=== PATIENT | female | born 1965 | race African-American/Black ===

== ENCOUNTER 2024-03-19 10:40 | Inpatient (IN) | payer MEDICARE, MEDICAID, SELFPAY ==
[2024-03-19] VITALS (16 sets, daily range): BP systolic 110–135; BP diastolic 66–85; PULSE 108–137; RESP 18–33; TEMP 37.1–39.3; O2SAT 88–100; BMI 23.6; BMI 24.6
--- NOTE | ~2024-03-19 | XR_ITS ---
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 FINDINGS/IMPRESSION: New left thoracostomy tube, in good position, with near-complete interval resolution of the left pneu mothorax. Small volume subcutaneous gas over the left hemithorax. Endotracheal tube, left upper extremity PICC, and NG tube remain in good position. Patchy bilateral interstitial and airspace disease. Reviewed, dictated and finalized at location K. INE CUTTER
--- NOTE | ~2024-03-19 | XR_ITS ---
EXAMINATION: XR chest 1V portable DATE: 03/26/2024 06:19 INDICATION: Intubation TECHNIQUE: frontal view of the chest was obtained. COMPARISON: Chest radiograph dated 03/25/2024 FINDINGS: Endotracheal tube tip 3.1 cm above the hans. Nasogastric tube extends below the left hemidiaphragm with distal tip collimated off the study. The visualized distal nasogastric tube projects over sutur e line potentially for gastric bypass procedure in the left upper quadrant. Left upper extremity gregory pherally inserted central venous catheter (PICC) tip at the caudal superior vena cava. Apically directed left chest tube. No pneumothorax or pleural effusion. There are diffuse patchy airs pace opacities throughout both lungs consistent with pneumonia and/or ARDS. The cardiomediastinal chante houette is normal. Heart size is normal. IMPRESSION: 1. Persistent diffuse patchy airspace opacities in both lungs which represent multifocal pneumonia an d/or ARDS. 2. Lines and tubes in expected positions as detailed above. Reviewed, dictated and finalized at location A. ENT ACCOUNTS COORDINATOR IMPRESSION: 1. Persistent diffuse patchy airspace opacities in both lungs which represent m ultifocal pneumonia and/or ARDS. 2. Lines and tubes in expected positions as detailed above.
--- NOTE | ~2024-03-19 | XR_ITS ---
EXAMINATION: XR chest 1V portable DATE: 03/25/2024 05:48 INDICATION: Intubation. TECHNIQUE: A single frontal view of the chest was obtained. COMPARISON: Chest single view 03/24/24, chest CT 03/20/2024 FINDINGS: There are patchy airspace opacities in all lung zones bilaterally. No pleural effusion or p neumothorax. The heart size is normal. The endotracheal tube tip is 3.9 cm above the hans. A left u pper extremity peripherally inserted central venous catheter (PICC) is seen with tip in the superior vena cava. The nasogastric tube tip is in the stomach. IMPRESSION: 1. Stable diffuse lung disease, consistent with pneumonia. Reviewed, dictated and finalized at location A. SERVICE EDUCATOR
--- NOTE | ~2024-03-19 | XR_ITS ---
EXAMINATION: XR chest ET placement, XR abdomen gastric tube insert DATE: 03/22/2024 12:34 INDICATION: Endotracheal tube placement and nasogastric tube placement TECHNIQUE: 1. AP view of the chest was obtained. 2. AP view of the abdomen was obtained. COMPARISON: Chest radiograph dated 03/22/2024 FINDINGS: Endotracheal tube tip 3.3 cm above the hasn. Persistent bilateral patchy airspace opacities, right greater than left consistent with multifocal pneumonia. No pleural effusion or pneumothorax. Heart si ze is normal. Postoperative changes with sutures at the gastroesophageal junction. Nasogastric tube tip in proximal side port in the body of the stomach. There is gas and stool in the visualized colon. IMPRESSION: 1. Endotracheal tube and nasogastric tube in expected positions. 2. Persistent patchy bilateral lung disease consistent with multifocal pneumonia. Reviewed, dictated and finalized at location A. ESSOR OF ARCHITECTURE IMPRESSION: 1. Endotracheal tube and nasogastric tube in expected positions. 2. Persistent patchy bilateral lung disease consistent with multifocal pneumoni a.
--- NOTE | ~2024-03-19 | XR_ITS ---
Portable chest x-ray Comparison: 04/06/2024 Clinical History: Elevated respirations Findings: There is extensive patchy bilateral airspace disease. No pleural effusion or pneumothorax. Cardiomediastinal silhouette is stable. Bones and soft tissues are unremarkable. Impression: Extensive patchy bilateral airspace disease, compatible with worsening bilateral pneumonia. Reviewed, dictated and finalized at [facility]. PLANT MAINTENANCE CONSULTANT Impression: Extensive patchy bilateral airspace disease, compatible with worsening bilatera l pneumonia.
--- NOTE | ~2024-03-19 | XR_ITS ---
Portable chest x-ray Comparison: 03/26/2024 Clinical History: Respiratory failure Findings: Endotracheal tube, NG tube, left-sided PICC line, and left-sided chest tube are in place. Small left apical pneumothorax present, probably mildly increased from prior exam. Patchy bilateral a irspace disease is otherwise unchanged. Cardiomediastinal silhouette is stable. Bones and soft tissu es are unremarkable. Impression: Stable support tubes. Small left apical pneumothorax is more apparent/mildly increased as compared to prior exam. Stable patchy airspace disease throughout both lungs. Reviewed, dictated and finalized at location . L STUD FRAMER Impression: Stable support tubes. Small left apical pneumothorax is more apparent/mildly in creased as compared to prior exam. Stable patchy airspace disease throughout both lungs.
--- NOTE | ~2024-03-19 | XR_ITS ---
EXAMINATION: XR abdomen gastric tube insert DATE: 03/24/2024 13:53 INDICATION: A gastric tube placement TECHNIQUE: A supine view of the abdomen and lower chest was obtained for evaluation of feeding tube placement. COMPARISON: 03/22/2024 FINDINGS: Masslike suture line in the epigastric region. Nasogastric tube tip in proximal side port below the l evel of the gastroesophageal junction and beyond the suture line, unclear whether this is within the stomach or potentially it passes through the stomach into the Armando limb of a possible gastric bypass. Coarse interstitial and airspace opacities in the visualized bilateral mid to lower lungs. Heart siz e is normal. Left upper extremity peripherally inserted central venous catheter tip at the midsuperio r vena cava. IMPRESSION: 1. Nasogastric tube tip in proximal side port below the level of the gastroesophageal junction which could be either within the stomach or a possible Armando limb of a gastric bypass procedure with suture lines in the epigastric region. Correlate with surgical history. 2. Diffuse bilateral lung disease could relate to pulmonary edema or pneumonia. Reviewed, dictated and finalized at location B. COVER SPLITTER IMPRESSION: 1. Nasogastric tube tip in proximal side port below the level of the gastroesop hageal junction which could be either within the stomach or a possible Armando jolly b of a gastric bypass procedure with suture lines in the epigastric region. Cor relate with surgical history. 2. Diffuse bilateral lung disease could relate to pulmonary edema or pneumonia.
--- NOTE | ~2024-03-19 | XR_ITS ---
EXAMINATION: XR chest 1V portable Exam Date/Time: 03/25/2024 16:35 MATERIAL WORKER HISTORY: Increased O2 demand, worsening lung sounds Comparison: Same date at 5:30 AM. FINDINGS/IMPRESSION: Endotracheal tube, left upper extremity PICC, and nasogastric tube remain in good position. Large left pneumothorax with rightward mediastinal shift and volume loss in the right hemithorax. Dif fuse interstitial and airspace opacities bilaterally. Results reported telephonically to Bethany Alex RN by Dr. Wallace at 4:46 PM on 03/25/2024. Reviewed, dictated and finalized at location K. RIAL WORKER
--- NOTE | ~2024-03-19 | XR_ITS ---
Portable chest x-ray Comparison: 03/23/2024 Clinical History: Intubation Findings: Endotracheal tube, NG tube, and left-sided central venous line are in satisfactory positio ns. Extensive bilateral pulmonary disease is again present, right lung worse than left. No pleural ef fusion or pneumothorax. Cardiomediastinal silhouette is stable. Bones and soft tissues are unremarka ble. Impression: Stable extensive bilateral pulmonary disease. Correlate for pulmonary edema versus bilateral infectio n. Stable support tubes. Reviewed, dictated and finalized at [facility]. ER AND WRAPPER PACKER Impression: Stable extensive bilateral pulmonary disease. Correlate for pulmonary edema tamar lonnie bilateral infection. Stable support tubes.
--- NOTE | ~2024-03-19 | CT_ITS ---
EXAMINATION: CTA chest PE protocol DATE: 03/20/2024 23:48 INDICATION: sob, tachycardia TECHNIQUE: Computed tomography angiography (CTA) of the chest was performed with 100 mL Omnipaque-350 intravenous contrast timed to evaluate the pulmonary arteries. Coronal maximum intensity projection 3D-reconstructions were created by the technologist. The dose-length product (DLP) was 167.80 mGy-cm. Automated exposure control and iterative reconstruction technique were employed. COMPARISON: X-ray chest 03/19/2024. FINDINGS: Lung parenchyma and airways: Patchy bilateral consolidations, affecting all lobes, worse in the right lung. Scattered and asymmetric areas of groundglass opacity with septal thickening. Patent airways. Pleura: Unremarkable. Thoracic inlet, axillae and chest wall: Mild chest wall edema. Thoracic aorta: No significant dilation. No dissection. Mediastinum: Enlarged bilateral hilar lymph nodes. Dilated central pulmonary arteries as can be seen with pulmonary arterial hypertension. Heart and pericardium: Cardiomegaly. Coronary artery calcifications: Absent. Upper abdomen: No significant finding. Bones: No acute osseous finding. Pulmonary arteries: Study quality: Limited by motion. Small acute nonocclusive segmental right lower lobe embolus extending into a subsegmental branch. IMPRESSION: Acute nonocclusive segmental right lower lobe embolus. Low clot burden. No CT evidence of right heart strain. Worsening multifocal pneumonia, overlying asymmetric areas of pulmonary edema. Diffuse mild chest wall subcutaneous edema. Reviewed, dictated and finalized at location K. T PANEL ASSEMBLER IMPRESSION: Acute nonocclusive segmental right lower lobe embolus. Low clot burden. No CT e vidence of right heart strain. Worsening multifocal pneumonia, overlying asymmetric areas of pulmonary edema. Diffuse mild chest wall subcutaneous edema.
--- NOTE | ~2024-03-19 | XR_ITS ---
Portable chest x-ray Comparison: 03/22/2024 Clinical History: Intubation Findings: Endotracheal tube, NG tube, and left-sided PICC line are in satisfactory positions. Extens emmanuel bilateral airspace disease is again present. No pleural effusion. Cardiomediastinal silhouette i s stable. Bones and soft tissues are unremarkable. Impression: Extensive bilateral alveolar and interstitial disease. Correlate for extensive pulmonary edema or inf ection. Support tubes, as above. Reviewed, dictated and finalized at location . RIAL EXPEDITER Impression: Extensive bilateral alveolar and interstitial disease. Correlate for extensive pulmonary edema or infection. Support tubes, as above.
--- NOTE | ~2024-03-19 | XR_ITS ---
EXAMINATION: XR chest 1V portable DATE: 03/19/2024 12:13 INDICATION: Fever, seizures and shortness of breath TECHNIQUE: frontal view of the chest was obtained. COMPARISON: None FINDINGS: There are scattered patchy airspace opacities throughout the right lung and left perihilar predominan t opacities in the left lung. No pleural effusion or pneumothorax. The cardiomediastinal silhouette i s normal. Suture line in the epigastric region. IMPRESSION: 1. Bilateral airspace opacities suspicious for pneumonia although some of the opacities appear somewh at nodular and would recommend radiographic follow-up to resolution. Reviewed, dictated and finalized at location A. CAL OFFICE CLERK IMPRESSION: 1. Bilateral airspace opacities suspicious for pneumonia although some of the o pacities appear somewhat nodular and would recommend radiographic follow-up to resolution.
--- NOTE | ~2024-03-19 | CT_ITS ---
History: Fall PROCEDURE: CT head without contrast. COMPARISON: None TECHNIQUE: Axial imaging of the head performed from the skull base to the vertex without IV contrast. Sagittal a nd coronal reformations obtained. DLP: 605 mGy-cm FINDINGS: The ventricles are normal in size, shape and position. There is no mass, mass effect or midline shift. There is no abnormal extra-axial fluid collection or intracranial hemorrhage. Visualized paranasal sinuses are clear. The mastoid air cells are well aerated. No acute displaced fractures within the overlying cranium. Impression: No acute intracranial hemorrhage or suspicious mass effect. Reviewed, dictated and finalized at location A. QUOTING OPERATOR Impression: No acute intracranial hemorrhage or suspicious mass effect.
--- NOTE | ~2024-03-19 | CT_ITS ---
History: Fall PROCEDURE: CT cervical spine without intravenous contrast. COMPARISON: None TECHNIQUE: Multiple contiguous axial images of the cervical spine were performed without the administration of i ntravenous contrast. DLP: 605 mGy-cm FINDINGS: Preservation of the normal curvature of the cervical spine is identified. No acute fractures are present. The bilateral lung apices demonstrate multifocal infiltrates, consistent with recent chest radiograph . No soft tissue abnormality is present. The airway is unremarkable. Impression: Preservation of the normal curvature of the cervical spine. Multifocal infiltrates within the chest. No acute fracture. Reviewed, dictated and finalized at location A. GE CONTROL MANAGER Impression: Preservation of the normal curvature of the cervical spine. Multifocal infiltrates within the chest. No acute fracture.
--- NOTE | ~2024-03-19 | XR_ITS ---
EXAMINATION: XR chest PICC line DATE: 03/22/2024 13:20 INDICATION: Central line placement. TECHNIQUE: A single frontal view of the chest was obtained. COMPARISON: Chest single view 03/22/2024 FINDINGS: There are patchy airspace opacities in all lung zones bilaterally. No pleural effusion or p neumothorax. The heart size is normal. The endotracheal tube tip is 3.0 cm above the hans. A left u pper extremity peripherally inserted central venous catheter (PICC) is seen with tip in the superior vena cava. The nasogastric tube tip is beyond the inferior margin of the radiograph, but at least to the stomach. There is a staple line at the stomach. IMPRESSION: 1. PICC tip in the superior vena cava. 2. Stable diffuse lung disease, consistent with pneumonia. Reviewed, dictated and finalized at location A. GN CHECKER
--- NOTE | 2024-03-19 10:55 | ECG_ITS ---
Test Date: 2024-03-19 10:57:59 Measurements Intervals [place] Rate: 132 P: 72 MN: 119 QRS: 69 QRSD: 84 T: 15 QT: 273 QTc: 405 Interpretive Statements SINUS TACHYCARDIA WITH SHORT [place] INTERVAL BORDERLINE ST-T WAVE ABNORMALITY- INFERIOR LEADS ABNORMAL ECG No previous ECG available for comparison Electronically Signed On 03-19-2024 15:07:43 THERMOMETER MAKER by Danny Ryan D.O.
--- NOTE | 2024-03-19 11:53 | ED.GENADULT ---
HPI - General Adult General Chief complaint: Seizure Stated complaint: SEIZURE Time Seen by Provider: 03/19/24 11:52 Source: patient and EMS Mode of arrival: EMS Limitations: no limitations History of Present Illness HPI narrative: 58 years old female came from home by ambulance because of unwitnessed seizure. Currently patient complaining of shortness of breath and coughing for the last few days. Patient is telling me everybody in the family had similar symptoms. Patient had a seizure last night and unwitnessed 1 today. Patient is supposed to have tele doc visit with her neurologist for seizure evaluate but could not make it. Patient main complaint at this time is shortness of breath History of diabetes hypertension hyperlipidemia asthma bipolar seizure Related Data Home Medications ?Medication ?Instructions ?Recorded ?Confirmed ?Last Taken ?Type albuterol 90 mcg/actuation aerosol 90 mcg inhalation PRN 03/19/24 03/19/24 Unknown History inhaler gabapentin 300 mg capsule 300 mg PO TID 03/19/24 03/19/24 03/18/24 History levetiracetam 1,000 mg tablet 1,000 mg PO BID 03/19/24 03/19/24 03/18/24 History montelukast 10 mg tablet 10 mg PO QPM 03/19/24 03/19/24 03/18/24 History (Singulair) sertraline 150 mg capsule 150 mg PO DAILY 03/19/24 03/19/24 03/18/24 History trazodone 100 mg tablet 200 mg PO QPM 03/19/24 03/19/24 03/18/24 History Allergies Allergy/AdvReac Type Severity Reaction Status Date / Time Sulfa (Sulfonamide Allergy Swelling Verified 03/19/24 12:27 Antibiotics) Review of Systems Review of Systems: All systems reviewed & are unremarkable except as noted in HPI and below PMFSH Past Medical History Medical History (Updated 03/19/24 @ 15:35 by Isa Lara APRN) Neuropathy Panic disorder Agoraphobia Seizures Bipolar disorder Asthma Surgical History Surgical History (Updated 03/19/24 @ 15:35 by Isa Lara APRN) History of appendectomy History of section History of gastric bypass History of cholecystectomy Social History Social History Alcohol intake: never Substance use type: marijuana Other substance usage details: twice a month Do You Feel Safe in your Home?: Yes Lack of Transportation: No Lack of Food: Sometimes True Current Housing: I Do Not Have Housing Concerned About Future Housing: YES Difficulty Paying Gas/Electric Bills: YES Difficulty Paying for Meds: YES Currently Unemployed: No Education: High School Diploma/GED Difficulty w/ Childcare or Family Care: YES Spiritual care concerns: No Exam Narrative: GENERAL APPEARANCE: WELL-DEVELOPED, WELL-NOURISHED SKIN: NORMAL COLOR HEAD: NORMOCEPHALIC, NONTRAUMATIC EYES: CLEAR CONJUNCTIVA ENT: OROPHARYNX NORMAL, EARS NORMAL, NOSE NORMAL NECK: SUPPLE, NONTENDER CHEST AND RESPIRATORY: AIRWAY PATENT, NO RESPIRATORY DISTRESS, NO ACCESSORY MUSCLE USE HEART: REGULAR RATE/RHYTHM ABDOMEN: SOFT, NONTENDER, NO ORGANOMEGALY, QUIET BOWEL SOUNDS VASCULAR: NORMAL PERIPHERAL PULSES, NORMAL CAPILLARY REFILL. MUSCULOSKELETAL: NORMAL RANGE OF MOTION, NONTENDER BACK NEUROLOGIC: ALERT AND ORIENTED ?3, FRUIT PACKER FACE AND FILL IS NORMAL TESTED, NO GROSS MOTOR DEFICIT Course Vital Signs Vital signs: Vital Signs Temperature 39.3 C H 03/19/24 10:46 Pulse Rate 133 H 03/19/24 10:46 Respiratory Rate 30 H 03/19/24 10:46 Blood Pressure 125/81 03/19/24 10:46 Pulse Oximetry 95 03/19/24 10:46 Oxygen Delivery Room Air 03/19/24 10:46 Temperature 39.3 C H 03/19/24 10:46 Pulse Rate 130 H 03/19/24 13:27 Respiratory Rate 20 03/19/24 13:27 Blood Pressure 129/78 03/19/24 13:27 Pulse Oximetry 100 03/19/24 14:07 Oxygen Delivery Room Air 03/19/24 14:07 Medical Decision Making [facility] Narrative Medical decision making narrative: PATIENT CAME TO THE ED FROM HOME WITH SEIZURE ALSO BEEN HAVING UPPER RESPIRATORY VIRAL INFECTION/PNEUMONIA LIKE SYMPTOMS OVER THE LAST FEW DAYS VITAL SIGNS SHOWING HEART RATE OF 133, RESPIRATION 30, TEMPERATURE 39.3?, SATURATION 95% ON ROOM AIR. PHYSICAL EXAMINATION SHOWING PATIENT WITH INTERMITTENT COUGHING AND RHONCHI BILATERALLY OTHERWISE AWAKE, ALERT ORIENTED X4 DIFFERENTIAL DIAGNOSIS INCLUDE UPPER RESPIRATORY VIRAL INFECTION, PNEUMONIA, ELECTROLYTE IMBALANCE, DEHYDRATION, NONCOMPLIANCE WITH SEIZURE MEDICATION, URINARY TRACT INFECTION BLOOD WORKUP TODAY INCLUDES CBC, CMP, PT PTT, BLOOD CULTURE, LACTIC ACID AND CRP SHOWED SODIUM 133, RHONCHI PHOSPHATASE 182, C-REACTIVE PROTEIN 27.5, RESPIRATORY PANEL CAME BACK POSITIVE FOR INFLUENZA 8 CT HEAD, CT CERVICAL SPINE, WITHOUT CONTRAST SHOWED NO ACUTE ABNORMALITIES CHEST X-RAY SHOWED FINDING CONSISTENT WITH PNEUMONIA. PATIENT HAD HISTORY OF ASTHMA, BACTERIAL PNEUMONIA PROBABLY STARTED 5 DAYS AGO, INFLUENZA INFECTION PROBABLY RECENTLY ON TOP OF THE BACTERIAL PNEUMONIA. PATIENT TO BE ADMITTED TO THE HOSPITALIST FOR IV ANTIBIOTIC, FEVER CONTROL AND SEIZURE MONITORING Differential Diagnosis Differential Diagnosis: ABOVE Vital Signs Vital Signs: Vital Signs Temperature 39.3 C H 03/19/24 10:46 Pulse Rate 133 H 03/19/24 10:46 Respiratory Rate 30 H 03/19/24 10:46 Blood Pressure 125/81 03/19/24 10:46 Pulse Oximetry 95 03/19/24 10:46 Oxygen Delivery Room Air 03/19/24 10:46 Temperature 39.3 C H 03/19/24 10:46 Pulse Rate 130 H 03/19/24 13:27 Respiratory Rate 20 03/19/24 13:27 Blood Pressure 129/78 03/19/24 13:27 Pulse Oximetry 100 03/19/24 14:07 Oxygen Delivery Room Air 03/19/24 14:07 Lab Data 03/19/24 12:17 03/19/24 12:17 Labs: Lab Results 03/19/24 03/19/24 Range/Units 12:17 12:37 WBC 9.0 (4.5-10.0) K/mm3 RBC 5.15 (4.2-5.4) M/mm3 Hgb 14.2 (12.0-15.0) g/dL Hct 40.7 (37.0-47.0) % MCV 79.0 L (80-100) fl MCH 27.6 (26-34) pg MCHC 34.9 (32-36) g/dl RDW 13.9 (11.5-14.5) % Plt Count 170 (150-375) k/mm3 MPV 10.1 (7.4-10.4) fl Immature Gran % (Auto) 1.2 H (0-0.5) % Neut % (Auto) 80.7 H (45.5-73.1) % Lymph % (Auto) 7.2 L (18.3-44.2) % Cotton % (Auto) 8.7 H (2.6-8.5) % Eos % (Auto) 1.2 (0-4.4) % Baso % (Auto) 1.0 (0.2-1.2) % Lymph # (Auto) 0.65 L (0.9-3.2) K/mm3 Cotton # (Auto) 0.8 H (0.1-0.6) K/mm3 Eos # (Auto) 0.1 (0-0.3) K/mm3 Baso # (Auto) 0.1 (0.0-0.1) K/mm3 Abs Immat Gran (auto) 0.11 H (0.00-0.031) K/mm3 Absolute Neuts (auto) 7.3 H (1.3-6.7) K/mm3 Absolute Nucleated RBC 0.000 (0.0-0.012) K/mm3 Nucleated RBC % 0.0 (0.0-0.2) % PT 13.7 (11.1-14.7) Seconds INR 1.0 APTT 35.6 (22.3-36.8) Seconds Sodium 131 L (137-145) mmol/L Potassium 4.0 (3.4-5.0) mmol/L Chloride 100 (98-107) mmol/L Carbon Dioxide 20 L (22-30) mmol/L Anion Gap 11 (4-12) mmol/L BUN 11 (7-17) mg/dL Creatinine 0.45 L (0.7-1.0) mg/dL Estim Creat Clear Calc 87 ml/min Estimated GFR > 60 (59 - ) Glucose 111 H (65-110) mg/dL Lactic Acid 1.1 (0.7-2.0) mmol/L Calcium 8.4 (8.4-10.2) mg/dL Total Bilirubin 0.9 (0.2-1.3) mg/dL AST 44 H (14-36) U/L ALT 35 (6-35) U/L Alkaline Phosphatase 182 H (38-126) U/L C-Reactive Protein 27.5 H (<1.0) mg/dL Total Protein 7.0 (6.3-8.2) g/dL Albumin 3.5 (3.5-5.1) g/dL Influenza A (RT-PCR) Positive A (Negative) Influenza B (RT-PCR) Negative (Negative) RSV (RT-PCR) Negative (Negative) SARS-CoV-2 RNA (RT-PCR) Negative (Negative) Imaging Data Radiologist's impression: Impressions Chest X-Ray 03/19/24 12:51 IMPRESSION: 1. Bilateral airspace opacities suspicious for pneumonia although some of the opacities appear somewhat nodular and would recommend radiographic follow-up to resolution. Head CT 03/19/24 13:41 Impression: No acute intracranial hemorrhage or suspicious mass effect. Cervical Spine CT 03/19/24 13:42 Impression: Preservation of the normal curvature of the cervical spine. Multifocal infiltrates within the chest. No acute fracture. ECG Data EKG #1: Attestation: I personally reviewed and interpreted this ECG as follows: ECG completion date: 03/19/24 Ischemic changes: poor r wave progression Interpretation: SINUS TACHYCARDIA AT 132 BEATS PER MINUTE WITH SHORT DE INTERVAL, NORMAL EKG, NO PREVIOUS EKG AVAILABLE FOR COMPARISON Discharge Plan Discharge Clinical Impression: Pneumonia, Influenza A Patient Disposition: Still a Patient Condition: Stable Patient Language: Nigerian Prescriptions: No Action sertraline 150 mg capsule 150 mg PO DAILY montelukast [Singulair] 10 mg tablet 10 mg PO QPM gabapentin 300 mg capsule 300 mg PO TID trazodone 100 mg tablet 200 mg PO QPM levetiracetam 1,000 mg tablet 1,000 mg PO BID albuterol 90 mcg/actuation aerosol 90 mcg inhalation PRN Follow-up/Referrals: PHYSICIAN,PIPE BOWL PAINT TRIMMER [Primary Care Provider] -
--- NOTE | 2024-03-19 12:00 | PC.NURSE ---
Pt states she does not need to urinate and pt refusing straight cath
--- OUTSIDE RECORDS SUMMARY | 2024-03-19 12:07 | XMS_ITS | Encounter Summary ---
Author Organization [facility] Address [address] [place] [address] Care Team Providers Care Bacteriology Research Assistant Name Role Phone Shantell Islas DO Primary Care Provider Unavaila ble Reason for Visit * Reason Comments Medication Assistance Encounter Details Date Type Department Care Team (Late st Contact Info) Description 10/04/2023 Telephone [facility] [address] [facility] [address] [place] [address] Shantell Islas DO NO ADDRESS ON FILE Medication Assistance Social History Tobacco Use Types Packs/Day Years Used Date Smoking Tobacco: Never Smokeless Tobacco: Never Alcohol Use Standard Drinks/Week Comments No 0 (1 standard drink = 0.6 oz pur e alcohol) Feeling Safe Answer Date Recorded Are you in a relationship wi th someone who hurts you emotionally and/or physically? 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 Please see orders from this encounter. JLK Orders Placed This Encounter albuterol (PROVENTIL,VENTOLIN) 2.5 mg /3 mL (0.083 %) Solution for Nebulization * Telephone Encounter - Grace Damico - 10/06/2023 10:21 AM CDT Nebulizer solution [place] 07/20/2023 Labs N/A Appointment not scheduled. I do not see this on the patient's mediation list. Please advise. Thank you. * Telephone Encounter - Taty Wylie - 10/04/2023 12:45 PM CDT Copied from [facility] #[id number]. Topic: Medication Request >> Oct 04, 2023 12:42 PM Taty Neves wrote: Caller is requesting: Medication - New Request (Not Currently Taking) Medication (Ask patient/caregiver to spell if possible): Nebulizer solution Preferred Pharmacy: [id number] [place], [place] - [address] [place] [address] AT [facility] [address] [place] [phone] Hours: Not open 24 hours Patient/Caregiver Callback Number: [phone] (home) Call Notes: nebulizer getting delivered this week. Needs solution prescribed. documented in this encounter Plan of Treatment Not on file documented as of this encounter Visit Diagnoses Diagnosis Mild intermittent asthma without complication- Primary Unspecified asthma documented in this encounter Additional Health Concerns Infection Onset Date Last Indicated Resolved Time R/O Respiratory 12/04/2023 12/04/2023 12/04/2023 5 :40 PM CDT RHINO/ENTEROVIRUS (Adult) 12/04/2023 12/04/2023 1:16 AM CDT R/O Respiratory 12/18/2023 12/18/2023 12/18/2023 9 :16 PM CDT Assessment Noted Time PHQ-9 Depression Total Score: 4 06/25/19 24 4:06 PM CDT documented as of this encounter Care Teams Bacteriology Research Assistant Relationship Specialty Start Date End Date Shantell Islas DO PCP - General Family Practice 07/20/23 documented as of this encounter
--- OUTSIDE RECORDS SUMMARY | 2024-03-19 12:07 | XMS_ITS | Encounter Summary ---
Author Organization [facility] Address [address] [place] [address] Care Team Providers Care Parking Regulation Enforcement Officer Name Role Phone Shantell Islas DO Primary Care Provider Unavaila ble Reason for Visit * Reason Comments Medication Refill Encounter Details Date Type Department Care Team (Late st Contact Info) Description 02/08/2019 Refill [facility] - [facility] [id number] [facility] [address] [place] [address] Radha Nuñez, CRACKING UNIT OPERATOR [address] [facility] [address] [place] [address] Social History Tobacco Use Types Packs/Day Years Used Date Smoking Tobacco: Never Smokeless Tobacco: Never Alcohol Use Standard Drinks/Week Comments No 0 (1 standard drink = 0.6 oz pur e alcohol) Comments No Sex and Gender Information Value Date Recorded Sex Assigned at Not on file Legal Sex Female 6:07 AM BRIM CURLER Gender Identity Not on file Sexual Orientation Not on file Occupation Industry Job Start Date Job End Date Not on file Not on file Not on file Not on file documented as of this encounter Miscellaneous Notes * Telephone Encounter - Iva Mckeon - 02/09/2019 8:10 AM CST Last Office Visit: 05/09/2018 Next Office Visit: 03/14/2019 Last Ordered: 01/16/2019 #30 with no refills CURLER documented in this encounter Plan of Treatment Not on file documented as of this encounter Visit Diagnoses Not on filedocumented in this encounter Additional Health Concerns Infection Onset Date Last Indicated Resolved Time R/O Respiratory 12/04/2023 12/04/2023 12/04/2023 5 :40 PM CDT RHINO/ENTEROVIRUS (Adult) 12/04/2023 12/04/2023 1:16 AM CDT R/O Respiratory 12/18/2023 12/18/2023 12/18/2023 9 :16 PM CDT documented as of this encounter Care Teams Parking Regulation Enforcement Officer Relationship Specialty Start Date End Date Shantell Islas DO PCP - General Family Practice 07/20/23 documented as of this encounter
--- OUTSIDE RECORDS SUMMARY | 2024-03-19 12:07 | XMS_ITS | Encounter Summary ---
Author Organization [facility] Address [address] [place] [address] Care Team Providers Care Drawing In Hand Name Role Phone Shantell Islas DO Primary Care Provider Unavaila ble Reason for Visit * Reason Comments Medication Refill Encounter Details Date Type Department Care Team (Late st Contact Info) Description 10/22/[address] [place] [address] Ted Boyd MD [address] [place] [phone] Social History Tobacco Use Types Packs/Day Years Used Date Smoking Tobacco: Never Smokeless Tobacco: Never Alcohol Use Standard Drinks/Week Comments No 0 (1 standard drink = 0.6 oz pur e alcohol) Comments No Sex and Gender Information Value Date Recorded Sex Assigned at Not on file Legal Sex Female 6:07 AM LAW CLERK Gender Identity Not on file Sexual Orientation Not on file Occupation Industry Job Start Date Job End Date Not on file Not on file Not on file Not on file documented as of this encounter Plan of Treatment Not on file documented as of this encounter Visit Diagnoses Not on filedocumented in this encounter Additional Health Concerns Infection Onset Date Last Indicated Resolved Time R/O Respiratory 12/04/2023 12/04/2023 12/04/2023 5 :40 PM CDT RHINO/ENTEROVIRUS (Adult) 12/04/2023 12/04/2023 1:16 AM CDT R/O Respiratory 12/18/2023 12/18/2023 12/18/2023 9 :16 PM CDT documented as of this encounter Care Teams Drawing In Hand Relationship Specialty Start Date End Date Shantell Islas DO PCP - General Family Practice 07/20/23 documented as of this encounter
--- OUTSIDE RECORDS SUMMARY | 2024-03-19 12:07 | XMS_ITS | Encounter Summary ---
Author Organization [facility] Address [address] [place] [address] Care Team Providers Care Furniture Lumber Production Worker Name Role Phone Shantell Islas DO Primary Care Provider Unavaila ble Reason for Visit * Reason Comments Information Encounter Details Date Type Department Care Team (Late st Contact Info) Description 02/04/2024 Telephone [facility] Medicine [place] [address] [facility] [address] [place] [address] Shantell Islas DO NO ADDRESS ON FILE Information Social History Tobacco Use Types Packs/Day Years Used Date Smoking Tobacco: Every Day Cigarettes Smokeless Tobacco: Never Alcohol Use Standard Drinks/Week Comments No 0 (1 standard drink = 0.6 oz pur e alcohol) Feeling Safe Answer Date Recorded Are you in a relationship wi th someone who hurts you emotionally and/or physically? No 12/18/2023 Comments No Sex and Gender Information Value Date Recorded Sex Assigned at Not on file Legal Sex Female 6:07 AM HEEL SANDER RUBBER Gender Identity Not on file Sexual Orientation Not on file Occupation Industry Job Start Date Job End Date Not on file Not on file Not on file Not on file documented as of this encounter Miscellaneous Notes * Telephone Encounter - Shantell Islas DO - 02/07/2024 12:03 PM CST Yes, unfortunately she missed several appts with them. SANDER RUBBER * Telephone Encounter - Danika Rai - 02/04/2024 4:31 PM CST Copied from [facility] #[id number]. Topic: Patient or Caregiver Communication Request >> Feb 04, 2024 4:30 PM Danika Moncada wrote: Patient or Caregiver requesting that a message be sent to Care Team Caller: Danita Shankarantonydonavan Kingsley Patient/Caregiver Callback Number: [phone] (work) Call Notes: Patient states can you please let them know pulmonary cannot see me until 06/2024 SANDER RUBBER documented in this encounter Plan of Treatment Not on file documented as of this encounter Visit Diagnoses Not on filedocumented in this encounter Additional Health Concerns Assessment Noted Time PHQ-9 Depression Total Score: 4 06/25/19 24 4:06 PM CDT documented as of this encounter Care Teams Furniture Lumber Production Worker Relationship Specialty Start Date End Date Shantell Islas DO PCP - General Family Practice 07/20/23 documented as of this encounter
--- OUTSIDE RECORDS SUMMARY | 2024-03-19 12:07 | XMS_ITS | Encounter Summary ---
Author Organization [facility] Address [address] [place] [address] Care Team Providers Care Weigher And Crusher Name Role Phone Shantell Islas DO Primary Care Provider Unavaila ble Reason for Visit * Reason Comments Medication Assistance Information Encounter Details Date Type Department Care Team (Late st Contact Info) Description 02/02/2024 Telephone [facility] [address] [facility] [address] [place] [address] Shantell Islas DO NO ADDRESS ON FILE Medication Assistance; Information Social History Tobacco Use Types Packs/Day [...] on file Legal Sex Female 6:07 AM AUTOMOTIVE SOFTWARE ENGINEER Gender Identity Not on file Sexual Orientation Not on file Occupation Industry Job Start Date Job End Date Not on file Not on file Not on file Not on file documented as of this encounter Miscellaneous Notes * Telephone Encounter - Shantell Islas DO - 02/03/2024 12:46 PM CST Resent Rx for prednisone 40 mg x 5 days per pt request. MOTIVE SOFTWARE ENGINEER * Telephone Encounter - Denise Graham LPN - 02/03/2024 8:40 AM CST Message is to refill all medications Which medications would you like to refill? She was last seen for a asthma exacerbation with Rx for that All other medications are from historical providers Please advise thx MOTIVE SOFTWARE ENGINEER * Telephone Encounter - Archana Mason - 02/02/2024 4:19 PM CST Copied from [facility] #[id number]. Topic: Patient or Caregiver Communication Request >> Feb 02, 2024 4:18 PM Archana Chavez wrote: Patient or Caregiver requesting that a message be sent to Care Team Caller: Danita Wynn Patient/Caregiver Callback Number: Telephone Information: Call Notes: Danita is requesting all medications be sent to [id number] [place] [address] [facility] [place]. MOTIVE SOFTWARE ENGINEER * Telephone Encounter - Archana Mason - 02/02/2024 4:16 PM CST Copied from [facility] #[id number]. Topic: Patient or Caregiver Communication Request >> Feb 02, 2024 4:15 PM Archana Chavez wrote: Patient or Caregiver requesting that a message be sent to Care Team Caller: Danita Wynn Patient/Caregiver Callback Number: Telephone Information: Call Notes: Danita states [facility] hasn't receive the scription's that were sent on yesterday. Please advise MOTIVE SOFTWARE ENGINEER documented in this encounter Plan of Treatment Not on file documented as of this encounter Visit Diagnoses Not on filedocumented in this encounter Additional Health Concerns Assessment Noted Time PHQ-9 Depression Total Score: 4 06/25/19 24 4:06 PM CDT documented as of this encounter Care Teams Weigher And Crusher Relationship Specialty Start Date End Date Shantell Islas DO PCP - General Family Practice 07/20/23 documented as of this encounter
--- OUTSIDE RECORDS SUMMARY | 2024-03-19 12:07 | XMS_ITS | Encounter Summary ---
Author Organization [facility] Address [address] [place] [address] Care Team Providers Care County Attorney Name Role Phone Shantell Islas DO Primary Care Provider Unavaila ble Reason for Visit * Reason Comments Medication Assistance Encounter Details Date Type Department Care Team (Late st Contact Info) Description 09/29/2023 Telephone [facility] [address] [facility] [address] [place] [address] Shantell Islas DO NO ADDRESS [...] on file Legal Sex Female 6:07 AM TRAP OPERATOR Gender Identity Not on file Sexual Orientation Not on file Occupation Industry Job Start Date Job End Date Not on file Not on file Not on file Not on file documented as of this encounter Miscellaneous Notes * Telephone Encounter - Ramy Nancy - 09/29/2023 9:38 AM CDT Copied from [facility] #[id number]. Topic: Medication Request >> Sep 29, 2023 9:36 AM Nancy Niño wrote: Caller is requesting: Medication - New Request (Not Currently Taking) Medication (Ask patient/caregiver to spell if possible): Albuterol Preferred Pharmacy: [facility] #[id number] - [place], [place] - [address] [facility] [address] Patient/Caregiver Callback Number: Telephone Information: Call Notes: The insurance company is sending a nebulizer out to the patient. The patient is asking Dr. Islas to order Albuterol for her nebulizer. documented in this encounter Plan of Treatment [...] Time PHQ-9 Depression Total Score: 4 06/25/19 4:06 PM CDT documented as of this encounter Care Teams County Attorney Relationship Specialty Start Date End Date Shantell Islas DO PCP - General Family Practice 07/20/23 documented as of this encounter
--- OUTSIDE RECORDS SUMMARY | 2024-03-19 12:07 | XMS_ITS | Encounter Summary ---
Author Organization [facility] Address [address] [place] [address] Care Team Providers Care Valet Manager Name Role Phone Shantell Islas DO Primary Care Provider Unavaila ble Reason for Visit * Reason Comments Medication Refill Encounter Details Date Type Department Care Team (Late st Contact Info) Description 01/04/[address] [place] [address] Ted Boyd MD [address] [place] [phone] Social History Tobacco Use Types Packs/Day Years Used Date Smoking Tobacco: Never Smokeless Tobacco: Never Alcohol Use Standard Drinks/Week Comments No 0 (1 standard drink = 0.6 oz pur e alcohol) Comments No Sex and Gender Information Value Date Recorded Sex Assigned at Not on file Legal Sex Female 6:07 AM EPIC RADIANT ANALYST Gender Identity Not on file Sexual Orientation [...] documented as of this encounter Care Teams Valet Manager Relationship Specialty Start Date End Date Shantell Islas DO PCP - General Family Practice 07/20/23 documented as of this encounter
--- OUTSIDE RECORDS SUMMARY | 2024-03-19 12:07 | XMS_ITS | Encounter Summary ---
Author Organization [facility] Address [address] [place] [address] Care Team Providers Care Channel Supervisor Name Role Phone Shantell Islas DO Primary Care Provider Unavaila ble Reason for Visit * Reason Comments Medication Refill Encounter Details Date Type Department Care Team (Late st Contact Info) Description 06/01/[address] [place] [address] Ted Boyd MD [address] [place] [phone] Social History Tobacco Use Types Packs/Day Years Used Date Smoking Tobacco: Never Smokeless Tobacco: Never Alcohol Use Standard Drinks/Week Comments No 0 (1 standard drink = 0.6 oz pur e alcohol) Comments No Sex and Gender Information Value Date Recorded Sex Assigned at Not on file 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
--- OUTSIDE RECORDS SUMMARY | 2024-03-19 12:07 | XMS_ITS | Encounter Summary ---
Author Organization [facility] Address [address] [place] [address] Care Team Providers Care Child Support Officer Name Role Phone Shantell Islas DO Primary Care Provider Chip jacques Encounter Details Date Type Department Care Team (Late st Contact Info) Description 01/04/2017 Telephone [place] [id number] [facility] [address] [place] [address] Ted Boyd MD [address] [place] [phone] Social History Tobacco Use Types Packs/Day Years Used Date Smoking Tobacco: Never Smokeless Tobacco: Never Alcohol Use Standard Drinks/Week Comments No 0 (1 standard drink = 0.6 oz pur e alcohol) Comments No Sex and Gender Information Value Date Recorded Sex Assigned at Not on file 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
--- OUTSIDE RECORDS SUMMARY | 2024-03-19 12:07 | XMS_ITS | Encounter Summary ---
Author Organization [facility] Address [address] [place] [address] Care Team Providers Care Campaign Advisor Name Role Phone Shantell Islas DO Primary Care Provider Unavaila ble Reason for Visit * Reason Comments Medication Refill Encounter Details Date Type Department Care Team (Late st Contact Info) Description 02/21/2015 Refill [facility] [address] 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
--- OUTSIDE RECORDS SUMMARY | 2024-03-19 12:07 | XMS_ITS | Encounter Summary ---
Author Organization [facility] Address 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 No answer. No voicemail or answering machine. Will continue to try to contact. If patient/caregiver calls back, contact center please inform caller of info below: Prescription for Valtrex sent to patient's pharmacy. Please have her hold on taking tizanidine while taking Valtrex. Tg GREENBERG * Telephone Encounter - Donato Allen MD - 11/10/2023 4:45 PM CDT Prescription for Valtrex sent to patient's pharmacy. Please have her hold on taking tizanidine while taking Valtrex. * Telephone Encounter - Toma Robles - 11/10/2023 12:44 PM CDT Copied from [facility] #[id number]. Topic: Patient or Caregiver Communication Request >> Nov 10, 2023 12:40 PM Toma Niño wrote: Patient or Caregiver insisting that a message be sent to Care Team Caller: Danita Wynn Patient/Caregiver Callback Number: [phone] (home) [phone] (work) Call Notes:Danita Wynn called because she states that she has 4 canker sores in her month she is asking for some thing to be sent to [facility] [facility] #[id number] [facility] [address] [facility] and she also is going to need diflucar as well documented in this encounter Plan of Treatment [...] documented as of this encounter Care Teams Batch Plant Operator Relationship Specialty Start Date End Date Shantell Islas DO PCP - General Family Practice 07/20/23 documented as of this encounter
--- OUTSIDE RECORDS SUMMARY | 2024-03-19 12:07 | XMS_ITS | Clinical Summary ---
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 Active CHOLECALCIFEROL, VITAMIN D3, (VITAMIN D-3 ORAL) Take by mouth daily. Active OMEGA-3 FATTY ACIDS (FISH OIL ORAL) Take by mouth. Activ e VITAMIN B COMPLEX (B COMPLEX ORAL) Take by mouth. Active ASCORBIC ACID (VITAMIN C ORAL) Take by mouth. Active estradiol (ESTRACE) 0.01% (0.1 mg/g) vaginal cream Insert 1 Gram vaginally. 6 Active Docosahexanoic Acid-Eicosapent 120-180 mg Capsule Take 1,000 mg by mouth. Active propranoloL (INDERAL) 20 mg tablet TK 1 T PO QHS 0 Active traZODone (DESYREL) 100 mg tablet Take 100 mg by mouth daily at bedtime. 1 Active Vimpat 200 mg tablet TAKE 1 TABLET BY MOUTH TWICE DAILY 1 Active levETIRAcetam (KEPPRA) 1,000 mg tablet TAKE 2 TABLETS BY MOUTH TWICE DAILY 1 Active Synthroid 100 mcg tablet Take 100 mcg by mouth daily. 1 Active LORazepam (ATIVAN) 1 mg tablet Take 1 mg by mouth. Active QUEtiapine (SEROquel) 300 mg tablet Take 600 mg by mouth daily at bedtime. 400 mg 1 Active tiZANidine (ZANAFLEX) 2 mg Tablet Take 2 mg by mouth every 8 hours as needed. Active sertraline (ZOLOFT) 100 mg tablet Take 100 mg by mouth daily. Active doxepin (SINEquan) 50 mg capsule Take 50 mg by mouth 2 times daily. Active gabapentin (NEURONTIN) 100 mg capsule Take 100 mg by mouth 2 times daily. Active ferrous sulfate (SLOW RELEASE IRON) 142 mg (45 mg iron) Tablet Sustained Release Take 142 mg by mouth. Active loratadine (CLARITIN) 10 mg tabletIndications :Seasonal allergic rhinitis due to other allergic trigger Take 1 Tablet (10 mg) by mouth daily. 90 Tablet 3 4 Active fluticasone propionate (FLONASE) 50 mcg/spray [place], Suspension nasal inhalerIndication s:Seasonal allergic rhinitis due to other allergic trigger Administer 2 Sprays in each nostril daily. 16 Gram 3 4 Active diphenhydrAMINE (BENADRYL) 25 mg capsuleIndication s:Seasonal allergic rhinitis due to other allergic trigger Take 1 Capsule (25 mg) by mouth nightly as needed for Allergies or Insomnia. 90 Capsule 3 4 Active albuterol (PROVENTIL,VENTOL IN) 2.5 mg /3 mL (0.083 %) Solution for NebulizationIndic ations:Mild intermittent asthma without complication Take 3 mL (2.5 mg) by inhalation every 6 hours as needed for Shortness of Breath. 90 mL 3 4 Active montelukast (SINGULAIR) 10 mg tabletIndications :Moderate asthma with acute exacerbation, unspecified whether persistent,Season al allergic rhinitis due to other allergic trigger TAKE 1 TABLET(10 MG) BY MOUTH DAILY AT BEDTIME 100 Tablet 3 4 Active valACYclovir (VALTREX) 1 gram tablet TAKE 1 TABLET(1 GRAM) BY MOUTH DAILY FOR 5 DAYS 5 Tablet 4 Active fluticasone propion-salmetero L (ADVAIR HFA) 230-21 mcg/actuation HFA Aerosol InhalerIndication s:Moderate asthma with exacerbation, unspecified whether persistent Take 2 Puffs by inhalation every 12 hours. 12 Gram 3 4 Active albuterol sulfate HFA 90 mcg/actuation aerosol inhalerIndication s:Moderate asthma with exacerbation, unspecified whether persistent Take 2 Puffs by inhalation every 6 hours as needed for Wheezing or cough. 8.5 Gram 1 4 Active Active Problems Problem Noted Date Diagnosed Date ERRONEOUS ENCOUNTER--DISREGARD 09/24/2023 Bipolar disorder, current episode mixed, mild Chronic migraine without aura 06/02/2011 Seizure disorder 04/28/2011 Head injury 04/28/2011 Seasonal allergic rhinitis 04/28/2011 Overview (02/07/2016): Having nasal congestion and some blood clots when blowing nose. Assessment & Plan (02/07/2016 11:54 AM CAREER DEVELOPMENT COORDINATOR/TEACHER): Assessment: Seasonal Allergic Rhinitis - uncontrolled Mild intermittent asthma 04/28/2011 Overview (02/07/2016): The patient is here for asthma exacerbation x 6 weeks. Symptoms began 2 weeks before . Prior to that, she was doing well. In the past 4 weeks, 6 days per weeks she has had asthma symptoms In the past 4 weeks, she has had to use her rescue inhaler 5 -6 Days per week. In the past 4 weeks, she has had 2-3 nights per weeks, she has nighttime symtpoms. In the past year, she has had 0 ED visits for her asthma. Over her lifetime, she has been hospitalized many times for her asthma, the last time being more than 20 years ago. Pt's insurance will not pay for Ventolin which was working well in the past. Symptoms worsened when she was changed to ProAir. Assessment & Plan (02/13/2016 1:18 PM CAREER DEVELOPMENT COORDINATOR/TEACHER): Assessments: Asthma, uncontrolled Plan: Add maintenance medication Resolved Problems Problem Noted Date Diagnosed Date Resolved Date Rebound headache 06/02/2011 06/25/2023 Major depression 04/28/2011 06/25/2023 Situational mixed anxiety an d depressive disorder 04/28/2011 07/09/2023 Bipolar I disorder, most rec ent episode (or current) unspecified 04/28/2011 06/25/2023 Encounters Date Type Department Care Team Description 03/14/2024 External Device Data [facility] Provider, Abstract 03/14/2024 External Device Data [facility] Provider, Abstract 03/08/2024 External Device Data [facility] Provider, Abstract 03/08/2024 External Device Data [facility] Provider, Abstract 02/15/2024 External Device Data [facility] Provider, Abstract 02/04/2024 [facility]phone [facility] [address] [place] [id number] Shantell Islas DO Information 02/03/2024 Refill [facility] [address] [place] [address] Shantell Islas DO Moderate asthma with exacerbation, unspecified whether persistent 02/02/2024 Telephone [facility] [address] [place] [address] Shantell Islas DO Medication Assistance; Information 02/02/2024 Refill [facility] [address] [place] [address] Shantell Islas DO 02/01/2024 9:30 AM CAREER DEVELOPMENT COORDINATOR/TEACHER Office Visit [facility] [address] [place] [address] Shantell Islas DO Moderate asthma with exacerbation, unspecified whether persistent (Primary Dx); Cough, unspecified type 02/01/2024 Telephone [facility] [address] [place] [address] Shantell Islas DO Question; Medication Refill 02/01/2024 Telephone [facility] [address] [place] [address] Shantell Islas DO Results 01/30/2024 Refill [facility] [address] [place] [address] Donato Allen MD 01/25/2024 External Device Data [facility] Provider, Abstract 01/24/2024 1:00 PM CAREER DEVELOPMENT COORDINATOR/TEACHER Office Visit [facility] [address] [facility] [address] [place] [address] Carolyn Luna, PROGRAM PROJECT MANAGER Ventral hernia without obstruction or gangrene (Primary Dx) 01/20/2024 Telephone [facility] [address] [place] [address] Shantell Chang MD Results 01/12/2024 Telephone [facility] [address] [facility] [address] [place] [address] Shantell Islas DO missed appointment/resched ule 01/10/2024 Telephone [facility] [address] [facility] [address] [place] [address] Shantell Islas DO Medication Refill; Patient Communication; Information 01/03/2024 Refill [facility] [address] [facility] [address] [place] [address] Shantell Islas DO Moderate asthma with acute exacerbation, unspecified whether persistent; Seasonal allergic rhinitis due to other allergic trigger 12/28/2023 Refill [facility] [address] [facility] [address] [place] [address] Shantell Islas DO Mild intermittent asthma without complication 12/22/2023 Telephone [facility] [address] [facility] [address] [place] [address] Shantell Islas DO Medication Refill 12/22/2023 Telephone [facility] [address] [address] Shantell Islas DO Clinical Consult Before Scheduling 12/18/2023 7:47 PM CDT - 12/18/2023 11:32 PM CDT Emergency [facility] Emergency Department [address] [place] [address] Meri Chang MD Exacerbation of asthma, unspecified asthma severity, unspecified whether persistent (Primary Dx) Discharge Disposition: Home or Self Care from Last 3 Months Immunizations Immunization Administration Dates Next Due (ADACEL/BOOSTRIX)(10 YR UP) TDAP VACCINE, 0.5ML, IM 11/21/2019,12/06/2009 (SHINGRIX)(50 YRS UP) ZOSTER VACCINE RECOMBINANT, 0.5 ML, IM 12/14/2019 INFLUENZA VACCINE QUADRIVALENT 6 MOS UP PF IM ,11/25/2017 Family History * Patient is adopted Medical History Relation Name Comments Healthy Daughter Healthy Son Breast Cancer Neg Hx Patient's fami ly history is unknown; patient was adopted. Ovarian Cancer Neg Hx Patient's fam isadora history is unknown; patient was adopted Relation Name Status Comments Daughter Alive Father Alive Mother Alive Son Alive Social History Tobacco Use Types Packs/Day Years Used Date Smoking Tobacco: Every Day Cigarettes Smokeless Tobacco: Never Tobacco Cessation:Ready to Q uit: No; Counseling Given: Yes Alcohol Use Standard Drinks/Week Comments No 0 (1 standard drink = 0.6 oz pur e alcohol) Feeling Safe Answer Date Recorded Are you in a relationship wi th someone who hurts you emotionally and/or physically? No 12/18/2023 Comments No Sex and Gender Information Value Date Recorded Sex Assigned at Not on file Legal Sex Female 6:07 AM CAREER DEVELOPMENT COORDINATOR/TEACHER Gender Identity Not on file Sexual Orientation Not on file Occupation Industry Job Start Date Job End Date Not on file Not on file Not on file Not on file Last Filed Vital Signs Vital Sign Reading Time Taken Comments Blood Pressure 140/84 02/01/2024 10:39 AM CAREER DEVELOPMENT COORDINATOR/TEACHER Pulse 80 02/01/2024 9:09 AM CAREER DEVELOPMENT COORDINATOR/TEACHER Temperature 36.4 ??C (97.6 ??F) 02/01/2024 9:09 AM CS T Respiratory Rate 18 01/24/2024 12:06 PM CAREER DEVELOPMENT COORDINATOR/TEACHER Oxygen Saturation 99% 02/01/2024 9:09 AM CAREER DEVELOPMENT COORDINATOR/TEACHER Inhaled Oxygen Concentration - - Weight 64.2 kg (141 lb 9.6 oz) 02/01/2024 9:09 A M CAREER DEVELOPMENT COORDINATOR/TEACHER Height 154.9 cm (5' 1 ) 02/01/2024 9:09 AM CAREER DEVELOPMENT COORDINATOR/TEACHER Body Mass Index 26.76 02/01/2024 9:09 AM CAREER DEVELOPMENT COORDINATOR/TEACHER Plan of Treatment Health Maintenance Due Date Last Done Comments Pre-Diabetes and Diabetes Screening 1965 HEPATITIS B VACCINES (1 of 3 - 19+ 3-dose series) 08/27/1986 FIT-DNA Q 3 years 08/27/2012 FIT/FOBT Q 1 year 08/27/2012 Flex Sig/CT Colonography Q 5 years 08/27/2012 BREAST CANCER SCREENING 07/15/2014 07/15/2013 ZOSTER VACCINE (2 of 2) 02/08/2020 12/14/2019 INFLUENZA VACCINE (#1) 2023 11/19/2019, 2017 CERVICAL CANCER SCREENING 12/06/2026 12/07/2023, 04/2015 DTAP/TDAP/TD VACCINES (3 - Td or Tdap) 11/20/2029, 12/06/2009 COLORECTAL SCREENING 01/04/2034 01/05/2024, 01/05/20 Colorectal Cancer Screening 01/04/2034 Procedures Procedure Name Priority Date/Time Associated Diagnosis Comments POC INFLUENZA A/B AND COVID-19 ANTIGENS Routine 02/01/2024 9:42 AM CAREER DEVELOPMENT COORDINATOR/TEACHER Cough, unspecified type COMPREHENSIVE METABOLIC PANEL Stat 12/18/2023 9:25 PM CDT CBC WITH DIFFERENTIAL Stat 12/18/2023 9:24 PM CDT XR CHEST PA OR AP 1 VW Stat 8:19 PM CDT RESPIRATORY PATHOGEN PCR PANEL Stat 12/18/2023 8:19 PM CDT EKG 12-LEAD Stat 12/18/2023 8:10 PM CDT COMPREHENSIVE METABOLIC PANEL Stat 12/18/2023 8:04 PM CDT CBC WITH DIFFERENTIAL Stat 12/18/2023 8:04 PM CDT CRITICAL CARE Routine 12/18/2023 7:50 PM CDT MAMMO SCREEN BILAT W OR WO CAD Routine 07/15/2013 4:22 PM CDT Other screening mammogram from Last 3 Months or Most Recently Relevant to Health Maintenance Results * POC INFLUENZA A/B AND COVID-19 ANTIGENS (02/01/2024 9:42 AM CAREER DEVELOPMENT COORDINATOR/TEACHER) Pathologist [facility] [place] INFLUENZA A AG POC Not Detected Not Detected [facility] INFLUENZA B AG POC Not Detected Not Detected [facility] COVID-19 ANTIGEN POC Presumptively Negative Presumptively Negative [facility] INTERNAL KIT QC POC Pass Pass [facility] KIT LOT NUMBER POC [phone] [facility] KIT EXP DATE POC 08/04/2024 [facility] Upper Respiratory 02/01/2024 9:42 AM CAREER DEVELOPMENT COORDINATOR/TEACHER us Shantell Islas DO POINT OF CARE TESTING Final Res ult [facility] CLIA# [id number] [address] [address] * (ABNORMAL) COMPREHENSIVE METABOLIC PANEL (12/18/2023 9:25 PM CDT) Only the most recent of2 resultswithin the time period is included. SODIUM 128(L) 136 - 145 mmol/L 12/18/2023 10:29 PM CDT [facility] LABORATORY [facility] POTASSIUM 4.1 3.5 - 5.0 mmol/L 12/18/2023 10:29 PM CDT [facility] LABORATORY [facility] Comment:Moderate hemolysis p resent. Can cause significant falsely elevated result. Redraw if indicated. CHLORIDE 91(L) 98 - 107 mmol/L 12/18/2023 10:29 PM CDT [facility] LABORATORY SERVICES [facility] Comment: Significant change from prior result, correlate clinically and redraw if necessary. Results called to Anh Gomez RN by Pat Willett at 10:28 PM on 12/18/2023 and read back verified. Results are ok to report per RN. ?? CO2 23 22 - 29 mmol/L 12/18/2023 10:29 PM T [facility] LABORATORY SERVICES - [facility] CALCIUM 9.0 8.6 - 10.2 mg/dL 12/18/2023 10:29 PM T [facility] LABORATORY SERVICES [facility] Comment: Significant change from prior result, correlate clinically and redraw if necessary. Results called to Anh Gomez RN by Pat Willett at 10:28 PM on 12/18/2023 and read back verified. Results are ok to report per RN. ?? BUN 7 6 - 20 mg/dL 12/18/2023 10:29 PM [facility] LABORATORY [facility] CREATININE 0.50(L) 0.51 - 0.95 mg/dL 12/18/2023 10:29 PM [facility] [employer] LABORATORY [facility] GLUCOSE 106(H) 74 - 99 mg/dL 12/18/2023 10:29 PM [facility] LABORATORY [facility] TOTAL PROTEIN 8.0 6.7 - 8.6 g/dL 12/18/2023 10:29 PM [facility] LABORATORY [facility] ALBUMIN 4.5 3.5 - 5.2 g/dL 12/18/2023 10:29 PM [facility] LABORATORY SERVICES - [facility] Comment: Significant change from prior result, correlate clinically and redraw if necessary. Results called to Anh Gomez RN by Pat Willett at 10:28 PM on 12/18/2023 and read back verified. Results are ok to report per RN. ?? BILIRUBIN TOTAL 0.4 0.3 - 1.2 mg/dL 12/18/2023 10:29 PM [facility] LABORATORY [facility] ALKALINE PHOSPHATASE 552(H) 35 - 104 U/L 12/18/2023 10:29 PM [facility] [employer] LABORATORY [facility] AST 12/18/2023 10:29 PM [facility] Comment:Test cannot be perfo rmed. Sample hemolysis interference above limits. Redraw if indicated. ALT 236(H) <34 U/L 12/18/2023 10:29 PM CDT [facility] Comment:Hemolysis present. R esult may be falsely elevated. GFR >60 >=60 mL/min/1. 73 sq meter 12/18/2023 10:29 PM CDT [facility] Comment:eGFR calculated with 2020 CKD-EPI equation. Vegetarian diet, extremely high or low muscle mass, and may affect results. Cystatin C with Glomerular Filtration Rate is a suitable alternative for these patients. ANION GAP 14 8 - 16 mmol/L 12/18/2023 10:29 PM CDT [facility] Blood Venipuncture / Unknown 12/18/2023 9:25 PM CDT 12/18/2023 9:33 PM CDT [facility] LABORATORY [facility] - 12/18/2023 10:29 PM CDT Samples containing indocyanine green cause interferences on Total and/or Direct Bilirubin and must not be measured. us Meri Chang MD CHEMISTRY ORDERABLES Final Resul t [facility]# [id number] [address] [facility] [place] [address] * (ABNORMAL) CBC WITH DIFFERENTIAL (12/18/2023 9:24 PM CDT) Only the most recent of2 resultswithin the time period is included. WBC 11.0(H) 4.0 - 9.8 K/uL 12/18/2023 9:50 PM CDT [facility] RBC 4.95(H) 3.90 - 4.90 M/uL 12/18/2023 9:50 PM CDT [facility] LABORATORY [facility] HEMOGLOBIN 13.5 11.8 - 14.8 g/dL 12/18/2023 9:50 PM CDT [facility] HEMATOCRIT 39.7 35.5 - 44.0 % 12/18/2023 9:50 PM CDT [facility] MCV 80.2(L) 82.0 - 99.0 fL 12/18/2023 9:50 PM CDT [facility] MCH 27.3 27.2 - 32.6 pg 12/18/2023 9:50 PM CDT [facility] MCHC 34.0 31.5 - 35.5 g/dL 12/18/2023 9:50 PM CDT [facility] RDW 14.7(H) 11.5 - 14.5 % 12/18/2023 9:50 PM CDT [facility] RDW-STDEV 42.8 37.1 - 48.7 fL 12/18/2023 9:50 PM CDT [facility] PLATELETS 331 140 - 350 K/uL 12/18/2023 9:50 PM CDT [facility] MPV 9.1(L) 9.3 - 12.4 fL 12/18/2023 9:50 PM CDT [facility] NEUTROPHILS 90 % 12/18/2023 9:50 PM CDT [facility] LYMPHOCYTES 7 % 12/18/2023 9:50 PM CDT [facility] MONOCYTES 2 % 12/18/2023 9:50 PM CDT [facility] EOSINOPHILS 0 % 12/18/2023 9:50 PM CDT [facility] BASOPHILS 0 % 12/18/2023 9:50 PM CDT [facility] IMMATURE GRANULOCYTES 0 % 12/18/2023 9:50 PM CDT [facility] NEUTROPHIL ABSOLUTE 9.95(H) 1.90 - 7.00 K/uL 12/18/2023 9:50 PM CDT [facility] LYMPHOCYTE ABSOLUTE 0.77 0.70 - 4.50 K/uL 12/18/2023 9:50 PM CDT [facility] MONOCYTE ABSOLUTE 0.21 0.10 - 1.30 K/uL 12/18/2023 9:50 PM CDT [facility] EOSINOPHIL ABSOLUTE 0.02 0.00 - 0.70 K/uL 12/18/2023 9:50 PM CDT [facility] LABORATORY SERVICES - [facility] BASOPHILS ABSOLUTE 0.03 0.00 - 0.20 K/uL 12/18/2023 9:50 PM CDT [facility] LABORATORY SERVICES - . [facility] IMMATURE GRANULOCYTES ABSOLUTE 0.04(H) 0.00 - 0.03 K/uL 12/18/2023 9:50 PM CDT [facility] LABORATORY [facility] Blood Venipuncture / Unknown 12/18/2023 9:24 PM CDT 12/18/2023 9:33 PM CDT us Meri Chang MD HEMATOLOGY ORDERABLES Final Resu lt [facility] LABORATORY [facility] CLIA# [id number] [address] [facility] [place] [address] * XR CHEST PA OR AP 1 VW (12/18/2023 8:19 PM CDT) Anatomical Region Laterality Modality Chest Computed Radiogr aphy 12/18/2023 8:19 PM CDT Impressions 12/18/2023 8:23 PM CDT FINDINGS/IMPRESSION: The lungs are hypoinflated without focal consolidation, pleural effusion, or pneumothorax. The cardiomediastinal silhouette is unchanged. Upper abdominal surgical material is again noted. DICTATION LOCATION: Location 1 - [facility] Narrative 12/18/2023 8:23 PM CDT PROCEDURE/EXAM(S): XR CHEST PA OR AP 1 VW TIME/DATE: 12/18/2023 8:19 PM. CLINICAL INFORMATION & INDICATION: Female of 58 years age with history of Shortness of Breath SOB. See Reason for Exam ? COMPARISON STUDIES: December 04, 2023. Procedure Note Baldomero Tolentino MD - 12/18/2023 PROCEDURE/EXAM(S): XR CHEST PA OR AP 1 VW TIME/DATE: 12/18/2023 8:19 PM. CLINICAL INFORMATION & INDICATION: Female of 58 years age with history of Shortness of Breath SOB. See Reason for Exam COMPARISON STUDIES: December 04, 2023. FINDINGS/IMPRESSION: The lungs are hypoinflated without focal consolidation, pleural effusion, or pneumothorax. The cardiomediastinal silhouette is unchanged. Upper abdominal surgical material is again noted. DICTATION LOCATION: Location 1 - [facility] Meri Chang MD DIAGNOSTIC IMAGING ORDERABLES Fi nal Result * RESPIRATORY PATHOGEN PCR PANEL (12/18/2023 8:19 PM CDT) Pathologist [facility] [place] Respiratory Pathogen PCR Panel NOT DETECTED No respiratory pathogen nucleic acids detected. 12/18/2023 9:16 PM CDT [facility] COVID-19 PCR NOT DETECTED Not Detected 12/18/2023 9:16 PM CDT [facility] Upper Respiratory ENTIRE NASOPHARYNX / Unknown Collection / Unknown 12/18/2023 8:19 PM CDT 12/18/2023 8:22 PM CDT Narrative [facility] - 12/18/2023 9:16 PM CDT The Film Array Respiratory Panel (RP2.1) is a multiplex nucleic acid detection test for 22 targets. Viruses: Adenovirus Coronavirus HKU1, NL63, 229E, and OC43 COVID-19/Severe Acute Respiratory Syndrome Coronavirus 2 Influenza A with the following subtypes: H1, H1-2009, and H3 Influenza B Human Metapneumovirus Parainfluenza virus 1, 2, 3, and 4 Respiratory Syncytial virus (RSV) Rhinovirus/Enterovirus (cannot differentiate due to genetic similarities) Bacteria: Bordetella pertussis Bordetella parapertussis Chlamydophila pneumoniae Mycoplasma pneumoniae Meri Chang MD MICROBIOLOGY - GENERAL ORDERABLE S Final Result [facility]# [id number] 5 [facility] [address] [id number] * EKG 12-LEAD (12/18/2023 8:10 PM CDT) 12/18/2023 8:10 PM CDT Narrative INTERFACE SYSTEM - 12/19/2023 8:17 AM CAREER DEVELOPMENT COORDINATOR/TEACHER ? [facility] ? [address] [facility], [place] [address] ? Test Date: ?2023-12-18 Pat Name: ? DANITA WYNN ? Department: ?? 36 ?Room: ? 05 05 Gender: ? Female ? Elevator Tender: ?? [id number] : ?1965 ? Requested By: MERIMARTHA VELASCO ?? Order Number: [id number] ? Reading MD: ?? Maycol Centeno ? Measurements Intervals ?Eunice ? Rate: ? 107 ?P: ?69 MN: ? 142 ?QRS: ?69 QRSD: ? 70 ? T: ?13 QT: ? 321 ? QTc: ?429 ? Interpretive Statements Sinus tachycardia Ventricular premature complex Sinus pause Aberrant complex Probable left atrial enlargement Electronically Signed On 12-19-2023 8:17:02 CAREER DEVELOPMENT COORDINATOR/TEACHER by Maycol Centeno Procedure Note Maycol Centeno MD - 12/19/2023 [facility] [address] [place] [address] Test Date: 2023-12-18 Pat Name: DANITA WYNN Department: 36 Room: 05 05 Gender: Female Elevator Tender: [id number] : 1965 Requested By: MERI VELASCO Order Number: [id number] Reading MD: Maycol Centeno Measurements Intervals Eunice Rate: 107 P: 69 MN: 142 QRS: 69 QRSD: 70 T: 13 QT: 321 QTc: 429 Interpretive Statements Sinus tachycardia Ventricular premature complex Sinus pause Aberrant complex Probable left atrial enlargement Electronically Signed On 12-19-2023 8:17:02 CAREER DEVELOPMENT COORDINATOR/TEACHER by Maycol Centeno us Meri Chang MD ECG ORDERABLES Final Result INTERFACE SYSTEM Refer to clinic/hospital department * Critical Care (12/18/2023 7:50 PM CDT) Narrative Meri Velasco MD - 12/18/2023 7:50 PM CDT Meri Velasco MD ? 12/18/2023 11:26 PM Critical Care Performed by: Meri Velasco MD Authorized by: Meri Velasco MD ?? Critical care provider statement: ??Critical care time (minutes): ??35 ??Critical care time was exclusive of: ??Separately billable procedures and treating other patients ??Critical care was necessary to treat or prevent imminent or life-threatening deterioration of the following conditions: ??Respiratory failure ??Critical care was time spent personally by me on the following activities: ??Development of treatment plan with patient or surrogate, evaluation of patient's response to treatment, ordering and performing treatments and interventions, ordering and review of laboratory studies, ordering and review of radiographic studies, pulse oximetry, re-evaluation of patient's condition, review of old charts, examination of patient, obtaining history from patient or surrogate and discussions with consultants ??I assumed direction of critical care for this patient from another provider in my specialty: no ?Care discussed with: admitting provider ?? Meri Chang MD PROCEDURE/MINOR SURGICAL ORDERAB LES Final Result * MAMMO DIGITAL SCREEN BILAT (07/15/2013 4:22 PM CDT) Anatomical Region Laterality Modality Breast Bilateral Mammography Narrative 07/17/2013 11:58 AM CDT Bilateral digital screening mammogram with computer assisted diagnosis History: ??Annual screening exam. Findings: ??A bilateral screening mammogram was performed. There are no comparison studies. ?? The breast parenchyma is almost completely fatty replaced. ??No new masses, ??suspicious calcifications, or areas of asymmetry or distortion are identified. ??CAD was utilized. Impression: ??Negative screening mammogram. Recommendation: ??Routine annual follow-up Overall Assessment: ??Birads Category 1: ??Negative Procedure Note Savannah Cortés MD - 07/17/2013 Bilateral digital screening mammogram with computer assisted diagnosis History: Annual screening exam. Findings: A bilateral screening mammogram was performed. There are nocomparison studies. The breast parenchyma is almost completely fattyreplaced. No new masses, suspicious calcifications, or areas ofasymmetry or distortion are identified. CAD was utilized. Impression: Negative screening mammogram. Recommendation: Routine annual follow-up Overall Assessment: Birads Category 1: Negative External Provider [facility] MAMMO ORDERABLES Final R esult from Last 3 Months or Most Recently Relevant to Health Maintenance Insurance MEDICAID [facility] RX INFOCROSSING Medicaid RX DOBBINS PLANS (INTERNAL) [facility] Plans RX [employer] Medicare Part D Care Teams Straight Knife Machine Cutter Relationship Specialty Start Date End Date Shantell Islas DO PCP - General Family Practice 07/20/23
--- OUTSIDE RECORDS SUMMARY | 2024-03-19 12:07 | XMS_ITS | Encounter Summary ---
Author Organization [facility] Address 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 Topic: Patient or Caregiver Communication Request >> Apr 22, 2023 9:51 AM Nila Neves wrote: Patient or Caregiver requesting advice Caller: Kory Wynn Patient/Caregiver Callback Number: [phone] (home) Call Notes: Patient called to schedule new patient appt , she was referred to her by her insurance , she is schedule for 08/16/2023, she is asking for a sooner appt due to need a back specialist, shesaid she has been having back issue for a couple of months now. Please advise R TENDER NAPHTHALENE documented in this encounter Plan of Treatment [...] documented as of this encounter Care Teams Network/Telecom Engineer Relationship Specialty Start Date End Date Shantell Islas DO PCP - General Family Practice 07/20/23 documented as of this encounter
[2024-03-19 12:25] LABS: Basophils Absolute Auto 0.1 K/mm3 (0.0-0.1); Eosinophils Absolute Auto 0.1 K/mm3 (0-0.3); Eosinophils Percent Auto 1.2 % (0-4.4); Hematocrit 40.7 % (37.0-47.0); Hemoglobin 14.2 g/dL (12.0-15.0); Immature Granulocyte Absolute 0.11 K/mm3 (0.00-0.031); Immature Granulocyte Percent A 1.2 % (0-0.5); Lymphocytes Absolute Auto 0.65 K/mm3 (0.9-3.2); Lymphocytes Percent Auto 7.2 % (18.3-44.2); Mean Corpuscular HGB Conc 34.9 g/dl (32-36); Mean Corpuscular Hemoglobin 27.6 pg (26-34); Mean Platelet Volume 10.1 fl (7.4-10.4); Monocytes Absolute Auto 0.8 K/mm3 (0.1-0.6); Monocytes Percent Auto 8.7 % (2.6-8.5); Neutrophils Absolute Auto 7.3 K/mm3 (1.3-6.7); Neutrophils Percent Auto 80.7 % (45.5-73.1); Platelet Count Result 170 k/mm3 (150-375); Red Blood Count 5.15 M/mm3 (4.2-5.4); Red Cell Distribution Width 13.9 % (11.5-14.5)
[2024-03-19] MEDS: SODIUM CHLORIDE 0.9% IV 1,000 ML 999 ML IV CONT ×2 (12:33→12:34)
[2024-03-19] MEDS: levETIRAcetam 1000MG/NACL100ML 1,000 MG/100 ML BAG 400 MG IVPB (12:34)
[2024-03-19] MEDS: ACETAMINOPHEN 500 MG TABLET 1000 MG PO (12:34)
[2024-03-19] MEDS: KETOROLAC 30 MG/ML VIAL (*BKC) IV PUSH (12:34)
[2024-03-19 12:36] LABS: Lactic Acid Reflex 1.1 mmol/L (0.7-2.0)
[2024-03-19 12:41] LABS: Alanine Aminotransferase 35 U/L (6-35); Albumin Level 3.5 g/dL (3.5-5.1); Alkaline Phosphatase 182 U/L (38-126); Anion Gap 11 mmol/L (4-12); Aspartate Amino Transferase 44 U/L (14-36); Bilirubin,Total 0.9 mg/dL (0.2-1.3); Blood Urea Nitrogen 11 mg/dL (7-17); Calcium 8.4 mg/dL (8.4-10.2); Carbon Dioxide 20 mmol/L (22-30); Chloride 100 mmol/L (98-107); Estimated CRCL calculation 87 ml/min; Estimated Glomerular Filt Rate > 60; Glucose 111 mg/dL (65-110); Sodium 131 mmol/L (137-145)
[2024-03-19 12:44] LABS: Partial Thromboplastin Time 35.6 Seconds (22.3-36.8); Prothrombin Time 13.7 Seconds (11.1-14.7)
[2024-03-19 13:17] LABS: Influenza A QL RT-PCR Positive (Negative); Influenza B QL RT-PCR Negative (Negative); RSV RNA, RT-PCR Negative (Negative); SARS-CoV-2 RNA PCR Negative (Negative)
[2024-03-19 13:43] LABS: CRP 27.5 mg/dL (<1.0)
--- NOTE | 2024-03-19 14:04 | PC.NURSE ---
Pt still unable to give urine sample at this time.
--- NOTE | 2024-03-19 14:06 | PC.NURSE ---
Pt c/o not breathing good and requesting her albuterol. notified
[2024-03-19] MEDS: ALBUTEROL SULFATE NEB 2.5 MG/3 ML INH INHALATION (14:52)
--- NOTE | 2024-03-19 14:55 | PM.IMHP ---
H&P: HPI History of Present Illness Date/Time: 03/19/24 14:55 Chief Complaint: Seizure Narrative: 58 y/o F presents here with seizure with PMH of seizures, neuropathy, agarophobia, panic disorder, bipolar 1&2, and asthma. The patient presents here from home via EMS for further evaluation of seizure. HPI obtained through chart review, patient report, and EMS report. EMS reported to the ED staff that family had called 911 after they found the patient on the floor. Presumed that patient had a seizure. They reported to EMS that she had a witnessed seizure the day prior (03/18), unknown length of time. She did not seek care after the first seizure. Denies any trauma/injury. The patient is currently reporting shortness of breath, cough, fever, rhinorrhea, headache, dizziness, and congestion. Onset of symptoms was approximately 5 days ago. Denies nausea, vomiting, or diarrhea. She reports that her household has been experiencing similar symptoms. Initial VS at presentation: Room 102.8? F, HR 133, R 30, 125/81, and 95% on RA. ED workup showed: No leukocytosis, no anemia, sodium 131, creatinine 0.45 and GFR >60, glucose 111, lactic 1.1, CRP 27.5, and tested positive for flu A. CXR showed bilateral airspace opacities suspicious for pneumonia. Head CT showed no acute intracranial hemorrhage or suspicious mass-effect. C-spine CT showed preservation of the normal curvature of the cervical spine, multifocal infiltrates within the chest, no acute fracture. Review of Systems Review of Systems: All systems reviewed & are unremarkable except as noted in HPI and below PMFSH Past Medical History Medical History (Updated 03/19/24 @ 15:35 by Isa Lara APRN) Neuropathy Panic disorder Agoraphobia Seizures Bipolar disorder Asthma Surgical History Surgical History (Updated 03/19/24 @ 15:35 by Isa Lara APRN) History of appendectomy History of section History of gastric bypass History of cholecystectomy Meds Home Medications and Allergies Home Medications ?Medication ?Instructions ?Recorded ?Confirmed ?Type albuterol 90 mcg/actuation aerosol 90 mcg inhalation PRN 03/19/24 03/19/24 History inhaler gabapentin 300 mg capsule 300 mg PO TID 03/19/24 03/19/24 History levetiracetam 1,000 mg tablet 1,000 mg PO BID 03/19/24 03/19/24 History montelukast 10 mg tablet 10 mg PO QPM 03/19/24 03/19/24 History (Singulair) sertraline 150 mg capsule 150 mg PO DAILY 03/19/24 03/19/24 History trazodone 100 mg tablet 200 mg PO QPM 03/19/24 03/19/24 History Allergies Allergy/AdvReac Type Severity Reaction Status Date / Time Sulfa (Sulfonamide Allergy Swelling Verified 03/19/24 12:27 Antibiotics) Vital Signs Vital Signs - 24 hr 03/19/24 10:46 03/19/24 10:51 03/19/24 11:08 Temperature 102.8 F H Pulse Rate 133 H 133 H Respiratory Rate 30 H 33 H Blood Pressure 125/81 125/81 Pulse Oximetry 95 95 95 Oxygen Delivery Room Air Room Air 03/19/24 12:20 03/19/24 13:27 03/19/24 14:07 Temperature Pulse Rate 137 H 130 H Respiratory Rate 20 Blood Pressure 129/78 Pulse Oximetry 95 100 Oxygen Delivery Room Air 03/19/24 14:45 Temperature 99.1 F Pulse Rate 123 H Respiratory Rate 26 H Blood Pressure 135/85 Pulse Oximetry 97 Oxygen Delivery Exam Const: General: comfortable and no acute distress Other: , female, ill-appearing HENMT: Face/Nose/Sinus: Normal nares present Mouth: Yes moist mucous membranes Eyes: General: appearance normal, both eyes and all related structures Sclera: sclerae normal Pupils: Equal, round and reactive pupils present EOM: EOMs intact bilaterally Resp: Effort & Inspection: normal respiratory effort Auscultation: clear to auscultation bilaterally Cardio: Rate: tachycardic Other: +ectopy, no murmur or rub. GI: Other: Abdomen soft, nondistended, nontender. Normoactive bowel sounds in all quadrants. Skin: General skin exam: normal color and no rashes or lesions noted Wounds: no wounds Neuro: Speech: normal speech Motor exam (neuro): 5/5 motor strength present throughout Sensory Exam: normal sensation Other: A&O x4 Extrem: General: normal to inspection Psych: Mental Status: mental status grossly normal Affect: normal affect Other: Good insight and judgment, pleasant H&P: Results Labs Labs: Short CBC 03/19/24 Range/Units 12:17 WBC 9.0 (4.5-10.0) K/mm3 Hgb 14.2 (12.0-15.0) g/dL Hct 40.7 (37.0-47.0) % Plt Count 170 (150-375) k/mm3 BMP 03/19/24 12:17 Sodium 131 L Potassium 4.0 Chloride 100 Carbon Dioxide 20 L BUN 11 Creatinine 0.45 L Glucose 111 H Calcium 8.4 Liver Function 03/19/24 Range/Units 12:17 Total Bilirubin 0.9 (0.2-1.3) mg/dL AST 44 H (14-36) U/L ALT 35 (6-35) U/L Alkaline Phosphatase 182 H (38-126) U/L Albumin 3.5 (3.5-5.1) g/dL Assessment and Plan Assessment and plan (1) Sepsis: Qualifiers: Sepsis acute organ dysfunction status: without acute organ dysfunction Sepsis type: sepsis due to unspecified organism Qualified Code(s): A41.9 - Sepsis, unspecified organism Code(s): A41.9 - Sepsis, unspecified organism Status: Acute Assessment and Plan: - meets SIRS criteria: HR, RR. No hypoxia or hypotension at present. - lactic acid 1.1, CRP 27.5. trend crp. - 30 mL/kg = 1700, given 2L bolus -> 125 mL/hr - suspected source: PNA - started on ceftriaxone and azithromycin on 03/19 - blood cultures drawn on 03/19 - UA pending - monitor hemodynamic stability (2) Multifocal pneumonia: Code(s): J18.9 - Pneumonia, unspecified organism Status: Acute Assessment and Plan: - CXR: Bilateral airspace opacities suspicious for pneumonia although some of the opacities appear somewhat nodular and would recommend radiographic follow-up to resolution. - multifocal infiltrates in bilateral lungs seen on C-spine CT - risk factors and complicating factors: Concurrent seizures, Flu A - started on CAP tx: ceftriaxone, azithromycin - supportive care - sputum culture, if obtainable - no current supplemental O2 requirement (3) Influenza A: Code(s): J10.1 - Influenza due to other identified influenza virus with other respiratory manifestations Status: Acute Assessment and Plan: - tested positive for influenza A on 03/19 - Tamiflu 75 mg BID - supportive care: Tylenol p.r.n. Mucinex harry Levalbuterol p.r.n. Tessalon Perles p.r.n. Lozenge p.r.n. CPT vest BID as tolerated - monitor WBC/CBC - currently not requiring increased supplemental O2 (4) Seizures: Code(s): R56.9 - Unspecified convulsions Status: Acute Assessment and Plan: - seizure precautions - suspect breakthrough seizures secondary to fever/active infection - continue home medications (5) Asthma: Qualifiers: Asthma complication type: with acute exacerbation Asthma persistence: intermittent Asthma severity: mild Qualified Code(s): J45.21 - Mild intermittent asthma with (acute) exacerbation Code(s): J45.909 - Unspecified asthma, uncomplicated Status: Acute Assessment and Plan: - levalbuterol harry Plan Diet: regular GI Prophylaxis: Not currently indicated DVT Prophylaxis: SCDs Lines: Peripheral Code Status: Full code Quality VTE Prophylaxis VTE prophylaxis: mechanical ordered Hospitalist MIPS Advance Care Plan I have confirmed that the patient's Advanced Care Plan is present, code status is documented, or surrogate decision maker is listed in patient medical record.: Yes Medication Reconciliation I have utilized all available resources to obtain, update and review the patients current medications (includes all prescriptions, OTC, herbals, cannabis, and nutritional supplements).: Yes
[2024-03-19] MEDS: OSELTAMIVIR PHOSPHATE 75 MG CAPSULE PO ×2 (15:15→20:56)
[2024-03-19] MEDS: SODIUM CHLORIDE 0.9% IV 1,000 ML 125 ML IV CONT ×2 (16:07→20:57)
[2024-03-19] MEDS: AZITHROMYCIN 500 MG/NS 250 ML 500 MG/250 ML BAG 250 MG IVPB (16:08)
--- NOTE | 2024-03-19 17:06 | ADMGEN ---
This patient, Danita Wynn, was admitted to Medical Room 243-01. Patient/family oriented to hospital policies and general routines including ID bracelet, bed and alarms, visiting hours, pain management, procedures, bathroom and other care routines, personal items, smoking policy, room service/diet, and visiting hours. Information on how to activate the Rapid Response Team has been discussed. Patient/Family are encouraged to report perceived risks to care and to ask questions if they do not understand what they are told or what they should do.
[2024-03-19] MEDS: MONTELUKAST SODIUM 10 MG TABLET PO (17:36)
[2024-03-19] MEDS: traZODone HCL 50 MG TABLET 200 MG PO (17:36)
[2024-03-19] MEDS: GABAPENTIN 300 MG CAPSULE PO (17:36)
[2024-03-19] MEDS: ACETAMINOPHEN 325 MG TABLET 650 MG PO (17:38)
[2024-03-19] MEDS: BENZONATATE 100 MG CAPSULE PO ×2 (17:39→20:56)
[2024-03-19] MEDS: BENZOCAINE/MENTHOL (*BKC) 18 EA LOZENGE 1 LOZENGE PO (17:39)
[2024-03-19 18:26] LABS: Glucose Point of Care 108 mg/dl (65-105)
[2024-03-19] MEDS: LEVALBUTEROL NEB 1.25 MG/3 ML 0.63 MG INHALATION (19:45)
[2024-03-19] MEDS: guaiFENesin 12 HR 600 MG TABCR PO (20:56)
[2024-03-19] MEDS: levETIRAcetam 500 MG TABLET 2000 MG PO (20:56)
[2024-03-19] MEDS: OXcarbazepine 300 MG TABLET PO (20:56)
[2024-03-19] MEDS: QUEtiapine FUMARATE 100 MG TABLET 800 MG PO (20:57)
[2024-03-19 21:31] LABS: Glucose Point of Care 96 mg/dl (65-105)
[2024-03-20] VITALS (18 sets, daily range): BP systolic 106–128; BP diastolic 57–93; PULSE 118–143; RESP 18–36; TEMP 36.1–37.1; O2SAT 92–100
[2024-03-20] MEDS: LEVALBUTEROL NEB 1.25 MG/3 ML 0.63 MG INHALATION ×4 (02:02→20:32)
[2024-03-20 05:02] LABS: Add Urine Microscopic? YES; Appearance Urine Turbid (Clear); Bacteria Urine None Seen /hpf; Bilirubin Urine 1+ (Negative); Blood Urine Negative (Negative); Color Urine Dark Yellow (Yellow); Glucose Urine UA Negative (Negative); Ketones Urine Trace mg/dL (Negative); Leukocyte Esterase Ur Trace LEU/UL (Negative); Need Manual Microscopic Reviewed; Nitrate Urine Negative (Negative); Protein Urine 2+ mg/dL (Negative); Squamous Epithelial Cell Urine Moderate /hpf (Few); WBC Urine 0-5 /hpf (0-3)
[2024-03-20 05:55] LABS: Hematocrit 37.9 % (37.0-47.0); Mean Corpuscular HGB Conc 34.3 g/dl (32-36); Mean Corpuscular Hemoglobin 27.5 pg (26-34); Mean Corpuscular Volume 80.1 fl (80-100); Mean Platelet Volume 9.8 fl (7.4-10.4); Platelet Count Result 152 k/mm3 (150-375); Red Blood Count 4.73 M/mm3 (4.2-5.4); Red Cell Distribution Width 14.4 % (11.5-14.5); White Blood Count 8.3 K/mm3 (4.5-10.0)
[2024-03-20 06:05] LABS: Hemoglobin A1C 5.2 % (<5.7)
[2024-03-20 06:32] LABS: Anion Gap 10 mmol/L (4-12); Blood Urea Nitrogen 17 mg/dL (7-17); CRP > 9.0 mg/dL (<1.0); Carbon Dioxide 17 mmol/L (22-30); Chloride 107 mmol/L (98-107); Estimated CRCL calculation 62 ml/min; Estimated Glomerular Filt Rate > 60; Glucose 108 mg/dL (65-110); Potassium 4.1 mmol/L (3.4-5.0); Sodium 134 mmol/L (137-145)
[2024-03-20 07:34] LABS: Neutrophils Percent Manual 83 % (46-73); Total Cells Counted 100
[2024-03-20 07:35] LABS: Band Neutrophils Percent 11 % (0-6); Lymphocytes Absolute Manual 0.33 K/mm3 (1.1-4.5); Lymphocytes Percent Manual 4 % (18-44); Monocytes Absolute Manual 0.16 K/mm3 (0.1-0.90); Monocytes Percent Manual 2 % (3-9); Platelet Estimate Adequate (Adequate)
[2024-03-20 07:37] LABS: Burr Cells 1+; Schistocytes None Seen
[2024-03-20 07:39] LABS: Target Cells 1+
[2024-03-20 08:14] LABS: Glucose Point of Care 100 mg/dl (65-105)
[2024-03-20] MEDS: AZITHROMYCIN 500 MG/NS 250 ML 500 MG/250 ML BAG 250 MG IVPB (08:58)
[2024-03-20] MEDS: guaiFENesin 12 HR 600 MG TABCR PO ×2 (09:00→20:16)
[2024-03-20] MEDS: levETIRAcetam 500 MG TABLET 2000 MG PO ×2 (09:00→20:16)
[2024-03-20] MEDS: SERTRALINE HCL 50 MG TABLET 150 MG PO (09:00)
[2024-03-20] MEDS: OSELTAMIVIR PHOSPHATE 75 MG CAPSULE PO ×2 (09:00→20:16)
[2024-03-20] MEDS: GABAPENTIN 300 MG CAPSULE PO ×2 (09:00→12:52)
[2024-03-20] MEDS: OXcarbazepine 300 MG TABLET PO ×2 (09:00→20:16)
[2024-03-20] MEDS: SODIUM CHLORIDE 0.9% IV 1,000 ML 125 ML IV CONT ×2 (10:20→17:22)
--- NOTE | 2024-03-20 10:33 | ECG_ITS ---
Test Date: 2024-03-20 11:05:46 Measurements Intervals [place] Rate: 131 P: 52 [place]: 128 QRS: 38 QRSD: 78 T: 18 QT: 271 QTc: 401 Interpretive Statements SINUS TACHYCARDIA BORDERLINE T WAVE ABNORMALITY- INFERIOR LEADS BASELINE WANDER- III, AVL, V1 ABNORMAL ECG Compared to ECG 03/19/2024 10:57:59 NO SIGNIFICANT CHANGE Electronically Signed On 03-20-2024 11:21:54 SEARCH ENGINE OPTIMIZATION MANAGER by Danny Ryan D.O.
--- NOTE | 2024-03-20 10:39 | PM.IMPN ---
Progress Note: A&P Assessment and Plan (1) Sepsis: Qualifiers: Sepsis acute organ dysfunction status: without acute organ dysfunction Sepsis type: sepsis due to unspecified organism Qualified Code(s): A41.9 - Sepsis, unspecified organism Code(s): A41.9 - Sepsis, unspecified organism Status: Acute Assessment and Plan: - meets SIRS criteria: HR, RR. No hypoxia or hypotension at present. - lactic acid 1.1, CRP 27.5. trend crp. - 30 mL/kg = 1700, given 2L bolus -> 125 mL/hr - suspected source: PNA - started on ceftriaxone and azithromycin on 03/19 - blood cultures drawn on 03/19 - UA pending - monitor hemodynamic stability (2) Multifocal pneumonia: Code(s): J18.9 - Pneumonia, unspecified organism Status: Acute Assessment and Plan: - CXR: Bilateral airspace opacities suspicious for pneumonia although some of the opacities appear somewhat nodular and would recommend radiographic follow-up to resolution. - multifocal infiltrates in bilateral lungs seen on C-spine CT - risk factors and complicating factors: Concurrent seizures, Flu A - started on CAP tx: ceftriaxone, azithromycin - supportive care - sputum culture, if obtainable - no current supplemental O2 requirement (3) Influenza A: Code(s): J10.1 - Influenza due to other identified influenza virus with other respiratory manifestations Status: Acute Assessment and Plan: - tested positive for influenza A on 03/19 - Tamiflu 75 mg BID - supportive care: Tylenol p.r.n. Mucinex harry Levalbuterol p.r.n. Tessalon Perles p.r.n. Lozenge p.r.n. CPT vest BID as tolerated - monitor WBC/CBC - currently not requiring increased supplemental O2 (4) Seizures: Code(s): R56.9 - Unspecified convulsions Status: Acute Assessment and Plan: - seizure precautions - suspect breakthrough seizures secondary to fever/active infection - continue home medications (5) Asthma: Qualifiers: Asthma complication type: with acute exacerbation Asthma persistence: intermittent Asthma severity: mild Qualified Code(s): J45.21 - Mild intermittent asthma with (acute) exacerbation Code(s): J45.909 - Unspecified asthma, uncomplicated Status: Acute Assessment and Plan: - levalbuterol harry Plan Blood culture one bottle positive- will continue with current meds for now - no changes- as could be contaminated. pt is on room air, stable vitals, stable labs. Diet: regular GI Prophylaxis: Not currently indicated DVT Prophylaxis: SCDs Lines: Peripheral Code Status: Full code Subjective Date/time seen: 03/20/24 10:39 Interval history: 58 y/o F presents here with seizure with PMH of seizures, neuropathy, agarophobia, panic disorder, bipolar 1&2, and asthma. The patient presents here from home via EMS for further evaluation of seizure. HPI obtained through chart review, patient report, and EMS report. EMS reported to the ED staff that family had called 911 after they found the patient on the floor. Presumed that patient had a seizure. They reported to EMS that she had a witnessed seizure the day prior (03/18), unknown length of time. She did not seek care after the first seizure. Denies any trauma/injury. The patient is currently reporting shortness of breath, cough, fever, rhinorrhea, headache, dizziness, and congestion. Onset of symptoms was approximately 5 days ago. Denies nausea, vomiting, or diarrhea. She reports that her household has been experiencing similar symptoms. Initial VS at presentation: Room 102.8? F, HR 133, R 30, 125/81, and 95% on RA. ED workup showed: No leukocytosis, no anemia, sodium 131, creatinine 0.45 and GFR >60, glucose 111, lactic 1.1, CRP 27.5, and tested positive for flu A. CXR showed bilateral airspace opacities suspicious for pneumonia. Head CT showed no acute intracranial hemorrhage or suspicious mass-effect. C-spine CT showed preservation of the normal curvature of the cervical spine, multifocal infiltrates within the chest, no acute fracture. Pt is seen and examined. she is appropriate. reports h/o asthma, smokes marijuana only 2 puffs a month . she is homeless, so not able to have any follow ups with pcp or neurology. reports that she takes all of her meds RN reported that pt had multiple home meds in her purse, so could be taking them. She is more drowsy now- around 1700. She is arousable though. Will watch her for now. Medications had been removed and locked for now. Review of Systems Review of Systems: All systems reviewed & are unremarkable except as noted in HPI and below Exam Const: General: comfortable and no acute distress Other: , female, ill-appearing HENMT: Face/Nose/Sinus: Normal nares present Mouth: Yes moist mucous membranes Eyes: General: appearance normal, both eyes and all related structures Sclera: sclerae normal Pupils: Equal, round and reactive pupils present EOM: EOMs intact bilaterally Resp: Effort & Inspection: normal respiratory effort Auscultation: clear to auscultation bilaterally Cardio: Rate: tachycardic Other: +ectopy, no murmur or rub. GI: Other: Abdomen soft, nondistended, nontender. Normoactive bowel sounds in all quadrants. Skin: General skin exam: normal color and no rashes or lesions noted Wounds: no wounds Neuro: Cranial nerves: Yes Equal, round and reactive pupils present Speech: normal speech Motor exam (neuro): 5/5 motor strength present throughout Sensory Exam: normal sensation Other: A&O x4 Extrem: General: normal to inspection Psych: Mental Status: mental status grossly normal Affect: normal affect Other: Good insight and judgment, pleasant Objective Data Vital Signs Vital Signs: Vital Signs - 24 hr 03/19/24 10:46 03/19/24 10:51 03/19/24 11:08 Temperature 102.8 F H Pulse Rate 133 H 133 H Respiratory Rate 30 H 33 H Blood Pressure 125/81 125/81 Pulse Oximetry 95 95 95 Oxygen Delivery Room Air Room Air Oxygen Flow Rate Fraction of Inspired Oxygen 03/19/24 12:20 03/19/24 13:27 03/19/24 14:07 Temperature Pulse Rate 137 H 130 H Respiratory Rate 20 Blood Pressure 129/78 Pulse Oximetry 95 100 Oxygen Delivery Room Air Oxygen Flow Rate Fraction of Inspired Oxygen 03/19/24 14:45 03/19/24 14:53 03/19/24 15:02 Temperature 99.1 F Pulse Rate 123 H 124 H 124 H Respiratory Rate 26 H 19 24 H Blood Pressure 135/85 Pulse Oximetry 97 Oxygen Delivery Oxygen Flow Rate Fraction of Inspired Oxygen 03/19/24 16:09 03/19/24 17:00 03/19/24 19:45 Temperature 98.8 F Pulse Rate 123 H 126 H 133 H Respiratory Rate 30 H 18 24 H Blood Pressure 124/78 110/66 Pulse Oximetry 99 98 Oxygen Delivery Oxygen Flow Rate Fraction of Inspired Oxygen 03/19/24 20:00 03/19/24 20:11 03/19/24 20:12 Temperature Pulse Rate 108 H 133 H 128 H Respiratory Rate 20 22 H Blood Pressure Pulse Oximetry 94 88 L Oxygen Delivery Room Air Room Air Oxygen Flow Rate Fraction of Inspired Oxygen 21 21 03/19/24 20:38 03/20/24 02:02 03/20/24 02:02 Temperature 99.7 F H Pulse Rate 137 H 143 H 143 H Respiratory Rate 20 22 H Blood Pressure 112/71 Pulse Oximetry 98 92 Oxygen Delivery Nasal Cannula Oxygen Flow Rate 2 Fraction of Inspired Oxygen 03/20/24 02:28 03/20/24 04:25 03/20/24 08:30 Temperature 98.1 F Pulse Rate 138 H 139 H 136 H Respiratory Rate 22 H 18 20 Blood Pressure 124/93 H Pulse Oximetry 100 99 Oxygen Delivery Nasal Cannula Oxygen Flow Rate 4 Fraction of Inspired Oxygen 03/20/24 08:30 03/20/24 08:42 03/20/24 09:00 Temperature Pulse Rate 136 H 138 H Respiratory Rate 20 36 H Blood Pressure Pulse Oximetry 99 Oxygen Delivery Room Air Oxygen Flow Rate Fraction of Inspired Oxygen Intake/Output Intake/Output: Intake & Output 03/17/24 03/18/24 03/19/24 03/20/24 23:59 23:59 23:59 23:59 Intake Total 3004.2 1750 Balance 3004.2 1750 Meds/Results Medications: Active Medications Generic Name Dose Route Start Last Admin Trade Name Freq PRN Reason Stop Dose Admin Acetaminophen 650 mg 03/19/24 15:02 03/19/24 17:38 Acetaminophen 325 Mg Tablet PO 650 mg Q4H PRN Administration Mild Pain (1-3) or Fever Benzocaine 1 lozenge 03/19/24 15:11 03/19/24 17:39 Benzocaine/Menthol (*Bkc) 18 Ea Lozenge PO 1 lozenge PRN PRN Administration Sore Throat Benzonatate 100 mg 03/19/24 15:11 03/19/24 20:56 Benzonatate 100 Mg Capsule PO 100 mg TID PRN Administration Cough Dextrose 12.5 gm 03/19/24 15:15 Dextrose 50% 25 Gm/50 Ml Syringe IV PUSH PRN PRN Hypoglycemia Protocol Gabapentin 300 mg 03/19/24 17:00 03/20/24 09:00 Gabapentin 300 Mg Capsule PO 300 mg TID HARRY Administration Glucagon 1 mg 03/19/24 15:15 Glucagon For Inj 1 Mg Vial IM PRN PRN Hypoglycemia Protocol Glucose 15 gm 03/19/24 15:15 Glucose Oral Gel 15 Gm Of Glucse In 37.5 Gm Tube PO PRN PRN Hypoglycemia Protocol Guaifenesin 600 mg 03/19/24 21:00 03/20/24 09:00 Guaifenesin 12 Hr 600 Mg Tabcr PO 600 mg Q12HR HARRY Administration Ceftriaxone Sodium 1 gm in 50 mls @ 100 mls/hr 03/19/24 14:50 03/20/24 10:14 Rocephin 1 Gm/Ns 50 Ml IVPB 100 mls/hr QAM HARRY Administration Azithromycin 500 mg in 250 mls @ 250 mls/hr 03/19/24 14:50 03/20/24 08:58 Zithromax IVPB 250 mls/hr QAM HARRY Administration Sodium Chloride 1,000 mls @ 125 mls/hr 03/19/24 15:05 03/20/24 10:20 Normal Saline Iv IV CONT 125 mls/hr .Q8H HARRY Administration Dextrose 1,000 mls @ 100 mls/hr 03/19/24 15:15 Dextrose 5% 1,000 Ml IVPB PRN PRN Hypoglycemia Protocol Insulin Aspart 2 - 5 units 03/19/24 17:00 03/20/24 10:21 Insulin Aspart (*Bkc) 100 Units/Ml SUB-Q Not Given TIDWM HARRY Protocol Levalbuterol HCl 0.63 mg 03/19/24 20:00 03/20/24 08:31 Levalbuterol Neb 1.25 Mg/3 Ml INHALATION 0.63 mg Q6HRT HARRY Administration Levetiracetam 2,000 mg 03/19/24 21:00 03/20/24 09:00 Levetiracetam 500 Mg Tablet PO 2,000 mg Q12HR HARRY Administration Montelukast Sodium 10 mg 03/19/24 18:00 03/19/24 17:36 Montelukast Sodium 10 Mg Tablet PO 10 mg QPM HARRY Administration Oseltamivir Phosphate 75 mg 03/19/24 14:50 03/20/24 09:00 Oseltamivir Phosphate 75 Mg Capsule PO 03/23/24 21:01 75 mg Q12HR HARRY Administration Oxcarbazepine 300 mg 03/19/24 21:00 03/20/24 09:00 Oxcarbazepine 300 Mg Tablet PO 300 mg Q12HR HARRY Administration Sertraline HCl 150 mg 03/20/24 09:00 03/20/24 09:00 Sertraline Hcl 50 Mg Tablet PO 150 mg QAM HARRY Administration Trazodone HCl 200 mg 03/19/24 18:00 03/19/24 17:36 Trazodone Hcl 50 Mg Tablet PO 200 mg QPM HARRY Administration Radiology Results: ITS Impressions Chest X-Ray 03/19/24 12:51 IMPRESSION: 1. Bilateral airspace opacities suspicious for pneumonia although some of the opacities appear somewhat nodular and would recommend radiographic follow-up to resolution. Head CT 03/19/24 13:41 Impression: No acute intracranial hemorrhage or suspicious mass effect. Cervical Spine CT 03/19/24 13:42 Impression: Preservation of the normal curvature of the cervical spine. Multifocal infiltrates within the chest. No acute fracture. Labs Labs: Laboratory Results - last 24 hr 03/19/24 03/19/24 03/19/24 12:17 12:37 18:23 WBC 9.0 RBC 5.15 Hgb 14.2 Hct 40.7 MCV 79.0 L MCH 27.6 MCHC 34.9 RDW 13.9 Plt Count 170 MPV 10.1 Immature Gran % (Auto) 1.2 H Neut % (Auto) 80.7 H Lymph % (Auto) 7.2 L [place] % (Auto) 8.7 H Eos % (Auto) 1.2 Baso % (Auto) 1.0 Lymph # (Auto) 0.65 L [place] # (Auto) 0.8 H Eos # (Auto) 0.1 Baso # (Auto) 0.1 Abs Immat Gran (auto) 0.11 H Absolute Neuts (auto) 7.3 H Absolute Nucleated RBC 0.000 Total Counted Neutrophils % (Manual) Band Neutrophils % Lymphocytes % (Manual) Monocytes % (Manual) Nucleated RBC % 0.0 Abs Neuts (Manual) Abs Lymphs (Manual) Abs Monocytes (Manual) Platelet Estimate Target Cells [place] Cells Schistocytes PT 13.7 INR 1.0 APTT 35.6 Sodium 131 L Potassium 4.0 Chloride 100 Carbon Dioxide 20 L Anion Gap 11 BUN 11 Creatinine 0.45 L Estim Creat Clear Calc 87 Estimated GFR > 60 Glucose 111 H POC Capillary Glucose 108 H Hemoglobin A1c Lactic Acid 1.1 Calcium 8.4 Total Bilirubin 0.9 AST 44 H ALT 35 Alkaline Phosphatase 182 H C-Reactive Protein 27.5 H Total Protein 7.0 Albumin 3.5 Urine Color Urine Appearance Urine pH Ur Specific [place] Urine Protein Urine Glucose (UA) Urine Ketones Ur Blood (Man) Urine Nitrate Urine Bilirubin Urine Urobilinogen Add Ur Microanalysis Leukocyte Esterase Rfl Urine RBC Urine WBC Ur Squamous Epith Cells Urine Bacteria Urine Casts Influenza A (RT-PCR) Positive A Influenza B (RT-PCR) Negative RSV (RT-PCR) Negative SARS-CoV-2 RNA (RT-PCR) Negative 03/19/24 03/20/24 03/20/24 20:42 04:39 05:17 WBC 8.3 RBC 4.73 Hgb 13.0 Hct 37.9 MCV 80.1 MCH 27.5 MCHC 34.3 RDW 14.4 Plt Count 152 MPV 9.8 Immature Gran % (Auto) Not Reportable Neut % (Auto) Not Reportable Lymph % (Auto) Not Reportable [place] % (Auto) Not Reportable Eos % (Auto) Not Reportable Baso % (Auto) Not Reportable Lymph # (Auto) Not Reportable [place] # (Auto) Not Reportable Eos # (Auto) Not Reportable Baso # (Auto) Not Reportable Abs Immat Gran (auto) Not Reportable Absolute Neuts (auto) Not Reportable Absolute Nucleated RBC Not Reportable Total Counted 100 Neutrophils % (Manual) 83 H Band Neutrophils % 11 H Lymphocytes % (Manual) 4 L Monocytes % (Manual) 2 L Nucleated RBC % Not Reportable Abs Neuts (Manual) 7.80 H Abs Lymphs (Manual) 0.33 L Abs Monocytes (Manual) 0.16 Platelet Estimate Adequate Target Cells 1+ [place] Cells 1+ Schistocytes None seen PT INR APTT Sodium 134 L Potassium 4.1 Chloride 107 Carbon Dioxide 17 L Anion Gap 10 BUN 17 Creatinine 0.65 L Estim Creat Clear Calc 62 Estimated GFR > 60 Glucose 108 POC Capillary Glucose 96 Hemoglobin A1c 5.2 Lactic Acid Calcium 8.0 L Total Bilirubin AST ALT Alkaline Phosphatase C-Reactive Protein > 9.0 H Total Protein Albumin Urine Color Dark yellow Urine Appearance Turbid H Urine pH 6.0 Ur Specific [place] 1.020 Urine Protein 2+ H Urine Glucose (UA) Negative Urine Ketones Trace H Ur Blood (Man) Negative Urine Nitrate Negative Urine Bilirubin 1+ H Urine Urobilinogen 1.0 Add Ur Microanalysis Reviewed Leukocyte Esterase Rfl Trace H Urine RBC 3-5 H Urine WBC 0-5 Ur Squamous Epith Cells Moderate Urine Bacteria None seen Urine Casts 11-20 Influenza A (RT-PCR) Influenza B (RT-PCR) RSV (RT-PCR) SARS-CoV-2 RNA (RT-PCR) 03/20/24 08:10 WBC RBC Hgb Hct MCV MCH MCHC RDW Plt Count MPV Immature Gran % (Auto) Neut % (Auto) Lymph % (Auto) [place] % (Auto) Eos % (Auto) Baso % (Auto) Lymph # (Auto) [place] # (Auto) Eos # (Auto) Baso # (Auto) Abs Immat Gran (auto) Absolute Neuts (auto) Absolute Nucleated RBC Total Counted Neutrophils % (Manual) Band Neutrophils % Lymphocytes % (Manual) Monocytes % (Manual) Nucleated RBC % Abs Neuts (Manual) Abs Lymphs (Manual) Abs Monocytes (Manual) Platelet Estimate Target Cells [place] Cells Schistocytes PT INR APTT Sodium Potassium Chloride Carbon Dioxide Anion Gap BUN Creatinine Estim Creat Clear Calc Estimated GFR Glucose POC Capillary Glucose 100 Hemoglobin A1c Lactic Acid Calcium Total Bilirubin AST ALT Alkaline Phosphatase C-Reactive Protein Total Protein Albumin Urine Color Urine Appearance Urine pH Ur Specific [place] Urine Protein Urine Glucose (UA) Urine Ketones Ur Blood (Man) Urine Nitrate Urine Bilirubin Urine Urobilinogen Add Ur Microanalysis Leukocyte Esterase Rfl Urine RBC Urine WBC Ur Squamous Epith Cells Urine Bacteria Urine Casts Influenza A (RT-PCR) Influenza B (RT-PCR) RSV (RT-PCR) SARS-CoV-2 RNA (RT-PCR) Quality VTE Prophylaxis VTE prophylaxis: mechanical ordered
[2024-03-20 12:12] LABS: Glucose Point of Care 117 mg/dl (65-105)
[2024-03-20] MEDS: ACETAMINOPHEN 325 MG TABLET 650 MG PO ×2 (12:59→20:15)
[2024-03-20 16:41] LABS: Glucose Point of Care 99 mg/dl (65-105)
--- NOTE | 2024-03-20 16:54 | PC.NURSE ---
During evening med pass, patient found drowsy. Patient falling asleep during questions and assessment. Patient orientation, vitals assessed and neuro check was found at baseline. Purse was on bed next to patient and medications visible. Medications present are medications that are being administered during admission. Educated patient on the risk of duplicating medications or taking home medications during admission. Medications and purse was locked in closet. Provider notified.
[2024-03-20 20:15] LABS: Glucose Point of Care 119 mg/dl (65-105)
[2024-03-20] MEDS: BENZONATATE 100 MG CAPSULE PO (20:16)
[2024-03-20] MEDS: QUEtiapine FUMARATE 100 MG TABLET 800 MG PO (21:23)
[2024-03-21] VITALS (22 sets, daily range): BP systolic 115–152; BP diastolic 70–101; PULSE 110–141; RESP 18–24; TEMP 36.2–37; O2SAT 93–97
[2024-03-21] MEDS: SODIUM CHLORIDE 0.9% IV 1,000 ML 125 ML IV CONT (00:14)
--- NOTE | 2024-03-21 02:04 | PM.EVENT ---
Event Note Event Note Event Note: Patient's blood cultures came back for Gram-positive cocci in clusters in both bottles. I have ordered vancomycin pharmacy to dose and will check a MRSA PCR. Will adjust antibiotics once final blood cultures return. The patient's CT did demonstrate small pulmonary embolism small clot burden and worsening infiltrates with differential including worsening multifocal pneumonia and/or pulmonary edema. The patient did have significant chest wall edema. At this time I will also discontinue patient's IV fluids and have added strict I&O's and daily weights to patient's regimen. Will also check echocardiogram to further evaluate cardiac structure and function. Have started the patient on Eliquis for treatment of acute pulmonary embolism.
[2024-03-21] MEDS: LEVALBUTEROL NEB 1.25 MG/3 ML 0.63 MG INHALATION ×4 (02:23→20:12)
[2024-03-21] MEDS: APIXABAN 5 MG TABLET 10 MG PO ×2 (02:29→20:42)
[2024-03-21] MEDS: VANCOMYCIN 1,500 MG/NS 500 ML 1,500 MG/500 ML BAG 250 MG IVPB (03:05)
[2024-03-21 03:59] LABS: MRSA (PCR) DETECTED (NOT DETECTE)
[2024-03-21 08:07] LABS: Glucose Point of Care 100 mg/dl (65-105)
[2024-03-21] MEDS: guaiFENesin 12 HR 600 MG TABCR PO ×2 (09:30→20:42)
[2024-03-21] MEDS: OSELTAMIVIR PHOSPHATE 75 MG CAPSULE PO ×2 (09:30→20:41)
[2024-03-21] MEDS: GABAPENTIN 300 MG CAPSULE PO ×3 (09:30→16:49)
[2024-03-21] MEDS: AZITHROMYCIN 250 MG TABLET 500 MG PO (09:30)
[2024-03-21] MEDS: OXcarbazepine 300 MG TABLET PO ×2 (09:31→20:42)
[2024-03-21] MEDS: SERTRALINE HCL 50 MG TABLET 150 MG PO (09:31)
[2024-03-21] MEDS: METOPROLOL SUCCINATE EXT REL 12.5 MG TABCR PO (09:31)
[2024-03-21] MEDS: levETIRAcetam 500 MG TABLET 2000 MG PO ×2 (09:32→20:42)
--- NOTE | 2024-03-21 10:53 | P.CONNEU_ITS ---
Assessment and Plan Assessment and plan (1) Seizures: Code(s): R56.9 - Unspecified convulsions Status: Acute (2) Sepsis: Qualifiers: Sepsis type: sepsis due to unspecified organism Sepsis acute organ dysfunction status: without acute organ dysfunction Qualified Code(s): A41.9 - Sepsis, unspecified organism Code(s): A41.9 - Sepsis, unspecified organism Status: Acute (3) Multifocal pneumonia: Code(s): J18.9 - Pneumonia, unspecified organism Status: Acute (4) Influenza A: Code(s): J10.1 - Influenza due to other identified influenza virus with other respiratory manifestations Status: Acute Plan 1. Sepsis for which she is being treated accordingly with the antibiotics 2. Pneumonia. 3. Positive for the flu 4. Seizure disorder with breakthrough seizures because of the underlying infection. 5. Bronchial asthma. Treatment as being continued including the levetiracetam a 1000mg q.12 hours in addition to apixaban 10mg q.12 hours and sertraline 150mg every morning along with the trazodone and oxcarbazepine. Consult date: 03/21/24 HPI: Danita Wynn is a 58 year old femaAdmitted to the hospital through the emergency room where she was brought by the ambulance because of unwitnessed seizure. At the time of arrival to the ER patient was complaining of difficulties in breathing along with the cough. She also reported that everyone in the family has similar symptoms. Reportedly she had a seizure last night which was unwitnessed and she was supposed to have a visit with her neurologist but could not make 8. At the time of initial evaluation she was complaining of difficulties in breathing. She is known to have 1. Diabetes mellitus 2. Hypertension 3. Hyperlipidemia 4. Bronchial asthma and 5. Bipolar disorder 6. Seizure disorder. Her medications included gabapentin 300mg 3 times a day, levetiracetam 1000mg twice a day, sertraline 150mg daily, and trazodone 200mg every evening. She is allergic to sulfa, and has ongoing history of panic disorder with agoraphobia as well in addition to neuropathy and bipolar disorder. She has also undergone gastric bypass surgery in the past. She is not alcohol intake. Her initial evaluation in the ER documented vital Signs a pulse rate of 133 temp of 39.3? and blood pressure normal. CBC was normal. BMP with sodium 131. Mast a scan was with alkaline phos of 182 C reactive protein of 27.5 creatinine is 0.45 and she was positive for influenza A. CT scan of the head was negative for the bleed or any tumor lack lesion x-ray chest was suspicious for the possibility of pneumonia. Cervical spine CT scan documented no abnormalities. EKG was sinus tachycardia. CTA of the chest documented acute nonocclusive segmental right lower lobe embolus with low clot burden without evidence of right heart strain in addition to worsening multifocal pneumonia overlying asymmetrical areas of pulmonary edema, CT scan of the cervical spine with contrast was negative for any abnormalities except the visualization of multifocal infiltration within the chest . in the ER did mention that her household has been experiencing the similar symptoms. Subsequently on the floor he has been found to have Gram-positive cocci in clusters in both blood cultures bottles and subsequently vancomycin has been ordered and she has been placed on restrict IV fluids intake and output in addition she has been started on Eliquis for the acute pulmonary embolism. At present she is being treated for SIRS criteria with suspected source of pneumonia and receiving ceftriaxone and [place] through my seeing has also been started on Tamiflu 75mg b.i.d. and is on seizure precautions. Review of Systems 2 Review of Systems: All systems reviewed & are unremarkable except as noted in HPI and below PMFSH Past Medical History Medical History Neuropathy Panic disorder Agoraphobia Seizures Bipolar disorder Asthma Surgical History Surgical History History of appendectomy History of section History of gastric bypass History of cholecystectomy Social History Social History Alcohol intake: never Substance use type: marijuana Other substance usage details: twice a month Do You Feel Safe in your Home?: Yes Lack of Transportation: No Lack of Food: Sometimes True Current Housing: I Do Not Have Housing Concerned About Future Housing: YES Difficulty Paying Gas/Electric Bills: YES Difficulty Paying for Meds: YES Currently Unemployed: No Education: High School Diploma/GED Difficulty w/ Childcare or Family Care: YES Spiritual care concerns: No Meds Home Medications and Allergies Home Medications ?Medication ?Instructions ?Recorded ?Confirmed ?Type albuterol 90 mcg/actuation aerosol 90 mcg inhalation PRN 03/19/24 03/19/24 History inhaler gabapentin 300 mg capsule 300 mg PO TID 03/19/24 03/19/24 History levetiracetam 1,000 mg tablet 1,000 mg PO BID 03/19/24 03/19/24 History montelukast 10 mg tablet 10 mg PO QPM 03/19/24 03/19/24 History (Singulair) sertraline 150 mg capsule 150 mg PO DAILY 03/19/24 03/19/24 History trazodone 100 mg tablet 200 mg PO QPM 03/19/24 03/19/24 History Allergies Allergy/AdvReac Type Severity Reaction Status Date / Time Sulfa (Sulfonamide Allergy Swelling Verified 03/19/24 12:27 Antibiotics) Vital Signs Vital Signs - 24 hr 03/20/24 12:00 03/20/24 12:50 03/20/24 13:22 Temperature 36.3 C L Pulse Rate 142 H 137 H 126 H Respiratory Rate 20 20 Blood Pressure 128/67 Pulse Oximetry 99 Oxygen Delivery Oxygen Flow Rate Fraction of Inspired Oxygen 03/20/24 13:31 03/20/24 14:00 03/20/24 16:00 Temperature 37.1 C Pulse Rate 136 H 129 H 129 H Respiratory Rate 32 H 18 Blood Pressure 106/57 L Pulse Oximetry 95 Oxygen Delivery Oxygen Flow Rate Fraction of Inspired Oxygen 03/20/24 16:38 03/20/24 19:39 03/20/24 20:00 Temperature 36.1 C L 36.8 C Pulse Rate 118 H 128 H 128 H Respiratory Rate 24 H 18 18 Blood Pressure 122/70 111/73 Pulse Oximetry 96 97 97 Oxygen Delivery Room Air Oxygen Flow Rate Fraction of Inspired Oxygen 21 03/20/24 20:00 03/20/24 20:32 03/20/24 20:35 Temperature Pulse Rate 124 H 127 H 127 H Respiratory Rate 24 H Blood Pressure Pulse Oximetry 93 Oxygen Delivery Nasal Cannula Oxygen Flow Rate 2 Fraction of Inspired Oxygen 03/20/24 20:40 03/21/24 00:00 03/21/24 02:28 Temperature Pulse Rate 130 H 132 H 128 H Respiratory Rate 24 H 24 H Blood Pressure Pulse Oximetry Oxygen Delivery Oxygen Flow Rate Fraction of Inspired Oxygen 03/21/24 02:41 03/21/24 04:00 03/21/24 04:27 Temperature 36.8 C Pulse Rate 125 H 133 H 133 H Respiratory Rate 24 H 18 Blood Pressure 128/75 Pulse Oximetry 97 Oxygen Delivery Oxygen Flow Rate Fraction of Inspired Oxygen 03/21/24 07:03 03/21/24 07:03 03/21/24 07:13 Temperature Pulse Rate 128 H 128 H 126 H Respiratory Rate 20 20 20 Blood Pressure Pulse Oximetry 97 Oxygen Delivery Nasal Cannula Oxygen Flow Rate 3 Fraction of Inspired Oxygen 03/21/24 09:23 03/21/24 09:30 03/21/24 09:30 Temperature 36.2 C L Pulse Rate 134 H 137 H Respiratory Rate 18 Blood Pressure 145/89 H Pulse Oximetry 95 95 Oxygen Delivery Nasal Cannula Oxygen Flow Rate 2 Fraction of Inspired Oxygen 21 03/21/24 09:31 Temperature Pulse Rate 138 H Respiratory Rate Blood Pressure Pulse Oximetry Oxygen Delivery Oxygen Flow Rate Fraction of Inspired Oxygen Exam 2 Narrative: Revealed her to be awake alert cooperative in no obvious acute distress, head normocephalic with no cranial bruits, ear nose throat examination normal, neck supple with no meningeal signs no cervical bruit, heart regular no murmur, lungs with rhonchi no crepitations, abdomen is soft with no organomegaly, neurologically she is awake alert, with normal and full speech without evidence of dysphasia or dysarthria, able to relate to the physician, oriented in being in the hospital, pupils round regular react to light equally, feels the vision full in all 4 quadrants, extraocular movements are full with no nystagmus, facial sensation intact, face symmetrical, tongue in the midline, uvula in the midline, there is no evidence of the fasciculation of the tongue, motor examination revealed her to have generally normal and symmetrical strength in upper and lower extremities proximally and distally without evidence of increased tone or abnormal drift against gravity, there is no evidence of ataxia or dysmetria on [id number]-finger, deep tendon reflexes symmetrical and plantars are downgoing. Results Labs 03/21/24 12:28 03/21/24 12:28
--- NOTE | 2024-03-21 11:41 | ECHO_ITS ---
Patient Info Name: Danita Wynn Age: 58 years : 1965 Gender: Female Ht: 61 in Wt: 130 lbs BSA: 1.60 m2 HR: 137 bpm BP: 115 / 70 mmHg Heart Rhythm: Sinus Rhythm, Tachycardia Technical Quality: Fair Exam Date: 03/21/2024 3:39 PM Exam Location: Echo Lab Patient Status: Inpatient Admit Date: 03/20/2024 Staff Ordering Physician: Rosalba Acuna APRN Carrier Associate: More Cordon RDCS Attending Provider: Cristiano Fontenot MD Referring Physician: Armand KAPLAN; Exam Type: CA echo doppler color flow Study Info Indications - CHEST PAIN - SOB Complete two-dimensional, color flow and Doppler transthoracic echocardiogram is performed. Summary 1. Left ventricular chamber dimension is normal. 2. Left ventricular systolic function is normal, estimated at 60-65%. 3. There is mildly increased left ventricular wall thickness. 4. Right ventricular chamber dimension is mildly enlarged. 5. Right ventricular systolic function is normal. 6. Flattening of the septum in diastole and systole consistent with right ventricular volume and pressure overload. 7. There is mild mitral valve regurgitation. 8. There is mild tricuspid valve regurgitation. 9. Pulmonary hypertension, estimated pulmonary arterial systolic pressure is 65 mmHg. 10. There is trivial anterior pericardial effusion. Left Ventricle Left ventricular chamber dimension is normal. Left ventricular systolic function is normal, estimated at 60-65%. There is mildly increased left ventricular wall thickness. The left ventricular diastolic function is abnormal. Right Ventricle Flattening of the septum in diastole and systole consistent with right ventricular volume and pressure overload. Right ventricular chamber dimension is mildly enlarged. Right ventricular systolic function is normal. Left Atria Left atrial chamber dimension is normal. Right Atria Right atrial chamber dimension is normal. Atrial Septum Intact interatrial septum visualized by color flow imaging. Aortic Valve The aortic valve is trileaflet. There is mild aortic valve sclerosis. There is no aortic valve stenosis. There is no aortic valve regurgitation. Pulmonic Valve The pulmonic valve is not well visualized. There is no pulmonic regurgitation. Mitral Valve There is mild mitral valve regurgitation. The mitral valve annulus is mildly calcified. Tricuspid Valve There is mild tricuspid valve regurgitation. Pulmonary hypertension, estimated pulmonary arterial systolic pressure is 65 mmHg. Pericardium/Pleural There is trivial anterior pericardial effusion. Inferior Vena Cava Dilated inferior vena cava with <50% collapse upon inspiration consistent with elevated right atrial pressure, 15 mmHg. Aorta The aortic root size at the sinus of Valsalva is normal. Left Ventricular Outflow Tract Name Value Normal LVOT 2D LVOT Diameter 1.8 cm LVOT Doppler LVOT Peak Gradient 7 mmHg LVOT Mean Gradient 4 mmHg LVOT VTI 23 cm LVOT VTI/AV VTI Ratio 0.6 LVOT Stroke Volume 55 ml LVOT CO 6.7 l/min LVOT CI 4.2 l/min/m2 Pulmonic Valve Name Value Normal RVOT Doppler RVOT Peak Gradient 5 mmHg PV Doppler PV Peak Gradient 6 mmHg Mitral Valve Name Value Normal MV Doppler MV Peak Gradient 3 mmHg MV Mean Gradient 2 mmHg MV Area (Cont Eq VTI) 3.4 cm2 MV Diastolic Function MV E Peak Velocity 0 cm/s MV A Peak Velocity 87 cm/s MV E/A 0.0 MV Annular TDI MV E/e' (Septal) 0.9 <=8.0 MV E/e' (Lateral) 3.0 <=8.0 MV E/e' (Average) 2.0 Tricuspid Valve Name Value Normal TV Regurgitation Doppler TR Peak Velocity 354 cm/s TR Peak Gradient 50 mmHg Estimated PAP/RSVP RA Pressure 15 mmHg <=5 PA Systolic Pressure 65 mmHg <36 RV Systolic Pressure 65 mmHg <36 Aorta Name Value Normal Ascending Aorta Ao Root Diameter (MM) 3.1 cm Ao Root Diam Index (MM) 1.9 cm/m2 Aortic Valve Name Value Normal AV Doppler AV Peak Velocity 232 cm/s AV Peak Gradient 21 mmHg AV Mean Gradient 13 mmHg AV VTI 39 cm AV Area (Cont Eq VTI) 1.4 cm2 >=3.0 AV Area (Cont Eq Omari) 2.0 cm2 AV Regurgitation 2D LVOT Area 2.5 cm2 Ventricles Name Value Normal LV Dimensions 2D/MM IVS Diastolic Thickness (2D) 1.2 cm 0.6-1.0 LVID Diastole (2D) 4.1 cm 3.8-5.2 LVIW Diastolic Thickness (2D) 1.8 cm 0.6-0.9 LVID Systole (2D) 2.2 cm 2.2-3.5 LVOT Diameter 1.8 cm LV Mass (2D Cubed) 236.16 g 67.00-162.00 LV Mass Index (2D Cubed) 147 g/m2 43-95 Relative Wall Thickness (2D) 0.87 LV Fractional Shortening/Ejection Fraction 2D/MM LV Fractional Shortening (2D) 46 % 27-45 LV EF (2D Teicholz) 78 % 54-74 Atria Name Value Normal LA Dimensions LA Dimension (MM) 4.6 cm 2.7-3.8 LA Volume (4C A-L) 49 ml LA Volume (BP A-L) 44 ml RA Dimensions RA Area (4C) 15.0 cm2 <=18.0 Report Signatures
[2024-03-21 12:10] LABS: Glucose Point of Care 150 mg/dl (65-105)
[2024-03-21 12:36] LABS: Hematocrit 38.3 % (37.0-47.0); Hemoglobin 13.2 g/dL (12.0-15.0); Mean Corpuscular HGB Conc 34.5 g/dl (32-36); Mean Corpuscular Hemoglobin 27.5 pg (26-34); Mean Corpuscular Volume 79.8 fl (80-100); Platelet Count Result 211 k/mm3 (150-375); Red Cell Distribution Width 14.6 % (11.5-14.5); White Blood Count 10.8 K/mm3 (4.5-10.0)
[2024-03-21 12:48] LABS: Anion Gap 8 mmol/L (4-12); Blood Urea Nitrogen 12 mg/dL (7-17); Calcium 8.3 mg/dL (8.4-10.2); Carbon Dioxide 21 mmol/L (22-30); Chloride 112 mmol/L (98-107); Estimated CRCL calculation 82 ml/min; Estimated Glomerular Filt Rate > 60; Glucose 119 mg/dL (65-110); Potassium 3.9 mmol/L (3.4-5.0); Sodium 141 mmol/L (137-145)
[2024-03-21] MEDS: predniSONE 20 MG TABLET 40 MG PO (13:18)
[2024-03-21] MEDS: METOPROLOL TARTRATE INJ 5 MG/5 ML VIAL IV PUSH (13:29)
--- NOTE | 2024-03-21 16:16 | P.PNIM_ITS ---
Progress Note: A&P Assessment and Plan (1) Sepsis: Qualifiers: Sepsis acute organ dysfunction status: without acute organ dysfunction Sepsis type: sepsis due to unspecified organism Qualified Code(s): A41.9 - S epsis, unspecified organism Code(s): A41.9 - Sepsis, unspecified organism Status: Acute Assessment and Plan: - meets SIRS criteria: HR, RR. No hypoxia or hypotension at present. - lactic acid 1.1, CRP 27.5. trend crp. - 30 mL/kg = 1700, given 2L bolus -> 125 mL/hr - suspected source: PNA - started on ceftriaxone and azithromycin on 03/19 - blood cultures drawn on 03/19 - UA pending - monitor hemodynamic stability sputum positive for staph aureus Blood cultures positive for MRSA, nasal swab positive started on vanc- pharmacy to dose continue azithromycin and ceftriaxone Hemodinamically stable- despite tachy which is most likly due to PE if becomes hypotensive and/or any altered mental status changes- will transfer to IMU for close montioring will order repeat blood culture for tomorrow , 03/22 (2) Multifocal pneumonia: Code(s): J18.9 - Pneumonia, unspecified organism Status: Acute Assessment and Plan: - CXR: Bilateral airspace opacities suspicious for pneumonia although some of the opacities appear somewhat nodular and would recommend radiographic follow-up to resolution. - multifocal infiltrates in bilateral lungs seen on C-spine CT - risk factors and complicating factors: Concurrent seizures, Flu A - started on CAP tx: ceftriaxone, azithromycin see above (3) Influenza A: Code(s): J10.1 - Influenza due to other identified influenza virus with other respiratory manifestations Status: Acute Assessment and Plan: - tested positive for influenza A on 03/19 - Tamiflu 75 mg BID - supportive care: Tylenol p.r.n. Mucinex harry Levalbuterol p.r.n. Tessalon Perles p.r.n. Lozenge p.r.n. CPT vest BID as tolerated - monitor WBC/CBC (4) Seizures: Code(s): R56.9 - Unspecified convulsions Status: Acute Assessment and Plan: - seizure precautions - suspect breakthrough seizures secondary to fever/active infection - continue home medications neurology consulted- appreciate recommendations (5) Asthma: Qualifiers: Asthma complication type: with acute exacerbation Asthma persistence: intermittent Asthma severity: mild Qualified Code(s): J45.21 - Mild intermittent asthma with (acute) exacerbation Code(s): J45.909 - Unspecified asthma, uncomplicated Status: Acute Assessment and Plan: - levalbuterol harry -po steroids are ordered Plan Blood culture one bottle positive- will continue with current meds for now - no changes- as could be contaminated. pt is on room air, stable vitals, stable labs. Diet: regular GI Prophylaxis: Not currently indicated DVT Prophylaxis: SCDs Lines: Peripheral Code Status: Full code Time Spent With Patient Time with patient: 25 - 35 minutes Subjective Date/time seen: 03/21/24 16:16 Interval history: 58 y/o F presents here with seizure with PMH of seizures, neuropathy, agarophobia, panic disorder, bipolar 1&2, and asthma. The patient presents here from home via EMS for further evaluation of seizure. HPI obtained through chart review, patient report, and EMS report. EMS reported to the ED staff that family had called 911 after they found the patient on the floor. Presumed that patient had a seizure. They reported to EMS that she had a witnessed seizure the day prior (03/18), unknown length of time. She did not seek care after the first seizure. Denies any trauma/injury. The patient is currently reporting shortness of breath, cough, fever, rhinorrhea, headache, dizziness, and congestion. Onset of symptoms was approximately 5 days ago. Denies nausea, vomiting, or diarrhea. She reports that her household has been experiencing similar symptoms. Initial VS at presentation: Room 102.8? F, HR 133, R 30, 125/81, and 95% on RA. ED workup showed: No leukocytosis, no anemia, sodium 131, creatinine 0.45 and GFR >60, glucose 111, lactic 1.1, CRP 27.5, and tested positive for flu A. CXR showed bilateral airspace opacities suspicious for pneumonia. Head CT showed no acute intracranial hemorrhage or suspicious mass-effect. C-spine CT showed preservation of the normal curvature of the cervical spine, multifocal infiltrates within the chest, no acute fracture. Pt is seen and examined. she is appropriate. reports h/o asthma, smokes marijuana only 2 puffs a month . she is homeless, so not able to have any follow ups with pcp or neurology. reports that she takes all of her meds RN reported that pt had multiple home meds in her purse, so could be taking them. She is more drowsy now- around 1700. She is arousable though. Will watch her for now. Medications had been removed and locked for now. 2/4- positive for PE- was started on eliquis last night Still tahcy but BP maintain stable. If start getting hemodynamically unstable, will transfer to IMU. for now, continue with antibiotics. She is resting with eyes clsoed. REports feeling fine today. Neurology was able to see her today. Review of Systems Review of Systems: resting with eyes closed, feeling a bit better today All systems reviewed & are unremarkable except as noted in HPI and below Exam Const: General: comfortable and no acute distress Other: , female, ill-appearing HENMT: Face/Nose/Sinus: Normal nares present Mouth: Yes moist mucous membranes Eyes: General: appearance normal, both eyes and all related structures Sclera: sclerae normal Pupils: Equal, round and reactive pupils present EOM: EOMs intact bilaterally Resp: Effort & Inspection: normal respiratory effort Auscultation: diminished lung sounds Cardio: Rate: tachycardic Other: +ectopy, no murmur or rub. GI: Other: Abdomen soft, nondistended, nontender. Normoactive bowel sounds in all quadrants. Skin: General skin exam: normal color and no rashes or lesions noted Wounds: no wounds Neuro: Cranial nerves: Yes Equal, round and reactive pupils present Speech: normal speech Motor exam (neuro): 5/5 motor strength present throughout Sensory Exam: normal sensation Other: A&O x4 Extrem: General: normal to inspection Psych: Mental Status: mental status grossly normal Affect: normal affect Other: Good insight and judgment, pleasant Objective Data Vital Signs Vital Signs: Vital Signs - 24 hr 03/20/24 16:38 03/20/24 19:39 03/20/24 20:00 Temperature 96.9 F L 98.3 F Pulse Rate 118 H 128 H 128 H Respiratory Rate 24 H 18 18 Blood Pressure 122/70 111/73 Pulse Oximetry 96 97 97 Oxygen Delivery Room Air Oxygen Flow Rate Fraction of Inspired Oxygen 21 03/20/24 20:00 03/20/24 20:32 03/20/24 20:35 Temperature Pulse Rate 124 H 127 H 127 H Respiratory Rate 24 H Blood Pressure Pulse Oximetry 93 Oxygen Delivery Nasal Cannula Oxygen Flow Rate 2 Fraction of Inspired Oxygen 03/20/24 20:40 03/21/24 00:00 03/21/24 02:28 Temperature Pulse Rate 130 H 132 H 128 H Respiratory Rate 24 H 24 H Blood Pressure Pulse Oximetry Oxygen Delivery Oxygen Flow Rate Fraction of Inspired Oxygen 03/21/24 02:41 03/21/24 04:00 03/21/24 04:27 Temperature 98.2 F Pulse Rate 125 H 133 H 133 H Respiratory Rate 24 H 18 Blood Pressure 128/75 Pulse Oximetry 97 Oxygen Delivery Oxygen Flow Rate Fraction of Inspired Oxygen 03/21/24 07:03 03/21/24 07:03 03/21/24 07:13 Temperature Pulse Rate 128 H 128 H 126 H Respiratory Rate 20 20 20 Blood Pressure Pulse Oximetry 97 Oxygen Delivery Nasal Cannula Oxygen Flow Rate 3 Fraction of Inspired Oxygen 03/21/24 09:23 03/21/24 09:30 03/21/24 09:30 Temperature 97.2 F L Pulse Rate 134 H 137 H Respiratory Rate 18 Blood Pressure 145/89 H Pulse Oximetry 95 95 Oxygen Delivery Nasal Cannula Oxygen Flow Rate 2 Fraction of Inspired Oxygen 21 03/21/24 09:31 03/21/24 12:00 03/21/24 12:48 Temperature Pulse Rate 138 H 141 H 120 H Respiratory Rate 20 Blood Pressure Pulse Oximetry Oxygen Delivery Oxygen Flow Rate Fraction of Inspired Oxygen 03/21/24 12:58 03/21/24 13:29 03/21/24 13:31 Temperature 98.6 F Pulse Rate 117 H 139 H 137 H Respiratory Rate 20 18 Blood Pressure 115/70 Pulse Oximetry 93 Oxygen Delivery Oxygen Flow Rate Fraction of Inspired Oxygen Intake/Output Intake/Output: Intake & Output 03/18/24 03/19/24 03/20/24 03/21/24 23:59 23:59 23:59 23:59 Intake Total 3004.2 2919.2 1318.3 Balance 3004.2 2919.2 1318.3 Meds/Results Medications: Active Medications Generic Name Dose Route Start Last Admin Trade Name Freq PRN Reason Stop Dose Admin Acetaminophen 650 mg 03/19/24 15:02 03/20/24 20:15 Acetaminophen 325 Mg Tablet PO 650 mg Q4H PRN Administration Mild Pain (1-3) or Fever Apixaban 10 mg 03/21/24 02:05 03/21/24 02:29 Apixaban 5 Mg Tablet PO 10 mg Q12HR HARRY Administration Azithromycin 500 mg 03/21/24 09:00 03/21/24 09:30 Azithromycin 250 Mg Tablet PO 03/23/24 09:01 500 mg DAILY HARRY Administration Benzocaine 1 lozenge 03/19/24 15:11 03/19/24 17:39 Benzocaine/Menthol (*Bkc) 18 Ea Lozenge PO 1 lozenge PRN PRN Administration Sore Throat Benzonatate 100 mg 03/19/24 15:11 03/20/24 20:16 Benzonatate 100 Mg Capsule PO 100 mg TID PRN Administration Cough Dextrose 12.5 gm 03/19/24 15:15 Dextrose 50% 25 Gm/50 Ml Syringe IV PUSH PRN PRN Hypoglycemia Protocol Gabapentin 300 mg 03/19/24 17:00 03/21/24 13:18 Gabapentin 300 Mg Capsule PO 300 mg TID HARRY Administration Glucagon 1 mg 03/19/24 15:15 Glucagon For Inj 1 Mg Vial IM PRN PRN Hypoglycemia Protocol Glucose 15 gm 03/19/24 15:15 Glucose Oral Gel 15 Gm Of Glucse In 37.5 Gm Tube PO PRN PRN Hypoglycemia Protocol Guaifenesin 600 mg 03/19/24 21:00 03/21/24 09:30 Guaifenesin 12 Hr 600 Mg Tabcr PO 600 mg Q12HR HARRY Administration Ceftriaxone Sodium 1 gm in 50 mls @ 100 mls/hr 03/19/24 14:50 03/21/24 09:26 Rocephin 1 Gm/Ns 50 Ml IVPB 100 mls/hr QAM HARRY Administration Dextrose 1,000 mls @ 100 mls/hr 03/19/24 15:15 Dextrose 5% 1,000 Ml IVPB PRN PRN Hypoglycemia Protocol Vancomycin HCl 1,250 mg in 250 mls @ 166.667 mls/hr 03/21/24 21:00 Vancomycin 1,250 Mg/Ns 250 Ml IVPB Q18H HARRY Insulin Aspart 2 - 5 units 03/19/24 17:00 03/21/24 13:20 Insulin Aspart (*Bkc) 100 Units/Ml SUB-Q Not Given TIDWM HARRY Protocol Levalbuterol HCl 0.63 mg 03/19/24 20:00 03/21/24 12:48 Levalbuterol Neb 1.25 Mg/3 Ml INHALATION 0.63 mg Q6HRT HARRY Administration Levetiracetam 2,000 mg 03/19/24 21:00 03/21/24 09:32 Levetiracetam 500 Mg Tablet PO 2,000 mg Q12HR HARRY Administration Metoprolol Succinate 12.5 mg 03/21/24 09:00 03/21/24 09:31 Metoprolol Succinate Ext Rel 12.5 Mg Tabcr PO 12.5 mg QAM HARRY Administration Montelukast Sodium 10 mg 03/19/24 18:00 03/20/24 17:21 Montelukast Sodium 10 Mg Tablet PO Not Given QPM HARRY Oseltamivir Phosphate 75 mg 03/19/24 14:50 03/21/24 09:30 Oseltamivir Phosphate 75 Mg Capsule PO 03/23/24 21:01 75 mg Q12HR HARRY Administration Oxcarbazepine 300 mg 03/19/24 21:00 03/21/24 09:31 Oxcarbazepine 300 Mg Tablet PO 300 mg Q12HR HARRY Administration Perflutren Lipid Microsphere 0 ml 03/21/24 11:41 Perflutren Lipid Microspheres 1.5 Ml Vial Diluted To 10 Ml Total Volume IV PUSH 03/24/24 11:42 ONCE PRN adequate visualization Protocol Prednisone 40 mg 03/21/24 11:40 03/21/24 13:18 Prednisone 20 Mg Tablet PO 03/25/24 08:01 40 mg DAILY@0800 HARRY Administration Quetiapine Fumarate 800 mg 03/20/24 21:00 03/20/24 21:23 Quetiapine Fumarate 100 Mg Tablet PO 800 mg HS HARRY Administration Sertraline HCl 150 mg 03/20/24 09:00 03/21/24 09:31 Sertraline Hcl 50 Mg Tablet PO 150 mg QAM HARRY Administration Trazodone HCl 200 mg 03/19/24 18:00 03/19/24 17:36 Trazodone Hcl 50 Mg Tablet PO 200 mg QPM HARRY Administration Radiology Results: ITS Impressions Chest X-Ray 03/19/24 12:51 IMPRESSION: 1. Bilateral airspace opacities suspicious for pneumonia although some of the opacities appear somewhat nodular and would recommend radiographic follow-up to resolution. Head CT 03/19/24 13:41 Impression: No acute intracranial hemorrhage or suspicious mass effect. Cervical Spine CT 03/19/24 13:42 Impression: Preservation of the normal curvature of the cervical spine. Multifocal infiltrates within the chest. No acute fracture. Chest CTA 03/20/24 23:51 IMPRESSION: Acute nonocclusive segmental right lower lobe embolus. Low clot burden. No CT evidence of right heart strain. Worsening multifocal pneumonia, overlying asymmetric areas of pulmonary edema. Diffuse mild chest wall subcutaneous edema. Labs Labs: Laboratory Results - last 24 hr 03/20/24 03/20/24 03/21/24 16:31 19:43 02:28 WBC RBC Hgb Hct MCV MCH MCHC RDW Plt Count MPV Sodium Potassium Chloride Carbon Dioxide Anion Gap BUN Creatinine Estim Creat Clear Calc Estimated GFR Glucose POC Capillary Glucose 99 119 H Calcium Nasal MRSA (PCR) Detected A* 03/21/24 03/21/24 03/21/24 08:04 12:05 12:28 WBC 10.8 H RBC 4.80 Hgb 13.2 Hct 38.3 MCV 79.8 L MCH 27.5 MCHC 34.5 RDW 14.6 H Plt Count 211 MPV 10.0 Sodium 141 Potassium 3.9 Chloride 112 H Carbon Dioxide 21 L Anion Gap 8 BUN 12 D Creatinine 0.48 L Estim Creat Clear Calc 82 Estimated GFR > 60 Glucose 119 H POC Capillary Glucose 100 150 H Calcium 8.3 L Nasal MRSA (PCR) Quality VTE Prophylaxis VTE prophylaxis: mechanical ordered
[2024-03-21 16:53] LABS: Glucose Point of Care 154 mg/dl (65-105)
[2024-03-21 18:50] LABS: Lactic Acid Reflex 1.4 mmol/L (0.7-2.0)
[2024-03-21] MEDS: MONTELUKAST SODIUM 10 MG TABLET PO (18:51)
[2024-03-21] MEDS: SODIUM CHLORIDE 0.9% IV 500 ML IV CONT (18:51)
[2024-03-21] MEDS: VANCOMYCIN 1,250 MG/NS 250 ML 1,250 MG/250 ML BAG 166.67 MG IVPB (20:41)
[2024-03-21] MEDS: QUEtiapine FUMARATE 100 MG TABLET 800 MG PO (20:41)
[2024-03-21 21:11] LABS: Glucose Point of Care 176 mg/dl (65-105)
[2024-03-22] VITALS (40 sets, daily range): BP systolic 102–160; BP diastolic 67–109; PULSE 95–145; RESP 20–44; TEMP 36.7–37.7; O2SAT 84–100
[2024-03-22 01:42] LABS: Alveolar/Arterial O2 Gradient 84.9 mmHg; Base Excess ABG -1.6 mEq/l (+/-2.0); Fractional Inspired Oxygen 28 %; HCO3 ABG 23.9 mEq/l (22.0-26.0); Oxygen Content ABG 16.6 %vol (16.0-22.0); Oxygen Saturation ABG 91.4 % (95.0-100.0); Oxyhemoglobin 89.6 % THb (90.0-100.0); PCO2 ABG 43.4 mmHg (35.0-45.0); PO2 ABG 63.5 mmHg (80.0-100.0); PO2 FiO2 Ratio Arterial Blood 2.27 %; Total Hemoglobin 13.2 g/dL (12.0-18.0); pH ABG 7.359 (7.350-7.450)
[2024-03-22 01:43] LABS: Device NASAL CANNULA; Modified Allen's Test Pass; Site Drawn LEFT RADIAL
[2024-03-22] MEDS: FUROSEMIDE INJ 40 MG/4 ML VIAL IV PUSH ×2 (02:03→09:42)
[2024-03-22] MEDS: LEVALBUTEROL NEB 1.25 MG/3 ML 0.63 MG INHALATION ×4 (02:23→20:21)
[2024-03-22] MEDS: METOPROLOL SUCCINATE EXT REL 12.5 MG TABCR PO (05:18)
[2024-03-22 06:16] LABS: Hematocrit 38.1 % (37.0-47.0); Hemoglobin 13.3 g/dL (12.0-15.0); Mean Corpuscular HGB Conc 34.9 g/dl (32-36); Mean Corpuscular Hemoglobin 27.3 pg (26-34); Mean Corpuscular Volume 78.1 fl (80-100); Mean Platelet Volume 10.2 fl (7.4-10.4); Platelet Count Result 231 k/mm3 (150-375); Red Blood Count 4.88 M/mm3 (4.2-5.4); Red Cell Distribution Width 14.6 % (11.5-14.5); White Blood Count 12.9 K/mm3 (4.5-10.0)
--- NOTE | 2024-03-22 06:37 | ECG_ITS ---
Test Date: 2024-03-22 06:52:40 Measurements Intervals [place] Rate: 118 P: 56 [place]: 112 QRS: 52 QRSD: 86 T: 45 QT: 327 QTc: 459 Interpretive Statements SINUS TACHYCARDIA WITH SHORT [place] INTERVAL WITH FREQUENT SUPRAVENTRICULAR PREMATURE COMPLEXES ABNORMAL ECG Compared to ECG 03/20/2024 11:05:46 ATRIAL PREMATURE COMPLEXES NOW PRESENT Electronically Signed On 03-22-2024 07:10:32 SALES OFFICE COORDINATOR by Danny Ryan D.O.
[2024-03-22 06:40] LABS: Anion Gap 7 mmol/L (4-12); Blood Urea Nitrogen 13 mg/dL (7-17); Calcium 8.9 mg/dL (8.4-10.2); Carbon Dioxide 25 mmol/L (22-30); Chloride 110 mmol/L (98-107); Estimated CRCL calculation 89 ml/min; Estimated Glomerular Filt Rate > 60; Glucose 120 mg/dL (65-110); Potassium 3.5 mmol/L (3.4-5.0); Sodium 142 mmol/L (137-145)
[2024-03-22] MEDS: METOPROLOL TARTRATE INJ 5 MG/5 ML VIAL IV PUSH (06:50)
--- NOTE | 2024-03-22 08:04 | PM.IMPN ---
Progress Note: A&P Assessment and Plan (1) Acute hypoxic respiratory failure: Code(s): J96.01 - Acute respiratory failure with hypoxia Status: Acute Assessment and Plan: Patient became increasingly tachypneic this morning with respiratory rate in the 40s and accessory muscle use. - CXR 03/19/24: Bilateral airspace opacities suspicious for pneumonia although some of the opacities appear somewhat nodular and would recommend radiographic follow-up to resolution. - Repeat CXR 03/22/24: Extensive patchy bilateral airspace disease, compatible with worsening bilateral pneumonia. - ABG: pH 7.359, pCO2 43.4, pO2 63.5, HCO3 23.9. Oxyhemoglobin 89.6. Obtained on 2L NC. - Repeat: pH 7.422, PCO2 36.9, pO2 52.5, HCO3 23.5. Oxyhemoglobin 84.9. Obtained on 2L NC. - lasix 40 mg IV x 1 given - Planned for transfer to IMU on continuous BIPAP however agricultural equipment salesperson was concerned about impending respiratory failure and chose to intubate instead and have patient transferred to the ICU (2) Sepsis: Qualifiers: Sepsis acute organ dysfunction status: without acute organ dysfunction Sepsis type: sepsis due to unspecified organism Qualified Code(s): A41.9 - Sepsis, unspecified organism Code(s): A41.9 - Sepsis, unspecified organism Status: Acute Assessment and Plan: - meets SIRS criteria: HR, RR, WBC - lactic acid 1.1, CRP 27.5. trend crp. - 30 mL/kg = 1700, given 2L bolus -> 125 mL/hr - suspected source: PNA - sputum positive for staph aureus - Blood cultures positive for MRSA, nasal swab positive - Antibiotics: started on vanc on 03/21, continue azithromycin and ceftriaxone started on 03/19 - monitor hemodynamic stability Hemodinamically stable- despite tachy which is most likly due to PE If becomes hypotensive and/or any altered mental status changes- will transfer to IMU for close monitoring (3) Bacteremia: Code(s): R78.81 - Bacteremia Status: Acute Assessment and Plan: Blood cultures obtained on 03/19/24: MRSA - Suspected source: PNA - Antibiotics: Vancomycin started on 03/21 - Echo: LVEF 60-65% with pulmonary hypertension. Does not report endocarditis. - Repeat blood cultures on 03/22: pending (4) Multifocal pneumonia: Code(s): J18.9 - Pneumonia, unspecified organism Status: Acute Assessment and Plan: CXR 03/19/24: Bilateral airspace opacities suspicious for pneumonia although some of the opacities appear somewhat nodular and would recommend radiographic follow-up to resolution. CXR 03/22/24: Extensive patchy bilateral airspace disease, compatible with worsening bilateral pneumonia. - ABG: pH 7.359, pCO2 43.4, pO2 63.5, HCO3 23.9. Oxyhemoglobin 89.6. Obtained on 2L NC. - Repeat: pH 7.422, PCO2 36.9, pO2 52.5, HCO3 23.5. Oxyhemoglobin 84.9. Obtained on 2L NC. - Antibiotics: started on vanc on 03/21, transitioned to cefepime on 03/22, continue azithromycin started on 03/19 - Viral PCR: FLU A - MRSA nare: positive - Sputum culture: staph aureus - sputum positive for staph aureus - Blood cultures positive for MRSA, nasal swab positive - legionella, mycoplasma and pneumococcal pending - Intubated per agricultural equipment salesperson (baseline room air); wean as tolerated. Keep SpO2 greater than 88% - Monitor vital signs, I&Os, neuro status and patient is a fall risk - Follow WBC, serum electrolytes, temperature curves and cultures (5) Pulmonary embolism: Code(s): I26.99 - Other pulmonary embolism without acute cor pulmonale Status: Acute Assessment and Plan: Chest CTA: Acute nonocclusive segmental right lower lobe embolus. Low clot burden. No CT evidence of right heart strain. Worsening multifocal pneumonia, overlying asymmetric areas of pulmonary edema.Diffuse mild chest wall subcutaneous edema. - Continue eliquis 10 mg BID started on 03/21 - Echocardiogram to rule out cardiac strain: LVEF 60-65% with pulmonary hypertension - Monitor vital signs, I&Os, shortness of breath and chest pain. Patient is a fall risk - Monitor serum electrolytes, PTT, CBC, WBC, temperature curve and cultures. - Monitor for bloody bowel movements,chest pain,SOB or dizziness/lightheadedness (6) Influenza A: Code(s): J10.1 - Influenza due to other identified influenza virus with other respiratory manifestations Status: Acute Assessment and Plan: - tested positive for influenza A on 03/19 - Tamiflu 75 mg BID - supportive care: Tylenol p.r.n. Mucinex harry Levalbuterol p.r.n. Tessalon Perles p.r.n. Lozenge p.r.n. CPT vest BID as tolerated - monitor WBC/CBC (7) Seizures: Code(s): R56.9 - Unspecified convulsions Status: Acute Assessment and Plan: Patient had witnessed seizure on 03/18 for unknown length of time. - seizure precautions - suspect breakthrough seizures secondary to fever/active infection - continue home medications: keppra 1000 mg BID - neurology consulted- appreciate recommendations (8) Asthma: Qualifiers: Asthma complication type: with acute exacerbation Asthma persistence: intermittent Asthma severity: mild Qualified Code(s): J45.21 - Mild intermittent asthma with (acute) exacerbation Code(s): J45.909 - Unspecified asthma, uncomplicated Status: Acute Assessment and Plan: - levalbuterol harry - po steroids are ordered Plan Diet: regular GI Prophylaxis: Not currently indicated DVT Prophylaxis: SCDs and Eliquis Lines: Peripheral Code Status: Full code Time Spent With Patient Time with patient: Greater than 35 minutes Subjective Date/time seen: 03/22/24 08:04 Interval history: 58 y/o F presents to the hospital for a seizure with past medical history of seizures, neuropathy, agarophobia, panic disorder, bipolar 1&2, and asthma. Received call from RN that patient had developed worsening shortness of breath and was having 40+ respirations per minute and worsening tachycardia. Arrived to patients room and she was endorsing shortness of breath and palpitations. She denies chest pain at that time. Patient was severely tachypneic and using accessory muscles with respirations. A repeat chest xr showed worsening pneumonia and ABG showed worsening saturations on 2L NC. Patient given 40 mg IV lasix x1 at that time. Plan was to start transfer to IMU on continuous BIPAP however agricultural equipment salesperson was concerned about impending respiratory failure and chose to intubate instead and have patient transferred to the ICU. At time of transfer the agricultural equipment salesperson took over patient treatment. Review of Systems Review of Systems: All systems reviewed & are unremarkable except as noted in HPI and below Exam Narrative: AF HR 140 RR 44 SpO2 91 2L NC BP 160/105 General: female in acute respiratory distress who is ill appearing, sitting up in bed. HEENT: Normocephalic. Atraumatic. Extraocular movement intact. Sclera clear and anicteric. No facial asymmetry. Chest: Lungs are coarse to auscultation bilaterally more so on the right than left, no wheezing. Only able to speak 2-4 words per breath. CV: Heart was regular rate and rhythm. S1-S2. No murmurs, gallops, or rubs. Abd: Abdomen was soft. Nontender. Nondistended. Positive bowel sounds. No organomegaly or masses. Ext: No clubbing, cyanosis, or edema. 2+ DP pulses bilaterally. Neuro: Patient is alert. Objective Data Vital Signs Vital Signs: Vital Signs - 24 hr 03/21/24 09:23 03/21/24 09:30 03/21/24 09:30 Temperature 97.2 F L Pulse Rate 134 H 137 H Respiratory Rate 18 Blood Pressure 145/89 H Pulse Oximetry 95 95 Oxygen Delivery Nasal Cannula Oxygen Flow Rate 2 Fraction of Inspired Oxygen 21 03/21/24 09:31 03/21/24 12:00 03/21/24 12:48 Temperature Pulse Rate 138 H 141 H 120 H Respiratory Rate 20 Blood Pressure Pulse Oximetry Oxygen Delivery Oxygen Flow Rate Fraction of Inspired Oxygen 03/21/24 12:58 03/21/24 13:29 03/21/24 13:31 Temperature 98.6 F Pulse Rate 117 H 139 H 137 H Respiratory Rate 20 18 Blood Pressure 115/70 Pulse Oximetry 93 Oxygen Delivery Oxygen Flow Rate Fraction of Inspired Oxygen 03/21/24 16:00 03/21/24 20:00 03/21/24 20:12 Temperature Pulse Rate 137 H 135 H Respiratory Rate Blood Pressure Pulse Oximetry 97 Oxygen Delivery Nasal Cannula Oxygen Flow Rate 3 Fraction of Inspired Oxygen 03/21/24 20:13 03/21/24 20:24 03/21/24 20:40 Temperature Pulse Rate 113 H 110 H Respiratory Rate 20 Blood Pressure Pulse Oximetry 94 Oxygen Delivery Nasal Cannula Oxygen Flow Rate 2 Fraction of Inspired Oxygen 03/21/24 20:52 03/22/24 00:04 03/22/24 01:16 Temperature 97.7 F 98.3 F Pulse Rate 136 H 129 H 132 H Respiratory Rate 18 36 H Blood Pressure 152/101 H 154/89 H Pulse Oximetry 94 95 Oxygen Delivery Oxygen Flow Rate Fraction of Inspired Oxygen 03/22/24 01:20 03/22/24 02:24 03/22/24 02:33 Temperature 98.3 F Pulse Rate 132 H 117 H 112 H Respiratory Rate 36 H 20 20 Blood Pressure 154/89 H Pulse Oximetry 95 Oxygen Delivery Nasal Cannula Oxygen Flow Rate 2 Fraction of Inspired Oxygen 03/22/24 03:57 03/22/24 04:42 03/22/24 05:18 Temperature 98.1 F Pulse Rate 136 H 128 H 142 H Respiratory Rate 30 H Blood Pressure 146/91 H Pulse Oximetry 94 Oxygen Delivery Oxygen Flow Rate Fraction of Inspired Oxygen 03/22/24 06:42 03/22/24 06:50 Temperature Pulse Rate 140 H 137 H Respiratory Rate Blood Pressure Pulse Oximetry Oxygen Delivery Oxygen Flow Rate Fraction of Inspired Oxygen Intake/Output Intake/Output: Intake & Output 03/19/24 03/20/24 03/21/24 03/22/24 23:59 23:59 23:59 23:59 Intake Total 3004.2 2919.2 1438.3 240 Balance 3004.2 2919.2 1438.3 240 Meds/Results Medications: Active Medications Generic Name Dose Route Start Last Admin Trade Name Freq PRN Reason Stop Dose Admin Acetaminophen 650 mg 03/19/24 15:02 03/20/24 20:15 Acetaminophen 325 Mg Tablet PO 650 mg Q4H PRN Administration Mild Pain (1-3) or Fever Apixaban 10 mg 03/21/24 02:05 03/21/24 20:42 Apixaban 5 Mg Tablet PO 10 mg Q12HR HARRY Administration Azithromycin 500 mg 03/21/24 09:00 03/21/24 09:30 Azithromycin 250 Mg Tablet PO 03/23/24 09:01 500 mg DAILY HARRY Administration Benzocaine 1 lozenge 03/19/24 15:11 03/19/24 17:39 Benzocaine/Menthol (*Bkc) 18 Ea Lozenge PO 1 lozenge PRN PRN Administration Sore Throat Benzonatate 100 mg 03/19/24 15:11 03/20/24 20:16 Benzonatate 100 Mg Capsule PO 100 mg TID PRN Administration Cough Dextrose 12.5 gm 03/19/24 15:15 Dextrose 50% 25 Gm/50 Ml Syringe IV PUSH PRN PRN Hypoglycemia Protocol Gabapentin 300 mg 03/19/24 17:00 03/21/24 16:49 Gabapentin 300 Mg Capsule PO 300 mg TID HARRY Administration Glucagon 1 mg 03/19/24 15:15 Glucagon For Inj 1 Mg Vial IM PRN PRN Hypoglycemia Protocol Glucose 15 gm 03/19/24 15:15 Glucose Oral Gel 15 Gm Of Glucse In 37.5 Gm Tube PO PRN PRN Hypoglycemia Protocol Guaifenesin 600 mg 03/19/24 21:00 03/21/24 20:42 Guaifenesin 12 Hr 600 Mg Tabcr PO 600 mg Q12HR HARRY Administration Ceftriaxone Sodium 1 gm in 50 mls @ 100 mls/hr 03/19/24 14:50 03/21/24 09:26 Rocephin 1 Gm/Ns 50 Ml IVPB 100 mls/hr QAM HARRY Administration Dextrose 1,000 mls @ 100 mls/hr 03/19/24 15:15 Dextrose 5% 1,000 Ml IVPB PRN PRN Hypoglycemia Protocol Vancomycin HCl 1,250 mg in 250 mls @ 166.667 mls/hr 03/22/24 09:00 Vancomycin 1,250 Mg/Ns 250 Ml IVPB Q12HR HARRY Insulin Aspart 2 - 5 units 03/19/24 17:00 03/21/24 17:39 Insulin Aspart (*Bkc) 100 Units/Ml SUB-Q Not Given TIDWM HARRY Protocol Levalbuterol HCl 0.63 mg 03/19/24 20:00 03/22/24 02:23 Levalbuterol Neb 1.25 Mg/3 Ml INHALATION 0.63 mg Q6HRT HARRY Administration Levetiracetam 2,000 mg 03/19/24 21:00 03/21/24 20:42 Levetiracetam 500 Mg Tablet PO 2,000 mg Q12HR HARRY Administration Metoprolol Succinate 12.5 mg 03/21/24 09:00 03/22/24 05:18 Metoprolol Succinate Ext Rel 12.5 Mg Tabcr PO 12.5 mg QAM HARRY Administration Montelukast Sodium 10 mg 03/19/24 18:00 03/21/24 18:51 Montelukast Sodium 10 Mg Tablet PO 10 mg QPM HARRY Administration Oseltamivir Phosphate 75 mg 03/19/24 14:50 03/21/24 20:41 Oseltamivir Phosphate 75 Mg Capsule PO 03/23/24 21:01 75 mg Q12HR HARRY Administration Oxcarbazepine 300 mg 03/19/24 21:00 03/21/24 20:42 Oxcarbazepine 300 Mg Tablet PO 300 mg Q12HR HARRY Administration Perflutren Lipid Microsphere 0 ml 03/21/24 11:41 Perflutren Lipid Microspheres 1.5 Ml Vial Diluted To 10 Ml Total Volume IV PUSH 03/24/24 11:42 ONCE PRN adequate visualization Protocol Prednisone 40 mg 03/21/24 11:40 03/21/24 13:18 Prednisone 20 Mg Tablet PO 03/25/24 08:01 40 mg DAILY@0800 HARRY Administration Quetiapine Fumarate 800 mg 03/20/24 21:00 03/21/24 20:41 Quetiapine Fumarate 100 Mg Tablet PO 800 mg HS HARRY Administration Sertraline HCl 150 mg 03/20/24 09:00 03/21/24 09:31 Sertraline Hcl 50 Mg Tablet PO 150 mg QAM HARRY Administration Sodium Chloride 1 spray 03/21/24 17:33 Saline 0.65% [employer] 44 Ml Btl NASAL Q6HR PRN Congestion Trazodone HCl 200 mg 03/19/24 18:00 03/19/24 17:36 Trazodone Hcl 50 Mg Tablet PO 200 mg QPM HARRY Administration Radiology Results: ITS Impressions Head CT 03/19/24 13:41 Impression: No acute intracranial hemorrhage or suspicious mass effect. Cervical Spine CT 03/19/24 13:42 Impression: Preservation of the normal curvature of the cervical spine. Multifocal infiltrates within the chest. No acute fracture. Chest CTA 03/20/24 23:51 IMPRESSION: Acute nonocclusive segmental right lower lobe embolus. Low clot burden. No CT evidence of right heart strain. Worsening multifocal pneumonia, overlying asymmetric areas of pulmonary edema. Diffuse mild chest wall subcutaneous edema. Chest X-Ray 03/22/24 06:21 Impression: Extensive patchy bilateral airspace disease, compatible with worsening bilateral pneumonia. Labs Labs: Laboratory Results - last 24 hr 03/21/24 03/21/24 03/21/24 08:04 12:05 12:28 WBC 10.8 H RBC 4.80 Hgb 13.2 Hct 38.3 MCV 79.8 L MCH 27.5 MCHC 34.5 RDW 14.6 H Plt Count 211 MPV 10.0 Puncture Site ABG pH ABG pCO2 ABG pO2 ABG PO2/FiO2 Ratio ABG HCO3 ABG O2 Saturation ABG O2 Content ABG Base Excess A-a Gradient Oxyhemoglobin Total Hemoglobin O2 Delivery Device O2 Liters/Min FiO2 Sodium 141 Potassium 3.9 Chloride 112 H Carbon Dioxide 21 L Anion Gap 8 BUN 12 D Creatinine 0.48 L Estim Creat Clear Calc 82 Estimated GFR > 60 Glucose 119 H POC Capillary Glucose 100 150 H Lactic Acid Calcium 8.3 L 03/21/24 03/21/24 03/21/24 16:50 18:21 20:49 WBC RBC Hgb Hct MCV MCH MCHC RDW Plt Count MPV Puncture Site ABG pH ABG pCO2 ABG pO2 ABG PO2/FiO2 Ratio ABG HCO3 ABG O2 Saturation ABG O2 Content ABG Base Excess A-a Gradient Oxyhemoglobin Total Hemoglobin O2 Delivery Device O2 Liters/Min FiO2 Sodium Potassium Chloride Carbon Dioxide Anion Gap BUN Creatinine Estim Creat Clear Calc Estimated GFR Glucose POC Capillary Glucose 154 H 176 H Lactic Acid 1.4 Calcium 03/22/24 03/22/24 01:37 05:42 WBC 12.9 H RBC 4.88 Hgb 13.3 Hct 38.1 MCV 78.1 L MCH 27.3 MCHC 34.9 RDW 14.6 H Plt Count 231 MPV 10.2 Puncture Site Left radial ABG pH 7.359 ABG pCO2 43.4 ABG pO2 63.5 L ABG PO2/FiO2 Ratio 2.27 ABG HCO3 23.9 ABG O2 Saturation 91.4 L ABG O2 Content 16.6 ABG Base Excess -1.6 A-a Gradient 84.9 Oxyhemoglobin 89.6 L Total Hemoglobin 13.2 O2 Delivery Device Nasal cannula O2 Liters/Min 2.0 FiO2 28 Sodium 142 Potassium 3.5 Chloride 110 H Carbon Dioxide 25 Anion Gap 7 BUN 13 Creatinine 0.50 L Estim Creat Clear Calc 89 Estimated GFR > 60 Glucose 120 H POC Capillary Glucose Lactic Acid Calcium 8.9 Quality VTE Prophylaxis VTE prophylaxis: pharmacologic ordered
[2024-03-22 08:16] LABS: Glucose Point of Care 115 mg/dl (65-105)
[2024-03-22] MEDS: levETIRAcetam 500 MG TABLET 2000 MG PO (09:33)
[2024-03-22] MEDS: SERTRALINE HCL 50 MG TABLET 150 MG PO (09:33)
[2024-03-22] MEDS: AZITHROMYCIN 250 MG TABLET 500 MG PO (09:33)
[2024-03-22] MEDS: predniSONE 20 MG TABLET 40 MG PO (09:34)
[2024-03-22] MEDS: OXcarbazepine 300 MG TABLET PO ×2 (09:34→20:31)
[2024-03-22] MEDS: GABAPENTIN 300 MG CAPSULE PO ×3 (09:34→17:20)
[2024-03-22] MEDS: APIXABAN 5 MG TABLET 10 MG PO ×2 (09:34→20:31)
[2024-03-22] MEDS: guaiFENesin 12 HR 600 MG TABCR PO (09:34)
[2024-03-22] MEDS: OSELTAMIVIR PHOSPHATE 75 MG CAPSULE PO ×2 (09:34→20:31)
[2024-03-22] MEDS: VANCOMYCIN 1,250 MG/NS 250 ML 1,250 MG/250 ML BAG 166.67 MG IVPB (10:04)
[2024-03-22] MEDS: ACETAMINOPHEN 325 MG TABLET 650 MG PO (10:04)
[2024-03-22 10:30] LABS: Alveolar/Arterial O2 Gradient 103.6 mmHg; Base Excess ABG -0.5 mEq/l (+/-2.0); Fractional Inspired Oxygen 28 %; HCO3 ABG 23.5 mEq/l (22.0-26.0); Oxygen Content ABG 17.4 %vol (16.0-22.0); PCO2 ABG 36.9 mmHg (35.0-45.0); PO2 ABG 52.5 mmHg (80.0-100.0); PO2 FiO2 Ratio Arterial Blood 1.88 %; Total Hemoglobin 14.6 g/dL (12.0-18.0); pH ABG 7.422 (7.350-7.450)
[2024-03-22 10:32] LABS: Oxyhemoglobin 84.9 % THb (90.0-100.0); Site Drawn LEFT RADIAL
[2024-03-22 10:33] LABS: Device NASAL CANNULA; Modified Allen's Test Pass
--- NOTE | 2024-03-22 11:56 | PC.NURSE ---
This patient, Danita Wynn, was transferred to ICU on 03/22/24 at 1150. Personal belongings sent with patient. Report given to Shantell GREENBERG. Appropriate documentation sent with patient.
--- NOTE | 2024-03-22 12:09 | P.CONIN_ITS ---
Assessment and Plan Assessment and plan (1) Acute hypoxic respiratory failure: Code(s): J96.01 - Acute respiratory failure with hypoxia Status: Acute Assessment and Plan: 03/22: Chest x-ray this morning showed worsening multifocal pneumonia, patient in acute respiratory distress/impending respiratory failure/tachypnea. Discussed with patient regarding intubation to which she was agreeable. 03/22: Patient intubated successfully. Intubation was uneventful -on CMV mode of ventilation, peep of 10, 100% FiO2 -obtain post intubation ABGs, will adjust ventilator accordingly -post intubation chest x-ray and KUB showed ETT and OG tube in appropriate position. Chest x-ray continues to show bilateral multifocal pneumonia -patient started on hydrocortisone for pneumonia -switched ceftriaxone to cefepime 2 g IV q.8 hours (03/22) , will continue vancomycin and azithromycin -continue bronchodilators -sedated with propofol infusion, maintain RASS of -2, daily sedation vacation (2) Influenza A: Code(s): J10.1 - Influenza due to other identified influenza virus with other respiratory manifestations Status: Acute Assessment and Plan: Patient was positive for influenza A on admission, continue Tamiflu (3) Bacteremia: Code(s): R78.81 - Bacteremia Status: Acute Assessment and Plan: Patient has MRSA bacteremia -03/19/2024: Blood cultures growing MRSA /2 bottles -03/19/2024: Sputum culture growing MRSA -03/22/2024: Repeat blood cultures obtained this morning, pending (4) Multifocal pneumonia: Code(s): J18.9 - Pneumonia, unspecified organism Status: Acute Assessment and Plan: Chest x-ray and CTA chest showed multifocal pneumonia -continue antibiotics, mechanical ventilation, steroids (5) Pulmonary embolism: Code(s): I26.99 - Other pulmonary embolism without acute cor pulmonale Status: Acute Assessment and Plan: Patient given tachycardia and tachypneic, -continue Eliquis -low clot burden 03/20/2024: CTA chest Acute nonocclusive segmental right lower lobe embolus. Low clot burden. No CT evidence of right heart strain. Worsening multifocal pneumonia, overlying asymmetric areas of pulmonary edema. Diffuse mild chest wall subcutaneous edema. (6) Seizures: Code(s): R56.9 - Unspecified convulsions Status: Acute Assessment and Plan: Patient has a history of seizures and presented with seizures on the day of admission and the day prior to that. -continue Keppra, Trileptal (7) Sepsis: Qualifiers: Sepsis type: sepsis due to unspecified organism Sepsis acute organ dysfunction status: without acute organ dysfunction Qualified Code(s): A41.9 - Sepsis, unspecified organism Code(s): A41.9 - Sepsis, unspecified organism Status: Acute Assessment and Plan: Patient fulfilled the criteria of sepsis -now bacteremic, -cultures and antibiotics as above Plan DVT prophylaxis: Eliquis Stress ulcer prophylaxis: Protonix Nutrition: NPO for now Code Status: Full code Critical Care Time Spent: 57 minutes Discussed with patient prior to intubation and updated her with her condition and plan of care. I explained to her the rationale for intubation to which she was agreeable. Patient was successfully intubated and now sedated. -family has been updated Due to a high probability of clinically significant, life threatening deterioration, the patient required my highest level of preparedness to intervene emergently and I personally spent this critical care time directly and personally managing the patient. This critical care time included obtaining a history; examining the patient; pulse oximetry; ordering and review of studies; arranging urgent treatment with development of a management plan; evaluation of patient's response to treatment; frequent reassessment; and discussions with other providers. It was exclusive of separately billable procedures and treating other patients and teaching time. Please see Assessment and Plan section and the rest of the note for further information on patient assessment and treatment This dictation may have been done utilizing a voice recognition system. Attempts have been made to correct errors. However, there may be uncorrected grammatical, spelling, and recognitions errors present. Outside Physical Damage Appraiser Consult Note Consult date: 03/22/24 Reason for consult: Acute hypoxic respiratory failure, acute respiratory distress, impending respiratory failure, sepsis, MRSA bacteremia, multifocal pneumonia, pulmonary embolism, seizures HPI: Danita Wynn is a 58 year old female home a past medical history of seizures, neuropathy, and the phobia, panic disorder, bipolar and asthma presented the ED on 03/19/2024 with complains of with witnessed seizures at home. She also complained of shortness of breath, cough, fevers, rhinorrhea, dizziness and congestion. The symptoms were ongoing for approximately 5 days. In the ER patient was found to be positive for influenza A and was started on Tamiflu. Chest x-ray showed bilateral airspace opacities which was suspicious was pneumonia. CT head did not show any acute intracranial abnormality. C-spine showed preservation of normal curvature of the cervical spine, multifocal infiltrates within the chest and no acute fractures. Patient was admitted to the medical floor, started on ceftriaxone and azithromycin. -03/19/2024 blood cultures positive for MRSA, -03/19/2024 sputum cultures positive for MRSA -03/20/2024 CTA chest was done secondary to shortness of breath and tachycardia, acute non occlusive segmental right lower lobe emboli, low clot burden. No CT evidence of right heart strain. Worsening multifocal pneumonia, overlying asymmetric areas of pulmonary edema. Diffuse mild chest wall subcutaneous edema 03/22/2024: Patient was being transferred to intermediate Unit, discussed with nursing unit manager was made to evaluate the patient. Chest x-ray was reviewed along CTA chest. Patient was breathing 40+ times a minute, tachycardic in the 130s to 140s seem to be in severe respiratory distress. Asked the nursing directed to place the patient in the ICU. I discussed with the patient at length regarding intubation secondary impending respiratory failure, she was agreeable. Patient was intubated successfully. Remains tachycardic, could be related to adrenergic response. Sedated with propofol infusion. Prior to intubation patient was awake, able to answer questions and follow commands. Currently sedated, hemodynamically stable, afebrile Review of Systems 2 Review of Systems: All systems reviewed & are unremarkable except as noted in HPI and below PMFSH Past Medical History Medical History Neuropathy Panic disorder Agoraphobia Seizures Bipolar disorder Asthma Surgical History Surgical History History of appendectomy History of section History of gastric bypass History of cholecystectomy Social History Social History Alcohol intake: never Substance use type: marijuana Other substance usage details: twice a month Do You Feel Safe in your Home?: Yes Lack of Transportation: No Lack of Food: Sometimes True Current Housing: I Do Not Have Housing Concerned About Future Housing: YES Difficulty Paying Gas/Electric Bills: YES Difficulty Paying for Meds: YES Currently Unemployed: No Education: High School Diploma/GED Difficulty w/ Childcare or Family Care: YES Spiritual care concerns: No Meds Home Medications and Allergies Home Medications ?Medication ?Instructions ?Recorded ?Confirmed ?Type albuterol 90 mcg/actuation aerosol 90 mcg inhalation PRN 03/19/24 03/19/24 History inhaler gabapentin 300 mg capsule 300 mg PO TID 03/19/24 03/19/24 History levetiracetam 1,000 mg tablet 1,000 mg PO BID 03/19/24 03/19/24 History montelukast 10 mg tablet 10 mg PO QPM 03/19/24 03/19/24 History (Singulair) sertraline 150 mg capsule 150 mg PO DAILY 03/19/24 03/19/24 History trazodone 100 mg tablet 200 mg PO QPM 03/19/24 03/19/24 History Allergies Allergy/AdvReac Type Severity Reaction Status Date / Time Sulfa (Sulfonamide Allergy Swelling Verified 03/19/24 12:27 Antibiotics) Vital Signs Vital Signs - 24 hr 03/21/24 12:48 03/21/24 12:58 03/21/24 13:29 Temperature Pulse Rate 120 H 117 H 139 H Respiratory Rate 20 20 Blood Pressure Pulse Oximetry Oxygen Delivery Oxygen Flow Rate 03/21/24 13:31 03/21/24 16:00 03/21/24 20:00 Temperature 98.6 F Pulse Rate 137 H 137 H 135 H Respiratory Rate 18 Blood Pressure 115/70 Pulse Oximetry 93 Oxygen Delivery Oxygen Flow Rate 03/21/24 20:12 03/21/24 20:13 03/21/24 20:24 Temperature Pulse Rate 113 H 110 H Respiratory Rate 20 Blood Pressure Pulse Oximetry 97 Oxygen Delivery Nasal Cannula Oxygen Flow Rate 3 03/21/24 20:40 03/21/24 20:52 03/22/24 00:04 Temperature 97.7 F Pulse Rate 136 H 129 H Respiratory Rate 18 Blood Pressure 152/101 H Pulse Oximetry 94 94 Oxygen Delivery Nasal Cannula Oxygen Flow Rate 2 03/22/24 01:16 03/22/24 01:20 03/22/24 02:24 Temperature 98.3 F 98.3 F Pulse Rate 132 H 132 H 117 H Respiratory Rate 36 H 36 H 20 Blood Pressure 154/89 H 154/89 H Pulse Oximetry 95 95 Oxygen Delivery Nasal Cannula Oxygen Flow Rate 2 03/22/24 02:33 03/22/24 03:57 03/22/24 04:42 Temperature 98.1 F Pulse Rate 112 H 136 H 128 H Respiratory Rate 20 30 H Blood Pressure 146/91 H Pulse Oximetry 94 Oxygen Delivery Oxygen Flow Rate 03/22/24 05:18 03/22/24 06:42 03/22/24 06:50 Temperature Pulse Rate 142 H 140 H 137 H Respiratory Rate Blood Pressure Pulse Oximetry Oxygen Delivery Oxygen Flow Rate 03/22/24 08:00 03/22/24 08:30 03/22/24 08:30 Temperature Pulse Rate 129 H 122 H Respiratory Rate 20 Blood Pressure Pulse Oximetry 95 Oxygen Delivery Nasal Cannula Oxygen Flow Rate 2 03/22/24 08:42 03/22/24 09:00 03/22/24 09:50 Temperature 98.1 F Pulse Rate 120 H 140 H 134 H Respiratory Rate 20 44 H 42 H Blood Pressure 160/105 H Pulse Oximetry 91 97 Oxygen Delivery Nasal Cannula Oxygen Flow Rate 2 Exam 2 Narrative: General: Intubated and sedated, in no acute does HEENT:? Pupils equal and reactive, sclerae is clear, ETT in place Neck:? Supple Respiratory:? Coarse breath sounds bilaterally, adequate air entry, no wheezing, bilateral diffuse rales Cardiac:? S1-S2 normal, tachycardic Abdomen:? Soft, nontender, nondistended, hypoactive bowel sound Extremities:? no edema, palpable pedal pulses Neuro:? Intubated, sedated at this time, prior to intubation patient was awake, alert, able to answer questions and follows simple commands appropriately Skin:? No skin lesions noted Psych:? Unable to assess at this time Results Labs 03/22/24 05:42 03/22/24 05:42 Labs: Short CBC 03/21/24 03/22/24 Range/Units 12:28 05:42 WBC 10.8 H 12.9 H (4.5-10.0) K/mm3 Hgb 13.2 13.3 (12.0-15.0) g/dL Hct 38.3 38.1 (37.0-47.0) % Plt Count 211 231 (150-375) k/mm3 BMP 03/21/24 03/22/24 12:28 05:42 Sodium 141 142 Potassium 3.9 3.5 Chloride 112 H 110 H Carbon Dioxide 21 L 25 BUN 12 D 13 Creatinine 0.48 L 0.50 L Glucose 119 H 120 H Calcium 8.3 L 8.9
[2024-03-22 12:19] LABS: NT Pro B Type Natriuretic Pept 1090 pg/mL (19.9-100)
[2024-03-22] MEDS: ETOMIDATE 20 MG/10 ML AMPUL IV PUSH (12:20)
[2024-03-22] MEDS: ROCURONIUM BROMIDE 50 MG/5 ML VIAL IV PUSH ×2 (12:20→13:36)
[2024-03-22 12:26] LABS: Procalcitonin 5.1 ng/mL
[2024-03-22] MEDS: PROPOFOL IV EMULSION 100 ML 1.89 MG IV CONT (12:30)
--- NOTE | 2024-03-22 12:47 | WPDPROCEDUR ---
Procedures Intubation Intubation Date: 03/22/24 Intubation Time: 11:58 Consent: Consent obtained from patient. I explained to her the rationale for intubation to which she is agreeable. A pre-procedural Time-Out was completed immediately before starting the procedure and confirmed: Patient Identification, Site, Procedure, Patient Position and the Availability of Requisite Equipment: Yes Sedative: etomidate Paralytic: rocuronium Laryngoscope: fiber optic video scope Assist device used: fiber optic device ET tube size: 7.5 Tube secured depth (cm): 22 Tube secured location: lips Tube placement confirmation: visualized tube passing through cords, equal breath sounds bilaterally, no breath sounds over epigastrium and confirmation by capnometry Patient tolerated procedure: well Intubation complications: none
[2024-03-22 13:09] LABS: Triglycerides 70 mg/dL (<150)
[2024-03-22 13:15] LABS: Glucose Point of Care 142 mg/dl (65-105)
[2024-03-22] MEDS: LACTATED RINGERS 1,000 ML 999 ML IV CONT (13:17)
[2024-03-22 13:23] LABS: Alveolar/Arterial O2 Gradient 298.7 mmHg; Base Excess ABG -4.7 mEq/l (+/-2.0); Carboxyhemoglobin 1.1 % THb (0-2.0); Fractional Inspired Oxygen 100 %; HCO3 ABG 23.4 mEq/l (22.0-26.0); Oxygen Content ABG 20.5 %vol (16.0-22.0); Oxygen Saturation ABG 99.7 % (95.0-100.0); Oxyhemoglobin 98.6 % THb (90.0-100.0); PCO2 ABG 55.4 mmHg (35.0-45.0); PO2 ABG 358.9 mmHg (80.0-100.0); PO2 FiO2 Ratio Arterial Blood 3.59 %; Reduced Hemoglobin 0.3 %THb (0-5.0); Total Hemoglobin 14.1 g/dL (12.0-18.0)
[2024-03-22] MEDS: CEFEPIME 2 GM/NS 50 ML 2 GM/50 ML BAG IVPB ×2 (13:26→22:17)
[2024-03-22] MEDS: HYDROCORTISONE SODIUM SUCCINATE 100 MG/2 ML VIAL 50 MG IV PUSH ×2 (13:26→17:20)
[2024-03-22 13:28] LABS: pH ABG 7.243 (7.350-7.450)
[2024-03-22 13:36] LABS: Arterial Blood Gas Ventilator rate 24 /MIN; Device VENTILATOR; Site Drawn LEFT BRACHIAL
[2024-03-22 13:37] LABS: Arterial Blood Gas PEEP 10 cmH2O; Arterial Blood Gas Tidal Volume 340 ml; Arterial Blood Gas Vent Mode CMV
[2024-03-22] MEDS: ALBUMIN HUMAN 25% 25 GM/100 ML 100 ML IVPB ×2 (13:38→17:20)
[2024-03-22] MEDS: CENTRAL LINE FLUSH 10 ML IV PUSH ×2 (13:39→22:20)
[2024-03-22] MEDS: PANTOPRAZOLE SODIUM IV 40 MG VIAL IV PUSH (13:45)
[2024-03-22] MEDS: CISATRACURIUM BESYLATE 200 MG in DEXTROSE 5% 80 ML 5.68 ML IV CONT (14:23)
--- NOTE | 2024-03-22 16:01 | PC.NURSE ---
Talked with patient's daughter Rolle at around 1300 and notified her that patient was intubated and receiving a PICC line.
[2024-03-22] MEDS: MONTELUKAST SODIUM 10 MG TABLET PO (17:20)
[2024-03-22 17:29] LABS: Glucose Point of Care 166 mg/dl (65-105)
[2024-03-22] MEDS: PROPOFOL IV EMULSION 100 ML 15.14 MG IV CONT (18:00)
[2024-03-22 19:35] LABS: MRSA (PCR) DETECTED (NOT DETECTE)
[2024-03-22] MEDS: levETIRAcetam 1000MG/NACL100ML 1,000 MG/100 ML BAG 400 MG IVPB (20:29)
[2024-03-22] MEDS: MINERAL OIL/WHITE PETROLATUM OINTMENT 1 APPLIC EACH EYE (20:31)
[2024-03-22 20:43] LABS: Vancomycin Trough 5.8 ug/mL (10.0-20.0)
[2024-03-22] MEDS: VANCOMYCIN 1,500 MG/NS 500 ML 1,500 MG/500 ML BAG 250 MG IVPB (22:20)
[2024-03-22 23:54] LABS: Glucose Point of Care 161 mg/dl (65-105)
[2024-03-23] VITALS (42 sets, daily range): BP systolic 116–156; BP diastolic 82–104; PULSE 83–119; RESP 28–36; TEMP 36.8–37.7; O2SAT 94–99; BMI 26.2
[2024-03-23] MEDS: ALBUMIN HUMAN 25% 25 GM/100 ML 100 ML IVPB ×4 (00:18→18:03)
[2024-03-23] MEDS: HYDROCORTISONE SODIUM SUCCINATE 100 MG/2 ML VIAL 50 MG IV PUSH ×4 (00:18→18:04)
[2024-03-23] MEDS: PROPOFOL IV EMULSION 100 ML 17.04 MG IV CONT (00:18)
[2024-03-23] MEDS: LEVALBUTEROL NEB 1.25 MG/3 ML 0.63 MG INHALATION ×4 (01:53→20:30)
[2024-03-23 03:57] LABS: Hematocrit 34.2 % (37.0-47.0); Hemoglobin 11.6 g/dL (12.0-15.0); Mean Corpuscular HGB Conc 33.9 g/dl (32-36); Mean Corpuscular Hemoglobin 27.4 pg (26-34); Mean Corpuscular Volume 80.7 fl (80-100); Mean Platelet Volume 10.7 fl (7.4-10.4); Platelet Count Result 188 k/mm3 (150-375); Red Blood Count 4.24 M/mm3 (4.2-5.4); Red Cell Distribution Width 14.5 % (11.5-14.5); White Blood Count 17.6 K/mm3 (4.5-10.0)
[2024-03-23 04:10] LABS: Lactic Acid Reflex 0.9 mmol/L (0.7-2.0)
[2024-03-23 04:17] LABS: Alanine Aminotransferase 31 U/L (6-35); Albumin Level 3.2 g/dL (3.5-5.1); Alkaline Phosphatase 137 U/L (38-126); Anion Gap 6 mmol/L (4-12); Aspartate Amino Transferase 32 U/L (14-36); Bilirubin,Total 0.8 mg/dL (0.2-1.3); Blood Urea Nitrogen 21 mg/dL (7-17); Calcium 8.5 mg/dL (8.4-10.2); Carbon Dioxide 28 mmol/L (22-30); Chloride 106 mmol/L (98-107); Estimated CRCL calculation 108 ml/min; Estimated Glomerular Filt Rate > 60; Glucose 132 mg/dL (65-110); Magnesium 1.6 mg/dL (1.6-2.3); Phosphorus 4.2 mg/dL (2.5-4.5); Potassium 4.1 mmol/L (3.4-5.0); Sodium 140 mmol/L (137-145)
[2024-03-23] MEDS: MIDAZOLAM HCL (*CRX) 2 MG/2 ML VIAL IV PUSH (04:18)
[2024-03-23 04:24] LABS: CRP 17.7 mg/dL (<1.0)
[2024-03-23] MEDS: CEFEPIME 2 GM/NS 50 ML 2 GM/50 ML BAG IVPB ×3 (05:00→21:29)
[2024-03-23] MEDS: CENTRAL LINE FLUSH 10 ML IV PUSH ×3 (05:01→21:29)
[2024-03-23] MEDS: VANCOMYCIN 1,500 MG/NS 500 ML 1,500 MG/500 ML BAG 250 MG IVPB ×2 (05:01→14:31)
[2024-03-23 05:13] LABS: Band Neutrophils Percent 19 % (0-6); Eosinophils Absolute Manual 0.35 K/mm3 (0.02-0.50); Eosinophils Percent Manual 2 % (0-4); Lymphocytes Absolute Manual 2.11 K/mm3 (1.1-4.5); Monocytes Absolute Manual 0.17 K/mm3 (0.1-0.90); Monocytes Percent Manual 1 % (3-9); Neutrophils Absolute Manual 14.96 K/mm3 (1.7-7.2); Neutrophils Percent Manual 66 % (46-73); Total Cells Counted 100
[2024-03-23 05:14] LABS: Platelet Estimate Adequate (Adequate); Schistocytes None Seen
[2024-03-23 05:15] LABS: Burr Cells 1+; Target Cells 1+
[2024-03-23 05:36] LABS: Alveolar/Arterial O2 Gradient 184.1 mmHg; Base Excess ABG 0.3 mEq/l (+/-2.0); Carboxyhemoglobin 0.6 % THb (0-2.0); Fractional Inspired Oxygen 60 %; Methemoglobin ABG 0.3 %THb (0-1.5); Oxygen Content ABG 16.6 %vol (16.0-22.0); Oxyhemoglobin 98.1 % THb (90.0-100.0); PCO2 ABG 59.9 mmHg (35.0-45.0); PO2 ABG 177.8 mmHg (80.0-100.0); PO2 FiO2 Ratio Arterial Blood 2.96 %; Total Hemoglobin 11.8 g/dL (12.0-18.0)
[2024-03-23] MEDS: PROPOFOL IV EMULSION 100 ML 18.93 MG IV CONT ×4 (05:36→21:05)
[2024-03-23 05:44] LABS: Device VENTILATOR; Modified Allen's Test Pass; Site Drawn LEFT RADIAL; pH ABG 7.287 (7.350-7.450)
[2024-03-23 05:45] LABS: Arterial Blood Gas PEEP 10 cmH2O; Arterial Blood Gas Tidal Volume 340 ml; Arterial Blood Gas Vent Mode CMV; Arterial Blood Gas Ventilator rate 28 /MIN
[2024-03-23] MEDS: OSELTAMIVIR PHOSPHATE 75 MG CAPSULE PO ×2 (08:41→21:28)
[2024-03-23] MEDS: GABAPENTIN 300 MG CAPSULE PO ×3 (08:41→18:04)
[2024-03-23] MEDS: MINERAL OIL/WHITE PETROLATUM OINTMENT 1 APPLIC EACH EYE ×2 (08:41→21:29)
[2024-03-23] MEDS: APIXABAN 5 MG TABLET 10 MG PO ×2 (08:41→21:28)
[2024-03-23] MEDS: AZITHROMYCIN 250 MG TABLET 500 MG PO (08:41)
[2024-03-23] MEDS: SERTRALINE HCL 50 MG TABLET 150 MG PO (08:42)
[2024-03-23] MEDS: OXcarbazepine 300 MG TABLET PO ×2 (08:42→21:28)
[2024-03-23] MEDS: PANTOPRAZOLE SODIUM IV 40 MG VIAL IV PUSH (08:42)
[2024-03-23] MEDS: CISATRACURIUM BESYLATE 200 MG in DEXTROSE 5% 80 ML IV CONT (10:59)
[2024-03-23 11:44] LABS: Glucose Point of Care 121 mg/dl (65-105)
--- NOTE | 2024-03-23 13:36 | WPDINTPN ---
Progress Note: A&P Assessment and Plan (1) Acute hypoxic respiratory failure: Code(s): J96.01 - Acute respiratory failure with hypoxia Status: Acute Assessment and Plan: 03/22: Chest x-ray this morning showed worsening multifocal pneumonia, patient in acute respiratory distress/impending respiratory failure/tachypnea. Discussed with patient regarding intubation to which she was agreeable. 03/22: Patient intubated successfully. Intubation was uneventful -on CMV mode of ventilation, peep of 10, 60% FiO2 -obtain post intubation ABGs, will adjust ventilator accordingly -ABGs and chest x-ray reviewed, ventilator adjusted -continue steroids pneumonia - continue cefepime 2 g IV q.8 hours (03/22), vancomycin and azithromycin -continue bronchodilators -sedated with propofol infusion, maintain RASS of -2, daily sedation vacation (2) Influenza A: Code(s): J10.1 - Influenza due to other identified influenza virus with other respiratory manifestations Status: Acute Assessment and Plan: Patient was positive for influenza A on admission, continue Tamiflu (3) Bacteremia: Code(s): R78.81 - Bacteremia Status: Acute Assessment and Plan: Patient has MRSA bacteremia -03/19/2024: Blood cultures growing MRSA 2/2 bottles -03/19/2024: Sputum culture growing MRSA -03/22/2024: Repeat blood cultures growing Gram-positive cocci in clusters -consult cardiology for ARIAN to evaluate for vegetations -transthoracic echocardiogram did not show any vegetations (4) Multifocal pneumonia: Code(s): J18.9 - Pneumonia, unspecified organism Status: Acute Assessment and Plan: Chest x-ray and CTA chest showed multifocal pneumonia -continue antibiotics, mechanical ventilation, steroids (5) Pulmonary embolism: Code(s): I26.99 - Other pulmonary embolism without acute cor pulmonale Status: Acute Assessment and Plan: Patient given tachycardia and tachypneic, -continue Eliquis -low clot burden 03/20/2024: CTA chest Acute nonocclusive segmental right lower lobe embolus. Low clot burden. No CT evidence of right heart strain. Worsening multifocal pneumonia, overlying asymmetric areas of pulmonary edema. Diffuse mild chest wall subcutaneous edema. (6) Seizures: Code(s): R56.9 - Unspecified convulsions Status: Acute Assessment and Plan: Patient has a history of seizures and presented with seizures on the day of admission and the day prior to that. -continue IvanXimena cobb (7) Sepsis: Qualifiers: Sepsis type: sepsis due to unspecified organism Sepsis acute organ dysfunction status: without acute organ dysfunction Qualified Code(s): A41.9 - Sepsis, unspecified organism Code(s): A41.9 - Sepsis, unspecified organism Status: Acute Assessment and Plan: Patient fulfilled the criteria of sepsis -now bacteremic, -cultures and antibiotics as above Plan DVT prophylaxis: Eliquis Stress ulcer prophylaxis: Protonix Nutrition: NPO for now Code Status: Full code Critical Care Time Spent: 57 minutes Discussed with patient prior to intubation and updated her with her condition and plan of care. I explained to her the rationale for intubation to which she was agreeable. Patient was successfully intubated and now sedated. -family has been updated Due to a high probability of clinically significant, life threatening deterioration, the patient required my highest level of preparedness to intervene emergently and I personally spent this critical care time directly and personally managing the patient. This critical care time included obtaining a history; examining the patient; pulse oximetry; ordering and review of studies; arranging urgent treatment with development of a management plan; evaluation of patient's response to treatment; frequent reassessment; and discussions with other providers. It was exclusive of separately billable procedures and treating other patients and teaching time. Please see Assessment and Plan section and the rest of the note for further information on patient assessment and treatment This dictation may have been done utilizing a voice recognition system. Attempts have been made to correct errors. However, there may be uncorrected grammatical, spelling, and recognitions errors present. Subjective Date/time seen: 03/23/24 13:36 Interval history: Reason for consult: Acute hypoxic respiratory failure, acute respiratory distress, impending respiratory failure, sepsis, MRSA bacteremia, multifocal pneumonia, pulmonary embolism, seizures 03/23/2024: Patient seen and examined the ICU, remains intubated on CMV mode of ventilation, peep of 10, 60% FiO2. Sedated with propofol infusion, patient also on Nimbex for ventilator synchrony. Urine output has been adequate, afebrile, hemodynamically stable. Increase WBC count this morning along with bandemia of 19%. Electrolytes and kidney functions are within normal limits. CRP 17.7 Review of Systems Review of Systems: All systems reviewed & are unremarkable except as noted in HPI and below Exam Narrative: General: Intubated and sedated, in no acute does HEENT:? Pupils equal and reactive, sclerae is clear, ETT in place Neck:? Supple Respiratory:? Coarse breath sounds bilaterally, adequate air entry, no wheezing, bilateral diffuse rales Cardiac:? S1-S2 normal, tachycardic Abdomen:? Soft, nontender, nondistended, hypoactive bowel sound Extremities:? no edema, palpable pedal pulses Neuro:? Intubated, sedated at this time, patient also on Nimbex for ventilator synchrony ( prior to intubation patient was awake, alert, able to answer questions and follows simple commands appropriately) Skin:? No skin lesions noted Psych:? Unable to assess at this time Objective Data Vital Signs Vital Signs: Vital Signs - 24 hr 03/22/24 13:37 03/22/24 14:00 03/22/24 14:00 Temperature 99.8 F H Pulse Rate 144 H 133 H 133 H Respiratory Rate 28 H Blood Pressure 116/82 Pulse Oximetry 97 98 Oxygen Delivery Mechanical Ventilation Fraction of Inspired Oxygen 65 03/22/24 14:00 03/22/24 14:23 03/22/24 14:47 Temperature Pulse Rate 127 H 129 H 132 H Respiratory Rate 28 H 25 H 28 H Blood Pressure 117/80 Pulse Oximetry Oxygen Delivery Fraction of Inspired Oxygen 03/22/24 14:48 03/22/24 14:57 03/22/24 14:57 Temperature Pulse Rate 128 H 127 H 127 H Respiratory Rate 28 H Blood Pressure Pulse Oximetry 99 99 Oxygen Delivery Mechanical Ventilation Mechanical Ventilation Fraction of Inspired Oxygen 65 65 03/22/24 16:00 03/22/24 16:00 03/22/24 16:00 Temperature 98.5 F Pulse Rate 111 H 106 H 109 H Respiratory Rate 28 H Blood Pressure 116/67 Pulse Oximetry 100 99 Oxygen Delivery Mechanical Ventilation Fraction of Inspired Oxygen 60 03/22/24 16:00 03/22/24 16:00 03/22/24 16:00 Temperature Pulse Rate 110 H 110 H Respiratory Rate 28 H 28 H Blood Pressure 102/82 Pulse Oximetry Oxygen Delivery Fraction of Inspired Oxygen 60 03/22/24 16:23 03/22/24 18:00 03/22/24 18:00 Temperature Pulse Rate 105 H 112 H 112 H Respiratory Rate 28 H 28 H Blood Pressure Pulse Oximetry 99 Oxygen Delivery Mechanical Ventilation Fraction of Inspired Oxygen 60 03/22/24 18:00 03/22/24 18:00 03/22/24 18:00 Temperature 98.2 F Pulse Rate 114 H 116 H 116 H Respiratory Rate 28 H 28 H Blood Pressure 107/78 107/78 Pulse Oximetry 99 Oxygen Delivery Fraction of Inspired Oxygen 03/22/24 20:00 03/22/24 20:00 03/22/24 20:00 Temperature 98.4 F Pulse Rate 116 H 116 H Respiratory Rate 28 H 28 H Blood Pressure 128/90 Pulse Oximetry 97 Oxygen Delivery Fraction of Inspired Oxygen 60 03/22/24 20:00 03/22/24 20:00 03/22/24 20:21 Temperature Pulse Rate 116 H 113 H 112 H Respiratory Rate 28 H Blood Pressure 125/89 Pulse Oximetry 99 Oxygen Delivery Mechanical Ventilation Fraction of Inspired Oxygen 60 03/22/24 20:21 03/22/24 20:27 03/22/24 20:30 Temperature Pulse Rate 112 H 117 H 116 H Respiratory Rate 28 H 28 H 28 H Blood Pressure Pulse Oximetry 97 Oxygen Delivery Mechanical Ventilation Fraction of Inspired Oxygen 60 03/22/24 20:45 03/22/24 21:57 03/22/24 22:00 Temperature 98.2 F Pulse Rate 116 H 100 96 Respiratory Rate 28 H 28 H 28 H Blood Pressure 112/80 109/82 Pulse Oximetry 99 Oxygen Delivery Fraction of Inspired Oxygen 03/22/24 22:00 03/22/24 22:00 03/22/24 22:40 Temperature Pulse Rate 96 96 95 Respiratory Rate 28 H Blood Pressure Pulse Oximetry 99 Oxygen Delivery Mechanical Ventilation Fraction of Inspired Oxygen 60 03/23/24 00:00 03/23/24 00:00 03/23/24 00:00 Temperature Pulse Rate 91 89 Respiratory Rate 28 H 28 H Blood Pressure 125/96 H Pulse Oximetry Oxygen Delivery Fraction of Inspired Oxygen 60 03/23/24 00:00 03/23/24 00:00 03/23/24 00:18 Temperature 98.4 F Pulse Rate 116 H 91 90 Respiratory Rate 28 H 28 H Blood Pressure 125/96 H Pulse Oximetry 97 Oxygen Delivery Fraction of Inspired Oxygen 03/23/24 00:18 03/23/24 00:30 03/23/24 00:30 Temperature Pulse Rate 90 93 93 Respiratory Rate 28 H 36 H 36 H Blood Pressure 125/96 H Pulse Oximetry 97 Oxygen Delivery Mechanical Ventilation Fraction of Inspired Oxygen 60 03/23/24 01:53 03/23/24 01:53 03/23/24 01:59 Temperature Pulse Rate 86 86 91 Respiratory Rate 28 H 28 H Blood Pressure Pulse Oximetry 99 Oxygen Delivery Mechanical Ventilation Fraction of Inspired Oxygen 60 03/23/24 02:00 03/23/24 02:00 03/23/24 02:00 Temperature 98.6 F Pulse Rate 92 92 92 Respiratory Rate 28 H 28 H Blood Pressure 116/82 Pulse Oximetry 99 Oxygen Delivery Fraction of Inspired Oxygen 03/23/24 02:00 03/23/24 03:00 03/23/24 03:30 Temperature Pulse Rate 98 111 H 115 H Respiratory Rate 28 H 28 H 28 H Blood Pressure 116/82 142/98 H Pulse Oximetry Oxygen Delivery Fraction of Inspired Oxygen 03/23/24 03:45 03/23/24 04:00 03/23/24 04:00 Temperature Pulse Rate 118 H 119 H Respiratory Rate 28 H 28 H Blood Pressure 156/99 H Pulse Oximetry 98 Oxygen Delivery Mechanical Ventilation Fraction of Inspired Oxygen 60 60 03/23/24 04:00 03/23/24 04:00 03/23/24 04:00 Temperature 98.6 F Pulse Rate 117 H 116 H 113 H Respiratory Rate 28 H 28 H 28 H Blood Pressure 155/104 H 155/104 H Pulse Oximetry 97 Oxygen Delivery Fraction of Inspired Oxygen 03/23/24 04:00 03/23/24 05:04 03/23/24 05:36 Temperature Pulse Rate 115 H 109 H 103 H Respiratory Rate 28 H 28 H Blood Pressure 125/86 Pulse Oximetry Oxygen Delivery Fraction of Inspired Oxygen 03/23/24 05:36 03/23/24 05:55 03/23/24 06:00 Temperature Pulse Rate 103 H 103 H 102 H Respiratory Rate 28 H Blood Pressure Pulse Oximetry 98 Oxygen Delivery Mechanical Ventilation Fraction of Inspired Oxygen 60 03/23/24 06:00 03/23/24 07:35 03/23/24 07:44 Temperature 98.5 F Pulse Rate 102 H 99 99 Respiratory Rate 28 H 28 H Blood Pressure 134/94 H Pulse Oximetry 99 98 Oxygen Delivery Mechanical Ventilation Fraction of Inspired Oxygen 60 03/23/24 07:46 03/23/24 08:00 03/23/24 08:00 Temperature Pulse Rate 100 101 H 99 Respiratory Rate 28 H 28 H 30 H Blood Pressure 132/92 H Pulse Oximetry 99 Oxygen Delivery Fraction of Inspired Oxygen 03/23/24 08:00 03/23/24 08:00 03/23/24 08:00 Temperature Pulse Rate 102 H 102 H 102 H Respiratory Rate 30 H 30 H Blood Pressure 132/92 H Pulse Oximetry 99 Oxygen Delivery Mechanical Ventilation Fraction of Inspired Oxygen 50 03/23/24 08:00 03/23/24 10:00 03/23/24 10:00 Temperature 98.3 F Pulse Rate 102 H 101 H Respiratory Rate 30 H Blood Pressure 126/89 Pulse Oximetry 97 Oxygen Delivery Fraction of Inspired Oxygen 60 03/23/24 10:00 03/23/24 10:00 03/23/24 10:53 Temperature Pulse Rate 103 H 103 H 102 H Respiratory Rate 30 H 30 H 30 H Blood Pressure 132/97 H Pulse Oximetry Oxygen Delivery Fraction of Inspired Oxygen 03/23/24 10:59 03/23/24 10:59 03/23/24 11:04 Temperature Pulse Rate 100 100 102 H Respiratory Rate 30 H 30 H 30 H Blood Pressure 132/92 H 132/92 H Pulse Oximetry Oxygen Delivery Fraction of Inspired Oxygen 03/23/24 11:29 03/23/24 12:00 03/23/24 12:00 Temperature 99.5 F Pulse Rate 102 H 104 H 107 H Respiratory Rate 30 H 30 H Blood Pressure 135/92 H Pulse Oximetry 97 98 Oxygen Delivery Mechanical Ventilation Fraction of Inspired Oxygen 45 03/23/24 12:00 03/23/24 12:00 03/23/24 12:00 Temperature Pulse Rate 107 H 107 H 107 H Respiratory Rate 30 H 30 H Blood Pressure 135/92 H Pulse Oximetry 98 Oxygen Delivery Mechanical Ventilation Fraction of Inspired Oxygen 45 03/23/24 12:00 03/23/24 13:22 03/23/24 13:26 Temperature Pulse Rate 105 H 106 H Respiratory Rate 30 H Blood Pressure Pulse Oximetry 97 Oxygen Delivery Mechanical Ventilation Fraction of Inspired Oxygen 45 40 Intake/Output Intake/Output: Intake & Output 03/20/24 03/21/24 03/22/24 03/23/24 23:59 23:59 23:59 23:59 Intake Total 2919.2 1488.3 1131.2 1671.4 Output Total 550 525 Balance 2919.2 1488.3 581.2 1146.4 Meds/Results Medications: Active Medications Generic Name Dose Route Start Last Admin Trade Name Freq PRN Reason Stop Dose Admin Acetaminophen 650 mg 03/19/24 15:02 03/22/24 10:04 Acetaminophen 325 Mg Tablet PO 650 mg Q4H PRN Administration Mild Pain (1-3) or Fever Apixaban 10 mg 03/21/24 02:05 03/23/24 08:41 Apixaban 5 Mg Tablet PO 10 mg Q12HR VELASQUEZ Administration Benzocaine 1 lozenge 03/19/24 15:11 03/19/24 17:39 Benzocaine/Menthol (*Bkc) 18 Ea Lozenge PO 1 lozenge PRN PRN Administration Sore Throat Benzonatate 100 mg 03/19/24 15:11 03/20/24 20:16 Benzonatate 100 Mg Capsule PO 100 mg TID PRN Administration Cough Dextrose 12.5 gm 03/19/24 15:15 Dextrose 50% 25 Gm/50 Ml Syringe IV PUSH PRN PRN Hypoglycemia Protocol Gabapentin 300 mg 03/19/24 17:00 03/23/24 12:07 Gabapentin 300 Mg Capsule PO 300 mg TID VELASQUEZ Administration Glucagon 1 mg 03/19/24 15:15 Glucagon For Inj 1 Mg Vial IM PRN PRN Hypoglycemia Protocol Glucose 15 gm 03/19/24 15:15 Glucose Oral Gel 15 Gm Of Glucse In 37.5 Gm Tube PO PRN PRN Hypoglycemia Protocol Hydrocortisone Sodium Succinate 50 mg 03/22/24 12:00 03/23/24 11:48 Hydrocortisone Sodium Succinate 100 Mg/2 Ml Vial IV PUSH 50 mg Q6H VELASQUEZ Administration Dextrose 1,000 mls @ 100 mls/hr 03/19/24 15:15 Dextrose 5% 1,000 Ml IVPB PRN PRN Hypoglycemia Protocol Propofol 100 mls @ 18.93 mls/hr 03/22/24 12:25 03/23/24 12:00 Diprivan IV CONT 50 mcg/kg/min .Q5H17M VELASQUEZ 18.93 mls/hr Titration Protocol 50 MCG/KG/MIN Albumin Human 100 mls @ 60 mls/hr 03/22/24 12:30 03/23/24 11:48 Albutein IVPB 60 mls/hr Q6HR VELASQUEZ Administration Cefepime HCl 2 gm in 50 mls @ 100 mls/hr 03/22/24 14:00 03/23/24 05:34 Maxipime 2 Gm/Ns 50 Ml IVPB Infused Q8H VELASQUEZ Infusion Cisatracurium Besylate 200 mg/ 100 mls @ 3.786 mls/hr 03/22/24 14:00 03/23/24 12:00 Dextrose IV CONT 2 mcg/kg/min .[id number] VELASQUEZ 3.79 mls/hr Titration Protocol 2 MCG/KG/MIN Vancomycin HCl 1,500 mg in 500 mls @ 250 mls/hr 03/22/24 22:00 03/23/24 07:00 Vancomycin 1,500 Mg/Ns 500 Ml IVPB Infused Q8H VELASQUEZ Infusion Insulin Aspart 2 - 5 units 03/22/24 18:00 03/23/24 12:06 Insulin Aspart (*Bkc) 100 Units/Ml SUB-Q Not Given Q6HR VELASQUEZ Protocol Levalbuterol HCl 0.63 mg 03/19/24 20:00 03/23/24 13:22 Levalbuterol Neb 1.25 Mg/3 Ml INHALATION 0.63 mg Q6HRT VELASQUEZ Administration Levetiracetam 2,000 mg 03/19/24 21:00 03/22/24 09:33 Levetiracetam 500 Mg Tablet PO 2,000 mg Q12HR VELASQUEZ Administration Miscellaneous Information 1 each 03/23/24 00:01 03/23/24 13:29 Propofol Needs To Be Renewed Or It Will Automatically Discontinue. XX 04/22/24 00:00 Not Given CLARIFY VELASQUEZ Montelukast Sodium 10 mg 03/19/24 18:00 03/22/24 17:20 Montelukast Sodium 10 Mg Tablet PO 10 mg QPM VELASQUEZ Administration Multi-Ingred Cream/Lotion/Oil/Oint 1 applic 03/22/24 21:00 03/23/24 08:41 Mineral Oil/White Petrolatum Ointment EACH EYE 1 applic Q12HR VELASQUEZ Administration Oseltamivir Phosphate 75 mg 03/19/24 14:50 03/23/24 08:41 Oseltamivir Phosphate 75 Mg Capsule PO 03/23/24 21:01 75 mg Q12HR VELASQUEZ Administration Oxcarbazepine 300 mg 03/19/24 21:00 03/23/24 08:42 Oxcarbazepine 300 Mg Tablet PO 300 mg Q12HR VELASQUEZ Administration Pantoprazole Sodium 40 mg 03/23/24 09:00 03/23/24 08:42 Pantoprazole Sodium Iv 40 Mg Vial IV PUSH 40 mg QAM VELASQUEZ Administration Perflutren Lipid Microsphere 0 ml 03/21/24 11:41 Perflutren Lipid Microspheres 1.5 Ml Vial Diluted To 10 Ml Total Volume IV PUSH 03/24/24 11:42 ONCE PRN adequate visualization Protocol Quetiapine Fumarate 800 mg 03/20/24 21:00 03/21/24 20:41 Quetiapine Fumarate 100 Mg Tablet PO 800 mg HS VELASQUEZ Administration Sertraline HCl 150 mg 03/20/24 09:00 03/23/24 08:42 Sertraline Hcl 50 Mg Tablet PO 150 mg QAM VELASQUEZ Administration Sodium Chloride 1 spray 03/21/24 17:33 Saline 0.65% [employer] 44 Ml Btl NASAL Q6HR PRN Congestion Sodium Chloride 10 ml 03/22/24 14:00 03/23/24 05:01 Central Line Flush IV PUSH 10 ml Q8HR VELASQUEZ Administration Sodium Chloride 10 ml 03/22/24 13:18 Central Line Flush IV PUSH PRN PRN with TPN bag changes Sodium Chloride 20 ml 03/22/24 13:18 Central Line Flush IV PUSH PRN PRN after blood draws Trazodone HCl 200 mg 03/19/24 18:00 03/19/24 17:36 Trazodone Hcl 50 Mg Tablet PO 200 mg QPM VELASQUEZ Administration Radiology Results: ITS Impressions Head CT 03/19/24 13:41 Impression: No acute intracranial hemorrhage or suspicious mass effect. Cervical Spine CT 03/19/24 13:42 Impression: Preservation of the normal curvature of the cervical spine. Multifocal infiltrates within the chest. No acute fracture. Chest CTA 03/20/24 23:51 IMPRESSION: Acute nonocclusive segmental right lower lobe embolus. Low clot burden. No CT evidence of right heart strain. Worsening multifocal pneumonia, overlying asymmetric areas of pulmonary edema. Diffuse mild chest wall subcutaneous edema. Abdomen X-Ray 03/22/24 12:35 IMPRESSION: 1. Endotracheal tube and nasogastric tube in expected positions. 2. Persistent patchy bilateral lung disease consistent with multifocal pneumonia. Chest X-Ray 03/23/24 06:46 Impression: Extensive bilateral alveolar and interstitial disease. Correlate for extensive pulmonary edema or infection. Support tubes, as above. Labs Labs: Laboratory Results - last 24 hr 03/22/24 03/22/24 03/22/24 13:00 14:30 17:25 WBC RBC Hgb Hct MCV MCH MCHC RDW Plt Count MPV Immature Gran % (Auto) Neut % (Auto) Lymph % (Auto) [place] % (Auto) Eos % (Auto) Baso % (Auto) Lymph # (Auto) [place] # (Auto) Eos # (Auto) Baso # (Auto) Abs Immat Gran (auto) Absolute Neuts (auto) Absolute Nucleated RBC Total Counted Neutrophils % (Manual) Band Neutrophils % Lymphocytes % (Manual) Monocytes % (Manual) Eosinophils % (Manual) Nucleated RBC % Abs Neuts (Manual) Abs Lymphs (Manual) Abs Monocytes (Manual) Absolute Eos (Manual) Platelet Estimate Target Cells Chary Cells Schistocytes Puncture Site Left brachial ABG pH 7.243 L* ABG pCO2 55.4 H ABG pO2 358.9 H ABG PO2/FiO2 Ratio 3.59 ABG HCO3 23.4 ABG O2 Saturation 99.7 ABG O2 Content 20.5 ABG Base Excess -4.7 A-a Gradient 298.7 Oxyhemoglobin 98.6 Carboxyhemoglobin 1.1 Methemoglobin 0.0 Reduced Hemoglobin 0.3 Total Hemoglobin 14.1 O2 Delivery Device Ventilator O2 Liters/Min Not Reportable Minute Volume Not Reportable Vent Rate 24 Vent Mode Cmv FiO2 100 Tidal Volume 340 PEEP 10 Peak Inspir Pressure Not Reportable Pressure Support Not Reportable Sodium Potassium Chloride Carbon Dioxide Anion Gap BUN Creatinine Estim Creat Clear Calc Estimated GFR Glucose POC Capillary Glucose 166 H Lactic Acid Calcium Phosphorus Magnesium Total Bilirubin AST ALT Alkaline Phosphatase C-Reactive Protein Total Protein Albumin Nasal MRSA (PCR) Detected A* Vancomycin Trough 03/22/24 03/22/24 03/23/24 20:17 23:50 03:44 WBC 17.6 H RBC 4.24 Hgb 11.6 L Hct 34.2 L MCV 80.7 MCH 27.4 MCHC 33.9 RDW 14.5 Plt Count 188 MPV 10.7 H Immature Gran % (Auto) Not Reportable Neut % (Auto) Not Reportable Lymph % (Auto) Not Reportable [place] % (Auto) Not Reportable Eos % (Auto) Not Reportable Baso % (Auto) Not Reportable Lymph # (Auto) Not Reportable [place] # (Auto) Not Reportable Eos # (Auto) Not Reportable Baso # (Auto) Not Reportable Abs Immat Gran (auto) Not Reportable Absolute Neuts (auto) Not Reportable Absolute Nucleated RBC Not Reportable Total Counted 100 Neutrophils % (Manual) 66 Band Neutrophils % 19 H Lymphocytes % (Manual) 12.0 L Monocytes % (Manual) 1 L Eosinophils % (Manual) 2 Nucleated RBC % Not Reportable Abs Neuts (Manual) 14.96 H Abs Lymphs (Manual) 2.11 Abs Monocytes (Manual) 0.17 Absolute Eos (Manual) 0.35 Platelet Estimate Adequate Target Cells 1+ Chary Cells 1+ Schistocytes None seen Puncture Site ABG pH ABG pCO2 ABG pO2 ABG PO2/FiO2 Ratio ABG HCO3 ABG O2 Saturation ABG O2 Content ABG Base Excess A-a Gradient Oxyhemoglobin Carboxyhemoglobin Methemoglobin Reduced Hemoglobin Total Hemoglobin O2 Delivery Device O2 Liters/Min Minute Volume Vent Rate Vent Mode FiO2 Tidal Volume PEEP Peak Inspir Pressure Pressure Support Sodium 140 Potassium 4.1 Chloride 106 Carbon Dioxide 28 Anion Gap 6 BUN 21 H Creatinine 0.40 L Estim Creat Clear Calc 108 Estimated GFR > 60 Glucose 132 H POC Capillary Glucose 161 H Lactic Acid 0.9 Calcium 8.5 Phosphorus 4.2 Magnesium 1.6 Total Bilirubin 0.8 AST 32 ALT 31 Alkaline Phosphatase 137 H C-Reactive Protein 17.7 H Total Protein 6.0 L Albumin 3.2 L Nasal MRSA (PCR) Vancomycin Trough 5.8 L 03/23/24 03/23/24 05:24 11:36 WBC RBC Hgb Hct MCV MCH MCHC RDW Plt Count MPV Immature Gran % (Auto) Neut % (Auto) Lymph % (Auto) [place] % (Auto) Eos % (Auto) Baso % (Auto) Lymph # (Auto) [place] # (Auto) Eos # (Auto) Baso # (Auto) Abs Immat Gran (auto) Absolute Neuts (auto) Absolute Nucleated RBC Total Counted Neutrophils % (Manual) Band Neutrophils % Lymphocytes % (Manual) Monocytes % (Manual) Eosinophils % (Manual) Nucleated RBC % Abs Neuts (Manual) Abs Lymphs (Manual) Abs Monocytes (Manual) Absolute Eos (Manual) Platelet Estimate Target Cells Chary Cells Schistocytes Puncture Site Left radial ABG pH 7.287 L* ABG pCO2 59.9 H ABG pO2 177.8 H ABG PO2/FiO2 Ratio 2.96 ABG HCO3 28.0 H ABG O2 Saturation 99.0 ABG O2 Content 16.6 ABG Base Excess 0.3 A-a Gradient 184.1 Oxyhemoglobin 98.1 Carboxyhemoglobin 0.6 Methemoglobin 0.3 Reduced Hemoglobin 1.0 Total Hemoglobin 11.8 L O2 Delivery Device Ventilator O2 Liters/Min Not Reportable Minute Volume Not Reportable Vent Rate 28 Vent Mode Cmv FiO2 60 Tidal Volume 340 PEEP 10 Peak Inspir Pressure Not Reportable Pressure Support Not Reportable Sodium Potassium Chloride Carbon Dioxide Anion Gap BUN Creatinine Estim Creat Clear Calc Estimated GFR Glucose POC Capillary Glucose 121 H Lactic Acid Calcium Phosphorus Magnesium Total Bilirubin AST ALT Alkaline Phosphatase C-Reactive Protein Total Protein Albumin Nasal MRSA (PCR) Vancomycin Trough Quality VTE Prophylaxis VTE prophylaxis: pharmacologic ordered
--- NOTE | 2024-03-23 14:20 | PM.CNCAR ---
Assessment and Plan Assessment and plan (1) Bacteremia: Code(s): R78.81 - Bacteremia Status: Acute Assessment and Plan: Will plan for ARIAN tomorrow. Stop tube feeds at midnight. Further recommendations to follow ARIAN (2) Pneumonia: Code(s): J18.9 - Pneumonia, unspecified organism Status: Acute Assessment and Plan: Abx and other management per critical care (3) Acute hypoxic respiratory failure: Code(s): J96.01 - Acute respiratory failure with hypoxia Status: Acute Assessment and Plan: Intubated. Management per critical care History of Present Illness History of Present Illness Consult date/time: 03/23/24 14:20 Requesting physician: Randolph Hicks MD Consult reason: Other (MRSA bacteremia. ARIAN) Reason For Visit: Influenza A/Pneumonia/Seizure/Asthma Narrative: Danita Wynn is a 58 year old female with seizure disorder, neuropathy, panic disorder, bipolar disorder, and asthma. She presented to the hospital after having a seizure. Cardiology is consulted because of MRSA bacteremia and evaluation for possible transesophageal echocardiogram. She is currently intubated and sedated, therefore history has been the images obtained through her medical record. Family called 911 after patient was found on the floor after having a presumed seizure. According to family's report, she had a witnessed seizure the prior day but did not seek any medical evaluation. She had been experiencing shortness of breath, cough, fever, rhinorrhea, headache, dizziness, and congestion for about 5 days prior to presentation. She has tested positive for influenza A and had deterioration of her respiratory status requiring intubation and mechanical ventilation yesterday. Blood cultures have been found to be positive for MRSA. She had a surface echocardiogram performed that did not show any vegetations. Review of Systems Review of Systems: ROS unobtainable: Yes unobtainable due to endotracheal tube PMFSH Past Medical History Medical History Neuropathy Panic disorder Agoraphobia Seizures Bipolar disorder Asthma Surgical History Surgical History History of appendectomy History of section History of gastric bypass History of cholecystectomy Social History Social History Alcohol intake: never Substance use type: marijuana Other substance usage details: twice a month Do You Feel Safe in your Home?: Yes Lack of Transportation: No Lack of Food: Sometimes True Current Housing: I Do Not Have Housing Concerned About Future Housing: YES Difficulty Paying Gas/Electric Bills: YES Difficulty Paying for Meds: YES Currently Unemployed: No Education: High School Diploma/GED Difficulty w/ Childcare or Family Care: YES Spiritual care concerns: No Meds Home Medications and Allergies Home Medications ?Medication ?Instructions ?Recorded ?Confirmed ?Type albuterol 90 mcg/actuation aerosol 90 mcg inhalation PRN 03/19/24 03/19/24 History inhaler gabapentin 300 mg capsule 300 mg PO TID 03/19/24 03/19/24 History levetiracetam 1,000 mg tablet 2,000 mg PO BID 03/19/24 03/22/24 History montelukast 10 mg tablet 10 mg PO QPM 03/19/24 03/19/24 History (Singulair) sertraline 150 mg capsule 150 mg PO DAILY 03/19/24 03/19/24 History trazodone 100 mg tablet 200 mg PO QPM 03/19/24 03/19/24 History doxepin 100 mg capsule 100 mg PO HS 03/22/24 03/22/24 History levothyroxine 100 mcg capsule 100 mcg PO DAILY 03/22/24 03/22/24 History Allergies Allergy/AdvReac Type Severity Reaction Status Date / Time Sulfa (Sulfonamide Allergy Swelling Verified 03/19/24 12:27 Antibiotics) Vital Signs Vital Signs - 24 hr 03/22/24 14:23 03/22/24 14:47 03/22/24 14:48 Temperature Pulse Rate 129 H 132 H 128 H Respiratory Rate 25 H 28 H Blood Pressure 117/80 Pulse Oximetry 99 Oxygen Delivery Mechanical Ventilation Fraction of Inspired Oxygen 65 03/22/24 14:57 03/22/24 14:57 03/22/24 16:00 Temperature 36.9 C Pulse Rate 127 H 127 H 111 H Respiratory Rate 28 H 28 H Blood Pressure 116/67 Pulse Oximetry 99 100 Oxygen Delivery Mechanical Ventilation Fraction of Inspired Oxygen 65 03/22/24 16:00 03/22/24 16:00 03/22/24 16:00 Temperature Pulse Rate 106 H 109 H Respiratory Rate Blood Pressure Pulse Oximetry 99 Oxygen Delivery Mechanical Ventilation Fraction of Inspired Oxygen 60 60 03/22/24 16:00 03/22/24 16:00 03/22/24 16:23 Temperature Pulse Rate 110 H 110 H 105 H Respiratory Rate 28 H 28 H Blood Pressure 102/82 Pulse Oximetry 99 Oxygen Delivery Mechanical Ventilation Fraction of Inspired Oxygen 60 03/22/24 18:00 03/22/24 18:00 03/22/24 18:00 Temperature 36.8 C Pulse Rate 112 H 112 H 114 H Respiratory Rate 28 H 28 H 28 H Blood Pressure 107/78 Pulse Oximetry 99 Oxygen Delivery Fraction of Inspired Oxygen 03/22/24 18:00 03/22/24 18:00 03/22/24 20:00 Temperature 36.9 C Pulse Rate 116 H 116 H 116 H Respiratory Rate 28 H 28 H Blood Pressure 107/78 128/90 Pulse Oximetry 97 Oxygen Delivery Fraction of Inspired Oxygen 03/22/24 20:00 03/22/24 20:00 03/22/24 20:00 Temperature Pulse Rate 116 H 116 H Respiratory Rate 28 H 28 H Blood Pressure 125/89 Pulse Oximetry Oxygen Delivery Fraction of Inspired Oxygen 60 03/22/24 20:00 03/22/24 20:21 03/22/24 20:21 Temperature Pulse Rate 113 H 112 H 112 H Respiratory Rate 28 H Blood Pressure Pulse Oximetry 99 Oxygen Delivery Mechanical Ventilation Fraction of Inspired Oxygen 60 03/22/24 20:27 03/22/24 20:30 03/22/24 20:45 Temperature Pulse Rate 117 H 116 H 116 H Respiratory Rate 28 H 28 H 28 H Blood Pressure Pulse Oximetry 97 Oxygen Delivery Mechanical Ventilation Fraction of Inspired Oxygen 60 03/22/24 21:57 03/22/24 22:00 03/22/24 22:00 Temperature 36.8 C Pulse Rate 100 96 96 Respiratory Rate 28 H 28 H 28 H Blood Pressure 112/80 109/82 Pulse Oximetry 99 Oxygen Delivery Fraction of Inspired Oxygen 03/22/24 22:00 03/22/24 22:40 03/23/24 00:00 Temperature Pulse Rate 96 95 91 Respiratory Rate 28 H Blood Pressure Pulse Oximetry 99 Oxygen Delivery Mechanical Ventilation Fraction of Inspired Oxygen 60 03/23/24 00:00 03/23/24 00:00 03/23/24 00:00 Temperature 36.9 C Pulse Rate 89 116 H Respiratory Rate 28 H 28 H Blood Pressure 125/96 H 125/96 H Pulse Oximetry 97 Oxygen Delivery Fraction of Inspired Oxygen 60 02/06/25 00:00 03/23/24 00:18 03/23/24 00:18 Temperature Pulse Rate 91 90 90 Respiratory Rate 28 H 28 H Blood Pressure Pulse Oximetry Oxygen Delivery Fraction of Inspired Oxygen 03/23/24 00:30 03/23/24 00:30 03/23/24 01:53 Temperature Pulse Rate 93 93 86 Respiratory Rate 36 H 36 H Blood Pressure 125/96 H Pulse Oximetry 97 99 Oxygen Delivery Mechanical Ventilation Mechanical Ventilation Fraction of Inspired Oxygen 60 60 03/23/24 01:53 03/23/24 01:59 03/23/24 02:00 Temperature Pulse Rate 86 91 92 Respiratory Rate 28 H 28 H Blood Pressure Pulse Oximetry Oxygen Delivery Fraction of Inspired Oxygen 03/23/24 02:00 03/23/24 02:00 03/23/24 02:00 Temperature 37.0 C Pulse Rate 92 92 98 Respiratory Rate 28 H 28 H 28 H Blood Pressure 116/82 116/82 Pulse Oximetry 99 Oxygen Delivery Fraction of Inspired Oxygen 03/23/24 03:00 03/23/24 03:30 03/23/24 03:45 Temperature Pulse Rate 111 H 115 H 118 H Respiratory Rate 28 H 28 H 28 H Blood Pressure 142/98 H 156/99 H Pulse Oximetry Oxygen Delivery Fraction of Inspired Oxygen 03/23/24 04:00 03/23/24 04:00 03/23/24 04:00 Temperature 37.0 C Pulse Rate 119 H 117 H Respiratory Rate 28 H 28 H Blood Pressure 155/104 H Pulse Oximetry 98 97 Oxygen Delivery Mechanical Ventilation Fraction of Inspired Oxygen 60 60 03/23/24 04:00 03/23/24 04:00 03/23/24 04:00 Temperature Pulse Rate 116 H 113 H 115 H Respiratory Rate 28 H 28 H Blood Pressure 155/104 H Pulse Oximetry Oxygen Delivery Fraction of Inspired Oxygen 03/23/24 05:04 03/23/24 05:36 03/23/24 05:36 Temperature Pulse Rate 109 H 103 H 103 H Respiratory Rate 28 H 28 H 28 H Blood Pressure 125/86 Pulse Oximetry Oxygen Delivery Fraction of Inspired Oxygen 03/23/24 05:55 03/23/24 06:00 03/23/24 06:00 Temperature 36.9 C Pulse Rate 103 H 102 H 102 H Respiratory Rate 28 H Blood Pressure 134/94 H Pulse Oximetry 98 99 Oxygen Delivery Mechanical Ventilation Fraction of Inspired Oxygen 60 03/23/24 07:35 03/23/24 07:44 03/23/24 07:46 Temperature Pulse Rate 99 99 100 Respiratory Rate 28 H 28 H Blood Pressure Pulse Oximetry 98 Oxygen Delivery Mechanical Ventilation Fraction of Inspired Oxygen 60 03/23/24 08:00 03/23/24 08:00 03/23/24 08:00 Temperature Pulse Rate 101 H 99 102 H Respiratory Rate 28 H 30 H 30 H Blood Pressure 132/92 H 132/92 H Pulse Oximetry 99 Oxygen Delivery Fraction of Inspired Oxygen 03/23/24 08:00 03/23/24 08:00 03/23/24 08:00 Temperature Pulse Rate 102 H 102 H Respiratory Rate 30 H Blood Pressure Pulse Oximetry 99 Oxygen Delivery Mechanical Ventilation Fraction of Inspired Oxygen 50 60 03/23/24 10:00 03/23/24 10:00 03/23/24 10:00 Temperature 36.8 C Pulse Rate 102 H 101 H 103 H Respiratory Rate 30 H 30 H Blood Pressure 126/89 Pulse Oximetry 97 Oxygen Delivery Fraction of Inspired Oxygen 03/23/24 10:00 03/23/24 10:53 03/23/24 10:59 Temperature Pulse Rate 103 H 102 H 100 Respiratory Rate 30 H 30 H 30 H Blood Pressure 132/97 H 132/92 H Pulse Oximetry Oxygen Delivery Fraction of Inspired Oxygen 03/23/24 10:59 03/23/24 11:04 03/23/24 11:29 Temperature Pulse Rate 100 102 H 102 H Respiratory Rate 30 H 30 H Blood Pressure 132/92 H Pulse Oximetry 97 Oxygen Delivery Mechanical Ventilation Fraction of Inspired Oxygen 45 03/23/24 12:00 03/23/24 12:00 03/23/24 12:00 Temperature 37.5 C Pulse Rate 104 H 107 H 107 H Respiratory Rate 30 H 30 H 30 H Blood Pressure 135/92 H 135/92 H Pulse Oximetry 98 Oxygen Delivery Fraction of Inspired Oxygen 03/23/24 12:00 03/23/24 12:00 03/23/24 12:00 Temperature Pulse Rate 107 H 107 H Respiratory Rate 30 H Blood Pressure Pulse Oximetry 98 Oxygen Delivery Mechanical Ventilation Fraction of Inspired Oxygen 45 45 03/23/24 13:22 03/23/24 13:26 03/23/24 13:47 Temperature Pulse Rate 105 H 106 H 106 H Respiratory Rate 30 H 30 H Blood Pressure Pulse Oximetry 97 Oxygen Delivery Mechanical Ventilation Fraction of Inspired Oxygen 40 Exam Const: General: comfortable and no acute distress Other: Intubated and sedated HENMT: Head: normal to inspection Other: OETT in place Eyes: General: appearance normal, both eyes and all related structures Pupils: Equal, round and reactive pupils present Neck: Neck: normal visual inspection, supple and no JVD Resp: Other: Mechanically ventilated Cardio: Rate: regular rate Rhythm: regular rhythm Heart sounds: S1 normal heart sound present, S2 normal heart sound present and no murmurs GI: Auscultation: normal bowel sounds Skin: General skin exam: normal color Neuro: Cranial nerves: Yes Equal, round and reactive pupils present Extrem: General: normal to inspection Psych: Appearance: grossly normal Results Labs and Meds 03/27/24 04:14 03/27/24 04:14 Lab results: Cardiac Enzymes 03/23/24 Range/Units 03:44 AST 32 (14-36) U/L CBC 03/23/24 Range/Units 03:44 WBC 17.6 H (4.5-10.0) K/mm3 RBC 4.24 (4.2-5.4) M/mm3 Hgb 11.6 L (12.0-15.0) g/dL Hct 34.2 L (37.0-47.0) % Plt Count 188 (150-375) k/mm3 Lymph # (Auto) Not Reportable [place] # (Auto) Not Reportable Eos # (Auto) Not Reportable Baso # (Auto) Not Reportable Comprehensive Metabolic Panel 03/23/24 Range/Units 03:44 Sodium 140 (137-145) mmol/L Potassium 4.1 (3.4-5.0) mmol/L Chloride 106 (98-107) mmol/L Carbon Dioxide 28 (22-30) mmol/L BUN 21 H (7-17) mg/dL Creatinine 0.40 L (0.7-1.0) mg/dL Glucose 132 H (65-110) mg/dL Calcium 8.5 (8.4-10.2) mg/dL AST 32 (14-36) U/L ALT 31 (6-35) U/L Alkaline Phosphatase 137 H (38-126) U/L Total Protein 6.0 L (6.3-8.2) g/dL Albumin 3.2 L (3.5-5.1) g/dL Intake and Output 03/22/24 03/23/24 03/23/24 23:59 07:59 15:59 Intake Total 409.4 1530.2 141.2 Output Total 550 525 Balance -140.6 1005.2 141.2 Intake: IV 409.4 1410.2 141.2 Cisatracurium Besylate 200 mg 35.8 28.8 23.5 In Dextrose 5% 80 ml @ 1.5 MCG/ KG/MIN 2.84 mls/hr IV CONT . [id number] [facility] Rx#:[id number] Propofol IV Emulsion 100 ml @ 123.6 131.4 117.7 50 MCG/KG/MIN 18.93 mls/hr IV CONT .[id number] [facility] Rx#:[id number] Albumin Human 25% 25 gm/100 ml 200 200 100 ml @ 60 mls/hr IVPB Q6HR [facility] Rx#:[id number] Cefepime 2 gm/Ns 50 ml 2 gm In 50 50 50 ml @ 100 mls/hr IVPB Q8H [facility] Rx#:[id number] Vancomycin 1,500 mg/Ns 500 ml 1 1000 ,500 mg In 500 ml @ 250 mls/hr IVPB Q8H [facility] Rx#:[id number] Oral 0 Other 120 Output: Catheter Urine 550 525 Urethral Catheter 550 525 Gastric Drainage 0 [place] Sump Left Nare 0 Other: Intake, Other Source Meds Patient Weight 03/23/24 23:59 Weight 62.8 kg
[2024-03-23] MEDS: MONTELUKAST SODIUM 10 MG TABLET PO (18:04)
[2024-03-23 18:29] LABS: Glucose Point of Care 134 mg/dl (65-105)
--- NOTE | 2024-03-23 19:57 | PC.NURSE ---
Updated Dr. Hicks regarding current vital signs and sedation. Give Metoprolol 5mg IV push x1.
[2024-03-23 22:03] LABS: Vancomycin Trough 19.3 ug/mL (10.0-20.0)
[2024-03-23] MEDS: VANCOMYCIN 1,000 MG/NS 250 ML 1,000 MG/250 ML BAG 250 MG IVPB (22:35)
[2024-03-23 23:21] LABS: Glucose Point of Care 174 mg/dl (65-105)
[2024-03-24] VITALS (41 sets, daily range): BP systolic 113–183; BP diastolic 72–117; PULSE 72–120; RESP 24–32; TEMP 37–37.5; O2SAT 92–97
[2024-03-24] MEDS: HYDROCORTISONE SODIUM SUCCINATE 100 MG/2 ML VIAL 50 MG IV PUSH ×5 (00:01→23:07)
[2024-03-24] MEDS: ALBUMIN HUMAN 25% 25 GM/100 ML 100 ML IVPB ×5 (00:02→23:07)
[2024-03-24] MEDS: PROPOFOL IV EMULSION 100 ML 18.93 MG IV CONT ×5 (00:52→20:51)
[2024-03-24] MEDS: LEVALBUTEROL NEB 1.25 MG/3 ML 0.63 MG INHALATION ×4 (02:32→20:39)
[2024-03-24 05:05] LABS: Base Excess ABG 1.3 mEq/l (+/-2.0); Carboxyhemoglobin 1.2 % THb (0-2.0); Fractional Inspired Oxygen 40 %; HCO3 ABG 26.2 mEq/l (22.0-26.0); Methemoglobin ABG 0.3 %THb (0-1.5); Oxygen Content ABG 15.5 %vol (16.0-22.0); Oxygen Saturation ABG 94.6 % (95.0-100.0); Oxyhemoglobin 92.6 % THb (90.0-100.0); PCO2 ABG 42.5 mmHg (35.0-45.0); PO2 ABG 72.3 mmHg (80.0-100.0); PO2 FiO2 Ratio Arterial Blood 1.81 %; Reduced Hemoglobin 5.9 %THb (0-5.0); Total Hemoglobin 11.9 g/dL (12.0-18.0); pH ABG 7.408 (7.350-7.450)
[2024-03-24 05:30] LABS: Device VENTILATOR; Modified Allen's Test Pass; Site Drawn LEFT RADIAL
[2024-03-24 05:31] LABS: Arterial Blood Gas Vent Mode CMV; Arterial Blood Gas Ventilator rate 30 /MIN
[2024-03-24 05:32] LABS: Arterial Blood Gas PEEP 8 cmH2O; Arterial Blood Gas Tidal Volume 340 ml
[2024-03-24] MEDS: CEFEPIME 2 GM/NS 50 ML 2 GM/50 ML BAG IVPB ×3 (05:38→23:03)
[2024-03-24] MEDS: CENTRAL LINE FLUSH 10 ML IV PUSH ×3 (05:39→20:51)
[2024-03-24 06:04] LABS: Basophils Percent Auto 0.1 % (0.2-1.2); Eosinophils Percent Auto 0.2 % (0-4.4); Hematocrit 32.5 % (37.0-47.0); Immature Granulocyte Absolute 1.67 K/mm3 (0.00-0.031); Immature Granulocyte Percent A 10.4 % (0-0.5); Lymphocytes Absolute Auto 1.25 K/mm3 (0.9-3.2); Lymphocytes Percent Auto 7.8 % (18.3-44.2); Mean Corpuscular HGB Conc 33.8 g/dl (32-36); Mean Corpuscular Hemoglobin 27.2 pg (26-34); Mean Corpuscular Volume 80.2 fl (80-100); Mean Platelet Volume 10.2 fl (7.4-10.4); Monocytes Absolute Auto 0.7 K/mm3 (0.1-0.6); Monocytes Percent Auto 4.3 % (2.6-8.5); Neutrophils Absolute Auto 12.4 K/mm3 (1.3-6.7); Neutrophils Percent Auto 77.2 % (45.5-73.1); Platelet Count Result 149 k/mm3 (150-375); Red Blood Count 4.05 M/mm3 (4.2-5.4); Red Cell Distribution Width 14.6 % (11.5-14.5)
[2024-03-24] MEDS: VANCOMYCIN 1,000 MG/NS 250 ML 1,000 MG/250 ML BAG 250 MG IVPB ×3 (06:16→23:04)
[2024-03-24 06:20] LABS: Lactic Acid Reflex 1.3 mmol/L (0.7-2.0)
[2024-03-24 06:27] LABS: Alanine Aminotransferase 29 U/L (6-35); Albumin Level 3.6 g/dL (3.5-5.1); Alkaline Phosphatase 116 U/L (38-126); Anion Gap 9 mmol/L (4-12); Aspartate Amino Transferase 23 U/L (14-36); Bilirubin,Total 0.6 mg/dL (0.2-1.3); Blood Urea Nitrogen 24 mg/dL (7-17); Carbon Dioxide 27 mmol/L (22-30); Chloride 108 mmol/L (98-107); Estimated CRCL calculation 92 ml/min; Estimated Glomerular Filt Rate > 60; Glucose 127 mg/dL (65-110); Phosphorus 2.9 mg/dL (2.5-4.5); Potassium 3.8 mmol/L (3.4-5.0); Sodium 144 mmol/L (137-145)
[2024-03-24] MEDS: MIDAZOLAM HCL (*CRX) 2 MG/2 ML VIAL IV PUSH ×2 (06:39→20:53)
[2024-03-24 06:41] LABS: Anisocytosis 1+; Hypochromasia 1+; Ovalocytes 1+; Platelet Estimate Slightly Decreased (Adequate); Target Cells 1+
[2024-03-24 06:42] LABS: Burr Cells 1+; Schistocytes None Seen
[2024-03-24] MEDS: amLODIPine BESYLATE 10 MG TABLET PO (08:01)
[2024-03-24] MEDS: FUROSEMIDE INJ 40 MG/4 ML VIAL IV PUSH (08:01)
[2024-03-24] MEDS: SERTRALINE HCL 50 MG TABLET 150 MG PO (08:02)
[2024-03-24] MEDS: APIXABAN 5 MG TABLET 10 MG PO ×2 (08:02→20:50)
[2024-03-24] MEDS: PANTOPRAZOLE SODIUM IV 40 MG VIAL IV PUSH (08:02)
[2024-03-24] MEDS: MINERAL OIL/WHITE PETROLATUM OINTMENT 1 APPLIC EACH EYE ×2 (08:02→20:51)
[2024-03-24] MEDS: OXcarbazepine 300 MG TABLET PO ×2 (08:02→20:50)
[2024-03-24] MEDS: METOPROLOL TARTRATE 50 MG TAB PO ×2 (08:02→20:50)
[2024-03-24] MEDS: GABAPENTIN 300 MG CAPSULE PO ×3 (08:02→17:00)
--- NOTE | 2024-03-24 09:01 | P.PNINT_ITS ---
Progress Note: A&P Assessment and Plan (1) Acute hypoxic respiratory failure: Code(s): J96.01 - Acute respiratory failure with hypoxia Status: Acute Assessment and Plan: 03/22: Chest x-ray this morning showed worsening multifocal pneumonia, patient in acute respiratory distress/impending respiratory failure/tachypnea. Discussed with patient regarding intubation to which she was agreeable. 03/22: Patient intubated successfully. Intubation was uneventful -on CMV mode of ventilation, peep of 10, 60% FiO2 -obtain post intubation ABGs, will adjust ventilator accordingly -ABGs and chest x-ray reviewed, ventilator adjusted -continue steroids pneumonia - continue cefepime 2 g IV q.8 hours (03/22), vancomycin and azithromycin -continue bronchodilators -sedated with propofol infusion, maintain RASS of -2, daily sedation vacation -patient on Nimbex for vent synchrony (03/22 evening) (2) Influenza A: Code(s): J10.1 - Influenza due to other identified influenza virus with other respiratory manifestations Status: Acute Assessment and Plan: Patient was positive for influenza A on admission, continue Tamiflu (3) Bacteremia: Code(s): R78.81 - Bacteremia Status: Acute Assessment and Plan: Patient has MRSA bacteremia -03/19/2024: Blood cultures growing MRSA 2/2 bottles -03/19/2024: Sputum culture growing MRSA -03/22/2024: Repeat blood cultures growing Gram-positive cocci in clusters -appreciate cardiology evaluation and recommendations, ARIAN planned for 03/24/2024 to rule out vegetations -transthoracic echocardiogram did not show any vegetations (4) Multifocal pneumonia: Code(s): J18.9 - Pneumonia, unspecified organism Status: Acute Assessment and Plan: Chest x-ray and CTA chest showed multifocal pneumonia -continue antibiotics, mechanical ventilation, steroids (5) Pulmonary embolism: Code(s): I26.99 - Other pulmonary embolism without acute cor pulmonale Status: Acute Assessment and Plan: Patient given tachycardia and tachypneic, -continue Eliquis -low clot burden 03/20/2024: CTA chest Acute nonocclusive segmental right lower lobe embolus. Low clot burden. No CT evidence of right heart strain. Worsening multifocal pneumonia, overlying asymmetric areas of pulmonary edema. Diffuse mild chest wall subcutaneous edema. (6) Seizures: Code(s): R56.9 - Unspecified convulsions Status: Acute Assessment and Plan: Patient has a history of seizures and presented with seizures on the day of admission and the day prior to that. -continue Ximena Moctezuma (7) Sepsis: Qualifiers: Sepsis type: sepsis due to unspecified organism Sepsis acute organ dysfunction status: without acute organ dysfunction Qualified Code(s): A41.9 - Sepsis, unspecified organism Code(s): A41.9 - Sepsis, unspecified organism Status: Acute Assessment and Plan: Patient fulfilled the criteria of sepsis -now bacteremic, -cultures and antibiotics as above (8) Hypertension: Code(s): I10 - Essential (primary) hypertension Status: Acute Assessment and Plan: Systolic blood pressures have been in the 170s and 180s, also tachycardic in the 1 teens to 120 -start patient on metoprolol and amlodipine with improvement Plan DVT prophylaxis: Eliquis Stress ulcer prophylaxis: Protonix Nutrition: Tolerating tube feeds Code Status: Full code Critical Care Time Spent: 34 minutes Discussed with patient prior to intubation and updated her with her condition and plan of care. I explained to her the rationale for intubation to which she was agreeable. Patient was successfully intubated and now sedated. -family has been updated Due to a high probability of clinically significant, life threatening deterioration, the patient required my highest level of preparedness to intervene emergently and I personally spent this critical care time directly and personally managing the patient. This critical care time included obtaining a history; examining the patient; pulse oximetry; ordering and review of studies; arranging urgent treatment with development of a management plan; evaluation of patient's response to treatment; frequent reassessment; and discussions with other providers. It was exclusive of separately billable procedures and treating other patients and teaching time. Please see Assessment and Plan section and the rest of the note for further information on patient assessment and treatment This dictation may have been done utilizing a voice recognition system. Attempts have been made to correct errors. However, there may be uncorrected grammatical, spelling, and recognitions errors present. Subjective Date/time seen: 03/24/24 09:01 Interval history: Reason for consult: Acute hypoxic respiratory failure, acute respiratory distress, impending respiratory failure, sepsis, MRSA bacteremia, multifocal pneumonia, pulmonary embolism, seizures 03/24/2024: Patient seen and examined the ICU, remains intubated on CMV mode of ventilation, peep of 8 and 40% FiO2. Sedated with propofol infusion, also on Nimbex for vent synchrony. Urine output has been adequate, patient has been in termittently tachycardic and hypertensive. Currently afebrile. WBC trending down. Electrolytes and kidney functions are within normal limits Review of Systems Review of Systems: ROS unobtainable: Yes unobtainable due to endotracheal tube and unobtainable due to medical condition Exam Narrative: General: Intubated and sedated, in no acute does HEENT:? Pupils equal and reactive, sclerae is clear, ETT in place Neck:? Supple Respiratory:? Coarse breath sounds bilaterally, adequate air entry, no wheezing, bilateral diffuse rales Cardiac:? S1-S2 normal, tachycardic Abdomen:? Soft, nontender, nondistended, hypoactive bowel sound Extremities:? no edema, palpable pedal pulses Neuro:? Intubated, sedated at this time, patient also on Nimbex for ventilator synchrony ( prior to intubation patient was awake, alert, able to answer questions and follows simple commands appropriately) Skin:? No skin lesions noted Psych:? Unable to assess at this time Objective Data Vital Signs Vital Signs: Vital Signs - 24 hr 03/23/24 10:00 03/23/24 10:00 03/23/24 10:00 Temperature 98.3 F Pulse Rate 102 H 101 H 103 H Respiratory Rate 30 H 30 H Blood Pressure 126/89 Pulse Oximetry 97 Oxygen Delivery Fraction of Inspired Oxygen 03/23/24 10:00 03/23/24 10:53 03/23/24 10:59 Temperature Pulse Rate 103 H 102 H 100 Respiratory Rate 30 H 30 H 30 H Blood Pressure 132/97 H 132/92 H Pulse Oximetry Oxygen Delivery Fraction of Inspired Oxygen 03/23/24 10:59 03/23/24 11:04 03/23/24 11:29 Temperature Pulse Rate 100 102 H 102 H Respiratory Rate 30 H 30 H Blood Pressure 132/92 H Pulse Oximetry 97 Oxygen Delivery Mechanical Ventilation Fraction of Inspired Oxygen 45 03/23/24 12:00 03/23/24 12:00 03/23/24 12:00 Temperature 99.5 F Pulse Rate 104 H 107 H 107 H Respiratory Rate 30 H 30 H 30 H Blood Pressure 135/92 H 135/92 H Pulse Oximetry 98 Oxygen Delivery Fraction of Inspired Oxygen 03/23/24 12:00 03/23/24 12:00 03/23/24 12:00 Temperature Pulse Rate 107 H 107 H Respiratory Rate 30 H Blood Pressure Pulse Oximetry 98 Oxygen Delivery Mechanical Ventilation Fraction of Inspired Oxygen 45 45 03/23/24 13:22 03/23/24 13:26 03/23/24 13:47 Temperature Pulse Rate 105 H 106 H 106 H Respiratory Rate 30 H 30 H Blood Pressure Pulse Oximetry 97 Oxygen Delivery Mechanical Ventilation Fraction of Inspired Oxygen 40 03/23/24 14:00 03/23/24 14:00 03/23/24 14:00 Temperature 99.3 F Pulse Rate 110 H 110 H 106 H Respiratory Rate 30 H 30 H 30 H Blood Pressure 145/95 H 133/91 H Pulse Oximetry 96 Oxygen Delivery Fraction of Inspired Oxygen 03/23/24 14:00 03/23/24 16:00 03/23/24 16:00 Temperature Pulse Rate 112 H 111 H 111 H Respiratory Rate 30 H 30 H Blood Pressure 154/101 H Pulse Oximetry Oxygen Delivery Fraction of Inspired Oxygen 03/23/24 16:00 03/23/24 16:00 03/23/24 16:00 Temperature Pulse Rate 109 H 109 H Respiratory Rate 30 H Blood Pressure Pulse Oximetry 96 Oxygen Delivery Mechanical Ventilation Fraction of Inspired Oxygen 40 40 03/23/24 16:00 03/23/24 16:21 03/23/24 16:29 Temperature 99.6 F Pulse Rate 113 H 109 H 109 H Respiratory Rate 30 H 30 H 30 H Blood Pressure 154/101 H Pulse Oximetry 96 Oxygen Delivery Fraction of Inspired Oxygen 03/23/24 17:11 03/23/24 18:00 03/23/24 18:00 Temperature Pulse Rate 111 H 109 H 109 H Respiratory Rate 30 H 30 H Blood Pressure 144/90 H Pulse Oximetry 96 Oxygen Delivery Mechanical Ventilation Fraction of Inspired Oxygen 40 03/23/24 18:00 03/23/24 18:00 03/23/24 18:00 Temperature 99.6 F 99.6 F Pulse Rate 109 H 109 H 108 H Respiratory Rate 30 H 30 H Blood Pressure 144/90 H 144/97 H Pulse Oximetry 95 95 Oxygen Delivery Fraction of Inspired Oxygen 03/23/24 19:52 03/23/24 20:00 03/23/24 20:00 Temperature 99.4 F Pulse Rate 111 H 110 H Respiratory Rate 30 H 30 H Blood Pressure 151/97 H Pulse Oximetry 95 94 Oxygen Delivery Mechanical Ventilation Fraction of Inspired Oxygen 40 40 03/23/24 20:00 03/23/24 20:00 03/23/24 20:07 Temperature Pulse Rate 110 H 111 H 110 H Respiratory Rate 30 H Blood Pressure 151/97 H Pulse Oximetry 94 Oxygen Delivery Mechanical Ventilation Fraction of Inspired Oxygen 40 03/23/24 20:13 03/23/24 20:22 03/23/24 21:05 Temperature Pulse Rate 106 H 103 H 94 Respiratory Rate 30 H 30 H 30 H Blood Pressure Pulse Oximetry Oxygen Delivery Fraction of Inspired Oxygen 03/23/24 21:05 03/23/24 22:00 03/23/24 22:00 Temperature Pulse Rate 94 89 89 Respiratory Rate 30 H 30 H Blood Pressure Pulse Oximetry Oxygen Delivery Fraction of Inspired Oxygen 03/23/24 22:00 03/23/24 22:00 03/23/24 23:43 Temperature Pulse Rate 87 89 83 Respiratory Rate 30 H 30 H Blood Pressure 142/95 H 142/95 H Pulse Oximetry 96 95 Oxygen Delivery Mechanical Ventilation Fraction of Inspired Oxygen 40 03/23/24 23:45 03/23/24 23:46 03/24/24 00:00 Temperature 98.9 F Pulse Rate 83 77 Respiratory Rate 30 H 30 H Blood Pressure 149/97 H Pulse Oximetry 95 96 Oxygen Delivery Mechanical Ventilation Fraction of Inspired Oxygen 40 40 03/24/24 00:00 03/24/24 00:01 03/24/24 00:01 Temperature Pulse Rate 77 76 78 Respiratory Rate 30 H 30 H Blood Pressure 149/97 H Pulse Oximetry Oxygen Delivery Fraction of Inspired Oxygen 03/24/24 00:52 03/24/24 00:52 03/24/24 02:00 Temperature Pulse Rate 79 79 101 H Respiratory Rate 30 H 30 H Blood Pressure Pulse Oximetry Oxygen Delivery Fraction of Inspired Oxygen 03/24/24 02:00 03/24/24 02:00 03/24/24 02:00 Temperature Pulse Rate 100 100 100 Respiratory Rate 30 H 30 H 30 H Blood Pressure 169/101 H 169/101 H Pulse Oximetry 92 Oxygen Delivery Fraction of Inspired Oxygen 03/24/24 02:34 03/24/24 02:35 03/24/24 02:45 Temperature Pulse Rate 111 H 111 H 103 H Respiratory Rate 30 H 30 H Blood Pressure Pulse Oximetry 92 Oxygen Delivery Mechanical Ventilation Fraction of Inspired Oxygen 40 03/24/24 03:15 03/24/24 03:19 03/24/24 04:00 Temperature 99.3 F Pulse Rate 81 79 Respiratory Rate 30 H 30 H Blood Pressure 151/98 H Pulse Oximetry 95 96 Oxygen Delivery Mechanical Ventilation Fraction of Inspired Oxygen 40 40 03/24/24 04:00 03/24/24 04:00 03/24/24 04:00 Temperature Pulse Rate 79 75 76 Respiratory Rate 30 H 30 H Blood Pressure 153/99 H Pulse Oximetry Oxygen Delivery Fraction of Inspired Oxygen 03/24/24 04:52 03/24/24 05:35 03/24/24 05:35 Temperature Pulse Rate 86 91 91 Respiratory Rate 30 H 30 H Blood Pressure Pulse Oximetry 96 Oxygen Delivery Mechanical Ventilation Fraction of Inspired Oxygen 40 03/24/24 06:00 03/24/24 06:00 03/24/24 06:00 Temperature Pulse Rate 115 H 118 H 118 H Respiratory Rate 30 H 30 H Blood Pressure 183/117 H Pulse Oximetry 94 Oxygen Delivery Fraction of Inspired Oxygen 03/24/24 06:00 03/24/24 08:02 03/24/24 08:22 Temperature Pulse Rate 114 H 115 H 103 H Respiratory Rate 30 H Blood Pressure 175/105 H Pulse Oximetry 94 Oxygen Delivery Mechanical Ventilation Fraction of Inspired Oxygen 40 03/24/24 08:25 Temperature Pulse Rate 106 H Respiratory Rate 30 H Blood Pressure Pulse Oximetry Oxygen Delivery Fraction of Inspired Oxygen Intake/Output Intake/Output: Intake & Output 03/21/24 03/22/24 03/23/24 03/24/24 23:59 23:59 23:59 23:59 Intake Total 1488.3 1131.2 2802.2 721.9 Output Total 550 975 650 Balance 1488.3 581.2 1827.2 71.9 Meds/Results Medications: Active Medications Generic Name Dose Route Start Last Admin Trade Name Freq PRN Reason Stop Dose Admin Acetaminophen 650 mg 03/19/24 15:02 03/22/24 10:04 Acetaminophen 325 Mg Tablet PO 650 mg Q4H PRN Administration Mild Pain (1-3) or Fever Amlodipine Besylate 10 mg 03/24/24 09:00 03/24/24 08:01 Amlodipine Besylate 10 Mg Tablet PO 10 mg DAILY VELASQUEZ Administration Apixaban 10 mg 03/21/24 02:05 03/24/24 08:02 Apixaban 5 Mg Tablet PO 10 mg Q12HR VELASQUEZ Administration Benzocaine 1 lozenge 03/19/24 15:11 03/19/24 17:39 Benzocaine/Menthol (*Bkc) 18 Ea Lozenge PO 1 lozenge PRN PRN Administration Sore Throat Benzonatate 100 mg 03/19/24 15:11 03/20/24 20:16 Benzonatate 100 Mg Capsule PO 100 mg TID PRN Administration Cough Dextrose 12.5 gm 03/19/24 15:15 Dextrose 50% 25 Gm/50 Ml Syringe IV PUSH PRN PRN Hypoglycemia Protocol Gabapentin 300 mg 03/19/24 17:00 03/24/24 08:02 Gabapentin 300 Mg Capsule PO 300 mg TID VELASQUEZ Administration Glucagon 1 mg 03/19/24 15:15 Glucagon For Inj 1 Mg Vial IM PRN PRN Hypoglycemia Protocol Glucose 15 gm 03/19/24 15:15 Glucose Oral Gel 15 Gm Of Glucse In 37.5 Gm Tube PO PRN PRN Hypoglycemia Protocol Hydrocortisone Sodium Succinate 50 mg 03/22/24 12:00 03/24/24 05:39 Hydrocortisone Sodium Succinate 100 Mg/2 Ml Vial IV PUSH 50 mg Q6H VELASQUEZ Administration Dextrose 1,000 mls @ 100 mls/hr 03/19/24 15:15 Dextrose 5% 1,000 Ml IVPB PRN PRN Hypoglycemia Protocol Propofol 100 mls @ 18.93 mls/hr 03/22/24 12:25 03/24/24 06:00 Diprivan IV CONT 50 mcg/kg/min .Q5H17M VELASQUEZ 18.93 mls/hr Titration Protocol 50 MCG/KG/MIN Albumin Human 100 mls @ 60 mls/hr 03/22/24 12:30 03/24/24 05:38 Albutein IVPB 60 mls/hr Q6HR VELASQUEZ Administration Cefepime HCl 2 gm in 50 mls @ 100 mls/hr 03/22/24 14:00 03/24/24 06:08 Maxipime 2 Gm/Ns 50 Ml IVPB Infused Q8H VELASQUEZ Infusion Cisatracurium Besylate 200 mg/ 100 mls @ 3.786 mls/hr 03/22/24 14:00 03/24/24 06:00 Dextrose IV CONT 2 mcg/kg/min .[id number] VELASQUEZ 3.79 mls/hr Titration Protocol 2 MCG/KG/MIN Vancomycin HCl 1,000 mg in 250 mls @ 250 mls/hr 03/23/24 23:00 03/24/24 06:16 Vancomycin 1,000 Mg/Ns 250 Ml IVPB 250 mls/hr Q8H VELASQUEZ Administration Insulin Aspart 2 - 5 units 03/22/24 18:00 03/24/24 06:32 Insulin Aspart (*Bkc) 100 Units/Ml SUB-Q Not Given Q6HR VELASQUEZ Protocol Levalbuterol HCl 0.63 mg 03/19/24 20:00 03/24/24 08:12 Levalbuterol Neb 1.25 Mg/3 Ml INHALATION 0.63 mg Q6HRT VELASQUEZ Administration Levetiracetam 2,000 mg 03/19/24 21:00 03/22/24 09:33 Levetiracetam 500 Mg Tablet PO 2,000 mg Q12HR VELASQUEZ Administration Metoprolol Tartrate 50 mg 03/24/24 09:00 03/24/24 08:02 Metoprolol Tartrate 50 Mg Tab PO 50 mg Q12HR VELASQUEZ Administration Miscellaneous Information 1 each 03/23/24 00:01 03/24/24 00:19 Propofol Needs To Be Renewed Or It Will Automatically Discontinue. XX 04/22/24 00:00 Not Given CLARIFY VELASQUEZ Montelukast Sodium 10 mg 03/19/24 18:00 03/23/24 18:04 Montelukast Sodium 10 Mg Tablet PO 10 mg QPM VELASQUEZ Administration Multi-Ingred Cream/Lotion/Oil/Oint 1 applic 03/22/24 21:00 03/24/24 08:02 Mineral Oil/White Petrolatum Ointment EACH EYE 1 applic Q12HR VELASQUEZ Administration Oxcarbazepine 300 mg 03/19/24 21:00 03/24/24 08:02 Oxcarbazepine 300 Mg Tablet PO 300 mg Q12HR VELASQUEZ Administration Pantoprazole Sodium 40 mg 03/23/24 09:00 03/24/24 08:02 Pantoprazole Sodium Iv 40 Mg Vial IV PUSH 40 mg QAM VELASQUEZ Administration Perflutren Lipid Microsphere 0 ml 03/21/24 11:41 Perflutren Lipid Microspheres 1.5 Ml Vial Diluted To 10 Ml Total Volume IV PUSH 03/24/24 11:42 ONCE PRN adequate visualization Protocol Quetiapine Fumarate 800 mg 03/20/24 21:00 03/21/24 20:41 Quetiapine Fumarate 100 Mg Tablet PO 800 mg HS VELASQUEZ Administration Sertraline HCl 150 mg 03/20/24 09:00 03/24/24 08:02 Sertraline Hcl 50 Mg Tablet PO 150 mg QAM VELASQUEZ Administration Sodium Chloride 1 spray 03/21/24 17:33 Saline 0.65% [employer] 44 Ml Btl NASAL Q6HR PRN Congestion Sodium Chloride 10 ml 03/22/24 14:00 03/24/24 05:39 Central Line Flush IV PUSH 10 ml Q8HR VELASQUEZ Administration Sodium Chloride 10 ml 03/22/24 13:18 Central Line Flush IV PUSH PRN PRN with TPN bag changes Sodium Chloride 20 ml 03/22/24 13:18 Central Line Flush IV PUSH PRN PRN after blood draws Trazodone HCl 200 mg 03/19/24 18:00 03/19/24 17:36 Trazodone Hcl 50 Mg Tablet PO 200 mg QPM VELASQUEZ Administration Radiology Results: ITS Impressions Head CT 03/19/24 13:41 Impression: No acute intracranial hemorrhage or suspicious mass effect. Cervical Spine CT 03/19/24 13:42 Impression: Preservation of the normal curvature of the cervical spine. Multifocal infiltrates within the chest. No acute fracture. Chest CTA 03/20/24 23:51 IMPRESSION: Acute nonocclusive segmental right lower lobe embolus. Low clot burden. No CT evidence of right heart strain. Worsening multifocal pneumonia, overlying asymmetric areas of pulmonary edema. Diffuse mild chest wall subcutaneous edema. Abdomen X-Ray 03/22/24 12:35 IMPRESSION: 1. Endotracheal tube and nasogastric tube in expected positions. 2. Persistent patchy bilateral lung disease consistent with multifocal pneumonia. Chest X-Ray 03/24/24 06:58 Impression: Stable extensive bilateral pulmonary disease. Correlate for pulmonary edema versus bilateral infection. Stable support tubes. Labs Labs: Laboratory Results - last 24 hr 03/23/24 03/23/24 03/23/24 11:36 18:23 21:38 WBC RBC Hgb Hct MCV MCH MCHC RDW Plt Count MPV Immature Gran % (Auto) Neut % (Auto) Lymph % (Auto) [place] % (Auto) Eos % (Auto) Baso % (Auto) Lymph # (Auto) [place] # (Auto) Eos # (Auto) Baso # (Auto) Abs Immat Gran (auto) Absolute Neuts (auto) Absolute Nucleated RBC Nucleated RBC % Platelet Estimate Hypochromasia Anisocytosis Target Cells Ovalocytes [place] Cells Schistocytes Puncture Site ABG pH ABG pCO2 ABG pO2 ABG PO2/FiO2 Ratio ABG HCO3 ABG O2 Saturation ABG O2 Content ABG Base Excess A-a Gradient Oxyhemoglobin Carboxyhemoglobin Methemoglobin Reduced Hemoglobin Total Hemoglobin O2 Delivery Device O2 Liters/Min Minute Volume Vent Rate Vent Mode FiO2 Tidal Volume PEEP Peak Inspir Pressure Pressure Support Sodium Potassium Chloride Carbon Dioxide Anion Gap BUN Creatinine Estim Creat Clear Calc Estimated GFR Glucose POC Capillary Glucose 121 H 134 H Lactic Acid Calcium Phosphorus Magnesium Total Bilirubin AST ALT Alkaline Phosphatase Total Protein Albumin Vancomycin Trough 19.3 03/23/24 03/24/24 03/24/24 23:16 04:54 05:46 WBC 16.0 H RBC 4.05 L Hgb 11.0 L Hct 32.5 L MCV 80.2 MCH 27.2 MCHC 33.8 RDW 14.6 H Plt Count 149 L MPV 10.2 Immature Gran % (Auto) 10.4 H Neut % (Auto) 77.2 H Lymph % (Auto) 7.8 L [place] % (Auto) 4.3 Eos % (Auto) 0.2 Baso % (Auto) 0.1 L Lymph # (Auto) 1.25 [place] # (Auto) 0.7 H Eos # (Auto) 0.0 Baso # (Auto) 0.0 Abs Immat Gran (auto) 1.67 H Absolute Neuts (auto) 12.4 H Absolute Nucleated RBC 0.000 Nucleated RBC % 0.0 Platelet Estimate Slightly decreased Hypochromasia 1+ Anisocytosis 1+ Target Cells 1+ Ovalocytes 1+ [place] Cells 1+ Schistocytes None seen Puncture Site Left radial ABG pH 7.408 ABG pCO2 42.5 ABG pO2 72.3 L ABG PO2/FiO2 Ratio 1.81 ABG HCO3 26.2 H ABG O2 Saturation 94.6 L ABG O2 Content 15.5 L ABG Base Excess 1.3 A-a Gradient 164.0 Oxyhemoglobin 92.6 Carboxyhemoglobin 1.2 Methemoglobin 0.3 Reduced Hemoglobin 5.9 H Total Hemoglobin 11.9 L O2 Delivery Device Ventilator O2 Liters/Min Not Reportable Minute Volume Not Reportable Vent Rate 30 Vent Mode Cmv FiO2 40 Tidal Volume 340 PEEP 8 Peak Inspir Pressure Not Reportable Pressure Support Not Reportable Sodium 144 Potassium 3.8 Chloride 108 H Carbon Dioxide 27 Anion Gap 9 BUN 24 H Creatinine 0.48 L Estim Creat Clear Calc 92 Estimated GFR > 60 Glucose 127 H POC Capillary Glucose 174 H Lactic Acid 1.3 Calcium 9.0 Phosphorus 2.9 Magnesium 2.0 Total Bilirubin 0.6 AST 23 ALT 29 Alkaline Phosphatase 116 Total Protein 6.0 L Albumin 3.6 Vancomycin Trough Quality VTE Prophylaxis VTE prophylaxis: pharmacologic ordered
[2024-03-24] MEDS: levETIRAcetam 500 MG TABLET 2000 MG PO ×2 (10:40→20:50)
--- NOTE | 2024-03-24 11:08 | PCNFU ---
Nutrition Follow-Up Complete: Suboptimal Energy Intake as related to mechanical ventilation as evidenced by NPO. goal: Meet estimated nutritional needs. Patient will continue current goal. Pt current nutrition is NPO. Nutrition recommendation: Vital High Protein at 50 ml/hr. Last recorded weight is 61.1 kg, down from 62.8 kg on admit. Bowel Motility: +BM 2/4 Labs Reviewed: Glu 127, BUN 24, Cr 0.48, Hct 32.5, Hgb 11.0 Meds Noted:NovoLog, Eliquis, Propofol 50 yjvm=440 kcal, Protonix, Nimbex. Skin:WNL Additional Notes: Patient remains on mechanical vent. Tube feedings are on hold at this time for ARIAN. Plans to restart tube feedings after procedure of Vital High Protein at 50 ml/hr. Tube feedings are being tolerated of Vital High Protein at 50 ml/hr. Total Nutrition with propofol infusion: 1599 kcal/96 gm protein/920 ml water. Flush 30 ml q 4 hours. Agree with diet orders. Will monitor weight, labs, skin, diet orders, meds, tube feedings tolerance every Wednesday and Wednesday.
[2024-03-24 12:38] LABS: Triglycerides 136 mg/dL (<150)
--- NOTE | 2024-03-24 13:34 | WPDHPUPDATE1 ---
History and Physical Update Update Date/Time: 03/24/24 13:34 History and Physical has been reviewed, including an updated exam of the patient. There are NO changes in the patient's condition. Risks, benefits, and alternatives have been discussed and questions answered. Patient agrees to proceed with procedure.
--- NOTE | 2024-03-24 13:35 | WPDTEECHO ---
ARIAN TransEsophageal Echocardiogram Date of procedure: 03/24/24 Procedure Type: Date Of Procedure: 03/24/2023 Brief History Of Present Illness: Patient is a 58 year old female who is referred for ARIAN for bacteremia. Procedure In Detail: Patient not able to consent. Consent obtained from patient's family member. The patient was evaluated at bedside in the ICU. as monitored throughout the study with telemetry, oxygen saturation, end-tidal CO2 monitoring, blood pressure, heart rate, and respirations.?Patient intubated, and already deeply sedated by the ICU team. The transesophageal echocardiogram probe was advanced into the posterior hypopharynx and into the esophagus easily and without complication.?Multiple, multiplanar echocardiographic images were obtained in multiple standard re-projections.?Color-flow Doppler were utilized in conjunction with this study. Bubble study done with agitated saline. At the conclusion of the study, the transesophageal echocardiogram probe was removed easily and without complication. The patient tolerated the procedure well without difficulty.?Patient was in sinus rhythm throughout the study. Moderate Sedation / Anesthesia Administration: Procedure / sedation start time: 13:09 Procedure / sedation end time: 13:22 Total procedure time: 13 minutes Patient already sedated by the ICU team. FINDINGS: LEFT VENTRICLE: Size and systolic function normal. RIGHT VENTRICLE:?Size within normal limits. LEFT ATRIUM: Normal size. RIGHT ATRIUM: Normal size. INTERATRIAL SEPTUM: Interatrial septum is anatomically normal without evidence of shunt with color-flow Doppler nor with injection of agitated saline. MITRAL VALVE: Mild regurgitation. No vegetations AORTIC VALVE: The aortic valve was an anatomically normal 3 leaflet structure with normal leaflet excursion and no regurgitation identified. No vegetations. TRICUSPID VALVE: The tricuspid valve is anatomically normal with normal leaflet excursion with mild regurgitation identified.? No vegetations. PULMONIC VALVE: Pulmonic valve appears to be grossly normal. No vegetations. LEFT ATRIAL APPENDAGE: Anatomically normal structure with prominent pectinate muscles without thrombus or vegetation identified. ? PERICARDIUM: The pericardium was anatomically normal without significant pericardial effusion. ? AORTA: No pathology CONCLUSION: Negative for infective endocarditis. Complications: None
[2024-03-24] MEDS: CISATRACURIUM BESYLATE 200 MG in DEXTROSE 5% 80 ML IV CONT (14:33)
[2024-03-24 14:46] LABS: Vancomycin Trough 18.2 ug/mL (10.0-20.0)
[2024-03-24] MEDS: MONTELUKAST SODIUM 10 MG TABLET PO (18:02)
[2024-03-24 18:05] LABS: Glucose Point of Care 153 mg/dl (65-105)
[2024-03-24 23:36] LABS: Glucose Point of Care 167 mg/dl (65-105)
[2024-03-25] VITALS (54 sets, daily range): BP systolic 108–202; BP diastolic 77–117; PULSE 74–117; RESP 30–39; TEMP 36.7–37.4; O2SAT 88–100
[2024-03-25] MEDS: MIDAZOLAM HCL (*CRX) 2 MG/2 ML VIAL IV PUSH ×5 (00:10→15:50)
[2024-03-25] MEDS: PROPOFOL IV EMULSION 100 ML 18.93 MG IV CONT ×3 (00:31→21:25)
[2024-03-25] MEDS: LEVALBUTEROL NEB 1.25 MG/3 ML 0.63 MG INHALATION ×4 (02:02→20:54)
[2024-03-25 05:31] LABS: Base Excess ABG 5.7 mEq/l (+/-2.0); Carboxyhemoglobin 1.5 % THb (0-2.0); Fractional Inspired Oxygen 40 %; HCO3 ABG 32.1 mEq/l (22.0-26.0); Methemoglobin ABG 0.3 %THb (0-1.5); Oxygen Content ABG 15.9 %vol (16.0-22.0); Oxygen Saturation ABG 92.6 % (95.0-100.0); Oxyhemoglobin 90.4 % THb (90.0-100.0); PCO2 ABG 55.2 mmHg (35.0-45.0); PO2 ABG 66.7 mmHg (80.0-100.0); PO2 FiO2 Ratio Arterial Blood 1.67 %; Reduced Hemoglobin 7.8 %THb (0-5.0); Total Hemoglobin 12.5 g/dL (12.0-18.0); pH ABG 7.383 (7.350-7.450)
[2024-03-25 05:32] LABS: Arterial Blood Gas Vent Mode CMV; Arterial Blood Gas Ventilator rate 30 /MIN; Device VENTILATOR; Site Drawn RIGHT BRACHIAL
[2024-03-25 05:33] LABS: Arterial Blood Gas PEEP 8 cmH2O; Arterial Blood Gas Tidal Volume 340 ml
[2024-03-25] MEDS: ALBUMIN HUMAN 25% 25 GM/100 ML 100 ML IVPB ×4 (05:43→23:43)
[2024-03-25] MEDS: CEFEPIME 2 GM/NS 50 ML 2 GM/50 ML BAG IVPB ×3 (05:43→21:31)
[2024-03-25] MEDS: HYDROCORTISONE SODIUM SUCCINATE 100 MG/2 ML VIAL 50 MG IV PUSH ×4 (05:44→23:45)
[2024-03-25] MEDS: CENTRAL LINE FLUSH 10 ML IV PUSH ×3 (05:44→21:31)
[2024-03-25 06:16] LABS: Hematocrit 35.1 % (37.0-47.0); Hemoglobin 11.7 g/dL (12.0-15.0); Mean Corpuscular HGB Conc 33.3 g/dl (32-36); Mean Corpuscular Hemoglobin 27.5 pg (26-34); Mean Corpuscular Volume 82.4 fl (80-100); Mean Platelet Volume 11.3 fl (7.4-10.4); Platelet Count Result 173 k/mm3 (150-375); Red Blood Count 4.26 M/mm3 (4.2-5.4); Red Cell Distribution Width 14.9 % (11.5-14.5); White Blood Count 15.7 K/mm3 (4.5-10.0)
[2024-03-25 06:20] LABS: Alanine Aminotransferase 21 U/L (6-35); Albumin Level 3.9 g/dL (3.5-5.1); Alkaline Phosphatase 91 U/L (38-126); Anion Gap 9 mmol/L (4-12); Aspartate Amino Transferase 17 U/L (14-36); Bilirubin,Total 0.6 mg/dL (0.2-1.3); Blood Urea Nitrogen 29 mg/dL (7-17); Calcium 9.1 mg/dL (8.4-10.2); Carbon Dioxide 31 mmol/L (22-30); Chloride 106 mmol/L (98-107); Estimated CRCL calculation 87 ml/min; Estimated Glomerular Filt Rate > 60; Glucose 126 mg/dL (65-110); Phosphorus 3.7 mg/dL (2.5-4.5); Potassium 3.4 mmol/L (3.4-5.0); Sodium 146 mmol/L (137-145)
[2024-03-25] MEDS: LABETALOL HCL INJ 100 MG/20 ML VIAL 20 MG IV PUSH (06:23)
[2024-03-25 07:32] LABS: Band Neutrophils Percent 5 % (0-6); Lymphocytes Absolute Manual 0.78 K/mm3 (1.1-4.5); Metamyelocytes Percent 2 %; Monocytes Absolute Manual 0.94 K/mm3 (0.1-0.90); Monocytes Percent Manual 6 % (3-9); Neutrophils Absolute Manual 13.65 K/mm3 (1.7-7.2); Neutrophils Percent Manual 82 % (46-73); Platelet Estimate Adequate (Adequate); Schistocytes None Seen; Total Cells Counted 100
[2024-03-25 07:33] LABS: Target Cells 1+
[2024-03-25] MEDS: FENTANYL 2,500MCG/NS250ML(*CRX 2,500 MCG/250 ML BAG IV CONT (08:21)
[2024-03-25] MEDS: PANTOPRAZOLE SODIUM IV 40 MG VIAL IV PUSH (08:30)
[2024-03-25] MEDS: POTASSIUM CHLORIDE 20 MEQ PACKET (FOR LIQUID) 40 MEQ FEED TUBE (08:32)
[2024-03-25] MEDS: VANCOMYCIN 1,000 MG/NS 250 ML 1,000 MG/250 ML BAG 250 MG IVPB ×2 (08:33→16:01)
[2024-03-25] MEDS: SERTRALINE HCL 50 MG TABLET 150 MG PO (08:35)
[2024-03-25] MEDS: GABAPENTIN 300 MG CAPSULE PO ×3 (08:35→18:31)
[2024-03-25] MEDS: levETIRAcetam 500 MG TABLET 2000 MG PO ×2 (08:35→21:29)
[2024-03-25] MEDS: amLODIPine BESYLATE 10 MG TABLET PO (08:35)
[2024-03-25] MEDS: APIXABAN 5 MG TABLET 10 MG PO (08:35)
[2024-03-25] MEDS: OXcarbazepine 300 MG TABLET PO ×2 (08:35→21:29)
[2024-03-25] MEDS: CHLOROTHIAZIDE 500 MG VIAL IV PUSH (08:35)
[2024-03-25] MEDS: MINERAL OIL/WHITE PETROLATUM OINTMENT 1 APPLIC EACH EYE ×2 (08:36→21:30)
[2024-03-25] MEDS: METOPROLOL TARTRATE 50 MG TAB PO ×2 (08:36→21:29)
--- NOTE | 2024-03-25 09:50 | P.PNINT_ITS ---
Progress Note: A&P Assessment and Plan (1) Acute hypoxic respiratory failure: Code(s): J96.01 - Acute respiratory failure with hypoxia Status: Acute Assessment and Plan: 03/22: Chest x-ray this morning showed worsening multifocal pneumonia, patient in acute respiratory distress/impending respiratory failure/tachypnea. Discussed with patient regarding intubation to which she was agreeable. 03/22: Patient intubated successfully. Intubation was uneventful -on CMV mode of ventilation, peep of 10, 60% FiO2 -obtain post intubation ABGs, will adjust ventilator accordingly -ABGs and chest x-ray reviewed, ventilator adjusted -continue steroids pneumonia - continue cefepime 2 g IV q.8 hours (03/22), vancomycin and azithromycin -continue bronchodilators -sedated with propofol infusion, maintain RASS of -2, daily sedation vacation -patient on Nimbex for vent synchrony (03/22 evening) -will start fentanyl infusion for sedation and analgesia -patient was diuresed on 03/24, responded well, will repeat diuresis today (2) Influenza A: Code(s): J10.1 - Influenza due to other identified influenza virus with other respiratory manifestations Status: Acute Assessment and Plan: Patient was positive for influenza A on admission, continue Tamiflu (3) Bacteremia: Code(s): R78.81 - Bacteremia Status: Acute Assessment and Plan: Patient has MRSA bacteremia -03/19/2024: Blood cultures growing MRSA 2/2 bottles -03/19/2024: Sputum culture growing MRSA -03/22/2024: Repeat Blood culture MRSA 2 or 2 bottles -will repeat blood cultures today -appreciate cardiology evaluation and recommendations, 03/24: ARIAN planned without any vegetations/negative for infective endocarditis -transthoracic echocardiogram did not show any vegetations (4) Multifocal pneumonia: Code(s): J18.9 - Pneumonia, unspecified organism Status: Acute Assessment and Plan: Chest x-ray and CTA chest showed multifocal pneumonia -continue antibiotics, mechanical ventilation, steroids (5) Pulmonary embolism: Code(s): I26.99 - Other pulmonary embolism without acute cor pulmonale Status: Acute Assessment and Plan: Patient given tachycardia and tachypneic, -continue Eliquis -low clot burden 03/20/2024: CTA chest Acute nonocclusive segmental right lower lobe embolus. Low clot burden. No CT evidence of right heart strain. Worsening multifocal pneumonia, overlying asymmetric areas of pulmonary edema. Diffuse mild chest wall subcutaneous edema. (6) Seizures: Code(s): R56.9 - Unspecified convulsions Status: Acute Assessment and Plan: Patient has a history of seizures and presented with seizures on the day of admission and the day prior to that. -continue Keppra, Trileptal (7) Sepsis: Qualifiers: Sepsis type: sepsis due to unspecified organism Sepsis acute organ dysfunction status: without acute organ dysfunction Qualified Code(s): A41.9 - Sepsis, unspecified organism Code(s): A41.9 - Sepsis, unspecified organism Status: Acute Assessment and Plan: Patient fulfilled the criteria of sepsis -now bacteremic, -cultures and antibiotics as above (8) Hypertension: Code(s): I10 - Essential (primary) hypertension Status: Acute Assessment and Plan: Systolic blood pressures have been in the 170s and 180s, also tachycardic in the 1 teens to 120 -continue metoprolol and amlodipine (9) Electrolyte imbalance: Code(s): E87.8 - Other disorders of electrolyte and fluid balance, not elsewhere classified Status: Acute Assessment and Plan: Will replace potassium Plan DVT prophylaxis: Eliquis Stress ulcer prophylaxis: Protonix Nutrition: Tolerating tube feeds Code Status: Full code Critical Care Time Spent: 34 minutes Discussed with patient prior to intubation and updated her with her condition and plan of care. I explained to her the rationale for intubation to which she was agreeable. Patient was successfully intubated and now sedated. -family has been updated Due to a high probability of clinically significant, life threatening deterioration, the patient required my highest level of preparedness to intervene emergently and I personally spent this critical care time directly and personally managing the patient. This critical care time included obtaining a history; examining the patient; pulse oximetry; ordering and review of studies; arranging urgent treatment with development of a management plan; evaluation of patient's response to treatment; frequent reassessment; and discussions with other providers. It was exclusive of separately billable procedures and treating other patients and teaching time. Please see Assessment and Plan section and the rest of the note for further information on patient assessment and treatment This dictation may have been done utilizing a voice recognition system. Attempts have been made to correct errors. However, there may be uncorrected grammatical, spelling, and recognitions errors present. Subjective Date/time seen: 03/25/24 09:50 Interval history: Reason for consult: Acute hypoxic respiratory failure, acute respiratory distress, impending respiratory failure, sepsis, MRSA bacteremia, multifocal pneumonia, pulmonary embolism, seizures 03/25/2024: Patient seen and examined the ICU, remains intubated on CMV mode of ventilation, peep of 8, 40% FiO2. Sedated with propofol infusion, also on Nim tony open synchrony. Patient has been receiving p.r.n. Versed through the night for tachycardia and hypertension. Afebrile, good urine output, tolerating tube feeds Review of Systems Review of Systems: ROS unobtainable: Yes unobtainable due to endotracheal tube and unobtainable due to medical condition Exam Narrative: General: Intubated and sedated, in no acute does HEENT:? Pupils equal and reactive, sclerae is clear, ETT in place Neck:? Supple Respiratory:? Coarse breath sounds bilaterally, adequate air entry, no wheezing, bilateral diffuse rales Cardiac:? S1-S2 normal, tachycardic Abdomen:? Soft, nontender, nondistended, hypoactive bowel sound Extremities:? no edema, palpable pedal pulses Neuro:? Intubated, sedated at this time, patient also on Nimbex for ventilator synchrony ( prior to intubation patient was awake, alert, able to answer questions and follows simple commands appropriately) Skin:? No skin lesions noted Psych:? Unable to assess at this time Objective Data Vital Signs Vital Signs: Vital Signs - 24 hr 03/24/24 10:00 03/24/24 10:00 03/24/24 10:00 Temperature 98.8 F Pulse Rate 73 75 77 Respiratory Rate 30 H 30 H Blood Pressure 127/86 137/87 Pulse Oximetry 96 Oxygen Delivery Fraction of Inspired Oxygen 03/24/24 10:40 03/24/24 10:40 03/24/24 12:00 Temperature Pulse Rate 72 72 79 Respiratory Rate 30 H 30 H 30 H Blood Pressure Pulse Oximetry Oxygen Delivery Fraction of Inspired Oxygen 03/24/24 12:00 03/24/24 12:00 03/24/24 12:00 Temperature Pulse Rate 79 79 79 Respiratory Rate 30 H 30 H Blood Pressure 136/89 Pulse Oximetry 93 Oxygen Delivery Mechanical Ventilation Fraction of Inspired Oxygen 40 03/24/24 12:00 03/24/24 12:00 03/24/24 12:02 Temperature 99.2 F Pulse Rate 79 78 Respiratory Rate 30 H Blood Pressure 134/86 Pulse Oximetry 93 93 Oxygen Delivery Mechanical Ventilation Fraction of Inspired Oxygen 40 40 03/24/24 13:08 03/24/24 13:13 03/24/24 13:18 Temperature 99.3 F 99.3 F 99.3 F Pulse Rate 78 87 87 Respiratory Rate 30 H 30 H 24 H Blood Pressure 136/87 163/97 H 143/91 H Pulse Oximetry 95 95 93 Oxygen Delivery Mechanical Ventilation Mechanical Ventilation Mechanical Ventilation Fraction of Inspired Oxygen 40 40 40 03/24/24 13:20 03/24/24 14:00 03/24/24 14:00 Temperature 99.3 F Pulse Rate 77 77 79 Respiratory Rate 30 H 30 H Blood Pressure 143/88 H 146/87 H Pulse Oximetry 96 Oxygen Delivery Fraction of Inspired Oxygen 03/24/24 14:00 03/24/24 14:33 03/24/24 14:37 Temperature Pulse Rate 93 77 82 Respiratory Rate 30 H 30 H 30 H Blood Pressure 143/88 H Pulse Oximetry Oxygen Delivery Fraction of Inspired Oxygen 03/24/24 14:37 03/24/24 15:55 03/24/24 15:55 Temperature Pulse Rate 90 87 87 Respiratory Rate 30 H 30 H Blood Pressure Pulse Oximetry 94 Oxygen Delivery Mechanical Ventilation Fraction of Inspired Oxygen 40 03/24/24 16:00 03/24/24 16:00 03/24/24 16:00 Temperature Pulse Rate 84 83 Respiratory Rate 30 H Blood Pressure Pulse Oximetry 96 Oxygen Delivery Mechanical Ventilation Fraction of Inspired Oxygen 40 40 03/24/24 16:00 03/24/24 16:00 03/24/24 16:00 Temperature 99.3 F Pulse Rate 88 74 88 Respiratory Rate 30 H 30 H 30 H Blood Pressure 127/80 130/87 Pulse Oximetry 96 Oxygen Delivery Fraction of Inspired Oxygen 03/24/24 17:35 03/24/24 18:00 03/24/24 18:00 Temperature Pulse Rate 87 112 H 112 H Respiratory Rate 30 H 30 H Blood Pressure 175/102 H Pulse Oximetry 96 Oxygen Delivery Mechanical Ventilation Fraction of Inspired Oxygen 40 03/24/24 18:00 03/24/24 18:00 03/24/24 19:35 Temperature 99.3 F Pulse Rate 112 H 112 H 117 H Respiratory Rate 30 H 32 H Blood Pressure 172/102 H 174/99 H Pulse Oximetry 96 Oxygen Delivery Fraction of Inspired Oxygen 03/24/24 20:00 03/24/24 20:00 03/24/24 20:00 Temperature 99.5 F Pulse Rate 120 H 116 H Respiratory Rate 32 H 32 H Blood Pressure 180/107 H Pulse Oximetry 95 Oxygen Delivery Fraction of Inspired Oxygen 40 03/24/24 20:00 03/24/24 20:20 03/24/24 20:40 Temperature Pulse Rate 116 H 118 H 117 H Respiratory Rate 30 H 30 H Blood Pressure 180/107 H Pulse Oximetry 95 Oxygen Delivery Mechanical Ventilation Fraction of Inspired Oxygen 40 03/24/24 20:46 03/24/24 20:50 03/24/24 20:50 Temperature Pulse Rate 119 H 119 H 119 H Respiratory Rate 30 H 30 H Blood Pressure Pulse Oximetry 95 Oxygen Delivery Mechanical Ventilation Fraction of Inspired Oxygen 40 03/24/24 20:50 03/24/24 20:51 03/24/24 20:51 Temperature Pulse Rate 119 H 119 H 119 H Respiratory Rate 30 H 30 H Blood Pressure Pulse Oximetry Oxygen Delivery Fraction of Inspired Oxygen 03/24/24 22:00 03/24/24 22:00 03/24/24 22:00 Temperature 99.3 F Pulse Rate 75 75 75 Respiratory Rate 30 H 30 H Blood Pressure 113/72 113/72 Pulse Oximetry 96 Oxygen Delivery Fraction of Inspired Oxygen 03/24/24 22:00 03/24/24 23:10 03/24/24 23:15 Temperature Pulse Rate 75 76 82 Respiratory Rate 30 H 30 H Blood Pressure 117/77 Pulse Oximetry 97 Oxygen Delivery Mechanical Ventilation Fraction of Inspired Oxygen 40 03/25/24 00:00 03/25/24 00:00 03/25/24 00:00 Temperature 99.1 F Pulse Rate 95 95 104 H Respiratory Rate 30 H 30 H 30 H Blood Pressure 154/93 H 154/93 H Pulse Oximetry 97 97 Oxygen Delivery Mechanical Ventilation Fraction of Inspired Oxygen 40 03/25/24 00:00 03/25/24 00:00 03/25/24 00:00 Temperature Pulse Rate 104 H 99 Respiratory Rate 30 H Blood Pressure Pulse Oximetry Oxygen Delivery Fraction of Inspired Oxygen 40 03/25/24 00:31 03/25/24 00:31 03/25/24 02:00 Temperature Pulse Rate 104 H 104 H 114 H Respiratory Rate 30 H 30 H Blood Pressure Pulse Oximetry Oxygen Delivery Fraction of Inspired Oxygen 03/25/24 02:00 03/25/24 02:00 03/25/24 02:00 Temperature 99.2 F Pulse Rate 111 H 114 H 114 H Respiratory Rate 30 H 30 H 30 H Blood Pressure 176/103 H 176/103 H Pulse Oximetry 94 Oxygen Delivery Fraction of Inspired Oxygen 03/25/24 02:02 03/25/24 02:02 03/25/24 02:10 Temperature Pulse Rate 107 H 109 H 106 H Respiratory Rate 30 H 30 H Blood Pressure Pulse Oximetry 97 Oxygen Delivery Mechanical Ventilation Fraction of Inspired Oxygen 40 03/25/24 04:00 03/25/24 04:00 03/25/24 04:00 Temperature 99 F Pulse Rate 91 90 Respiratory Rate 30 H 30 H Blood Pressure 126/83 126/83 Pulse Oximetry 95 Oxygen Delivery Fraction of Inspired Oxygen 40 03/25/24 04:00 03/25/24 04:00 03/25/24 04:10 Temperature Pulse Rate 92 87 92 Respiratory Rate 30 H 30 H Blood Pressure Pulse Oximetry 97 Oxygen Delivery Mechanical Ventilation Fraction of Inspired Oxygen 40 03/25/24 05:34 03/25/24 05:43 03/25/24 05:43 Temperature Pulse Rate 93 95 95 Respiratory Rate 30 H 30 H Blood Pressure Pulse Oximetry 94 Oxygen Delivery Mechanical Ventilation Fraction of Inspired Oxygen 35 03/25/24 06:00 03/25/24 06:00 03/25/24 06:23 Temperature 98.7 F Pulse Rate 103 H 103 H 104 H Respiratory Rate 30 H Blood Pressure 193/116 H Pulse Oximetry 95 Oxygen Delivery Fraction of Inspired Oxygen 03/25/24 06:30 03/25/24 08:00 03/25/24 08:20 Temperature 98.9 F 99.2 F Pulse Rate 81 99 97 Respiratory Rate 30 H 30 H 30 H Blood Pressure 160/100 H 202/117 H Pulse Oximetry 94 95 Oxygen Delivery Fraction of Inspired Oxygen 03/25/24 08:20 03/25/24 08:21 03/25/24 08:27 Temperature Pulse Rate 97 97 93 Respiratory Rate 30 H 30 H Blood Pressure Pulse Oximetry 96 Oxygen Delivery Mechanical Ventilation Fraction of Inspired Oxygen 40 03/25/24 08:36 03/25/24 09:14 Temperature Pulse Rate 92 80 Respiratory Rate 30 H Blood Pressure 160/101 H Pulse Oximetry Oxygen Delivery Fraction of Inspired Oxygen Intake/Output Intake/Output: Intake & Output 03/22/24 03/23/24 03/24/24 03/25/24 23:59 23:59 23:59 23:59 Intake Total 1131.2 2802.2 2409.3 1367.0 Output Total 130 297 9527 800 Balance 581.2 1827.2 -940.7 567.0 Meds/Results Medications: Active Medications Generic Name Dose Route Start Last Admin Trade Name Freq PRN Reason Stop Dose Admin Acetaminophen 650 mg 03/19/24 15:02 03/22/24 10:04 Acetaminophen 325 Mg Tablet PO 650 mg Q4H PRN Administration Mild Pain (1-3) or Fever Amlodipine Besylate 10 mg 03/24/24 09:00 03/25/24 08:35 Amlodipine Besylate 10 Mg Tablet PO 10 mg DAILY VELASQUEZ Administration Apixaban 10 mg 03/21/24 02:05 03/25/24 08:35 Apixaban 5 Mg Tablet PO 10 mg Q12HR VELASQUEZ Administration Benzocaine 1 lozenge 03/19/24 15:11 03/19/24 17:39 Benzocaine/Menthol (*Bkc) 18 Ea Lozenge PO 1 lozenge PRN PRN Administration Sore Throat Benzonatate 100 mg 03/19/24 15:11 03/20/24 20:16 Benzonatate 100 Mg Capsule PO 100 mg TID PRN Administration Cough Dextrose 12.5 gm 03/19/24 15:15 Dextrose 50% 25 Gm/50 Ml Syringe IV PUSH PRN PRN Hypoglycemia Protocol Gabapentin 300 mg 03/19/24 17:00 03/25/24 08:35 Gabapentin 300 Mg Capsule PO 300 mg TID VELASQUEZ Administration Glucagon 1 mg 03/19/24 15:15 Glucagon For Inj 1 Mg Vial IM PRN PRN Hypoglycemia Protocol Glucose 15 gm 03/19/24 15:15 Glucose Oral Gel 15 Gm Of Glucse In 37.5 Gm Tube PO PRN PRN Hypoglycemia Protocol Hydrocortisone Sodium Succinate 50 mg 03/22/24 12:00 03/25/24 05:44 Hydrocortisone Sodium Succinate 100 Mg/2 Ml Vial IV PUSH 50 mg Q6H VELASQUEZ Administration Dextrose 1,000 mls @ 100 mls/hr 03/19/24 15:15 Dextrose 5% 1,000 Ml IVPB PRN PRN Hypoglycemia Protocol Propofol 100 mls @ 18.93 mls/hr 03/22/24 12:25 03/25/24 05:43 Diprivan IV CONT 50 mcg/kg/min .Q5H17M VELASQUEZ 18.93 mls/hr Administration Protocol 50 MCG/KG/MIN Albumin Human 100 mls @ 60 mls/hr 03/22/24 12:30 03/25/24 05:43 Albutein IVPB 60 mls/hr Q6HR VELASQUEZ Administration Cefepime HCl 2 gm in 50 mls @ 100 mls/hr 03/22/24 14:00 03/25/24 06:25 Maxipime 2 Gm/Ns 50 Ml IVPB Infused Q8H VELASQUEZ Infusion Cisatracurium Besylate 200 mg/ 100 mls @ 4.733 mls/hr 03/22/24 14:00 03/25/24 09:14 Dextrose IV CONT 2.5 mcg/kg/min .Q21H8M VELASQUEZ 4.73 mls/hr Titration Protocol 2.5 MCG/KG/MIN Vancomycin HCl 1,000 mg in 250 mls @ 250 mls/hr 03/24/24 16:00 03/25/24 08:33 Vancomycin 1,000 Mg/Ns 250 Ml IVPB 250 mls/hr Q8H VELASQUEZ Administration Fentanyl Citrate 2,500 mcg in 250 mls @ 2.5 mls/hr 03/25/24 07:25 03/25/24 08:21 Fentanyl 2,500 Mcg/Ns 250 Ml IV CONT 25 mcg/hr .Q72H EVLASQUEZ 2.5 mls/hr Administration Protocol 25 MCG/HR Potassium Chloride 100 mls @ 25 mls/hr 03/25/24 07:26 Kcl 40 Meq/Water 100 Ml IVPB 03/25/24 11:25 ONCE ONE Insulin Aspart 2 - 5 units 03/22/24 18:00 03/25/24 08:24 Insulin Aspart (*Bkc) 100 Units/Ml SUB-Q Not Given Q6HR VELASQUEZ Protocol Levalbuterol HCl 0.63 mg 03/19/24 20:00 03/25/24 08:19 Levalbuterol Neb 1.25 Mg/3 Ml INHALATION 0.63 mg Q6HRT VELASQUEZ Administration Levetiracetam 2,000 mg 03/19/24 21:00 03/25/24 08:35 Levetiracetam 500 Mg Tablet PO 2,000 mg Q12HR VELASQUEZ Administration Metoprolol Tartrate 50 mg 03/24/24 09:00 03/25/24 08:36 Metoprolol Tartrate 50 Mg Tab PO 50 mg Q12HR VELASQUEZ Administration Midazolam HCl 2 mg 03/24/24 20:12 03/25/24 08:17 Midazolam Hcl (*Crx) 2 Mg/2 Ml Vial IV PUSH 2 mg Q2HR PRN Administration Sedation Miscellaneous Information 1 each 03/23/24 00:01 03/24/24 00:19 Propofol Needs To Be Renewed Or It Will Automatically Discontinue. XX 04/22/24 00:00 Not Given CLARIFY VELASQUEZ Montelukast Sodium 10 mg 03/19/24 18:00 03/24/24 18:02 Montelukast Sodium 10 Mg Tablet PO 10 mg QPM VELASQUEZ Administration Multi-Ingred Cream/Lotion/Oil/Oint 1 applic 03/22/24 21:00 03/25/24 08:36 Mineral Oil/White Petrolatum Ointment EACH EYE 1 applic Q12HR VELASQUEZ Administration Oxcarbazepine 300 mg 03/19/24 21:00 03/25/24 08:35 Oxcarbazepine 300 Mg Tablet PO 300 mg Q12HR VELASQUEZ Administration Pantoprazole Sodium 40 mg 03/23/24 09:00 03/25/24 08:30 Pantoprazole Sodium Iv 40 Mg Vial IV PUSH 40 mg QAM VELASQUEZ Administration Quetiapine Fumarate 800 mg 03/20/24 21:00 03/21/24 20:41 Quetiapine Fumarate 100 Mg Tablet PO 800 mg HS VELASQUEZ Administration Sertraline HCl 150 mg 03/20/24 09:00 03/25/24 08:35 Sertraline Hcl 50 Mg Tablet PO 150 mg QAM VELASQUEZ Administration Sodium Chloride 1 spray 03/21/24 17:33 Saline 0.65% Robert Soln 44 Ml Btl NASAL Q6HR PRN Congestion Sodium Chloride 10 ml 03/22/24 14:00 03/25/24 05:44 Central Line Flush IV PUSH 10 ml Q8HR VELASQUEZ Administration Sodium Chloride 10 ml 03/22/24 13:18 Central Line Flush IV PUSH PRN PRN with TPN bag changes Sodium Chloride 20 ml 03/22/24 13:18 Central Line Flush IV PUSH PRN PRN after blood draws Trazodone HCl 200 mg 03/19/24 18:00 03/19/24 17:36 Trazodone Hcl 50 Mg Tablet PO 200 mg QPM VELASQUEZ Administration Radiology Results: ITS Impressions Head CT 03/19/24 13:41 Impression: No acute intracranial hemorrhage or suspicious mass effect. Cervical Spine CT 03/19/24 13:42 Impression: Preservation of the normal curvature of the cervical spine. Multifocal infiltrates within the chest. No acute fracture. Chest CTA 03/20/24 23:51 IMPRESSION: Acute nonocclusive segmental right lower lobe embolus. Low clot burden. No CT evidence of right heart strain. Worsening multifocal pneumonia, overlying asymmetric areas of pulmonary edema. Diffuse mild chest wall subcutaneous edema. Abdomen X-Ray 03/24/24 13:53 IMPRESSION: 1. Nasogastric tube tip in proximal side port below the level of the gastroesophageal junction which could be either within the stomach or a possible Armando limb of a gastric bypass procedure with suture lines in the epigastric region. Correlate with surgical history. 2. Diffuse bilateral lung disease could relate to pulmonary edema or pneumonia. Chest X-Ray 03/25/24 06:09 IMPRESSION: 1. Stable diffuse lung disease, consistent with pneumonia. Labs Labs: Laboratory Results - last 24 hr 03/24/24 03/24/24 03/24/24 05:42 14:20 17:59 WBC RBC Hgb Hct MCV MCH MCHC RDW Plt Count MPV Immature Gran % (Auto) Neut % (Auto) Lymph % (Auto) Candler % (Auto) Eos % (Auto) Baso % (Auto) Lymph # (Auto) Candler # (Auto) Eos # (Auto) Baso # (Auto) Abs Immat Gran (auto) Absolute Neuts (auto) Absolute Nucleated RBC Total Counted Neutrophils % (Manual) Band Neutrophils % Lymphocytes % (Manual) Monocytes % (Manual) Metamyelocytes % Nucleated RBC % Abs Neuts (Manual) Abs Lymphs (Manual) Abs Monocytes (Manual) Platelet Estimate Target Cells Schistocytes Puncture Site ABG pH ABG pCO2 ABG pO2 ABG PO2/FiO2 Ratio ABG HCO3 ABG O2 Saturation ABG O2 Content ABG Base Excess A-a Gradient Oxyhemoglobin Carboxyhemoglobin Methemoglobin Reduced Hemoglobin Total Hemoglobin O2 Delivery Device O2 Liters/Min Minute Volume Vent Rate Vent Mode FiO2 Tidal Volume PEEP Peak Inspir Pressure Pressure Support Sodium Potassium Chloride Carbon Dioxide Anion Gap BUN Creatinine Estim Creat Clear Calc Estimated GFR Glucose POC Capillary Glucose 153 H Calcium Phosphorus Magnesium Total Bilirubin AST ALT Alkaline Phosphatase Total Protein Albumin Triglycerides 136 Vancomycin Trough 18.2 03/24/24 03/25/24 03/25/24 23:18 05:18 05:55 WBC 15.7 H RBC 4.26 Hgb 11.7 L Hct 35.1 L MCV 82.4 MCH 27.5 MCHC 33.3 RDW 14.9 H Plt Count 173 MPV 11.3 H Immature Gran % (Auto) Not Reportable Neut % (Auto) Not Reportable Lymph % (Auto) Not Reportable Candler % (Auto) Not Reportable Eos % (Auto) Not Reportable Baso % (Auto) Not Reportable Lymph # (Auto) Not Reportable Candler # (Auto) Not Reportable Eos # (Auto) Not Reportable Baso # (Auto) Not Reportable Abs Immat Gran (auto) Not Reportable Absolute Neuts (auto) Not Reportable Absolute Nucleated RBC Not Reportable Total Counted 100 Neutrophils % (Manual) 82 H Band Neutrophils % 5 Lymphocytes % (Manual) 5.0 L Monocytes % (Manual) 6 Metamyelocytes % 2 Nucleated RBC % Not Reportable Abs Neuts (Manual) 13.65 H Abs Lymphs (Manual) 0.78 L Abs Monocytes (Manual) 0.94 H Platelet Estimate Adequate Target Cells 1+ Schistocytes None seen Puncture Site Right brachial ABG pH 7.383 ABG pCO2 55.2 H ABG pO2 66.7 L ABG PO2/FiO2 Ratio 1.67 ABG HCO3 32.1 H ABG O2 Saturation 92.6 L ABG O2 Content 15.9 L ABG Base Excess 5.7 A-a Gradient 155.0 Oxyhemoglobin 90.4 Carboxyhemoglobin 1.5 Methemoglobin 0.3 Reduced Hemoglobin 7.8 H Total Hemoglobin 12.5 O2 Delivery Device Ventilator O2 Liters/Min Not Reportable Minute Volume Not Reportable Vent Rate 30 Vent Mode Cmv FiO2 40 Tidal Volume 340 PEEP 8 Peak Inspir Pressure Not Reportable Pressure Support Not Reportable Sodium 146 H Potassium 3.4 Chloride 106 Carbon Dioxide 31 H Anion Gap 9 BUN 29 H Creatinine 0.45 L Estim Creat Clear Calc 87 Estimated GFR > 60 Glucose 126 H POC Capillary Glucose 167 H Calcium 9.1 Phosphorus 3.7 Magnesium 2.0 Total Bilirubin 0.6 AST 17 ALT 21 Alkaline Phosphatase 91 Total Protein 7.0 Albumin 3.9 Triglycerides Vancomycin Trough Quality VTE Prophylaxis VTE prophylaxis: pharmacologic ordered
[2024-03-25] MEDS: PROPOFOL IV EMULSION 100 ML 17.04 MG IV CONT ×2 (10:39→15:45)
[2024-03-25] MEDS: KCL 40 MEQ/WATER 100 ML 100 ML 25 ML IVPB (10:41)
[2024-03-25 11:56] LABS: Glucose Point of Care 142 mg/dl (65-105)
[2024-03-25] MEDS: CISATRACURIUM BESYLATE 200 MG in DEXTROSE 5% 80 ML 5.68 ML IV CONT (16:30)
[2024-03-25 16:47] LABS: Alveolar/Arterial O2 Gradient 300.2 mmHg; Base Excess ABG 0.8 mEq/l (+/-2.0); Fractional Inspired Oxygen 60 %; HCO3 ABG 28.5 mEq/l (22.0-26.0); Oxygen Content ABG 15.6 %vol (16.0-22.0); Oxygen Saturation ABG 88.3 % (95.0-100.0); PO2 ABG 61.3 mmHg (80.0-100.0); PO2 FiO2 Ratio Arterial Blood 1.02 %; pH ABG 7.293 (7.350-7.450)
[2024-03-25 16:48] LABS: Device VENTILATOR; Oxyhemoglobin 85.5 % THb (90.0-100.0); PCO2 ABG 60.3 mmHg (35.0-45.0); Site Drawn RIGHT BRACHIAL
[2024-03-25 16:49] LABS: Arterial Blood Gas PEEP 8 cmH2O; Arterial Blood Gas Tidal Volume 340 ml; Arterial Blood Gas Vent Mode CMV; Arterial Blood Gas Ventilator rate 30 /MIN
[2024-03-25 18:20] LABS: Glucose Point of Care 130 mg/dl (65-105)
[2024-03-25] MEDS: MONTELUKAST SODIUM 10 MG TABLET PO (18:31)
[2024-03-25 18:33] LABS: Mycoplasma IgM Antibody Titer 364 U/mL
[2024-03-25] MEDS: SENNA/DOCUSATE SODIUM TABLET 1 TAB PO (21:29)
[2024-03-26] VITALS (59 sets, daily range): BP systolic 108–148; BP diastolic 66–91; PULSE 72–95; RESP 30; TEMP 36.9–37.3; O2SAT 90–100
[2024-03-26 00:23] LABS: Glucose Point of Care 132 mg/dl (65-105)
[2024-03-26] MEDS: PROPOFOL IV EMULSION 100 ML 18.93 MG IV CONT ×5 (01:33→21:23)
[2024-03-26] MEDS: VANCOMYCIN 1,000 MG/NS 250 ML 1,000 MG/250 ML BAG 250 MG IVPB ×3 (01:34→16:23)
[2024-03-26] MEDS: LEVALBUTEROL NEB 1.25 MG/3 ML 0.63 MG INHALATION ×4 (02:05→20:18)
[2024-03-26] MEDS: CENTRAL LINE FLUSH 20 ML IV PUSH (05:31)
[2024-03-26] MEDS: CENTRAL LINE FLUSH 10 ML IV PUSH ×3 (05:31→21:49)
[2024-03-26] MEDS: CEFEPIME 2 GM/NS 50 ML 2 GM/50 ML BAG IVPB ×3 (05:31→21:55)
[2024-03-26] MEDS: HYDROCORTISONE SODIUM SUCCINATE 100 MG/2 ML VIAL 50 MG IV PUSH ×4 (05:32→23:54)
[2024-03-26 05:49] LABS: Basophils Absolute Auto 0.1 K/mm3 (0.0-0.1); Basophils Percent Auto 0.6 % (0.2-1.2); Eosinophils Absolute Auto 0.1 K/mm3 (0-0.3); Eosinophils Percent Auto 0.3 % (0-4.4); Hematocrit 31.8 % (37.0-47.0); Hemoglobin 10.6 g/dL (12.0-15.0); Immature Granulocyte Absolute 1.21 K/mm3 (0.00-0.031); Immature Granulocyte Percent A 6.5 % (0-0.5); Lymphocytes Absolute Auto 1.12 K/mm3 (0.9-3.2); Mean Corpuscular HGB Conc 33.3 g/dl (32-36); Mean Corpuscular Hemoglobin 27.7 pg (26-34); Mean Corpuscular Volume 83.2 fl (80-100); Mean Platelet Volume 11.6 fl (7.4-10.4); Monocytes Absolute Auto 0.4 K/mm3 (0.1-0.6); Neutrophils Absolute Auto 15.8 K/mm3 (1.3-6.7); Neutrophils Percent Auto 84.6 % (45.5-73.1); Platelet Count Result 174 k/mm3 (150-375); Red Blood Count 3.82 M/mm3 (4.2-5.4); Red Cell Distribution Width 14.9 % (11.5-14.5); White Blood Count 18.7 K/mm3 (4.5-10.0)
[2024-03-26 06:00] LABS: Alanine Aminotransferase 73 U/L (6-35); Albumin Level 3.9 g/dL (3.5-5.1); Alkaline Phosphatase 93 U/L (38-126); Anion Gap 7 mmol/L (4-12); Aspartate Amino Transferase 83 U/L (14-36); Bilirubin,Total 0.8 mg/dL (0.2-1.3); Blood Urea Nitrogen 30 mg/dL (7-17); Calcium 9.1 mg/dL (8.4-10.2); Carbon Dioxide 35 mmol/L (22-30); Chloride 108 mmol/L (98-107); Estimated CRCL calculation 96 ml/min; Estimated Glomerular Filt Rate > 60; Glucose 126 mg/dL (65-110); Magnesium 2.1 mg/dL (1.6-2.3); Phosphorus 3.2 mg/dL (2.5-4.5); Potassium 3.8 mmol/L (3.4-5.0); Sodium 150 mmol/L (137-145)
[2024-03-26 06:05] LABS: INR 1.2; Prothrombin Time 15.3 Seconds (11.1-14.7)
[2024-03-26] MEDS: ALBUMIN HUMAN 25% 25 GM/100 ML 100 ML IVPB (06:18)
[2024-03-26 06:21] LABS: Alveolar/Arterial O2 Gradient 146.5 mmHg; Base Excess ABG 4.6 mEq/l (+/-2.0); Carboxyhemoglobin 1.6 % THb (0-2.0); Fractional Inspired Oxygen 40 %; HCO3 ABG 31.6 mEq/l (22.0-26.0); Methemoglobin ABG 0.3 %THb (0-1.5); Oxygen Content ABG 14.7 %vol (16.0-22.0); Oxygen Saturation ABG 92.9 % (95.0-100.0); Oxyhemoglobin 90.3 % THb (90.0-100.0); PCO2 ABG 59.4 mmHg (35.0-45.0); PO2 ABG 70.4 mmHg (80.0-100.0); PO2 FiO2 Ratio Arterial Blood 1.76 %; Reduced Hemoglobin 7.8 %THb (0-5.0); Total Hemoglobin 11.5 g/dL (12.0-18.0); pH ABG 7.344 (7.350-7.450)
[2024-03-26 06:23] LABS: Device VENTILATOR; Modified Allen's Test Pass; Site Drawn LEFT RADIAL
[2024-03-26 06:24] LABS: Arterial Blood Gas PEEP 5 cmH2O; Arterial Blood Gas Tidal Volume 340 ml; Arterial Blood Gas Vent Mode CMV; Arterial Blood Gas Ventilator rate 30 /MIN
[2024-03-26 06:40] LABS: Platelet Estimate Adequate (Adequate); Schistocytes None Seen; Target Cells 1+
[2024-03-26] MEDS: FENTANYL 2,500MCG/NS250ML(*CRX 2,500 MCG/250 ML BAG 12.5 MCG IV CONT (09:11)
[2024-03-26] MEDS: METOPROLOL TARTRATE 50 MG TAB PO ×2 (09:12→21:26)
[2024-03-26] MEDS: MINERAL OIL/WHITE PETROLATUM OINTMENT 1 APPLIC EACH EYE ×2 (09:12→21:27)
[2024-03-26] MEDS: amLODIPine BESYLATE 10 MG TABLET PO (09:13)
[2024-03-26] MEDS: OXcarbazepine 300 MG TABLET PO ×2 (09:13→21:26)
[2024-03-26] MEDS: GABAPENTIN 300 MG CAPSULE PO ×3 (09:13→16:11)
[2024-03-26] MEDS: PANTOPRAZOLE SODIUM IV 40 MG VIAL IV PUSH (09:13)
[2024-03-26] MEDS: levETIRAcetam 500 MG TABLET 2000 MG PO ×2 (09:13→21:26)
[2024-03-26] MEDS: SERTRALINE HCL 50 MG TABLET 150 MG PO (09:13)
[2024-03-26] MEDS: CISATRACURIUM BESYLATE 200 MG in DEXTROSE 5% 80 ML 6.63 ML IV CONT (09:24)
[2024-03-26] MEDS: polyethylene glycoL 3350 17 GM POWD.PACK PO (09:25)
--- NOTE | 2024-03-26 11:00 | WPDINTPN ---
Progress Note: A&P Assessment and Plan (1) Acute hypoxic respiratory failure: Code(s): J96.01 - Acute respiratory failure with hypoxia Status: Acute Assessment and Plan: 03/22: Chest x-ray this morning showed worsening multifocal pneumonia, patient in acute respiratory distress/impending respiratory failure/tachypnea. Discussed with patient regarding intubation to which she was agreeable. 03/22: Patient intubated successfully. Intubation was uneventful -on CMV mode of ventilation, peep of 10, 60% FiO2 -obtain post intubation ABGs, will adjust ventilator accordingly -ABGs and chest x-ray reviewed, ventilator adjusted -continue steroids pneumonia - continue cefepime 2 g IV q.8 hours (03/22), vancomycin and azithromycin -continue bronchodilators -patient on Nimbex for vent synchrony (03/22 evening), she was taken off Nimbex on 03/25/2024, but was replaced on Nimbex infusion due to large left pneumothorax P -continue propofol and fentanyl infusion for Analgosedation -patient was diuresed on patient was diuresed on 03/24 and 03/25, and diuresed well. (2) Pneumothorax: Code(s): J93.9 - Pneumothorax, unspecified Status: Acute Assessment and Plan: Spontaneous large left pneumothorax of unknown etiology -patient was on low tidal volume strategy, peep was only 8 given diffuse bilateral infiltrates. Peak pressures were within normal limits -appreciate surgery inserting large-bore chest -air leak noted, clamped tubing at multiple sites, likely air leak is from within the chest wall cavity, will discuss with surgery (3) Influenza A: Code(s): J10.1 - Influenza due to other identified influenza virus with other respiratory manifestations Status: Acute Assessment and Plan: Patient was positive for influenza A on admission, continue Tamiflu (4) Bacteremia: Code(s): R78.81 - Bacteremia Status: Acute Assessment and Plan: Patient has MRSA bacteremia -03/19/2024: Blood cultures growing MRSA 2/2 bottles -03/19/2024: Sputum culture growing MRSA -03/22/2024: Repeat Blood culture MRSA 2 or 2 bottles -03/25: Repeat blood cultures, preliminary reports are negative x2 -appreciate cardiology evaluation and recommendations, 03/24: ARIAN planned without any vegetations/negative for infective endocarditis -transthoracic echocardiogram did not show any vegetations (5) Multifocal pneumonia: Code(s): J18.9 - Pneumonia, unspecified organism Status: Acute Assessment and Plan: Chest x-ray and CTA chest showed multifocal pneumonia -continue antibiotics, mechanical ventilation, steroids (6) Pulmonary embolism: Code(s): I26.99 - Other pulmonary embolism without acute cor pulmonale Status: Acute Assessment and Plan: Patient given tachycardia and tachypneic, -patient had some bloody secretions, currently holding apixaban -low clot burden -hemoglobin is stable, will restart apixaban in a.m. 03/20/2024: CTA chest Acute nonocclusive segmental right lower lobe embolus. Low clot burden. No CT evidence of right heart strain. Worsening multifocal pneumonia, overlying asymmetric areas of pulmonary edema. Diffuse mild chest wall subcutaneous edema. (7) Seizures: Code(s): R56.9 - Unspecified convulsions Status: Acute Assessment and Plan: Patient has a history of seizures and presented with seizures on the day of admission and the day prior to that. -continue Keppra, Trileptal (8) Sepsis: Qualifiers: Sepsis type: sepsis due to unspecified organism Sepsis acute organ dysfunction status: without acute organ dysfunction Qualified Code(s): A41.9 - Sepsis, unspecified organism Code(s): A41.9 - Sepsis, unspecified organism Status: Acute Assessment and Plan: Patient fulfilled the criteria of sepsis -now bacteremic, -cultures and antibiotics as above (9) Hypertension: Code(s): I10 - Essential (primary) hypertension Status: Acute Assessment and Plan: Systolic blood pressures have been in the 170s and 180s, also tachycardic in the 1 teens to 120 -continue metoprolol and amlodipine (10) Electrolyte imbalance: Code(s): E87.8 - Other disorders of electrolyte and fluid balance, not elsewhere classified Status: Acute Assessment and Plan: Hypernatremia, sodium 150 this morning, increase tube feed flush to 150 mL q.4 hours Plan DVT prophylaxis: SCDs, hold Eliquis for today, will restart tomorrow a.m. if hemoglobin remains stable Stress ulcer prophylaxis: Protonix Nutrition: Tolerating tube feeds Code Status: Full code Critical Care Time Spent: 35 minutes Family has been updated Due to a high probability of clinically significant, life threatening deterioration, the patient required my highest level of preparedness to intervene emergently and I personally spent this critical care time directly and personally managing the patient. This critical care time included obtaining a history; examining the patient; pulse oximetry; ordering and review of studies; arranging urgent treatment with development of a management plan; evaluation of patient's response to treatment; frequent reassessment; and discussions with other providers. It was exclusive of separately billable procedures and treating other patients and teaching time. Please see Assessment and Plan section and the rest of the note for further information on patient assessment and treatment This dictation may have been done utilizing a voice recognition system. Attempts have been made to correct errors. However, there may be uncorrected grammatical, spelling, and recognitions errors present. Subjective Date/time seen: 03/26/24 11:00 Interval history: Reason for consult: Acute hypoxic respiratory failure, acute respiratory distress, impending respiratory failure, sepsis, MRSA bacteremia, multifocal pneumonia, pulmonary embolism, seizures 03/25: Large left pneumothorax status post chest tube with resolution of the PTX 03/26/2024: Patient seen and examined the ICU, we will be ventilation peep of 5 , 45% FiO2. Sedated with propofol and fentanyl infusion. On 03/25/2024 evening patient developed hypoxemia with increased requirements oxygenation, stat chest x-ray showed large left pneumothorax, surgery placed chest tube with resolution of the left pneumothorax. FiO2 was weaned during the night. Urine output has been adequate, hemodynamically stable, afebrile, adequate urine output, tolerating tube feeds -air leak in chest tube. Review of Systems Review of Systems: ROS unobtainable: Yes unobtainable due to endotracheal tube and unobtainable due to medical condition Exam Narrative: General: Intubated and sedated, in no acute does HEENT:? Pupils equal and reactive, sclerae is clear, ETT in place Neck:? Supple Respiratory:? Coarse breath sounds bilaterally, adequate air entry, no wheezing, bilateral diffuse rales Chest: Left sided chest tube in place, air leak noted Cardiac:? S1-S2 normal, tachycardic Abdomen:? Soft, nontender, nondistended, hypoactive bowel sound Extremities:? no edema, palpable pedal pulses Neuro:? Intubated, sedated at this time, patient also on Nimbex for ventilator synchrony ( prior to intubation patient was awake, alert, able to answer questions and follows simple commands appropriately) Skin:? No skin lesions noted Psych:? Unable to assess at this time Objective Data Vital Signs Vital Signs: Vital Signs - 24 hr 03/25/24 12:00 03/25/24 12:00 03/25/24 12:00 Temperature Pulse Rate 88 88 Respiratory Rate 30 H Blood Pressure Pulse Oximetry 97 Oxygen Delivery Mechanical Ventilation Fraction of Inspired Oxygen 40 40 03/25/24 12:00 03/25/24 12:00 03/25/24 12:11 Temperature 98.7 F Pulse Rate 88 74 90 Respiratory Rate 30 H 30 H 30 H Blood Pressure 151/92 H Pulse Oximetry 97 Oxygen Delivery Fraction of Inspired Oxygen 03/25/24 13:57 03/25/24 13:57 03/25/24 14:00 Temperature 98.4 F Pulse Rate 79 82 81 Respiratory Rate 30 H 30 H Blood Pressure 125/87 Pulse Oximetry 97 96 Oxygen Delivery Mechanical Ventilation Fraction of Inspired Oxygen 40 03/25/24 14:00 03/25/24 14:00 03/25/24 14:00 Temperature Pulse Rate 79 88 88 Respiratory Rate 30 H 30 H Blood Pressure Pulse Oximetry Oxygen Delivery Fraction of Inspired Oxygen 03/25/24 14:04 03/25/24 15:30 03/25/24 15:45 Temperature Pulse Rate 78 116 H 116 H Respiratory Rate 30 H 38 H 38 H Blood Pressure Pulse Oximetry Oxygen Delivery Fraction of Inspired Oxygen 03/25/24 15:45 03/25/24 15:45 03/25/24 15:50 Temperature Pulse Rate 116 H 115 H 115 H Respiratory Rate 38 H 36 H 37 H Blood Pressure Pulse Oximetry Oxygen Delivery Fraction of Inspired Oxygen 03/25/24 16:00 03/25/24 16:00 03/25/24 16:00 Temperature 99.3 F Pulse Rate 104 H 109 H Respiratory Rate 32 H 31 H Blood Pressure 129/99 H Pulse Oximetry 88 L 89 L Oxygen Delivery Mechanical Ventilation Fraction of Inspired Oxygen 60 60 03/25/24 16:21 03/25/24 16:30 03/25/24 16:46 Temperature 99 F Pulse Rate 117 H 109 H 108 H Respiratory Rate 39 H 30 H 32 H Blood Pressure 136/99 H 129/99 H 129/99 H Pulse Oximetry 89 L Oxygen Delivery Mechanical Ventilation Fraction of Inspired Oxygen 03/25/24 17:00 03/25/24 18:00 03/25/24 18:00 Temperature 98.2 F Pulse Rate 108 H 86 85 Respiratory Rate 30 H Blood Pressure 113/77 Pulse Oximetry 97 100 Oxygen Delivery Mechanical Ventilation Fraction of Inspired Oxygen 40 03/25/24 20:00 03/25/24 20:00 03/25/24 20:00 Temperature Pulse Rate 80 80 79 Respiratory Rate 30 H 30 H Blood Pressure Pulse Oximetry Oxygen Delivery Fraction of Inspired Oxygen 03/25/24 20:00 03/25/24 20:55 03/25/24 20:56 Temperature 98.0 F Pulse Rate 80 78 81 Respiratory Rate 30 H 30 H Blood Pressure 119/83 Pulse Oximetry 100 100 Oxygen Delivery Mechanical Ventilation Fraction of Inspired Oxygen 70 03/25/24 21:00 03/25/24 21:00 03/25/24 21:03 Temperature Pulse Rate 85 Respiratory Rate 30 H 30 H Blood Pressure Pulse Oximetry 100 Oxygen Delivery Mechanical Ventilation Fraction of Inspired Oxygen 70 70 03/25/24 21:06 03/25/24 21:25 03/25/24 21:27 Temperature Pulse Rate 78 85 86 Respiratory Rate 30 H 30 H 30 H Blood Pressure 126/85 Pulse Oximetry Oxygen Delivery Fraction of Inspired Oxygen 03/25/24 21:29 03/25/24 21:54 03/25/24 22:00 Temperature Pulse Rate 88 82 80 Respiratory Rate 30 H 30 H Blood Pressure 128/83 Pulse Oximetry Oxygen Delivery Fraction of Inspired Oxygen 03/25/24 22:00 03/25/24 22:00 03/25/24 22:00 Temperature 98.1 F Pulse Rate 80 80 80 Respiratory Rate 30 H 30 H Blood Pressure 123/85 Pulse Oximetry 99 Oxygen Delivery Fraction of Inspired Oxygen 03/25/24 22:00 03/25/24 22:20 03/25/24 22:48 Temperature Pulse Rate 76 74 Respiratory Rate 30 H 30 H Blood Pressure 123/85 114/82 Pulse Oximetry Oxygen Delivery Fraction of Inspired Oxygen 60 03/25/24 23:50 03/25/24 23:57 03/26/24 00:00 Temperature Pulse Rate 78 80 80 Respiratory Rate 30 H 30 H Blood Pressure 108/77 Pulse Oximetry 100 Oxygen Delivery Mechanical Ventilation Fraction of Inspired Oxygen 60 03/26/24 00:00 03/26/24 00:00 03/26/24 00:00 Temperature Pulse Rate 78 78 77 Respiratory Rate 30 H 30 H Blood Pressure Pulse Oximetry 100 Oxygen Delivery Mechanical Ventilation Fraction of Inspired Oxygen 50 03/26/24 00:00 03/26/24 00:00 03/26/24 01:33 Temperature 98.4 F Pulse Rate 78 75 Respiratory Rate 30 H 30 H Blood Pressure 117/78 Pulse Oximetry 100 Oxygen Delivery Fraction of Inspired Oxygen 50 03/26/24 01:33 03/26/24 01:37 03/26/24 02:00 Temperature Pulse Rate 75 78 73 Respiratory Rate 30 H 30 H Blood Pressure 119/79 Pulse Oximetry Oxygen Delivery Fraction of Inspired Oxygen 03/26/24 02:00 03/26/24 02:00 03/26/24 02:00 Temperature Pulse Rate 73 76 76 Respiratory Rate 30 H 30 H 30 H Blood Pressure 117/79 Pulse Oximetry 98 Oxygen Delivery Fraction of Inspired Oxygen 03/26/24 02:05 03/26/24 02:09 03/26/24 02:15 Temperature Pulse Rate 75 75 74 Respiratory Rate 30 H 30 H Blood Pressure Pulse Oximetry 98 Oxygen Delivery Mechanical Ventilation Fraction of Inspired Oxygen 50 03/26/24 03:35 03/26/24 04:00 03/26/24 04:00 Temperature Pulse Rate 80 79 79 Respiratory Rate 30 H 30 H 30 H Blood Pressure 121/82 Pulse Oximetry Oxygen Delivery Fraction of Inspired Oxygen 03/26/24 04:00 03/26/24 04:00 03/26/24 04:00 Temperature 99.0 F Pulse Rate 79 79 Respiratory Rate 30 H 30 H Blood Pressure 121/82 Pulse Oximetry 97 97 Oxygen Delivery Mechanical Ventilation Fraction of Inspired Oxygen 40 40 03/26/24 04:00 03/26/24 05:00 03/26/24 05:30 Temperature Pulse Rate 82 83 80 Respiratory Rate 30 H 30 H Blood Pressure 128/80 129/86 Pulse Oximetry Oxygen Delivery Fraction of Inspired Oxygen 03/26/24 05:52 03/26/24 06:00 03/26/24 06:00 Temperature Pulse Rate 82 89 89 Respiratory Rate 30 H 30 H Blood Pressure Pulse Oximetry 96 Oxygen Delivery Mechanical Ventilation Fraction of Inspired Oxygen 40 03/26/24 06:18 03/26/24 06:18 03/26/24 06:25 Temperature Pulse Rate 86 86 83 Respiratory Rate 30 H 30 H Blood Pressure Pulse Oximetry Oxygen Delivery Fraction of Inspired Oxygen 03/26/24 06:25 03/26/24 07:00 03/26/24 07:59 Temperature Pulse Rate 83 89 88 Respiratory Rate 30 H 30 H 30 H Blood Pressure 138/84 142/88 H Pulse Oximetry 95 Oxygen Delivery Fraction of Inspired Oxygen 03/26/24 08:00 03/26/24 08:00 03/26/24 08:00 Temperature 98.7 F Pulse Rate 88 88 Respiratory Rate 30 H 30 H Blood Pressure 138/85 Pulse Oximetry 90 Oxygen Delivery Fraction of Inspired Oxygen 40 03/26/24 08:00 03/26/24 08:00 03/26/24 08:04 Temperature Pulse Rate 89 87 86 Respiratory Rate 30 H 30 H Blood Pressure 131/82 Pulse Oximetry 93 Oxygen Delivery Mechanical Ventilation Fraction of Inspired Oxygen 40 03/26/24 08:25 03/26/24 09:00 03/26/24 09:11 Temperature Pulse Rate 93 87 87 Respiratory Rate 30 H 30 H 30 H Blood Pressure 138/85 Pulse Oximetry Oxygen Delivery Fraction of Inspired Oxygen 03/26/24 09:11 03/26/24 09:12 03/26/24 09:24 Temperature Pulse Rate 87 83 87 Respiratory Rate 30 H 30 H Blood Pressure 138/85 Pulse Oximetry Oxygen Delivery Fraction of Inspired Oxygen 03/26/24 10:00 03/26/24 10:00 03/26/24 10:00 Temperature 98.6 F Pulse Rate 86 86 86 Respiratory Rate 30 H 30 H 30 H Blood Pressure 130/80 125/91 H Pulse Oximetry 96 Oxygen Delivery Fraction of Inspired Oxygen 03/26/24 10:00 Temperature Pulse Rate 86 Respiratory Rate 30 H Blood Pressure Pulse Oximetry Oxygen Delivery Fraction of Inspired Oxygen Intake/Output Intake/Output: Intake & Output 03/23/24 03/24/24 03/25/24 03/26/24 23:59 23:59 23:59 23:59 Intake Total 2802.2 2409.3 2724.8 1842.4 Output Total 975 2660 2010 845 Balance 1827.2 -940.7 714.8 997.4 Meds/Results Medications: Active Medications Generic Name Dose Route Start Last Admin Trade Name Freq PRN Reason Stop Dose Admin Acetaminophen 650 mg 03/19/24 15:02 03/22/24 10:04 Acetaminophen 325 Mg Tablet PO 650 mg Q4H PRN Administration Mild Pain (1-3) or Fever Amlodipine Besylate 10 mg 03/24/24 09:00 03/26/24 09:13 Amlodipine Besylate 10 Mg Tablet PO 10 mg DAILY VELASQUEZ Administration Apixaban 10 mg 03/21/24 02:05 03/25/24 08:35 Apixaban 5 Mg Tablet PO 10 mg Q12HR VELASQUEZ Administration Benzocaine 1 lozenge 03/19/24 15:11 03/19/24 17:39 Benzocaine/Menthol (*Bkc) 18 Ea Lozenge PO 1 lozenge PRN PRN Administration Sore Throat Benzonatate 100 mg 03/19/24 15:11 03/20/24 20:16 Benzonatate 100 Mg Capsule PO 100 mg TID PRN Administration Cough Dextrose 12.5 gm 03/19/24 15:15 Dextrose 50% 25 Gm/50 Ml Syringe IV PUSH PRN PRN Hypoglycemia Protocol Gabapentin 300 mg 03/19/24 17:00 03/26/24 09:13 Gabapentin 300 Mg Capsule PO 300 mg TID VELASQUEZ Administration Glucagon 1 mg 03/19/24 15:15 Glucagon For Inj 1 Mg Vial IM PRN PRN Hypoglycemia Protocol Glucose 15 gm 03/19/24 15:15 Glucose Oral Gel 15 Gm Of Glucse In 37.5 Gm Tube PO PRN PRN Hypoglycemia Protocol Hydrocortisone Sodium Succinate 50 mg 03/22/24 12:00 03/26/24 05:32 Hydrocortisone Sodium Succinate 100 Mg/2 Ml Vial IV PUSH 50 mg Q6H VELASQUEZ Administration Dextrose 1,000 mls @ 100 mls/hr 03/19/24 15:15 Dextrose 5% 1,000 Ml IVPB PRN PRN Hypoglycemia Protocol Propofol 100 mls @ 18.93 mls/hr 03/22/24 12:25 03/26/24 10:00 Diprivan IV CONT 50 mcg/kg/min .Q5H17M VELASQUEZ 18.93 mls/hr Titration Protocol 50 MCG/KG/MIN Albumin Human 100 mls @ 60 mls/hr 03/22/24 12:30 03/26/24 07:58 Albutein IVPB Infused Q6HR VELASQUEZ Infusion Cefepime HCl 2 gm in 50 mls @ 100 mls/hr 03/22/24 14:00 03/26/24 05:31 Maxipime 2 Gm/Ns 50 Ml IVPB 100 mls/hr Q8H VELASQUEZ Administration Cisatracurium Besylate 200 mg/ 100 mls @ 6.626 mls/hr 03/22/24 14:00 03/26/24 10:00 Dextrose IV CONT 3.5 mcg/kg/min .Q15H6M VELASQUEZ 6.63 mls/hr Titration Protocol 3.5 MCG/KG/MIN Vancomycin HCl 1,000 mg in 250 mls @ 250 mls/hr 03/24/24 16:00 03/26/24 10:00 Vancomycin 1,000 Mg/Ns 250 Ml IVPB Infused Q8H VELASQUEZ Infusion Fentanyl Citrate 2,500 mcg in 250 mls @ 12.5 mls/hr 03/25/24 07:25 03/26/24 10:00 Fentanyl 2,500 Mcg/Ns 250 Ml IV CONT 125 mcg/hr .Q20H VELASQUEZ 12.5 mls/hr Titration Protocol 125 MCG/HR Insulin Aspart 2 - 5 units 03/22/24 18:00 03/26/24 06:20 Insulin Aspart (*Bkc) 100 Units/Ml SUB-Q Not Given Q6HR VELASQUEZ Protocol Levalbuterol HCl 0.63 mg 03/19/24 20:00 03/26/24 07:58 Levalbuterol Neb 1.25 Mg/3 Ml INHALATION 0.63 mg Q6HRT VELASQUEZ Administration Levetiracetam 2,000 mg 03/19/24 21:00 03/26/24 09:13 Levetiracetam 500 Mg Tablet PO 2,000 mg Q12HR VELASQUEZ Administration Metoprolol Tartrate 50 mg 03/24/24 09:00 03/26/24 09:12 Metoprolol Tartrate 50 Mg Tab PO 50 mg Q12HR VELASQUEZ Administration Midazolam HCl 2 mg 03/24/24 20:12 03/25/24 15:50 Midazolam Hcl (*Crx) 2 Mg/2 Ml Vial IV PUSH 2 mg Q2HR PRN Administration Sedation Montelukast Sodium 10 mg 03/19/24 18:00 03/25/24 18:31 Montelukast Sodium 10 Mg Tablet PO 10 mg QPM VELASQUEZ Administration Multi-Ingred Cream/Lotion/Oil/Oint 1 applic 03/22/24 21:00 03/26/24 09:12 Mineral Oil/White Petrolatum Ointment EACH EYE 1 applic Q12HR VELASQUEZ Administration Oxcarbazepine 300 mg 03/19/24 21:00 03/26/24 09:13 Oxcarbazepine 300 Mg Tablet PO 300 mg Q12HR VELASQUEZ Administration Pantoprazole Sodium 40 mg 03/23/24 09:00 03/26/24 09:13 Pantoprazole Sodium Iv 40 Mg Vial IV PUSH 40 mg QAM VELASQUEZ Administration Polyethylene Glycol 17 gm 03/26/24 09:00 03/26/24 09:25 Polyethylene Glycol 3350 17 Gm Powd.Pack PO 17 gm QAM VELASQUEZ Administration Quetiapine Fumarate 800 mg 03/20/24 21:00 03/21/24 20:41 Quetiapine Fumarate 100 Mg Tablet PO 800 mg HS VELASQUEZ Administration Senna/Docusate Sodium 1 tab 03/25/24 21:00 03/25/24 21:29 Senna/Docusate Sodium Tablet PO 1 tab HS VELASQUEZ Administration Sertraline HCl 150 mg 03/20/24 09:00 03/26/24 09:13 Sertraline Hcl 50 Mg Tablet PO 150 mg QAM VELASQUEZ Administration Sodium Chloride 1 spray 03/21/24 17:33 Saline 0.65% Robert Soln 44 Ml Btl NASAL Q6HR PRN Congestion Sodium Chloride 10 ml 03/22/24 14:00 03/26/24 05:31 Central Line Flush IV PUSH 10 ml Q8HR VELASQUEZ Administration Sodium Chloride 10 ml 03/22/24 13:18 Central Line Flush IV PUSH PRN PRN with TPN bag changes Sodium Chloride 20 ml 03/22/24 13:18 03/26/24 05:31 Central Line Flush IV PUSH 20 ml PRN PRN Administration after blood draws Trazodone HCl 200 mg 03/19/24 18:00 03/19/24 17:36 Trazodone Hcl 50 Mg Tablet PO 200 mg QPM VELASQUEZ Administration Radiology Results: ITS Impressions Head CT 03/19/24 13:41 Impression: No acute intracranial hemorrhage or suspicious mass effect. Cervical Spine CT 03/19/24 13:42 Impression: Preservation of the normal curvature of the cervical spine. Multifocal infiltrates within the chest. No acute fracture. Chest CTA 03/20/24 23:51 IMPRESSION: Acute nonocclusive segmental right lower lobe embolus. Low clot burden. No CT evidence of right heart strain. Worsening multifocal pneumonia, overlying asymmetric areas of pulmonary edema. Diffuse mild chest wall subcutaneous edema. Abdomen X-Ray 03/24/24 13:53 IMPRESSION: 1. Nasogastric tube tip in proximal side port below the level of the gastroesophageal junction which could be either within the stomach or a possible Armando limb of a gastric bypass procedure with suture lines in the epigastric region. Correlate with surgical history. 2. Diffuse bilateral lung disease could relate to pulmonary edema or pneumonia. Chest X-Ray 03/26/24 08:32 IMPRESSION: 1. Persistent diffuse patchy airspace opacities in both lungs which represent multifocal pneumonia and/or ARDS. 2. Lines and tubes in expected positions as detailed above. Labs Labs: Laboratory Results - last 24 hr 03/22/24 03/22/24 03/25/24 11:12 14:50 11:42 WBC RBC Hgb Hct MCV MCH MCHC RDW Plt Count MPV Immature Gran % (Auto) Neut % (Auto) Lymph % (Auto) H[place]ett % (Auto) Eos % (Auto) Baso % (Auto) Lymph # (Auto) H[place]ett # (Auto) Eos # (Auto) Baso # (Auto) Abs Immat Gran (auto) Absolute Neuts (auto) Absolute Nucleated RBC Nucleated RBC % Platelet Estimate Target Cells Schistocytes PT INR APTT Puncture Site ABG pH ABG pCO2 ABG pO2 ABG PO2/FiO2 Ratio ABG HCO3 ABG O2 Saturation ABG O2 Content ABG Base Excess A-a Gradient Oxyhemoglobin Carboxyhemoglobin Methemoglobin Reduced Hemoglobin Total Hemoglobin O2 Delivery Device O2 Liters/Min Minute Volume Vent Rate Vent Mode FiO2 Tidal Volume PEEP Peak Inspir Pressure Pressure Support Sodium Potassium Chloride Carbon Dioxide Anion Gap BUN Creatinine Estim Creat Clear Calc Estimated GFR Glucose POC Capillary Glucose 142 H Calcium Phosphorus Magnesium Total Bilirubin AST ALT Alkaline Phosphatase Total Protein Albumin Mycoplasma pneumon IgM 364 SARS-CoV-2 RNA (RT-PCR) Not detected 03/25/24 03/25/24 03/25/24 16:44 18:17 23:42 WBC RBC Hgb Hct MCV MCH MCHC RDW Plt Count MPV Immature Gran % (Auto) Neut % (Auto) Lymph % (Auto) [place] % (Auto) Eos % (Auto) Baso % (Auto) Lymph # (Auto) [place] # (Auto) Eos # (Auto) Baso # (Auto) Abs Immat Gran (auto) Absolute Neuts (auto) Absolute Nucleated RBC Nucleated RBC % Platelet Estimate Target Cells Schistocytes PT INR APTT Puncture Site Right brachial ABG pH 7.293 L* ABG pCO2 60.3 H* ABG pO2 61.3 L ABG PO2/FiO2 Ratio 1.02 ABG HCO3 28.5 H ABG O2 Saturation 88.3 L ABG O2 Content 15.6 L ABG Base Excess 0.8 A-a Gradient 300.2 Oxyhemoglobin 85.5 L* Carboxyhemoglobin Methemoglobin Reduced Hemoglobin Total Hemoglobin 13.0 O2 Delivery Device Ventilator O2 Liters/Min Not Reportable Minute Volume Not Reportable Vent Rate 30 Vent Mode Cmv FiO2 60 Tidal Volume 340 PEEP 8 Peak Inspir Pressure Not Reportable Pressure Support Not Reportable Sodium Potassium Chloride Carbon Dioxide Anion Gap BUN Creatinine Estim Creat Clear Calc Estimated GFR Glucose POC Capillary Glucose 130 H 132 H Calcium Phosphorus Magnesium Total Bilirubin AST ALT Alkaline Phosphatase Total Protein Albumin Mycoplasma pneumon IgM SARS-CoV-2 RNA (RT-PCR) 03/26/24 03/26/24 05:36 06:05 WBC 18.7 H RBC 3.82 L Hgb 10.6 L Hct 31.8 L MCV 83.2 MCH 27.7 MCHC 33.3 RDW 14.9 H Plt Count 174 MPV 11.6 H Immature Gran % (Auto) 6.5 H Neut % (Auto) 84.6 H Lymph % (Auto) 6.0 L Harnett % (Auto) 2.0 L Eos % (Auto) 0.3 Baso % (Auto) 0.6 Lymph # (Auto) 1.12 Harnett # (Auto) 0.4 Eos # (Auto) 0.1 Baso # (Auto) 0.1 Abs Immat Gran (auto) 1.21 H Absolute Neuts (auto) 15.8 H Absolute Nucleated RBC 0.000 Nucleated RBC % 0.0 Platelet Estimate Adequate Target Cells 1+ Schistocytes None seen PT 15.3 H INR 1.2 APTT 27.0 Puncture Site Left radial ABG pH 7.344 L ABG pCO2 59.4 H ABG pO2 70.4 L ABG PO2/FiO2 Ratio 1.76 ABG HCO3 31.6 H ABG O2 Saturation 92.9 L ABG O2 Content 14.7 L ABG Base Excess 4.6 A-a Gradient 146.5 Oxyhemoglobin 90.3 Carboxyhemoglobin 1.6 Methemoglobin 0.3 Reduced Hemoglobin 7.8 H Total Hemoglobin 11.5 L O2 Delivery Device Ventilator O2 Liters/Min Not Reportable Minute Volume Not Reportable Vent Rate 30 Vent Mode Cmv FiO2 40 Tidal Volume 340 PEEP 5 Peak Inspir Pressure Not Reportable Pressure Support Not Reportable Sodium 150 H Potassium 3.8 Chloride 108 H Carbon Dioxide 35 H Anion Gap 7 BUN 30 H Creatinine 0.40 L Estim Creat Clear Calc 96 Estimated GFR > 60 Glucose 126 H POC Capillary Glucose Calcium 9.1 Phosphorus 3.2 Magnesium 2.1 Total Bilirubin 0.8 AST 83 H ALT 73 H Alkaline Phosphatase 93 Total Protein 7.0 Albumin 3.9 Mycoplasma pneumon IgM SARS-CoV-2 RNA (RT-PCR) Quality VTE Prophylaxis VTE prophylaxis: pharmacologic ordered
--- NOTE | 2024-03-26 11:46 | WPDPN ---
Progress Note: A&P Assessment and Plan (1) Pneumothorax: Code(s): J93.9 - Pneumothorax, unspecified Status: Acute Assessment and Plan: Patient likely had tension left pneumothorax developed from barotrauma. Left chest tube was placed and the lung has not re-expanded. Continue with the left chest tube in place until the patient is off ventilator.. (2) Acute hypoxic respiratory failure: Code(s): J96.01 - Acute respiratory failure with hypoxia Status: Acute Subjective Date/time seen: 03/26/24 11:46 Interval history: Patient still intubated. Left chest tube in place. Chest x-ray shows no evidence of residual left pneumothorax. Good positioning of the tip of the chest tube in the apex of the left chest. Exam Resp: Other: Equal breath sounds bilaterally. Breath sounds are coarse. Left chest tube is in place. Dressing is dry. Objective Data Vital Signs Vital Signs: Vital Signs - 24 hr 03/25/24 12:00 03/25/24 12:00 03/25/24 12:00 Temperature Pulse Rate 88 88 Respiratory Rate 30 H Blood Pressure Pulse Oximetry 97 Oxygen Delivery Mechanical Ventilation Fraction of Inspired Oxygen 40 40 03/25/24 12:00 03/25/24 12:00 03/25/24 12:11 Temperature 37.1 C Pulse Rate 88 74 90 Respiratory Rate 30 H 30 H 30 H Blood Pressure 151/92 H Pulse Oximetry 97 Oxygen Delivery Fraction of Inspired Oxygen 03/25/24 13:57 03/25/24 13:57 03/25/24 14:00 Temperature 36.9 C Pulse Rate 79 82 81 Respiratory Rate 30 H 30 H Blood Pressure 125/87 Pulse Oximetry 97 96 Oxygen Delivery Mechanical Ventilation Fraction of Inspired Oxygen 40 03/25/24 14:00 03/25/24 14:00 03/25/24 14:00 Temperature Pulse Rate 79 88 88 Respiratory Rate 30 H 30 H Blood Pressure Pulse Oximetry Oxygen Delivery Fraction of Inspired Oxygen 03/25/24 14:04 03/25/24 15:30 03/25/24 15:45 Temperature Pulse Rate 78 116 H 116 H Respiratory Rate 30 H 38 H 38 H Blood Pressure Pulse Oximetry Oxygen Delivery Fraction of Inspired Oxygen 03/25/24 15:45 03/25/24 15:45 03/25/24 15:50 Temperature Pulse Rate 116 H 115 H 115 H Respiratory Rate 38 H 36 H 37 H Blood Pressure Pulse Oximetry Oxygen Delivery Fraction of Inspired Oxygen 03/25/24 16:00 03/25/24 16:00 03/25/24 16:00 Temperature 37.4 C Pulse Rate 104 H 109 H Respiratory Rate 32 H 31 H Blood Pressure 129/99 H Pulse Oximetry 88 L 89 L Oxygen Delivery Mechanical Ventilation Fraction of Inspired Oxygen 60 60 03/25/24 16:21 03/25/24 16:30 03/25/24 16:46 Temperature 37.2 C Pulse Rate 117 H 109 H 108 H Respiratory Rate 39 H 30 H 32 H Blood Pressure 136/99 H 129/99 H 129/99 H Pulse Oximetry 89 L Oxygen Delivery Mechanical Ventilation Fraction of Inspired Oxygen 03/25/24 17:00 03/25/24 18:00 03/25/24 18:00 Temperature 36.8 C Pulse Rate 108 H 86 85 Respiratory Rate 30 H Blood Pressure 113/77 Pulse Oximetry 97 100 Oxygen Delivery Mechanical Ventilation Fraction of Inspired Oxygen 40 03/25/24 20:00 03/25/24 20:00 03/25/24 20:00 Temperature Pulse Rate 80 80 79 Respiratory Rate 30 H 30 H Blood Pressure Pulse Oximetry Oxygen Delivery Fraction of Inspired Oxygen 03/25/24 20:00 03/25/24 20:55 03/25/24 20:56 Temperature 36.7 C Pulse Rate 80 78 81 Respiratory Rate 30 H 30 H Blood Pressure 119/83 Pulse Oximetry 100 100 Oxygen Delivery Mechanical Ventilation Fraction of Inspired Oxygen 70 03/25/24 21:00 03/25/24 21:00 03/25/24 21:03 Temperature Pulse Rate 85 Respiratory Rate 30 H 30 H Blood Pressure Pulse Oximetry 100 Oxygen Delivery Mechanical Ventilation Fraction of Inspired Oxygen 70 70 03/25/24 21:06 03/25/24 21:25 03/25/24 21:27 Temperature Pulse Rate 78 85 86 Respiratory Rate 30 H 30 H 30 H Blood Pressure 126/85 Pulse Oximetry Oxygen Delivery Fraction of Inspired Oxygen 03/25/24 21:29 03/25/24 21:54 03/25/24 22:00 Temperature Pulse Rate 88 82 80 Respiratory Rate 30 H 30 H Blood Pressure 128/83 Pulse Oximetry Oxygen Delivery Fraction of Inspired Oxygen 03/25/24 22:00 03/25/24 22:00 03/25/24 22:00 Temperature 36.7 C Pulse Rate 80 80 80 Respiratory Rate 30 H 30 H Blood Pressure 123/85 Pulse Oximetry 99 Oxygen Delivery Fraction of Inspired Oxygen 03/25/24 22:00 03/25/24 22:20 03/25/24 22:48 Temperature Pulse Rate 76 74 Respiratory Rate 30 H 30 H Blood Pressure 123/85 114/82 Pulse Oximetry Oxygen Delivery Fraction of Inspired Oxygen 60 03/25/24 23:50 03/25/24 23:57 03/26/24 00:00 Temperature Pulse Rate 78 80 80 Respiratory Rate 30 H 30 H Blood Pressure 108/77 Pulse Oximetry 100 Oxygen Delivery Mechanical Ventilation Fraction of Inspired Oxygen 60 03/26/24 00:00 03/26/24 00:00 03/26/24 00:00 Temperature Pulse Rate 78 78 77 Respiratory Rate 30 H 30 H Blood Pressure Pulse Oximetry 100 Oxygen Delivery Mechanical Ventilation Fraction of Inspired Oxygen 50 03/26/24 00:00 03/26/24 00:00 03/26/24 01:33 Temperature 36.9 C Pulse Rate 78 75 Respiratory Rate 30 H 30 H Blood Pressure 117/78 Pulse Oximetry 100 Oxygen Delivery Fraction of Inspired Oxygen 50 03/26/24 01:33 03/26/24 01:37 03/26/24 02:00 Temperature Pulse Rate 75 78 73 Respiratory Rate 30 H 30 H Blood Pressure 119/79 Pulse Oximetry Oxygen Delivery Fraction of Inspired Oxygen 03/26/24 02:00 03/26/24 02:00 03/26/24 02:00 Temperature Pulse Rate 73 76 76 Respiratory Rate 30 H 30 H 30 H Blood Pressure 117/79 Pulse Oximetry 98 Oxygen Delivery Fraction of Inspired Oxygen 03/26/24 02:05 03/26/24 02:09 03/26/24 02:15 Temperature Pulse Rate 75 75 74 Respiratory Rate 30 H 30 H Blood Pressure Pulse Oximetry 98 Oxygen Delivery Mechanical Ventilation Fraction of Inspired Oxygen 50 03/26/24 03:35 03/26/24 04:00 03/26/24 04:00 Temperature Pulse Rate 80 79 79 Respiratory Rate 30 H 30 H 30 H Blood Pressure 121/82 Pulse Oximetry Oxygen Delivery Fraction of Inspired Oxygen 03/26/24 04:00 03/26/24 04:00 03/26/24 04:00 Temperature 37.2 C Pulse Rate 79 79 Respiratory Rate 30 H 30 H Blood Pressure 121/82 Pulse Oximetry 97 97 Oxygen Delivery Mechanical Ventilation Fraction of Inspired Oxygen 40 40 03/26/24 04:00 03/26/24 05:00 03/26/24 05:30 Temperature Pulse Rate 82 83 80 Respiratory Rate 30 H 30 H Blood Pressure 128/80 129/86 Pulse Oximetry Oxygen Delivery Fraction of Inspired Oxygen 03/26/24 05:52 03/26/24 06:00 03/26/24 06:00 Temperature Pulse Rate 82 89 89 Respiratory Rate 30 H 30 H Blood Pressure Pulse Oximetry 96 Oxygen Delivery Mechanical Ventilation Fraction of Inspired Oxygen 40 03/26/24 06:18 03/26/24 06:18 03/26/24 06:25 Temperature Pulse Rate 86 86 83 Respiratory Rate 30 H 30 H Blood Pressure Pulse Oximetry Oxygen Delivery Fraction of Inspired Oxygen 03/26/24 06:25 03/26/24 07:00 03/26/24 07:59 Temperature Pulse Rate 83 89 88 Respiratory Rate 30 H 30 H 30 H Blood Pressure 138/84 142/88 H Pulse Oximetry 95 Oxygen Delivery Fraction of Inspired Oxygen 03/26/24 08:00 03/26/24 08:00 03/26/24 08:00 Temperature 37.1 C Pulse Rate 88 88 Respiratory Rate 30 H 30 H Blood Pressure 138/85 Pulse Oximetry 90 Oxygen Delivery Fraction of Inspired Oxygen 40 03/26/24 08:00 03/26/24 08:00 03/26/24 08:04 Temperature Pulse Rate 89 87 86 Respiratory Rate 30 H 30 H Blood Pressure 131/82 Pulse Oximetry 93 Oxygen Delivery Mechanical Ventilation Fraction of Inspired Oxygen 40 03/26/24 08:25 03/26/24 09:00 03/26/24 09:11 Temperature Pulse Rate 93 87 87 Respiratory Rate 30 H 30 H 30 H Blood Pressure 138/85 Pulse Oximetry Oxygen Delivery Fraction of Inspired Oxygen 03/26/24 09:11 03/26/24 09:12 03/26/24 09:24 Temperature Pulse Rate 87 83 87 Respiratory Rate 30 H 30 H Blood Pressure 138/85 Pulse Oximetry Oxygen Delivery Fraction of Inspired Oxygen 03/26/24 10:00 03/26/24 10:00 03/26/24 10:00 Temperature 37.0 C Pulse Rate 86 86 86 Respiratory Rate 30 H 30 H 30 H Blood Pressure 130/80 125/91 H Pulse Oximetry 96 Oxygen Delivery Fraction of Inspired Oxygen 03/26/24 10:00 03/26/24 11:00 03/26/24 11:16 Temperature Pulse Rate 86 86 85 Respiratory Rate 30 H 30 H Blood Pressure 136/82 Pulse Oximetry 95 Oxygen Delivery Mechanical Ventilation Fraction of Inspired Oxygen 35 03/26/24 11:34 03/26/24 11:34 Temperature Pulse Rate 84 84 Respiratory Rate 30 H 30 H Blood Pressure Pulse Oximetry Oxygen Delivery Fraction of Inspired Oxygen Intake/Output Intake/Output: Intake & Output 03/23/24 03/24/24 03/25/24 03/26/24 23:59 23:59 23:59 23:59 Intake Total 2802.2 2409.3 2724.8 1878.7 Output Total 975 3350 2009 84 Balance 1827.2 -940.7 714.8 1033.7 Meds/Results Medications: Active Medications Generic Name Dose Route Start Last Admin Trade Name Freq PRN Reason Stop Dose Admin Acetaminophen 650 mg 03/19/24 15:02 03/22/24 10:04 Acetaminophen 325 Mg Tablet PO 650 mg Q4H PRN Administration Mild Pain (1-3) or Fever Amlodipine Besylate 10 mg 03/24/24 09:00 03/26/24 09:13 Amlodipine Besylate 10 Mg Tablet PO 10 mg DAILY VELASQUEZ Administration Apixaban 10 mg 03/21/24 02:05 03/25/24 08:35 Apixaban 5 Mg Tablet PO 10 mg Q12HR VELASQUEZ Administration Benzocaine 1 lozenge 03/19/24 15:11 03/19/24 17:39 Benzocaine/Menthol (*Bkc) 18 Ea Lozenge PO 1 lozenge PRN PRN Administration Sore Throat Benzonatate 100 mg 03/19/24 15:11 03/20/24 20:16 Benzonatate 100 Mg Capsule PO 100 mg TID PRN Administration Cough Dextrose 12.5 gm 03/19/24 15:15 Dextrose 50% 25 Gm/50 Ml Syringe IV PUSH PRN PRN Hypoglycemia Protocol Gabapentin 300 mg 03/19/24 17:00 03/26/24 09:13 Gabapentin 300 Mg Capsule PO 300 mg TID VELASQUEZ Administration Glucagon 1 mg 03/19/24 15:15 Glucagon For Inj 1 Mg Vial IM PRN PRN Hypoglycemia Protocol Glucose 15 gm 03/19/24 15:15 Glucose Oral Gel 15 Gm Of Glucse In 37.5 Gm Tube PO PRN PRN Hypoglycemia Protocol Hydrocortisone Sodium Succinate 50 mg 03/22/24 12:00 03/26/24 11:35 Hydrocortisone Sodium Succinate 100 Mg/2 Ml Vial IV PUSH 50 mg Q6H VELASQUEZ Administration Dextrose 1,000 mls @ 100 mls/hr 03/19/24 15:15 Dextrose 5% 1,000 Ml IVPB PRN PRN Hypoglycemia Protocol Propofol 100 mls @ 18.93 mls/hr 03/22/24 12:25 03/26/24 11:34 Diprivan IV CONT 50 mcg/kg/min .Q5H17M VELASQUEZ 18.93 mls/hr Administration Protocol 50 MCG/KG/MIN Cefepime HCl 2 gm in 50 mls @ 100 mls/hr 03/22/24 14:00 03/26/24 05:31 Maxipime 2 Gm/Ns 50 Ml IVPB 100 mls/hr Q8H VELASQUEZ Administration Cisatracurium Besylate 200 mg/ 100 mls @ 6.626 mls/hr 03/22/24 14:00 03/26/24 11:00 Dextrose IV CONT 3.5 mcg/kg/min .Q15H6M VELASQUEZ 6.63 mls/hr Titration Protocol 3.5 MCG/KG/MIN Vancomycin HCl 1,000 mg in 250 mls @ 250 mls/hr 03/24/24 16:00 03/26/24 10:00 Vancomycin 1,000 Mg/Ns 250 Ml IVPB Infused Q8H VELASQUEZ Infusion Fentanyl Citrate 2,500 mcg in 250 mls @ 12.5 mls/hr 03/25/24 07:25 03/26/24 10:00 Fentanyl 2,500 Mcg/Ns 250 Ml IV CONT 125 mcg/hr .Q20H VELASQUEZ 12.5 mls/hr Titration Protocol 125 MCG/HR Insulin Aspart 2 - 5 units 03/22/24 18:00 03/26/24 11:35 Insulin Aspart (*Bkc) 100 Units/Ml SUB-Q Not Given Q6HR VELASQUEZ Protocol Levalbuterol HCl 0.63 mg 03/19/24 20:00 03/26/24 07:58 Levalbuterol Neb 1.25 Mg/3 Ml INHALATION 0.63 mg Q6HRT VELASQUEZ Administration Levetiracetam 2,000 mg 03/19/24 21:00 03/26/24 09:13 Levetiracetam 500 Mg Tablet PO 2,000 mg Q12HR VELASQUEZ Administration Metoprolol Tartrate 50 mg 03/24/24 09:00 03/26/24 09:12 Metoprolol Tartrate 50 Mg Tab PO 50 mg Q12HR VELASQUEZ Administration Midazolam HCl 2 mg 03/24/24 20:12 03/25/24 15:50 Midazolam Hcl (*Crx) 2 Mg/2 Ml Vial IV PUSH 2 mg Q2HR PRN Administration Sedation Montelukast Sodium 10 mg 03/19/24 18:00 03/25/24 18:31 Montelukast Sodium 10 Mg Tablet PO 10 mg QPM VELASQUEZ Administration Multi-Ingred Cream/Lotion/Oil/Oint 1 applic 03/22/24 21:00 03/26/24 09:12 Mineral Oil/White Petrolatum Ointment EACH EYE 1 applic Q12HR VELASQUEZ Administration Oxcarbazepine 300 mg 03/19/24 21:00 03/26/24 09:13 Oxcarbazepine 300 Mg Tablet PO 300 mg Q12HR VELASQUEZ Administration Pantoprazole Sodium 40 mg 03/23/24 09:00 03/26/24 09:13 Pantoprazole Sodium Iv 40 Mg Vial IV PUSH 40 mg QAM VELSAQUEZ Administration Polyethylene Glycol 17 gm 03/26/24 09:00 03/26/24 09:25 Polyethylene Glycol 3350 17 Gm Powd.Pack PO 17 gm QAM VELASQUEZ Administration Quetiapine Fumarate 800 mg 03/20/24 21:00 03/21/24 20:41 Quetiapine Fumarate 100 Mg Tablet PO 800 mg HS VELASQUEZ Administration Senna/Docusate Sodium 1 tab 03/25/24 21:00 03/25/24 21:29 Senna/Docusate Sodium Tablet PO 1 tab HS VELASQUEZ Administration Sertraline HCl 150 mg 03/20/24 09:00 03/26/24 09:13 Sertraline Hcl 50 Mg Tablet PO 150 mg QAM VELASQUEZ Administration Sodium Chloride 1 spray 03/21/24 17:33 Saline 0.65% Robert Soln 44 Ml Btl NASAL Q6HR PRN Congestion Sodium Chloride 10 ml 03/22/24 14:00 03/26/24 05:31 Central Line Flush IV PUSH 10 ml Q8HR VELASQUEZ Administration Sodium Chloride 10 ml 03/22/24 13:18 Central Line Flush IV PUSH PRN PRN with TPN bag changes Sodium Chloride 20 ml 03/22/24 13:18 03/26/24 05:31 Central Line Flush IV PUSH 20 ml PRN PRN Administration after blood draws Trazodone HCl 200 mg 03/19/24 18:00 03/19/24 17:36 Trazodone Hcl 50 Mg Tablet PO 200 mg QPM VELASQUEZ Administration Radiology Results: ITS Impressions Head CT 03/19/24 13:41 Impression: No acute intracranial hemorrhage or suspicious mass effect. Cervical Spine CT 03/19/24 13:42 Impression: Preservation of the normal curvature of the cervical spine. Multifocal infiltrates within the chest. No acute fracture. Chest CTA 03/20/24 23:51 IMPRESSION: Acute nonocclusive segmental right lower lobe embolus. Low clot burden. No CT evidence of right heart strain. Worsening multifocal pneumonia, overlying asymmetric areas of pulmonary edema. Diffuse mild chest wall subcutaneous edema. Abdomen X-Ray 03/24/24 13:53 IMPRESSION: 1. Nasogastric tube tip in proximal side port below the level of the gastroesophageal junction which could be either within the stomach or a possible Armando limb of a gastric bypass procedure with suture lines in the epigastric region. Correlate with surgical history. 2. Diffuse bilateral lung disease could relate to pulmonary edema or pneumonia. Chest X-Ray 03/26/24 08:32 IMPRESSION: 1. Persistent diffuse patchy airspace opacities in both lungs which represent multifocal pneumonia and/or ARDS. 2. Lines and tubes in expected positions as detailed above. Labs Labs: Laboratory Results - last 24 hr 03/22/24 03/22/24 03/25/24 11:12 14:50 11:42 WBC RBC Hgb Hct MCV MCH MCHC RDW Plt Count MPV Immature Gran % (Auto) Neut % (Auto) Lymph % (Auto) [place] % (Auto) Eos % (Auto) Baso % (Auto) Lymph # (Auto) [place] # (Auto) Eos # (Auto) Baso # (Auto) Abs Immat Gran (auto) Absolute Neuts (auto) Absolute Nucleated RBC Nucleated RBC % Platelet Estimate Target Cells Schistocytes PT INR APTT Puncture Site ABG pH ABG pCO2 ABG pO2 ABG PO2/FiO2 Ratio ABG HCO3 ABG O2 Saturation ABG O2 Content ABG Base Excess A-a Gradient Oxyhemoglobin Carboxyhemoglobin Methemoglobin Reduced Hemoglobin Total Hemoglobin O2 Delivery Device O2 Liters/Min Minute Volume Vent Rate Vent Mode FiO2 Tidal Volume PEEP Peak Inspir Pressure Pressure Support Sodium Potassium Chloride Carbon Dioxide Anion Gap BUN Creatinine Estim Creat Clear Calc Estimated GFR Glucose POC Capillary Glucose 142 H Calcium Phosphorus Magnesium Total Bilirubin AST ALT Alkaline Phosphatase Total Protein Albumin Mycoplasma pneumon IgM 364 SARS-CoV-2 RNA (RT-PCR) Not detected 03/25/24 03/25/24 03/25/24 16:44 18:17 23:42 WBC RBC Hgb Hct MCV MCH MCHC RDW Plt Count MPV Immature Gran % (Auto) Neut % (Auto) Lymph % (Auto) [place] % (Auto) Eos % (Auto) Baso % (Auto) Lymph # (Auto) [place] # (Auto) Eos # (Auto) Baso # (Auto) Abs Immat Gran (auto) Absolute Neuts (auto) Absolute Nucleated RBC Nucleated RBC % Platelet Estimate Target Cells Schistocytes PT INR APTT Puncture Site Right brachial ABG pH 7.293 L* ABG pCO2 60.3 H* ABG pO2 61.3 L ABG PO2/FiO2 Ratio 1.02 ABG HCO3 28.5 H ABG O2 Saturation 88.3 L ABG O2 Content 15.6 L ABG Base Excess 0.8 A-a Gradient 300.2 Oxyhemoglobin 85.5 L* Carboxyhemoglobin Methemoglobin Reduced Hemoglobin Total Hemoglobin 13.0 O2 Delivery Device Ventilator O2 Liters/Min Not Reportable Minute Volume Not Reportable Vent Rate 30 Vent Mode Cmv FiO2 60 Tidal Volume 340 PEEP 8 Peak Inspir Pressure Not Reportable Pressure Support Not Reportable Sodium Potassium Chloride Carbon Dioxide Anion Gap BUN Creatinine Estim Creat Clear Calc Estimated GFR Glucose POC Capillary Glucose 130 H 132 H Calcium Phosphorus Magnesium Total Bilirubin AST ALT Alkaline Phosphatase Total Protein Albumin Mycoplasma pneumon IgM SARS-CoV-2 RNA (RT-PCR) 03/26/24 03/26/24 05:36 06:05 WBC 18.7 H RBC 3.82 L Hgb 10.6 L Hct 31.8 L MCV 83.2 MCH 27.7 MCHC 33.3 RDW 14.9 H Plt Count 174 MPV 11.6 H Immature Gran % (Auto) 6.5 H Neut % (Auto) 84.6 H Lymph % (Auto) 6.0 L [place] % (Auto) 2.0 L Eos % (Auto) 0.3 Baso % (Auto) 0.6 Lymph # (Auto) 1.12 [place] # (Auto) 0.4 Eos # (Auto) 0.1 Baso # (Auto) 0.1 Abs Immat Gran (auto) 1.21 H Absolute Neuts (auto) 15.8 H Absolute Nucleated RBC 0.000 Nucleated RBC % 0.0 Platelet Estimate Adequate Target Cells 1+ Schistocytes None seen PT 15.3 H INR 1.2 APTT 27.0 Puncture Site Left radial ABG pH 7.344 L ABG pCO2 59.4 H ABG pO2 70.4 L ABG PO2/FiO2 Ratio 1.76 ABG HCO3 31.6 H ABG O2 Saturation 92.9 L ABG O2 Content 14.7 L ABG Base Excess 4.6 A-a Gradient 146.5 Oxyhemoglobin 90.3 Carboxyhemoglobin 1.6 Methemoglobin 0.3 Reduced Hemoglobin 7.8 H Total Hemoglobin 11.5 L O2 Delivery Device Ventilator O2 Liters/Min Not Reportable Minute Volume Not Reportable Vent Rate 30 Vent Mode Cmv FiO2 40 Tidal Volume 340 PEEP 5 Peak Inspir Pressure Not Reportable Pressure Support Not Reportable Sodium 150 H Potassium 3.8 Chloride 108 H Carbon Dioxide 35 H Anion Gap 7 BUN 30 H Creatinine 0.40 L Estim Creat Clear Calc 96 Estimated GFR > 60 Glucose 126 H POC Capillary Glucose Calcium 9.1 Phosphorus 3.2 Magnesium 2.1 Total Bilirubin 0.8 AST 83 H ALT 73 H Alkaline Phosphatase 93 Total Protein 7.0 Albumin 3.9 Mycoplasma pneumon IgM SARS-CoV-2 RNA (RT-PCR)
[2024-03-26 12:13] LABS: Glucose Point of Care 142 mg/dl (65-105)
[2024-03-26 12:31] LABS: Triglycerides 74 mg/dL (<150)
[2024-03-26 14:43] LABS: Adenovirus DNA Not Detected (Not Detected); Chlamydophila pneumoniae Not Detected (Not Detected); Coronavirus 229E Not Detected (Not Detected); Coronavirus HKU1 Not Detected (Not Detected); Coronavirus NL63 Not Detected (Not Detected); Coronavirus OC43 Not Detected (Not Detected); Human Metapneumovirus Not Detected (Not Detected); Human Parainfluenza Virus 1 Not Detected (Not Detected); Human Parainfluenza Virus 2 Not Detected (Not Detected); Human Parainfluenza Virus 3 Not Detected (Not Detected); Human Parainfluenza Virus 4 Not Detected (Not Detected); Human RSV B Not Detected (Not Detected); Influenza A Detected (Not Detected); Influenza B Not Detected (Not Detected); Mycoplasma pneumoniae Not Detected (Not Detected); Rhinovirus/Enterovirus Not Detected (Not Detected)
[2024-03-26 15:59] LABS: Vancomycin Trough 16.6 ug/mL (10.0-20.0)
[2024-03-26 16:35] LABS: Hematocrit 32.9 % (37.0-47.0); Hemoglobin 11.1 g/dL (12.0-15.0); Mean Corpuscular HGB Conc 33.7 g/dl (32-36); Mean Corpuscular Hemoglobin 27.9 pg (26-34); Mean Corpuscular Volume 82.7 fl (80-100); Mean Platelet Volume 11.4 fl (7.4-10.4); Platelet Count Result 179 k/mm3 (150-375); Red Blood Count 3.98 M/mm3 (4.2-5.4); Red Cell Distribution Width 14.8 % (11.5-14.5); White Blood Count 20.9 K/mm3 (4.5-10.0)
[2024-03-26 16:49] LABS: Band Neutrophils Percent 8 % (0-6); Lymphocytes Absolute Manual 1.25 K/mm3 (1.1-4.5); Lymphocytes Percent Manual 6 % (18-44); Metamyelocytes Percent 2 %; Monocytes Percent Manual 1 % (3-9); Neutrophils Absolute Manual 19.01 K/mm3 (1.7-7.2); Neutrophils Percent Manual 83 % (46-73); Total Cells Counted 100
[2024-03-26 16:50] LABS: Ovalocytes 1+; Platelet Estimate Adequate (Adequate); Schistocytes None Seen; Target Cells 2+
[2024-03-26 16:51] LABS: Alveolar/Arterial O2 Gradient 133.5 mmHg; Base Excess ABG 2.5 mEq/l (+/-2.0); Carboxyhemoglobin 1.1 % THb (0-2.0); Fractional Inspired Oxygen 35 %; HCO3 ABG 28.3 mEq/l (22.0-26.0); Methemoglobin ABG 0.3 %THb (0-1.5); Oxygen Content ABG 14.3 %vol (16.0-22.0); Oxygen Saturation ABG 89.9 % (95.0-100.0); PCO2 ABG 48.9 mmHg (35.0-45.0); PO2 ABG 59.2 mmHg (80.0-100.0); PO2 FiO2 Ratio Arterial Blood 1.69 %; Reduced Hemoglobin 10.8 %THb (0-5.0); Total Hemoglobin 11.6 g/dL (12.0-18.0)
[2024-03-26 16:54] LABS: Device VENTILATOR; Modified Allen's Test Pass; Oxyhemoglobin 87.8 % THb (90.0-100.0); Site Drawn RIGHT RADIAL
[2024-03-26 16:55] LABS: Arterial Blood Gas PEEP 5 cmH2O; Arterial Blood Gas Tidal Volume 340 ml; Arterial Blood Gas Vent Mode CMV; Arterial Blood Gas Ventilator rate 30 /MIN
[2024-03-26] MEDS: MONTELUKAST SODIUM 10 MG TABLET PO (17:21)
[2024-03-26 18:29] LABS: Glucose Point of Care 120 mg/dl (65-105)
[2024-03-26] MEDS: SENNA/DOCUSATE SODIUM TABLET 1 TAB PO (21:26)
[2024-03-26] MEDS: CISATRACURIUM BESYLATE 200 MG in DEXTROSE 5% 80 ML 5.68 ML IV CONT (22:31)
[2024-03-27] VITALS (32 sets, daily range): BP systolic 106–163; BP diastolic 69–90; PULSE 73–103; RESP 30; TEMP 36.9–37.3; O2SAT 93–97
[2024-03-27 00:16] LABS: Glucose Point of Care 122 mg/dl (65-105)
[2024-03-27] MEDS: VANCOMYCIN 1,000 MG/NS 250 ML 1,000 MG/250 ML BAG 250 MG IVPB ×2 (01:55→08:56)
[2024-03-27] MEDS: LEVALBUTEROL NEB 1.25 MG/3 ML 0.63 MG INHALATION ×2 (02:27→08:29)
[2024-03-27] MEDS: PROPOFOL IV EMULSION 100 ML 18.93 MG IV CONT ×2 (02:54→07:28)
[2024-03-27 04:34] LABS: Hematocrit 35.2 % (37.0-47.0); Hemoglobin 11.4 g/dL (12.0-15.0); Mean Corpuscular HGB Conc 32.4 g/dl (32-36); Mean Corpuscular Hemoglobin 27.1 pg (26-34); Mean Corpuscular Volume 83.6 fl (80-100); Mean Platelet Volume 11.6 fl (7.4-10.4); Platelet Count Result 203 k/mm3 (150-375); Red Blood Count 4.21 M/mm3 (4.2-5.4); Red Cell Distribution Width 15.1 % (11.5-14.5); White Blood Count 22.6 K/mm3 (4.5-10.0)
[2024-03-27 04:44] LABS: Alanine Aminotransferase 202 U/L (6-35); Albumin Level 3.8 g/dL (3.5-5.1); Alkaline Phosphatase 190 U/L (38-126); Anion Gap 8 mmol/L (4-12); Aspartate Amino Transferase 152 U/L (14-36); Bilirubin,Total 0.6 mg/dL (0.2-1.3); Blood Urea Nitrogen 30 mg/dL (7-17); Calcium 9.2 mg/dL (8.4-10.2); Carbon Dioxide 32 mmol/L (22-30); Chloride 108 mmol/L (98-107); Estimated CRCL calculation 105 ml/min; Estimated Glomerular Filt Rate > 60; Glucose 150 mg/dL (65-110); Magnesium 2.2 mg/dL (1.6-2.3); Phosphorus 3.7 mg/dL (2.5-4.5); Potassium 4.1 mmol/L (3.4-5.0); Sodium 148 mmol/L (137-145)
[2024-03-27 04:50] LABS: Band Neutrophils Percent 6 % (0-6); Lymphocytes Absolute Manual 0.67 K/mm3 (1.1-4.5); Monocytes Absolute Manual 0.22 K/mm3 (0.1-0.90); Monocytes Percent Manual 1 % (3-9); Neutrophils Absolute Manual 21.69 K/mm3 (1.7-7.2); Neutrophils Percent Manual 90 % (46-73); Platelet Estimate Adequate (Adequate); Total Cells Counted 100
[2024-03-27 04:51] LABS: Target Cells 2+
[2024-03-27 04:52] LABS: Schistocytes None Seen
[2024-03-27 04:54] LABS: Alveolar/Arterial O2 Gradient 148.6 mmHg; Base Excess ABG 4.3 mEq/l (+/-2.0); Carboxyhemoglobin 1.2 % THb (0-2.0); Fractional Inspired Oxygen 40 %; HCO3 ABG 31.7 mEq/l (22.0-26.0); Methemoglobin ABG 0.3 %THb (0-1.5); Oxygen Content ABG 15.4 %vol (16.0-22.0); Oxygen Saturation ABG 91.2 % (95.0-100.0); Oxyhemoglobin 89.6 % THb (90.0-100.0); PO2 ABG 66.1 mmHg (80.0-100.0); PO2 FiO2 Ratio Arterial Blood 1.65 %; Reduced Hemoglobin 8.9 %THb (0-5.0); Total Hemoglobin 12.2 g/dL (12.0-18.0); pH ABG 7.331 (7.350-7.450)
[2024-03-27 04:58] LABS: Device VENTILATOR; Modified Allen's Test Pass; PCO2 ABG 61.3 mmHg (35.0-45.0); Site Drawn LEFT RADIAL
[2024-03-27 04:59] LABS: Arterial Blood Gas PEEP 5 cmH2O; Arterial Blood Gas Tidal Volume 340 ml; Arterial Blood Gas Vent Mode CMV; Arterial Blood Gas Ventilator rate 30 /MIN
[2024-03-27] MEDS: FENTANYL 2,500MCG/NS250ML(*CRX 2,500 MCG/250 ML BAG 12.5 MCG IV CONT (05:10)
[2024-03-27] MEDS: HYDROCORTISONE SODIUM SUCCINATE 100 MG/2 ML VIAL 50 MG IV PUSH (06:22)
[2024-03-27] MEDS: CENTRAL LINE FLUSH 10 ML IV PUSH (06:30)
[2024-03-27] MEDS: CEFEPIME 2 GM/NS 50 ML 2 GM/50 ML BAG IVPB (06:30)
[2024-03-27 06:46] LABS: Glucose Point of Care 140 mg/dl (65-105)
[2024-03-27] MEDS: SERTRALINE HCL 50 MG TABLET 150 MG PO (08:55)
[2024-03-27] MEDS: amLODIPine BESYLATE 10 MG TABLET PO (08:55)
[2024-03-27] MEDS: METOPROLOL TARTRATE 50 MG TAB PO (08:55)
[2024-03-27] MEDS: levETIRAcetam 500 MG TABLET 2000 MG PO (08:55)
[2024-03-27] MEDS: OXcarbazepine 300 MG TABLET PO (08:55)
[2024-03-27] MEDS: polyethylene glycoL 3350 17 GM POWD.PACK PO (08:56)
[2024-03-27] MEDS: MINERAL OIL/WHITE PETROLATUM OINTMENT 1 APPLIC EACH EYE (08:56)
[2024-03-27] MEDS: PANTOPRAZOLE SODIUM IV 40 MG VIAL IV PUSH (08:56)
[2024-03-27] MEDS: GABAPENTIN 300 MG CAPSULE PO (08:56)
--- NOTE | 2024-03-27 08:56 | WPDINTPN ---
Progress Note: A&P Assessment and Plan (1) Acute hypoxic respiratory failure: Code(s): J96.01 - Acute respiratory failure with hypoxia Status: Acute Assessment and Plan: 03/22: Chest x-ray this morning showed worsening multifocal pneumonia, patient in acute respiratory distress/impending respiratory failure/tachypnea. Discussed with patient regarding intubation to which she was agreeable. 03/22: Patient intubated successfully. Intubation was uneventful -on CMV mode of ventilation, peep of 10, 60% FiO2 -obtain post intubation ABGs, will adjust ventilator accordingly -ABGs and chest x-ray reviewed, ventilator adjusted -continue steroids pneumonia - continue cefepime 2 g IV q.8 hours (03/22), vancomycin and azithromycin -continue bronchodilators -patient on Nimbex for vent synchrony (03/22 evening), she was taken off Nimbex on 03/25/2024, but was replaced on Nimbex infusion due to large left pneumothorax P -continue propofol and fentanyl infusion for Analgosedation -patient was diuresed on patient was diuresed on 03/24 and 03/25, and diuresed well. (2) Pneumothorax: Code(s): J93.9 - Pneumothorax, unspecified Status: Acute Assessment and Plan: Spontaneous large left pneumothorax of unknown etiology -patient was on low tidal volume strategy, peep was only 8 given diffuse bilateral infiltrates. Peak pressures were within normal limits -appreciate surgery inserting large-bore chest -air leak noted, clamped tubing at multiple sites, likely air leak is from within the chest wall cavity. Have secured the chest wall insertion site of the chest to with Vaseline gauze. Discussed with surgery, recommended since the same 03/27: CXR Shows a residual small left apical pneumothorax (3) Influenza A: Code(s): J10.1 - Influenza due to other identified influenza virus with other respiratory manifestations Status: Acute Assessment and Plan: Patient was positive for influenza A on admission, status post 5 days of Tamiflu (4) Bacteremia: Code(s): R78.81 - Bacteremia Status: Acute Assessment and Plan: Patient has MRSA bacteremia -03/19/2024: Blood cultures growing MRSA 2/2 bottles -03/19/2024: Sputum culture growing MRSA -03/22/2024: Repeat Blood culture MRSA 2 or 2 bottles -03/25: Repeat blood cultures, again growing gram-positive cocci in clusters Discussed with [facility] power tool repairer, will transfer the patient for Infectious Disease and higher level of care since patient has been on vancomycin since admission -appreciate cardiology evaluation and recommendations, 03/24: ARIAN planned without any vegetations/negative for infective endocarditis -transthoracic echocardiogram did not show any vegetations (5) Multifocal pneumonia: Code(s): J18.9 - Pneumonia, unspecified organism Status: Acute Assessment and Plan: Chest x-ray and CTA chest showed multifocal pneumonia -continue antibiotics, mechanical ventilation, steroids (6) Pulmonary embolism: Code(s): I26.99 - Other pulmonary embolism without acute cor pulmonale Status: Acute Assessment and Plan: Patient given tachycardia and tachypneic, -patient had some bloody secretions, so apixaban was held -low clot burden -hemoglobin is stable, 03/27: Start heparin infusion 03/20/2024: CTA chest Acute nonocclusive segmental right lower lobe embolus. Low clot burden. No CT evidence of right heart strain. Worsening multifocal pneumonia, overlying asymmetric areas of pulmonary edema. Diffuse mild chest wall subcutaneous edema. (7) Seizures: Code(s): R56.9 - Unspecified convulsions Status: Acute Assessment and Plan: Patient has a history of seizures and presented with seizures on the day of admission and the day prior to that. -continue Keppra, Trileptal (8) Sepsis: Qualifiers: Sepsis type: sepsis due to unspecified organism Sepsis acute organ dysfunction status: without acute organ dysfunction Qualified Code(s): A41.9 - Sepsis, unspecified organism Code(s): A41.9 - Sepsis, unspecified organism Status: Acute Assessment and Plan: Patient fulfilled the criteria of sepsis -now bacteremic, -cultures and antibiotics as above (9) Hypertension: Code(s): I10 - Essential (primary) hypertension Status: Acute Assessment and Plan: Systolic blood pressures have been in the 170s and 180s, -continue metoprolol and amlodipine (10) Electrolyte imbalance: Code(s): E87.8 - Other disorders of electrolyte and fluid balance, not elsewhere classified Status: Acute Assessment and Plan: Hypernatremia, sodium 150 this morning, increase tube feed flush to 150 mL q.4 hours -sodium trending down, continue free water flushes Plan DVT prophylaxis: SCDs, will start heparin infusion as hemoglobin has been stable and no bloody ET tube secretion Stress ulcer prophylaxis: Protonix Nutrition: Tolerating tube feeds Code Status: Full code Critical Care Time Spent: [address] Blackman (power tool repairer), at [facility], patient has been accepted to be transferred for infectious disease consult for repeated MRSA and blood cultures and for higher level of care. Family has been updated. Patient be transferred on 03/27/2024 as they have a bed available Due to a high probability of clinically significant, life threatening deterioration, the patient required my highest level of preparedness to intervene emergently and I personally spent this critical care time directly and personally managing the patient. This critical care time included obtaining a history; examining the patient; pulse oximetry; ordering and review of studies; arranging urgent treatment with development of a management plan; evaluation of patient's response to treatment; frequent reassessment; and discussions with other providers. It was exclusive of separately billable procedures and treating other patients and teaching time. Please see Assessment and Plan section and the rest of the note for further information on patient assessment and treatment This dictation may have been done utilizing a voice recognition system. Attempts have been made to correct errors. However, there may be uncorrected grammatical, spelling, and recognitions errors present. Subjective Date/time seen: 03/27/24 08:56 Interval history: Reason for consult: Acute hypoxic respiratory failure, acute respiratory distress, impending respiratory failure, sepsis, MRSA bacteremia, multifocal pneumonia, pulmonary embolism, seizures 03/25: Large left pneumothorax status post chest tube with resolution of the PTX 03/27/2024: Patient seen and examined in the ICU. Remains on mechanical ventilation, tidal volume 340 mL, rate of 30, peep of 5, 40% FiO2 with permissive hypercapnia. Patient sedated with fentanyl and propofol infusion, also on Nimbex for vent synchrony. Left-sided chest tube with air leak. Urine output has been adequate, normal renal function. Afebrile, hemodynamically stable. Tolerating tube feeds. No ETT secretions. Review of Systems Review of Systems: ROS unobtainable: Yes unobtainable due to endotracheal tube and unobtainable due to medical condition Exam Narrative: General: Intubated and sedated, in no acute does HEENT:? Pupils equal and reactive, sclerae is clear, ETT in place Neck:? Supple Respiratory:? Coarse breath sounds bilaterally, adequate air entry, no wheezing, bilateral diffuse rales Chest: Left sided chest tube in place, air leak noted Cardiac:? S1-S2 normal, tachycardic Abdomen:? Soft, nontender, nondistended, hypoactive bowel sound Extremities:? no edema, palpable pedal pulses Neuro:? Intubated, sedated at this time, patient also on Nimbex for ventilator synchrony ( prior to intubation patient was awake, alert, able to answer questions and follows simple commands appropriately) Skin:? No skin lesions noted Psych:? Unable to assess at this time Objective Data Vital Signs Vital Signs: Vital Signs - 24 hr 03/26/24 09:00 03/26/24 09:11 03/26/24 09:11 Temperature Pulse Rate 87 87 87 Respiratory Rate 30 H 30 H 30 H Blood Pressure 138/85 Pulse Oximetry Oxygen Delivery Fraction of Inspired Oxygen 03/26/24 09:12 03/26/24 09:24 03/26/24 10:00 Temperature 98.6 F Pulse Rate 83 87 86 Respiratory Rate 30 H 30 H Blood Pressure 138/85 130/80 Pulse Oximetry 96 Oxygen Delivery Fraction of Inspired Oxygen 03/26/24 10:00 03/26/24 10:00 03/26/24 10:00 Temperature Pulse Rate 86 86 86 Respiratory Rate 30 H 30 H 30 H Blood Pressure 125/91 H Pulse Oximetry Oxygen Delivery Fraction of Inspired Oxygen 03/26/24 10:00 03/26/24 11:00 03/26/24 11:16 Temperature Pulse Rate 86 86 85 Respiratory Rate 30 H Blood Pressure 136/82 Pulse Oximetry 95 Oxygen Delivery Mechanical Ventilation Fraction of Inspired Oxygen 35 03/26/24 11:34 03/26/24 11:34 03/26/24 12:00 Temperature Pulse Rate 84 84 78 Respiratory Rate 30 H 30 H 30 H Blood Pressure Pulse Oximetry Oxygen Delivery Fraction of Inspired Oxygen 03/26/24 12:00 03/26/24 12:00 03/26/24 12:00 Temperature 98.6 F Pulse Rate 73 76 75 Respiratory Rate 30 H 30 H 30 H Blood Pressure 132/83 132/83 Pulse Oximetry 91 Oxygen Delivery Fraction of Inspired Oxygen 03/26/24 12:00 03/26/24 12:00 03/26/24 12:00 Temperature Pulse Rate 76 Respiratory Rate 30 H Blood Pressure Pulse Oximetry 91 Oxygen Delivery Mechanical Ventilation Fraction of Inspired Oxygen 35 40 03/26/24 13:00 03/26/24 14:00 03/26/24 14:00 Temperature 98.8 F Pulse Rate 77 79 80 Respiratory Rate 30 H 30 H Blood Pressure 112/72 124/80 Pulse Oximetry 90 Oxygen Delivery Fraction of Inspired Oxygen 03/26/24 14:00 03/26/24 14:00 03/26/24 14:00 Temperature Pulse Rate 88 79 85 Respiratory Rate 30 H 30 H 30 H Blood Pressure 124/80 Pulse Oximetry Oxygen Delivery Fraction of Inspired Oxygen 03/26/24 14:01 03/26/24 14:06 03/26/24 14:11 Temperature Pulse Rate 78 82 81 Respiratory Rate 30 H 30 H Blood Pressure Pulse Oximetry 93 Oxygen Delivery Mechanical Ventilation Fraction of Inspired Oxygen 35 03/26/24 15:00 03/26/24 16:00 03/26/24 16:00 Temperature Pulse Rate 81 86 89 Respiratory Rate 30 H 30 H 30 H Blood Pressure 128/81 141/81 H Pulse Oximetry Oxygen Delivery Fraction of Inspired Oxygen 03/26/24 16:00 03/26/24 16:00 03/26/24 16:00 Temperature 99 F Pulse Rate 88 82 Respiratory Rate 30 H 30 H 30 H Blood Pressure 141/81 H Pulse Oximetry 91 91 Oxygen Delivery Mechanical Ventilation Fraction of Inspired Oxygen 40 03/26/24 16:00 03/26/24 16:00 03/26/24 16:11 Temperature Pulse Rate 86 84 Respiratory Rate 30 H Blood Pressure Pulse Oximetry Oxygen Delivery Fraction of Inspired Oxygen 35 03/26/24 16:11 03/26/24 16:56 03/26/24 17:00 Temperature Pulse Rate 84 82 85 Respiratory Rate 30 H 30 H Blood Pressure 133/81 Pulse Oximetry 91 Oxygen Delivery Mechanical Ventilation Fraction of Inspired Oxygen 35 03/26/24 17:00 03/26/24 18:00 03/26/24 18:00 Temperature 98.7 F Pulse Rate 90 87 Respiratory Rate 30 H Blood Pressure 133/82 Pulse Oximetry 93 Oxygen Delivery Fraction of Inspired Oxygen 40 03/26/24 18:00 03/26/24 18:00 03/26/24 18:00 Temperature Pulse Rate 89 85 85 Respiratory Rate 30 H 30 H 30 H Blood Pressure 133/82 Pulse Oximetry Oxygen Delivery Fraction of Inspired Oxygen 03/26/24 19:00 03/26/24 19:01 03/26/24 19:30 Temperature 98.8 F 98.8 F 98.8 F Pulse Rate 86 83 90 Respiratory Rate 30 H 30 H 30 H Blood Pressure 137/82 141/85 H Pulse Oximetry 93 Oxygen Delivery Fraction of Inspired Oxygen 03/26/24 20:00 03/26/24 20:00 03/26/24 20:00 Temperature Pulse Rate 87 87 87 Respiratory Rate 30 H 30 H 30 H Blood Pressure 140/83 Pulse Oximetry Oxygen Delivery Fraction of Inspired Oxygen 03/26/24 20:00 03/26/24 20:00 03/26/24 20:00 Temperature 98.8 F Pulse Rate 88 Respiratory Rate 30 H 30 H Blood Pressure 140/83 Pulse Oximetry 93 93 Oxygen Delivery Mechanical Ventilation Fraction of Inspired Oxygen 40 40 03/26/24 20:00 03/26/24 20:14 03/26/24 20:17 Temperature Pulse Rate 94 85 85 Respiratory Rate 30 H Blood Pressure Pulse Oximetry 93 Oxygen Delivery Mechanical Ventilation Fraction of Inspired Oxygen 40 03/26/24 20:23 03/26/24 20:30 03/26/24 21:00 Temperature 98.8 F 98.7 F Pulse Rate 95 91 90 Respiratory Rate 30 H 30 H 30 H Blood Pressure 138/85 136/78 Pulse Oximetry 92 93 Oxygen Delivery Fraction of Inspired Oxygen 03/26/24 21:23 03/26/24 21:23 03/26/24 21:26 Temperature Pulse Rate 86 86 89 Respiratory Rate 30 H 30 H Blood Pressure Pulse Oximetry Oxygen Delivery Fraction of Inspired Oxygen 03/26/24 21:30 03/26/24 22:00 03/26/24 22:00 Temperature 98.8 F 98.8 F Pulse Rate 91 82 84 Respiratory Rate 30 H 30 H 30 H Blood Pressure 148/86 H 117/83 Pulse Oximetry 94 95 Oxygen Delivery Fraction of Inspired Oxygen 03/26/24 22:00 03/26/24 22:00 03/26/24 22:00 Temperature Pulse Rate 84 84 82 Respiratory Rate 30 H 30 H Blood Pressure 117/83 Pulse Oximetry Oxygen Delivery Fraction of Inspired Oxygen 03/26/24 22:30 03/26/24 22:31 03/26/24 22:31 Temperature 98.9 F Pulse Rate 72 75 75 Respiratory Rate 30 H 30 H 30 H Blood Pressure 113/72 113/72 113/72 Pulse Oximetry Oxygen Delivery Fraction of Inspired Oxygen 03/26/24 22:45 03/26/24 23:00 03/26/24 23:00 Temperature 99.0 F Pulse Rate 75 73 73 Respiratory Rate 30 H 30 H 30 H Blood Pressure 113/72 108/66 108/66 Pulse Oximetry Oxygen Delivery Fraction of Inspired Oxygen 03/26/24 23:19 03/26/24 23:30 03/27/24 00:00 Temperature 99.1 F Pulse Rate 78 76 79 Respiratory Rate 30 H 30 H Blood Pressure 108/66 Pulse Oximetry 95 Oxygen Delivery Mechanical Ventilation Fraction of Inspired Oxygen 40 03/27/24 00:00 03/27/24 00:00 03/27/24 00:00 Temperature Pulse Rate 79 79 Respiratory Rate 30 H 30 H 30 H Blood Pressure 119/72 Pulse Oximetry 94 Oxygen Delivery Mechanical Ventilation Fraction of Inspired Oxygen 40 03/27/24 00:00 03/27/24 00:00 03/27/24 00:00 Temperature 99.1 F Pulse Rate 79 76 Respiratory Rate 30 H Blood Pressure 119/72 Pulse Oximetry 94 Oxygen Delivery Fraction of Inspired Oxygen 40 03/27/24 00:30 03/27/24 01:00 03/27/24 01:30 Temperature 99.1 F 99.1 F 99.1 F Pulse Rate 80 81 78 Respiratory Rate 30 H 30 H 30 H Blood Pressure 119/71 121/69 127/77 Pulse Oximetry 93 93 93 Oxygen Delivery Fraction of Inspired Oxygen 03/27/24 02:00 03/27/24 02:00 03/27/24 02:00 Temperature Pulse Rate 82 82 82 Respiratory Rate 30 H 30 H 30 H Blood Pressure 138/80 Pulse Oximetry Oxygen Delivery Fraction of Inspired Oxygen 03/27/24 02:00 03/27/24 02:00 03/27/24 02:27 Temperature 99.1 F Pulse Rate 82 82 84 Respiratory Rate 30 H 30 H Blood Pressure 138/80 Pulse Oximetry 93 Oxygen Delivery Fraction of Inspired Oxygen 03/27/24 02:29 03/27/24 02:30 03/27/24 02:35 Temperature 99.1 F Pulse Rate 83 80 86 Respiratory Rate 30 H 30 H Blood Pressure 133/71 Pulse Oximetry 93 Oxygen Delivery Mechanical Ventilation Fraction of Inspired Oxygen 40 03/27/24 02:40 03/27/24 02:54 03/27/24 03:00 Temperature 99.0 F Pulse Rate 83 83 87 Respiratory Rate 30 H 30 H 30 H Blood Pressure 150/83 H Pulse Oximetry Oxygen Delivery Fraction of Inspired Oxygen 03/27/24 03:30 03/27/24 04:00 03/27/24 04:00 Temperature 98.9 F Pulse Rate 87 89 89 Respiratory Rate 30 H 30 H 30 H Blood Pressure 154/83 H 155/87 H Pulse Oximetry Oxygen Delivery Fraction of Inspired Oxygen 03/27/24 04:00 03/27/24 04:00 03/27/24 04:00 Temperature 98.9 F Pulse Rate 89 88 Respiratory Rate 30 H 30 H Blood Pressure 155/87 H Pulse Oximetry Oxygen Delivery Fraction of Inspired Oxygen 40 03/27/24 04:00 03/27/24 04:00 03/27/24 04:15 Temperature Pulse Rate 88 92 Respiratory Rate 30 H 30 H Blood Pressure 155/87 H Pulse Oximetry 95 Oxygen Delivery Mechanical Ventilation Fraction of Inspired Oxygen 40 03/27/24 04:30 03/27/24 04:30 03/27/24 05:00 Temperature 98.9 F 99.0 F Pulse Rate 90 90 91 Respiratory Rate 30 H 30 H 30 H Blood Pressure 153/81 H 153/81 H 157/80 H Pulse Oximetry Oxygen Delivery Fraction of Inspired Oxygen 03/27/24 05:02 03/27/24 05:10 03/27/24 05:10 Temperature Pulse Rate 90 90 90 Respiratory Rate 30 H 30 H Blood Pressure Pulse Oximetry 94 Oxygen Delivery Mechanical Ventilation Fraction of Inspired Oxygen 40 03/27/24 05:17 03/27/24 05:30 03/27/24 06:00 Temperature 99.0 F 99.0 F Pulse Rate 93 92 93 Respiratory Rate 30 H 30 H 30 H Blood Pressure 152/79 H 151/83 H Pulse Oximetry Oxygen Delivery Fraction of Inspired Oxygen 03/27/24 06:00 03/27/24 06:00 03/27/24 06:00 Temperature Pulse Rate 93 93 90 Respiratory Rate 30 H 30 H Blood Pressure 142/82 H Pulse Oximetry Oxygen Delivery Fraction of Inspired Oxygen 03/27/24 06:00 03/27/24 06:01 03/27/24 06:30 Temperature 99.0 F 99.0 F 98.9 F Pulse Rate 90 90 92 Respiratory Rate 30 H 30 H 30 H Blood Pressure 142/82 H 143/83 H Pulse Oximetry Oxygen Delivery Fraction of Inspired Oxygen 03/27/24 07:28 03/27/24 07:28 03/27/24 08:00 Temperature 98.8 F Pulse Rate 87 87 93 Respiratory Rate 30 H 30 H 30 H Blood Pressure 163/90 H Pulse Oximetry 93 Oxygen Delivery Fraction of Inspired Oxygen 03/27/24 08:29 03/27/24 08:29 03/27/24 08:40 Temperature Pulse Rate 100 100 103 H Respiratory Rate 30 H 30 H Blood Pressure Pulse Oximetry 93 Oxygen Delivery Mechanical Ventilation Fraction of Inspired Oxygen 40 Intake/Output Intake/Output: Intake & Output 03/24/24 03/25/24 03/26/24 03/27/24 23:59 23:59 23:59 23:59 Intake Total 2409.3 2724.8 3746.1 1995.6 Output Total 3350 20095 700 Balance -940.7 714.8 1681.1 1295.6 Meds/Results Medications: Active Medications Generic Name Dose Route Start Last Admin Trade Name Freq PRN Reason Stop Dose Admin Acetaminophen 650 mg 03/19/24 15:02 03/22/24 10:04 Acetaminophen 325 Mg Tablet PO 650 mg Q4H PRN Administration Mild Pain (1-3) or Fever Amlodipine Besylate 10 mg 03/24/24 09:00 03/26/24 09:13 Amlodipine Besylate 10 Mg Tablet PO 10 mg DAILY VELASQUEZ Administration Apixaban 10 mg 03/21/24 02:05 03/25/24 08:35 Apixaban 5 Mg Tablet PO 10 mg Q12HR VELASQUEZ Administration Benzocaine 1 lozenge 03/19/24 15:11 03/19/24 17:39 Benzocaine/Menthol (*Bkc) 18 Ea Lozenge PO 1 lozenge PRN PRN Administration Sore Throat Benzonatate 100 mg 03/19/24 15:11 03/20/24 20:16 Benzonatate 100 Mg Capsule PO 100 mg TID PRN Administration Cough Dextrose 12.5 gm 03/19/24 15:15 Dextrose 50% 25 Gm/50 Ml Syringe IV PUSH PRN PRN Hypoglycemia Protocol Gabapentin 300 mg 03/19/24 17:00 03/26/24 16:11 Gabapentin 300 Mg Capsule PO 300 mg TID VELASQUEZ Administration Glucagon 1 mg 03/19/24 15:15 Glucagon For Inj 1 Mg Vial IM PRN PRN Hypoglycemia Protocol Glucose 15 gm 03/19/24 15:15 Glucose Oral Gel 15 Gm Of Glucse In 37.5 Gm Tube PO PRN PRN Hypoglycemia Protocol Hydrocortisone Sodium Succinate 50 mg 03/22/24 12:00 03/27/24 06:22 Hydrocortisone Sodium Succinate 100 Mg/2 Ml Vial IV PUSH 50 mg Q6H VELASQUEZ Administration Dextrose 1,000 mls @ 100 mls/hr 03/19/24 15:15 Dextrose 5% 1,000 Ml IVPB PRN PRN Hypoglycemia Protocol Propofol 100 mls @ 18.93 mls/hr 03/22/24 12:25 03/27/24 07:28 Diprivan IV CONT 50 mcg/kg/min .Q5H17M VELASQUEZ 18.93 mls/hr Administration Protocol 50 MCG/KG/MIN Cefepime HCl 2 gm in 50 mls @ 100 mls/hr 03/22/24 14:00 03/27/24 06:30 Maxipime 2 Gm/Ns 50 Ml IVPB 100 mls/hr Q8H VELASQUEZ Administration Cisatracurium Besylate 200 mg/ 100 mls @ 5.679 mls/hr 03/22/24 14:00 03/27/24 06:00 Dextrose IV CONT 3 mcg/kg/min .[id number] VELASQUEZ 5.68 mls/hr Titration Protocol 3 MCG/KG/MIN Fentanyl Citrate 2,500 mcg in 250 mls @ 12.5 mls/hr 03/25/24 07:25 03/27/24 06:00 Fentanyl 2,500 Mcg/Ns 250 Ml IV CONT 125 mcg/hr .Q20H VELASQUEZ 12.5 mls/hr Titration Protocol 125 MCG/HR Vancomycin HCl 1,000 mg in 250 mls @ 250 mls/hr 03/26/24 17:00 03/27/24 02:55 Vancomycin 1,000 Mg/Ns 250 Ml IVPB Infused Q8H VELASQUEZ Infusion Insulin Aspart 2 - 5 units 03/22/24 18:00 03/27/24 06:34 Insulin Aspart (*Bkc) 100 Units/Ml SUB-Q Not Given Q6HR VELASQUEZ Protocol Levalbuterol HCl 0.63 mg 03/19/24 20:00 03/27/24 08:29 Levalbuterol Neb 1.25 Mg/3 Ml INHALATION 0.63 mg Q6HRT VELASQUEZ Administration Levetiracetam 2,000 mg 03/19/24 21:00 03/26/24 21:26 Levetiracetam 500 Mg Tablet PO 2,000 mg Q12HR VELASQUEZ Administration Metoprolol Tartrate 50 mg 03/24/24 09:00 03/26/24 21:26 Metoprolol Tartrate 50 Mg Tab PO 50 mg Q12HR VELASQUEZ Administration Midazolam HCl 2 mg 03/24/24 20:12 03/25/24 15:50 Midazolam Hcl (*Crx) 2 Mg/2 Ml Vial IV PUSH 2 mg Q2HR PRN Administration Sedation Montelukast Sodium 10 mg 03/19/24 18:00 03/26/24 17:21 Montelukast Sodium 10 Mg Tablet PO 10 mg QPM VELASQUEZ Administration Multi-Ingred Cream/Lotion/Oil/Oint 1 applic 03/22/24 21:00 03/26/24 21:27 Mineral Oil/White Petrolatum Ointment EACH EYE 1 applic Q12HR VELASQUEZ Administration Oxcarbazepine 300 mg 03/19/24 21:00 03/26/24 21:26 Oxcarbazepine 300 Mg Tablet PO 300 mg Q12HR VELASQUEZ Administration Pantoprazole Sodium 40 mg 03/23/24 09:00 03/26/24 09:13 Pantoprazole Sodium Iv 40 Mg Vial IV PUSH 40 mg QAM VELASQUEZ Administration Polyethylene Glycol 17 gm 03/26/24 09:00 03/26/24 09:25 Polyethylene Glycol 3350 17 Gm Powd.Pack PO 17 gm QAM VELASQUEZ Administration Quetiapine Fumarate 800 mg 03/20/24 21:00 03/21/24 20:41 Quetiapine Fumarate 100 Mg Tablet PO 800 mg HS VELASQUEZ Administration Senna/Docusate Sodium 1 tab 03/25/24 21:00 03/26/24 21:26 Senna/Docusate Sodium Tablet PO 1 tab HS VELASQUEZ Administration Sertraline HCl 150 mg 03/20/24 09:00 03/26/24 09:13 Sertraline Hcl 50 Mg Tablet PO 150 mg QAM VELASQUEZ Administration Sodium Chloride 1 spray 03/21/24 17:33 Saline 0.65% Robert Soln 44 Ml Btl NASAL Q6HR PRN Congestion Sodium Chloride 10 ml 03/22/24 14:00 03/27/24 06:30 Central Line Flush IV PUSH 10 ml Q8HR VELASQUEZ Administration Sodium Chloride 10 ml 03/22/24 13:18 Central Line Flush IV PUSH PRN PRN with TPN bag changes Sodium Chloride 20 ml 03/22/24 13:18 03/26/24 05:31 Central Line Flush IV PUSH 20 ml PRN PRN Administration after blood draws Trazodone HCl 200 mg 03/19/24 18:00 03/19/24 17:36 Trazodone Hcl 50 Mg Tablet PO 200 mg QPM VELASQUEZ Administration Radiology Results: ITS Impressions Head CT 03/19/24 13:41 Impression: No acute intracranial hemorrhage or suspicious mass effect. Cervical Spine CT 03/19/24 13:42 Impression: Preservation of the normal curvature of the cervical spine. Multifocal infiltrates within the chest. No acute fracture. Chest CTA 03/20/24 23:51 IMPRESSION: Acute nonocclusive segmental right lower lobe embolus. Low clot burden. No CT evidence of right heart strain. Worsening multifocal pneumonia, overlying asymmetric areas of pulmonary edema. Diffuse mild chest wall subcutaneous edema. Abdomen X-Ray 03/24/24 13:53 IMPRESSION: 1. Nasogastric tube tip in proximal side port below the level of the gastroesophageal junction which could be either within the stomach or a possible Armando limb of a gastric bypass procedure with suture lines in the epigastric region. Correlate with surgical history. 2. Diffuse bilateral lung disease could relate to pulmonary edema or pneumonia. Chest X-Ray 03/27/24 06:21 Impression: Stable support tubes. Small left apical pneumothorax is more apparent/mildly increased as compared to prior exam. Stable patchy airspace disease throughout both lungs. Labs Labs: Laboratory Results - last 24 hr 03/22/24 03/26/24 03/26/24 14:50 05:36 11:33 WBC RBC Hgb Hct MCV MCH MCHC RDW Plt Count MPV Immature Gran % (Auto) Neut % (Auto) Lymph % (Auto) [place] % (Auto) Eos % (Auto) Baso % (Auto) Lymph # (Auto) [place] # (Auto) Eos # (Auto) Baso # (Auto) Abs Immat Gran (auto) Absolute Neuts (auto) Absolute Nucleated RBC Total Counted Neutrophils % (Manual) Band Neutrophils % Lymphocytes % (Manual) Monocytes % (Manual) Metamyelocytes % Nucleated RBC % Abs Neuts (Manual) Abs Lymphs (Manual) Abs Monocytes (Manual) Platelet Estimate Target Cells Ovalocytes Schistocytes Puncture Site ABG pH ABG pCO2 ABG pO2 ABG PO2/FiO2 Ratio ABG HCO3 ABG O2 Saturation ABG O2 Content ABG Base Excess A-a Gradient Oxyhemoglobin Carboxyhemoglobin Methemoglobin Reduced Hemoglobin Total Hemoglobin O2 Delivery Device O2 Liters/Min Minute Volume Vent Rate Vent Mode FiO2 Tidal Volume PEEP Peak Inspir Pressure Pressure Support Sodium Potassium Chloride Carbon Dioxide Anion Gap BUN Creatinine Estim Creat Clear Calc Estimated GFR Glucose POC Capillary Glucose 142 H Calcium Phosphorus Magnesium Total Bilirubin AST ALT Alkaline Phosphatase Total Protein Albumin Triglycerides 74 Nasal RSV Type A (PCR) Not detected Nasal RSV Type B (PCR) Not detected Vancomycin Trough Chlamy pneumoniae PCR Not detected Adenovirus DNA Not detected Human Bocavirus (ALBERTO) Not detected Coronavirus Type OC43 Not detected Coronavirus Type HKU1 Not detected Coronavirus Type 229E Not detected Coronavirus Type NL63 Not detected Human Metapneumovir PCR Not detected Influenza A (PCR) Detected A Influenza A (H1) RNA Detected A Influenza A (H3) PCR Not detected M. pneumoniae DNA Not detected Parainfluenza PCR Not detected Parainfluenza 2 (PCR) Not detected Parainfluenza 3 RNA (PCR) Not detected Parainfluenza 4 (PCR) Not detected Rhino/Enterovirus (ALBERTO) Not detected Influenza Type B (PCR) Not detected Misc Test Comment see note 03/26/24 03/26/24 03/26/24 15:28 16:27 16:44 WBC 20.9 H RBC 3.98 L Hgb 11.1 L Hct 32.9 L MCV 82.7 MCH 27.9 MCHC 33.7 RDW 14.8 H Plt Count 179 MPV 11.4 H Immature Gran % (Auto) Not Reportable Neut % (Auto) Not Reportable Lymph % (Auto) Not Reportable [place] % (Auto) Not Reportable Eos % (Auto) Not Reportable Baso % (Auto) Not Reportable Lymph # (Auto) Not Reportable [place] # (Auto) Not Reportable Eos # (Auto) Not Reportable Baso # (Auto) Not Reportable Abs Immat Gran (auto) Not Reportable Absolute Neuts (auto) Not Reportable Absolute Nucleated RBC Not Reportable Total Counted 100 Neutrophils % (Manual) 83 H Band Neutrophils % 8 H Lymphocytes % (Manual) 6 L Monocytes % (Manual) 1 L Metamyelocytes % 2 Nucleated RBC % Not Reportable Abs Neuts (Manual) 19.01 H Abs Lymphs (Manual) 1.25 Abs Monocytes (Manual) 0.20 Platelet Estimate Adequate Target Cells 2+ Ovalocytes 1+ Schistocytes None seen Puncture Site Right radial ABG pH 7.380 ABG pCO2 48.9 H ABG pO2 59.2 L ABG PO2/FiO2 Ratio 1.69 ABG HCO3 28.3 H ABG O2 Saturation 89.9 L ABG O2 Content 14.3 L ABG Base Excess 2.5 A-a Gradient 133.5 Oxyhemoglobin 87.8 L* Carboxyhemoglobin 1.1 Methemoglobin 0.3 Reduced Hemoglobin 10.8 H Total Hemoglobin 11.6 L O2 Delivery Device Ventilator O2 Liters/Min Not Reportable Minute Volume Not Reportable Vent Rate 30 Vent Mode Cmv FiO2 35 Tidal Volume 340 PEEP 5 Peak Inspir Pressure Not Reportable Pressure Support Not Reportable Sodium Potassium Chloride Carbon Dioxide Anion Gap BUN Creatinine Estim Creat Clear Calc Estimated GFR Glucose POC Capillary Glucose Calcium Phosphorus Magnesium Total Bilirubin AST ALT Alkaline Phosphatase Total Protein Albumin Triglycerides Nasal RSV Type A (PCR) Nasal RSV Type B (PCR) Vancomycin Trough 16.6 Chlamy pneumoniae PCR Adenovirus DNA Human Bocavirus (ALBERTO) Coronavirus Type OC43 Coronavirus Type HKU1 Coronavirus Type 229E Coronavirus Type NL63 Human Metapneumovir PCR Influenza A (PCR) Influenza A (H1) RNA Influenza A (H3) PCR M. pneumoniae DNA Parainfluenza PCR Parainfluenza 2 (PCR) Parainfluenza 3 RNA (PCR) Parainfluenza 4 (PCR) Rhino/Enterovirus (ALBERTO) Influenza Type B (PCR) Misc Test Comment 03/26/24 03/26/24 03/27/24 17:16 23:57 04:14 WBC 22.6 H RBC 4.21 Hgb 11.4 L Hct 35.2 L MCV 83.6 MCH 27.1 MCHC 32.4 RDW 15.1 H Plt Count 203 MPV 11.6 H Immature Gran % (Auto) Not Reportable Neut % (Auto) Not Reportable Lymph % (Auto) Not Reportable [place] % (Auto) Not Reportable Eos % (Auto) Not Reportable Baso % (Auto) Not Reportable Lymph # (Auto) Not Reportable [place] # (Auto) Not Reportable Eos # (Auto) Not Reportable Baso # (Auto) Not Reportable Abs Immat Gran (auto) Not Reportable Absolute Neuts (auto) Not Reportable Absolute Nucleated RBC Not Reportable Total Counted 100 Neutrophils % (Manual) 90 H Band Neutrophils % 6 Lymphocytes % (Manual) 3.0 L Monocytes % (Manual) 1 L Metamyelocytes % Nucleated RBC % Not Reportable Abs Neuts (Manual) 21.69 H Abs Lymphs (Manual) 0.67 L Abs Monocytes (Manual) 0.22 Platelet Estimate Adequate Target Cells 2+ Ovalocytes Schistocytes None seen Puncture Site ABG pH ABG pCO2 ABG pO2 ABG PO2/FiO2 Ratio ABG HCO3 ABG O2 Saturation ABG O2 Content ABG Base Excess A-a Gradient Oxyhemoglobin Carboxyhemoglobin Methemoglobin Reduced Hemoglobin Total Hemoglobin O2 Delivery Device O2 Liters/Min Minute Volume Vent Rate Vent Mode FiO2 Tidal Volume PEEP Peak Inspir Pressure Pressure Support Sodium 148 H Potassium 4.1 Chloride 108 H Carbon Dioxide 32 H Anion Gap 8 BUN 30 H Creatinine 0.36 L Estim Creat Clear Calc 105 Estimated GFR > 60 Glucose 150 H POC Capillary Glucose 120 H 122 H Calcium 9.2 Phosphorus 3.7 Magnesium 2.2 Total Bilirubin 0.6 AST 152 H ALT 202 H Alkaline Phosphatase 190 H Total Protein 7.0 Albumin 3.8 Triglycerides Nasal RSV Type A (PCR) Nasal RSV Type B (PCR) Vancomycin Trough Chlamy pneumoniae PCR Adenovirus DNA Human Bocavirus (ALBERTO) Coronavirus Type OC43 Coronavirus Type HKU1 Coronavirus Type 229E Coronavirus Type NL63 Human Metapneumovir PCR Influenza A (PCR) Influenza A (H1) RNA Influenza A (H3) PCR M. pneumoniae DNA Parainfluenza PCR Parainfluenza 2 (PCR) Parainfluenza 3 RNA (PCR) Parainfluenza 4 (PCR) Rhino/Enterovirus (ALBERTO) Influenza Type B (PCR) Misc Test Comment 03/27/24 03/27/24 04:37 06:33 WBC RBC Hgb Hct MCV MCH MCHC RDW Plt Count MPV Immature Gran % (Auto) Neut % (Auto) Lymph % (Auto) [place] % (Auto) Eos % (Auto) Baso % (Auto) Lymph # (Auto) [place] # (Auto) Eos # (Auto) Baso # (Auto) Abs Immat Gran (auto) Absolute Neuts (auto) Absolute Nucleated RBC Total Counted Neutrophils % (Manual) Band Neutrophils % Lymphocytes % (Manual) Monocytes % (Manual) Metamyelocytes % Nucleated RBC % Abs Neuts (Manual) Abs Lymphs (Manual) Abs Monocytes (Manual) Platelet Estimate Target Cells Ovalocytes Schistocytes Puncture Site Left radial ABG pH 7.331 L ABG pCO2 61.3 H* ABG pO2 66.1 L ABG PO2/FiO2 Ratio 1.65 ABG HCO3 31.7 H ABG O2 Saturation 91.2 L ABG O2 Content 15.4 L ABG Base Excess 4.3 A-a Gradient 148.6 Oxyhemoglobin 89.6 L Carboxyhemoglobin 1.2 Methemoglobin 0.3 Reduced Hemoglobin 8.9 H Total Hemoglobin 12.2 O2 Delivery Device Ventilator O2 Liters/Min Not Reportable Minute Volume Not Reportable Vent Rate 30 Vent Mode Cmv FiO2 40 Tidal Volume 340 PEEP 5 Peak Inspir Pressure Not Reportable Pressure Support Not Reportable Sodium Potassium Chloride Carbon Dioxide Anion Gap BUN Creatinine Estim Creat Clear Calc Estimated GFR Glucose POC Capillary Glucose 140 H Calcium Phosphorus Magnesium Total Bilirubin AST ALT Alkaline Phosphatase Total Protein Albumin Triglycerides Nasal RSV Type A (PCR) Nasal RSV Type B (PCR) Vancomycin Trough Chlamy pneumoniae PCR Adenovirus DNA Human Bocavirus (ALBERTO) Coronavirus Type OC43 Coronavirus Type HKU1 Coronavirus Type 229E Coronavirus Type NL63 Human Metapneumovir PCR Influenza A (PCR) Influenza A (H1) RNA Influenza A (H3) PCR M. pneumoniae DNA Parainfluenza PCR Parainfluenza 2 (PCR) Parainfluenza 3 RNA (PCR) Parainfluenza 4 (PCR) Rhino/Enterovirus (ALBERTO) Influenza Type B (PCR) Misc Test Comment Quality VTE Prophylaxis VTE prophylaxis: pharmacologic ordered
[2024-03-27 09:30] LABS: Hepatitis B Surface Antigen Negative (Negative)
[2024-03-27 09:35] LABS: HAV RESULT Negative (Negative); Hepatitis B Core IgM Result Negative (Negative)
[2024-03-27 09:47] LABS: Hepatitis C Virus Antibody Negative (Negative)
[2024-03-27] MEDS: HEPARIN SOD/D5W 100 UNITS/ML 25,000 UNITS/250 ML BAG 10 UNITS IV CONT (10:29)
--- NOTE | 2024-03-27 11:50 | WPDCN ---
Assessment and Plan Assessment and plan (1) Pneumothorax: Code(s): J93.9 - Pneumothorax, unspecified Status: Acute Assessment and Plan: Left tension pneumothorax secondary to barotrauma. Patient will need emergent placement of a left chest tube to decompress the left chest before she has cardiopulmonary compromise. We will place a large bore left chest tube immediately. HPI Data of Consult Date/Time: 03/25/24 Requesting Physician: Jaimie Beaver PA-C Primary Care Provider: FINISHING ROOM OPERATOR PHYSICIAN Consult Narrative Reason for consult: Tension left pneumothorax likely secondary to trauma Narrative: Danita Wynn is a 58 year old female who has been admitted to the intensive care unit and is on the ventilator for acute respiratory failure. She has developed an acute tension left pneumothorax with right mediastinal shift likely from barotrauma being on the ventilator. I have been asked placed emergent left chest tube. Review of Systems Review of Systems: Unobtainable as the patient is intubated and sedated PMFSH Past Medical History Medical History Neuropathy Panic disorder Agoraphobia Seizures Bipolar disorder Asthma Surgical History Surgical History History of appendectomy History of section History of gastric bypass History of cholecystectomy Social History Social History Alcohol intake: never Substance use type: marijuana Other substance usage details: twice a month Do You Feel Safe in your Home?: Yes Lack of Transportation: No Lack of Food: Sometimes True Current Housing: I Do Not Have Housing Concerned About Future Housing: YES Difficulty Paying Gas/Electric Bills: YES Difficulty Paying for Meds: YES Currently Unemployed: No Education: High School Diploma/GED Difficulty w/ Childcare or Family Care: YES Spiritual care concerns: No Meds Home Medications and Allergies Home Medications ?Medication ?Instructions ?Recorded ?Confirmed ?Type albuterol 90 mcg/actuation aerosol 90 mcg inhalation PRN 03/19/24 03/19/24 History inhaler gabapentin 300 mg capsule 300 mg PO TID 03/19/24 03/19/24 History levetiracetam 1,000 mg tablet 2,000 mg PO BID 03/19/24 03/22/24 History montelukast 10 mg tablet 10 mg PO QPM 03/19/24 03/19/24 History (Singulair) sertraline 150 mg capsule 150 mg PO DAILY 03/19/24 03/19/24 History trazodone 100 mg tablet 200 mg PO QPM 03/19/24 03/19/24 History doxepin 100 mg capsule 100 mg PO HS 03/22/24 03/22/24 History levothyroxine 100 mcg capsule 100 mcg PO DAILY 03/22/24 03/22/24 History Allergies Allergy/AdvReac Type Severity Reaction Status Date / Time Sulfa (Sulfonamide Allergy Swelling Verified 03/19/24 12:27 Antibiotics) Vital Signs Vital Signs - 24 hr 03/26/24 12:00 03/26/24 12:00 03/26/24 12:00 Temperature Pulse Rate 78 73 76 Respiratory Rate 30 H 30 H 30 H Blood Pressure 132/83 Pulse Oximetry Oxygen Delivery Fraction of Inspired Oxygen 03/26/24 12:00 03/26/24 12:00 03/26/24 12:00 Temperature 37.0 C Pulse Rate 75 76 Respiratory Rate 30 H Blood Pressure 132/83 Pulse Oximetry 91 Oxygen Delivery Fraction of Inspired Oxygen 35 03/26/24 12:00 03/26/24 13:00 03/26/24 14:00 Temperature Pulse Rate 77 79 Respiratory Rate 30 H 30 H Blood Pressure 112/72 Pulse Oximetry 91 Oxygen Delivery Mechanical Ventilation Fraction of Inspired Oxygen 40 03/26/24 14:00 03/26/24 14:00 03/26/24 14:00 Temperature 37.1 C Pulse Rate 80 88 79 Respiratory Rate 30 H 30 H 30 H Blood Pressure 124/80 124/80 Pulse Oximetry 90 Oxygen Delivery Fraction of Inspired Oxygen 03/26/24 14:00 03/26/24 14:01 03/26/24 14:06 Temperature Pulse Rate 85 78 82 Respiratory Rate 30 H 30 H Blood Pressure Pulse Oximetry 93 Oxygen Delivery Mechanical Ventilation Fraction of Inspired Oxygen 35 03/26/24 14:11 03/26/24 15:00 03/26/24 16:00 Temperature Pulse Rate 81 81 86 Respiratory Rate 30 H 30 H 30 H Blood Pressure 128/81 Pulse Oximetry Oxygen Delivery Fraction of Inspired Oxygen 03/26/24 16:00 03/26/24 16:00 03/26/24 16:00 Temperature 37.2 C Pulse Rate 89 88 82 Respiratory Rate 30 H 30 H 30 H Blood Pressure 141/81 H 141/81 H Pulse Oximetry 91 Oxygen Delivery Fraction of Inspired Oxygen 03/26/24 16:00 03/26/24 16:00 03/26/24 16:00 Temperature Pulse Rate 86 Respiratory Rate 30 H Blood Pressure Pulse Oximetry 91 Oxygen Delivery Mechanical Ventilation Fraction of Inspired Oxygen 40 35 03/26/24 16:11 03/26/24 16:11 03/26/24 16:56 Temperature Pulse Rate 84 84 82 Respiratory Rate 30 H 30 H Blood Pressure Pulse Oximetry 91 Oxygen Delivery Mechanical Ventilation Fraction of Inspired Oxygen 35 03/26/24 17:00 03/26/24 17:00 03/26/24 18:00 Temperature 37.1 C Pulse Rate 85 90 Respiratory Rate 30 H 30 H Blood Pressure 133/81 133/82 Pulse Oximetry 93 Oxygen Delivery Fraction of Inspired Oxygen 40 03/26/24 18:00 03/26/24 18:00 03/26/24 18:00 Temperature Pulse Rate 87 89 85 Respiratory Rate 30 H 30 H Blood Pressure 133/82 Pulse Oximetry Oxygen Delivery Fraction of Inspired Oxygen 03/26/24 18:00 03/26/24 19:00 03/26/24 19:01 Temperature 37.1 C 37.1 C Pulse Rate 85 86 83 Respiratory Rate 30 H 30 H 30 H Blood Pressure 137/82 Pulse Oximetry Oxygen Delivery Fraction of Inspired Oxygen 03/26/24 19:30 03/26/24 20:00 03/26/24 20:00 Temperature 37.1 C Pulse Rate 90 87 87 Respiratory Rate 30 H 30 H 30 H Blood Pressure 141/85 H Pulse Oximetry 93 Oxygen Delivery Fraction of Inspired Oxygen 03/26/24 20:00 03/26/24 20:00 03/26/24 20:00 Temperature 37.1 C Pulse Rate 87 88 Respiratory Rate 30 H 30 H 30 H Blood Pressure 140/83 140/83 Pulse Oximetry 93 93 Oxygen Delivery Mechanical Ventilation Fraction of Inspired Oxygen 40 03/26/24 20:00 03/26/24 20:00 03/26/24 20:14 Temperature Pulse Rate 94 85 Respiratory Rate Blood Pressure Pulse Oximetry 93 Oxygen Delivery Mechanical Ventilation Fraction of Inspired Oxygen 40 40 03/26/24 20:17 03/26/24 20:23 03/26/24 20:30 Temperature 37.1 C Pulse Rate 85 95 91 Respiratory Rate 30 H 30 H 30 H Blood Pressure 138/85 Pulse Oximetry 92 Oxygen Delivery Fraction of Inspired Oxygen 03/26/24 21:00 03/26/24 21:23 03/26/24 21:23 Temperature 37.1 C Pulse Rate 90 86 86 Respiratory Rate 30 H 30 H 30 H Blood Pressure 136/78 Pulse Oximetry 93 Oxygen Delivery Fraction of Inspired Oxygen 03/26/24 21:26 03/26/24 21:30 03/26/24 22:00 Temperature 37.1 C 37.1 C Pulse Rate 89 91 82 Respiratory Rate 30 H 30 H Blood Pressure 148/86 H 117/83 Pulse Oximetry 94 95 Oxygen Delivery Fraction of Inspired Oxygen 03/26/24 22:00 03/26/24 22:00 03/26/24 22:00 Temperature Pulse Rate 84 84 84 Respiratory Rate 30 H 30 H 30 H Blood Pressure 117/83 Pulse Oximetry Oxygen Delivery Fraction of Inspired Oxygen 03/26/24 22:00 03/26/24 22:30 03/26/24 22:31 Temperature 37.2 C Pulse Rate 82 72 75 Respiratory Rate 30 H 30 H Blood Pressure 113/72 113/72 Pulse Oximetry Oxygen Delivery Fraction of Inspired Oxygen 03/26/24 22:31 03/26/24 22:45 03/26/24 23:00 Temperature Pulse Rate 75 75 73 Respiratory Rate 30 H 30 H 30 H Blood Pressure 113/72 113/72 108/66 Pulse Oximetry Oxygen Delivery Fraction of Inspired Oxygen 03/26/24 23:00 03/26/24 23:19 03/26/24 23:30 Temperature 37.2 C 37.3 C Pulse Rate 73 78 76 Respiratory Rate 30 H 30 H Blood Pressure 108/66 108/66 Pulse Oximetry 95 Oxygen Delivery Mechanical Ventilation Fraction of Inspired Oxygen 40 03/27/24 00:00 03/27/24 00:00 03/27/24 00:00 Temperature Pulse Rate 79 79 79 Respiratory Rate 30 H 30 H 30 H Blood Pressure 119/72 Pulse Oximetry Oxygen Delivery Fraction of Inspired Oxygen 03/27/24 00:00 03/27/24 00:00 03/27/24 00:00 Temperature 37.3 C Pulse Rate 79 Respiratory Rate 30 H 30 H Blood Pressure 119/72 Pulse Oximetry 94 94 Oxygen Delivery Mechanical Ventilation Fraction of Inspired Oxygen 40 40 03/27/24 00:00 03/27/24 00:30 03/27/24 01:00 Temperature 37.3 C 37.3 C Pulse Rate 76 80 81 Respiratory Rate 30 H 30 H Blood Pressure 119/71 121/69 Pulse Oximetry 93 93 Oxygen Delivery Fraction of Inspired Oxygen 03/27/24 01:30 03/27/24 02:00 03/27/24 02:00 Temperature 37.3 C Pulse Rate 78 82 82 Respiratory Rate 30 H 30 H 30 H Blood Pressure 127/77 138/80 Pulse Oximetry 93 Oxygen Delivery Fraction of Inspired Oxygen 03/27/24 02:00 03/27/24 02:00 03/27/24 02:00 Temperature 37.3 C Pulse Rate 82 82 82 Respiratory Rate 30 H 30 H Blood Pressure 138/80 Pulse Oximetry 93 Oxygen Delivery Fraction of Inspired Oxygen 03/27/24 02:27 03/27/24 02:29 03/27/24 02:30 Temperature 37.3 C Pulse Rate 84 83 80 Respiratory Rate 30 H 30 H Blood Pressure 133/71 Pulse Oximetry 93 Oxygen Delivery Mechanical Ventilation Fraction of Inspired Oxygen 40 03/27/24 02:35 03/27/24 02:40 03/27/24 02:54 Temperature Pulse Rate 86 83 83 Respiratory Rate 30 H 30 H 30 H Blood Pressure Pulse Oximetry Oxygen Delivery Fraction of Inspired Oxygen 03/27/24 03:00 03/27/24 03:30 03/27/24 04:00 Temperature 37.2 C 37.2 C Pulse Rate 87 87 89 Respiratory Rate 30 H 30 H 30 H Blood Pressure 150/83 H 154/83 H Pulse Oximetry Oxygen Delivery Fraction of Inspired Oxygen 03/27/24 04:00 03/27/24 04:00 03/27/24 04:00 Temperature Pulse Rate 89 89 Respiratory Rate 30 H 30 H Blood Pressure 155/87 H Pulse Oximetry Oxygen Delivery Fraction of Inspired Oxygen 40 03/27/24 04:00 03/27/24 04:00 03/27/24 04:00 Temperature 37.2 C Pulse Rate 88 88 Respiratory Rate 30 H 30 H Blood Pressure 155/87 H Pulse Oximetry 95 Oxygen Delivery Mechanical Ventilation Fraction of Inspired Oxygen 40 03/27/24 04:15 03/27/24 04:30 03/27/24 04:30 Temperature 37.2 C Pulse Rate 92 90 90 Respiratory Rate 30 H 30 H 30 H Blood Pressure 155/87 H 153/81 H 153/81 H Pulse Oximetry Oxygen Delivery Fraction of Inspired Oxygen 03/27/24 05:00 03/27/24 05:02 03/27/24 05:10 Temperature 37.2 C Pulse Rate 91 90 90 Respiratory Rate 30 H 30 H Blood Pressure 157/80 H Pulse Oximetry 94 Oxygen Delivery Mechanical Ventilation Fraction of Inspired Oxygen 40 03/27/24 05:10 03/27/24 05:17 03/27/24 05:30 Temperature 37.2 C 37.2 C Pulse Rate 90 93 92 Respiratory Rate 30 H 30 H 30 H Blood Pressure 152/79 H 151/83 H Pulse Oximetry Oxygen Delivery Fraction of Inspired Oxygen 03/27/24 06:00 03/27/24 06:00 03/27/24 06:00 Temperature Pulse Rate 93 93 93 Respiratory Rate 30 H 30 H 30 H Blood Pressure 142/82 H Pulse Oximetry Oxygen Delivery Fraction of Inspired Oxygen 03/27/24 06:00 03/27/24 06:00 03/27/24 06:01 Temperature 37.2 C 37.2 C Pulse Rate 90 90 90 Respiratory Rate 30 H 30 H Blood Pressure 142/82 H Pulse Oximetry Oxygen Delivery Fraction of Inspired Oxygen 03/27/24 06:30 03/27/24 07:28 03/27/24 07:28 Temperature 37.2 C Pulse Rate 92 87 87 Respiratory Rate 30 H 30 H 30 H Blood Pressure 143/83 H Pulse Oximetry Oxygen Delivery Fraction of Inspired Oxygen 03/27/24 08:00 03/27/24 08:00 03/27/24 08:00 Temperature 37.1 C Pulse Rate 93 92 92 Respiratory Rate 30 H 30 H 30 H Blood Pressure 163/90 H 163/90 H Pulse Oximetry 93 Oxygen Delivery Fraction of Inspired Oxygen 03/27/24 08:00 03/27/24 08:00 03/27/24 08:29 Temperature Pulse Rate 92 90 100 Respiratory Rate 30 H Blood Pressure Pulse Oximetry 93 Oxygen Delivery Mechanical Ventilation Fraction of Inspired Oxygen 40 03/27/24 08:29 03/27/24 08:40 03/27/24 08:55 Temperature Pulse Rate 100 103 H 100 Respiratory Rate 30 H 30 H Blood Pressure Pulse Oximetry Oxygen Delivery Fraction of Inspired Oxygen 03/27/24 10:00 03/27/24 10:00 03/27/24 10:00 Temperature 36.9 C Pulse Rate 75 77 77 Respiratory Rate 30 H 30 H 30 H Blood Pressure 106/72 106/72 Pulse Oximetry 94 Oxygen Delivery Fraction of Inspired Oxygen 03/27/24 10:00 03/27/24 10:00 03/27/24 10:42 Temperature Pulse Rate 77 77 77 Respiratory Rate 30 H Blood Pressure Pulse Oximetry 95 Oxygen Delivery Mechanical Ventilation Fraction of Inspired Oxygen 40 03/27/24 11:33 Temperature Pulse Rate 73 Respiratory Rate 30 H Blood Pressure 118/75 Pulse Oximetry 97 Oxygen Delivery Fraction of Inspired Oxygen Exam Narrative: Sedated intubated in the intensive care unit. She is not responsive to painful stimulus. Resp: Other: Decreased breath sounds left chest. Results Labs 03/27/24 04:14 03/27/24 04:14 Labs: Short CBC 03/26/24 03/27/24 Range/Units 16:27 04:14 WBC 20.9 H 22.6 H (4.5-10.0) K/mm3 Hgb 11.1 L 11.4 L (12.0-15.0) g/dL Hct 32.9 L 35.2 L (37.0-47.0) % Plt Count 179 203 (150-375) k/mm3 BMP 03/27/24 04:14 Sodium 148 H Potassium 4.1 Chloride 108 H Carbon Dioxide 32 H BUN 30 H Creatinine 0.36 L Glucose 150 H Calcium 9.2 Liver Function 03/27/24 Range/Units 04:14 Total Bilirubin 0.6 (0.2-1.3) mg/dL AST 152 H (14-36) U/L ALT 202 H (6-35) U/L Alkaline Phosphatase 190 H (38-126) U/L Albumin 3.8 (3.5-5.1) g/dL Imaging My impression: I reviewed the chest x-ray the patient has a large tension left pneumothorax with right mediastinal shift.
--- NOTE | 2024-03-27 14:39 | P.OP_ITS ---
Procedure Note - Detailed Date of Procedure 03/25/24 Pre-op Diagnosis Left tension pneumothorax secondary to barotrauma. Post-op Diagnosis Same Procedure Performed Emergent placement of left thoracostomy tube Surgeon Manfred Hinojosa MD Anesthesia General Indications Patient was intubated in the intensive care unit due to respiratory failure. She developed a left pneumothorax likely for barotrauma. There was mediastinal shift to the right consistent with a tension pneumothorax. Any emergent placement of a left chest tube was indicated. Findings Patient had large tension pneumothorax on the left. There is rightward shift of the mediastinal structures. Description of Procedure After review of the chest x-ray showing a tension left pneumothorax an emergent placement of a left chest tube was indicated. Consent was not available from the patient and she was intubated sedated and there was no time to obtain for family and so the procedure was performed emergently without formal consent as I was requested by the building construction inspector to place the chest tube immediately. Patient was placed supine in the intensive care unit bed. The left arm was raised above her head. This exposed the left chest. Left chest, breast and axilla was then prepped and draped usual sterile fashion. I made a transverse incision at the 5th intercostal space mid axillary line. I spread the subcutaneous tissues with a hemostat and then used a large Peon clamp and bluntly entered the left chest above the rib in the 5th intercostal space. Once I entered the left chest and spread the clamp was a immediate large day of air. I then placed a 36 Syrian thoracostomy tube directed towards the apex. There was prompt return of pleural fluid and following the chest tube. The chest was advanced to a distance of 12cm of the tip at the skin. It was then attached to the Pleur-evac device and placed to Pleur-evac suction. I then secured the chest tube in place by placement of a 0 silk suture to secure the chest tube to the skin. The chest tube was then dressed with Vaseline gauze around the the surgeon's side of the chest tube to the chest wall covered by 4x4 gauze and silk tape. Postprocedure chest x-ray was obtained showing re-expansion of the left lung and resolution of the left tension pneumothorax. The patient tolerated the procedure well no complications. All sponges, needles, and instrument counts were correct at the end procedure. EBL was _5__cc. The patient was left intensive care unit stable but guarded condition Implants Thirty-six Syrian thoracostomy tube placed left pleural space directed towards the apex. Estimated Blood Loss 5 Drains No Packing No Pathology None sent Complications No immediate complications Condition Stable Disposition ICU [facility] Billing Surgery - Charge Forward: Surgery Billing
--- NOTE | 2024-03-27 14:43 | P.TS_ITS ---
Transfer Discharge Sum: Prov Provider Date of admission: 03/20/24 09:52 Primary care physician: CERTIFIED NOVELL ADMINISTRATOR PHYSICIAN Admitting clinician: Cristiano Fontenot MD Consults: 03/20/24 Consult to Physician Routine Comment: Left VM for 03/21 [phone]) Consulting Provider: Troy Dawn call center receptionist/MD group to consult: neurology Reason for consultation: seizures Has provider been notified: Yes 03/22/24 Consult to Physician Routine Comment: Consulting Provider: Randolph Hicks call center receptionist/MD group to consult: Dr. Biswas Reason for consultation: Intubation Has provider been notified: Yes 03/23/24 13:46 Consult to Physician Routine Comment: spoke with Dr. Britt @[phone] Consulting Provider: Gerson Britt call center receptionist/ group to consult: Cardiology Reason for consultation: ARIAN to rule out vegetation, multiple positive blood culture Has provider been notified: Yes 03/25/24 Consult to Physician Routine Comment: Consulting Provider: Manfred Hinojosa call center receptionist/MD group to consult: General Surgery Reason for consultation: Large Left Pneumothorax with Rightward Mediastinal Shift, Volume Loss Right Has provider been notified: Yes DS: Admitting Diagnosis Discharge Date 03/27/24 Admitting Diagnosis Acute hypoxic respiratory failure, MRSA bacteremia, MRSA pneumonia, pulmonary embolism, seizures DS: Discharge Diagnosis Discharge Diagnosis (1) Acute hypoxic respiratory failure: Code(s): J96.01 - Acute respiratory failure with hypoxia Status: Acute Assessment and Plan: 03/22: Chest x-ray this morning showed worsening multifocal pneumonia, patient in acute respiratory distress/impending respiratory failure/tachypnea. Discussed with patient regarding intubation to which she was agreeable. 03/22: Patient intubated successfully. Intubation was uneventful -on CMV mode of ventilation, peep of 10, 60% FiO2 -obtain post intubation ABGs, will adjust ventilator accordingly -ABGs and chest x-ray reviewed, ventilator adjusted -continue steroids pneumonia - continue cefepime 2 g IV q.8 hours (03/22), vancomycin and azithromycin -continue bronchodilators -patient on Nimbex for vent synchrony (03/22 evening), she was taken off Nimbex on 03/25/2024, but was replaced on Nimbex infusion due to large left pneumothorax P -continue propofol and fentanyl infusion for Analgosedation -patient was diuresed on patient was diuresed on 03/24 and 03/25, and diuresed well. (2) Pneumothorax: Code(s): J93.9 - Pneumothorax, unspecified Status: Acute Assessment and Plan: Spontaneous large left pneumothorax of unknown etiology -patient was on low tidal volume strategy, peep was only 8 given diffuse bilateral infiltrates. Peak pressures were within normal limits -appreciate surgery inserting large-bore chest -air leak noted, clamped tubing at multiple sites, likely air leak is from within the chest wall cavity. Have secured the chest wall insertion site of the chest to with Vaseline gauze. Discussed with surgery, recommended since the same 03/27: CXR Shows a residual small left apical pneumothorax (3) Influenza A: Code(s): J10.1 - Influenza due to other identified influenza virus with other respiratory manifestations Status: Acute Assessment and Plan: Patient was positive for influenza A on admission, status post 5 days of Tamiflu (4) Bacteremia: Code(s): R78.81 - Bacteremia Status: Acute Assessment and Plan: Patient has MRSA bacteremia -03/19/2024: Blood cultures growing MRSA 2/2 bottles -03/19/2024: Sputum culture growing MRSA -03/22/2024: Repeat Blood culture MRSA 2 or 2 bottles -03/25: Repeat blood cultures, again growing gram-positive cocci in clusters Discussed with [facility] associate dean of students, will transfer the patient for Infectious Disease and higher level of care since patient has been on vancomycin since admission -appreciate cardiology evaluation and recommendations, 03/24: ARIAN planned without any vegetations/negative for infective endocarditis -transthoracic echocardiogram did not show any vegetations (5) Multifocal pneumonia: Code(s): J18.9 - Pneumonia, unspecified organism Status: Acute Assessment and Plan: Chest x-ray and CTA chest showed multifocal pneumonia -continue antibiotics, mechanical ventilation, steroids (6) Pulmonary embolism: Code(s): I26.99 - Other pulmonary embolism without acute cor pulmonale Status: Acute Assessment and Plan: Patient given tachycardia and tachypneic, -patient had some bloody secretions, so apixaban was held -low clot burden -hemoglobin is stable, 03/27: Start heparin infusion 03/20/2024: CTA chest Acute nonocclusive segmental right lower lobe embolus. Low clot burden. No CT evidence of right heart strain. Worsening multifocal pneumonia, overlying asymmetric areas of pulmonary edema. Diffuse mild chest wall subcutaneous edema. (7) Seizures: Code(s): R56.9 - Unspecified convulsions Status: Acute Assessment and Plan: Patient has a history of seizures and presented with seizures on the day of admission and the day prior to that. -continue Keppra, Trileptal (8) Sepsis: Qualifiers: Sepsis type: sepsis due to unspecified organism Sepsis acute organ dysfunction status: without acute organ dysfunction Qualified Code(s): A41.9 - Sepsis, unspecified organism Code(s): A41.9 - Sepsis, unspecified organism Status: Acute Assessment and Plan: Patient fulfilled the criteria of sepsis -now bacteremic, -cultures and antibiotics as above (9) Hypertension: Code(s): I10 - Essential (primary) hypertension Status: Acute Assessment and Plan: Systolic blood pressures have been in the 170s and 180s, -continue metoprolol and amlodipine (10) Electrolyte imbalance: Code(s): E87.8 - Other disorders of electrolyte and fluid balance, not elsewhere classified Status: Acute Assessment and Plan: Hypernatremia, sodium 150 this morning, increase tube feed flush to 150 mL q.4 hours -sodium trending down, continue free water flushes Plan DVT prophylaxis: SCDs, will start heparin infusion as hemoglobin has been stable and no bloody ET tube secretion Stress ulcer prophylaxis: Protonix Nutrition: Tolerating tube feeds Code Status: Full code Critical Care Time Spent: [address] Blackman (associate dean of students), at [facility], patient has been accepted to be transferred for infectious disease consult for repeated MRSA and blood cultures and for higher level of care. Family has been updated. Patient be transferred on 03/27/2024 as they have a bed available Due to a high probability of clinically significant, life threatening deterioration, the patient required my highest level of preparedness to intervene emergently and I personally spent this critical care time directly and personally managing the patient. This critical care time included obtaining a history; examining the patient; pulse oximetry; ordering and review of studies; arranging urgent treatment with development of a management plan; evaluation of patient's response to treatment; frequent reassessment; and discussions with other providers. It was exclusive of separately billable procedures and treating other patients and teaching time. Please see Assessment and Plan section and the rest of the note for further information on patient assessment and treatment This dictation may have been done utilizing a voice recognition system. Attempts have been made to correct errors. However, there may be uncorrected grammatical, spelling, and recognitions errors present. Transfer Discharge Sum: Med Medications Active and Home Medications: Home Medications albuterol 90 mcg/actuation aerosol inhaler 90 mcg inhalation PRN 03/19/24 [History Confirmed 03/19/24] gabapentin 300 mg capsule 300 mg PO TID 03/19/24 [History Confirmed 03/19/24] levetiracetam 1,000 mg tablet 2,000 mg PO BID 03/19/24 [History Confirmed ] montelukast 10 mg tablet (Singulair) 10 mg PO QPM 03/19/24 [History Confirmed 03/19/24] sertraline 150 mg capsule 150 mg PO DAILY 03/19/24 [History Confirmed 03/19/24] trazodone 100 mg tablet 200 mg PO QPM 03/19/24 [History Confirmed 03/19/24] doxepin 100 mg capsule 100 mg PO HS 03/22/24 [History Confirmed 03/22/24] levothyroxine 100 mcg capsule 100 mcg PO DAILY 03/22/24 [History Confirmed 07/09] Transfer Discharge Sum: Hosp Hospital Course Hospital course: Acute hypoxic respiratory failure, acute respiratory distress, impending respiratory failure, sepsis, MRSA bacteremia, multifocal pneumonia, pulmonary embolism, seizures HPI: Danita Wynn is a 58 year old female home a past medical history of seizures, neuropathy, and the phobia, panic disorder, bipolar and asthma presented the ED on 03/19/2024 with complains of with witnessed seizures at home. She also complained of shortness of breath, cough, fevers, rhinorrhea, dizziness and congestion. The symptoms were ongoing for approximately 5 days. In the ER patient was found to be positive for influenza A and was started on Tamiflu. Chest x-ray showed bilateral airspace opacities which was suspicious was pneumonia. CT head did not show any acute intracranial abnormality. C-spine showed preservation of normal curvature of the cervical spine, multifocal infiltrates within the chest and no acute fractures. Patient was admitted to the medical floor, started on ceftriaxone and azithromycin. -03/19/2024 blood cultures positive for MRSA, -03/19/2024 sputum cultures positive for MRSA -03/20/2024 CTA chest was done secondary to shortness of breath and tachycardia, acute non occlusive segmental right lower lobe emboli, low clot burden. No CT evidence of right heart strain. Worsening multifocal pneumonia, overlying asymmetric areas of pulmonary edema. Diffuse mild chest wall subcutaneous edema 03/22/2024: Patient was being transferred to intermediate Unit, discussed with assistant professor of nursing was made to evaluate the patient. Chest x-ray was reviewed along CTA chest. Patient was breathing 40+ times a minute, tachycardic in the 130s to 140s seem to be in severe respiratory distress. Asked the nursing directed to place the patient in the ICU. I discussed with the patient at length regarding intubation secondary impending respiratory failure, she was agreeable. Patient was intubated successfully. Remains tachycardic, could be related to adrenergic response. Sedated with propofol infusion. Prior to intubation patient was awake, able to answer questions and follow commands. Currently sedated, hemodynamically stable, afebrile 03/24: Started on Nimbex infusion for ventilator synchrony 03/24: ARIAN was negative for any vegetations/infective endocarditis 03/25: Patient dropped her O2 sats, with increasing FiO2 requirements, stat chest x-ray showed large left pneumothorax status post chest tube placement by surgery 03/27: Repeat blood cultures from 03/25/2024 growing gram-positive cocci in clusters. Called [facility] to transfer patient for Infectious Disease due to recurrent MRSA bacteremia, and for higher level of care given patient's severity of pneumonia and ventilator requirements. Time Spent with Patient Time attestation: Total time spent providing and/or coordinating transfer services: Total time spent: Less than 30 minutes Exam Narrative: General: Intubated and sedated, in no acute does HEENT:? Pupils equal and reactive, sclerae is clear, ETT in place Neck:? Supple Respiratory:? Coarse breath sounds bilaterally, adequate air entry, no wheezing, bilateral diffuse rales Chest: Left sided chest tube in place, air leak noted Cardiac:? S1-S2 normal, tachycardic Abdomen:? Soft, nontender, nondistended, hypoactive bowel sound Extremities:? no edema, palpable pedal pulses Neuro:? Intubated, sedated at this time, patient also on Nimbex for ventilator synchrony ( prior to intubation patient was awake, alert, able to answer questions and follows simple commands appropriately) Skin:? No skin lesions noted Psych:? Unable to assess at this time DS: Data Data Completed and Pending Labs on day of discharge: Labs from last 24 hours 03/27/24 03/27/24 03/27/24 06:33 04:37 04:14 WBC 22.6 H RBC 4.21 Hgb 11.4 L Hct 35.2 L MCV 83.6 MCH 27.1 MCHC 32.4 RDW 15.1 H Plt Count 203 MPV 11.6 H Immature Gran % (Auto) Not Reportable Neut % (Auto) Not Reportable Lymph % (Auto) Not Reportable Cole % (Auto) Not Reportable Eos % (Auto) Not Reportable Baso % (Auto) Not Reportable Lymph # (Auto) Not Reportable Cole # (Auto) Not Reportable Eos # (Auto) Not Reportable Baso # (Auto) Not Reportable Abs Immat Gran (auto) Not Reportable Absolute Neuts (auto) Not Reportable Absolute Nucleated RBC Not Reportable Total Counted 100 Neutrophils % (Manual) 90 H Band Neutrophils % 6 Lymphocytes % (Manual) 3.0 L Monocytes % (Manual) 1 L Metamyelocytes % Nucleated RBC % Not Reportable Abs Neuts (Manual) 21.69 H Abs Lymphs (Manual) 0.67 L Abs Monocytes (Manual) 0.22 Platelet Estimate Adequate Target Cells 2+ Ovalocytes Schistocytes None seen Puncture Site Left radial ABG pH 7.331 L ABG pCO2 61.3 H* ABG pO2 66.1 L ABG PO2/FiO2 Ratio 1.65 ABG HCO3 31.7 H ABG O2 Saturation 91.2 L ABG O2 Content 15.4 L ABG Base Excess 4.3 A-a Gradient 148.6 Oxyhemoglobin 89.6 L Carboxyhemoglobin 1.2 Methemoglobin 0.3 Reduced Hemoglobin 8.9 H Total Hemoglobin 12.2 O2 Delivery Device Ventilator O2 Liters/Min Not Reportable Minute Volume Not Reportable Vent Rate 30 Vent Mode Cmv FiO2 40 Tidal Volume 340 PEEP 5 Peak Inspir Pressure Not Reportable Pressure Support Not Reportable Sodium 148 H Potassium 4.1 Chloride 108 H Carbon Dioxide 32 H Anion Gap 8 BUN 30 H Creatinine 0.36 L Estim Creat Clear Calc 105 Estimated GFR > 60 Glucose 150 H POC Capillary Glucose 140 H Calcium 9.2 Phosphorus 3.7 Magnesium 2.2 Total Bilirubin 0.6 AST 152 H ALT 202 H Alkaline Phosphatase 190 H Total Protein 7.0 Albumin 3.8 Nasal RSV Type A (PCR) Nasal RSV Type B (PCR) Vancomycin Trough Chlamy pneumoniae PCR Adenovirus DNA Human Bocavirus (ALBERTO) Coronavirus Type OC43 Coronavirus Type HKU1 Coronavirus Type 229E Coronavirus Type NL63 Hepatitis A IgM Ab Negative Hep Bs Antigen Negative Hep B Core IgM Ab Negative Hepatitis C Ab Screen Negative Human Metapneumovir PCR Influenza A (PCR) Influenza A (H1) RNA Influenza A (H3) PCR M. pneumoniae DNA Parainfluenza PCR Parainfluenza 2 (PCR) Parainfluenza 3 RNA (PCR) Parainfluenza 4 (PCR) Rhino/Enterovirus (ALBERTO) Influenza Type B (PCR) Misc Test Comment 03/26/24 03/26/24 03/26/24 23:57 17:16 16:44 WBC RBC Hgb Hct MCV MCH MCHC RDW Plt Count MPV Immature Gran % (Auto) Neut % (Auto) Lymph % (Auto) Cole % (Auto) Eos % (Auto) Baso % (Auto) Lymph # (Auto) Cole # (Auto) Eos # (Auto) Baso # (Auto) Abs Immat Gran (auto) Absolute Neuts (auto) Absolute Nucleated RBC Total Counted Neutrophils % (Manual) Band Neutrophils % Lymphocytes % (Manual) Monocytes % (Manual) Metamyelocytes % Nucleated RBC % Abs Neuts (Manual) Abs Lymphs (Manual) Abs Monocytes (Manual) Platelet Estimate Target Cells Ovalocytes Schistocytes Puncture Site Right radial ABG pH 7.380 ABG pCO2 48.9 H ABG pO2 59.2 L ABG PO2/FiO2 Ratio 1.69 ABG HCO3 28.3 H ABG O2 Saturation 89.9 L ABG O2 Content 14.3 L ABG Base Excess 2.5 A-a Gradient 133.5 Oxyhemoglobin 87.8 L* Carboxyhemoglobin 1.1 Methemoglobin 0.3 Reduced Hemoglobin 10.8 H Total Hemoglobin 11.6 L O2 Delivery Device Ventilator O2 Liters/Min Not Reportable Minute Volume Not Reportable Vent Rate 30 Vent Mode Cmv FiO2 35 Tidal Volume 340 PEEP 5 Peak Inspir Pressure Not Reportable Pressure Support Not Reportable Sodium Potassium Chloride Carbon Dioxide Anion Gap BUN Creatinine Estim Creat Clear Calc Estimated GFR Glucose POC Capillary Glucose 122 H 120 H Calcium Phosphorus Magnesium Total Bilirubin AST ALT Alkaline Phosphatase Total Protein Albumin Nasal RSV Type A (PCR) Nasal RSV Type B (PCR) Vancomycin Trough Chlamy pneumoniae PCR Adenovirus DNA Human Bocavirus (ALBERTO) Coronavirus Type OC43 Coronavirus Type HKU1 Coronavirus Type 229E Coronavirus Type NL63 Hepatitis A IgM Ab Hep Bs Antigen Hep B Core IgM Ab Hepatitis C Ab Screen Human Metapneumovir PCR Influenza A (PCR) Influenza A (H1) RNA Influenza A (H3) PCR M. pneumoniae DNA Parainfluenza PCR Parainfluenza 2 (PCR) Parainfluenza 3 RNA (PCR) Parainfluenza 4 (PCR) Rhino/Enterovirus (ALBERTO) Influenza Type B (PCR) Misc Test Comment 03/26/24 03/26/24 03/22/24 16:27 15:28 14:50 WBC 20.9 H RBC 3.98 L Hgb 11.1 L Hct 32.9 L MCV 82.7 MCH 27.9 MCHC 33.7 RDW 14.8 H Plt Count 179 MPV 11.4 H Immature Gran % (Auto) Not Reportable Neut % (Auto) Not Reportable Lymph % (Auto) Not Reportable Cole % (Auto) Not Reportable Eos % (Auto) Not Reportable Baso % (Auto) Not Reportable Lymph # (Auto) Not Reportable Cole # (Auto) Not Reportable Eos # (Auto) Not Reportable Baso # (Auto) Not Reportable Abs Immat Gran (auto) Not Reportable Absolute Neuts (auto) Not Reportable Absolute Nucleated RBC Not Reportable Total Counted 100 Neutrophils % (Manual) 83 H Band Neutrophils % 8 H Lymphocytes % (Manual) 6 L Monocytes % (Manual) 1 L Metamyelocytes % 2 Nucleated RBC % Not Reportable Abs Neuts (Manual) 19.01 H Abs Lymphs (Manual) 1.25 Abs Monocytes (Manual) 0.20 Platelet Estimate Adequate Target Cells 2+ Ovalocytes 1+ Schistocytes None seen Puncture Site ABG pH ABG pCO2 ABG pO2 ABG PO2/FiO2 Ratio ABG HCO3 ABG O2 Saturation ABG O2 Content ABG Base Excess A-a Gradient Oxyhemoglobin Carboxyhemoglobin Methemoglobin Reduced Hemoglobin Total Hemoglobin O2 Delivery Device O2 Liters/Min Minute Volume Vent Rate Vent Mode FiO2 Tidal Volume PEEP Peak Inspir Pressure Pressure Support Sodium Potassium Chloride Carbon Dioxide Anion Gap BUN Creatinine Estim Creat Clear Calc Estimated GFR Glucose POC Capillary Glucose Calcium Phosphorus Magnesium Total Bilirubin AST ALT Alkaline Phosphatase Total Protein Albumin Nasal RSV Type A (PCR) Not detected Nasal RSV Type B (PCR) Not detected Vancomycin Trough 16.6 Chlamy pneumoniae PCR Not detected Adenovirus DNA Not detected Human Bocavirus (ALBERTO) Not detected Coronavirus Type OC43 Not detected Coronavirus Type HKU1 Not detected Coronavirus Type 229E Not detected Coronavirus Type NL63 Not detected Hepatitis A IgM Ab Hep Bs Antigen Hep B Core IgM Ab Hepatitis C Ab Screen Human Metapneumovir PCR Not detected Influenza A (PCR) Detected A Influenza A (H1) RNA Detected A Influenza A (H3) PCR Not detected M. pneumoniae DNA Not detected Parainfluenza PCR Not detected Parainfluenza 2 (PCR) Not detected Parainfluenza 3 RNA (PCR) Not detected Parainfluenza 4 (PCR) Not detected Rhino/Enterovirus (ALBERTO) Not detected Influenza Type B (PCR) Not detected Misc Test Comment see note Preliminary micro results at discharge 03/25/24 06:47 Blood Culture - Preliminary Blood Gram positive cocci cluster is 03/25/24 06:47 Blood Culture - Preliminary Blood 03/22/24 05:42 Blood Culture - Preliminary Blood Methicillin Resis Staph Aureus 03/22/24 05:51 Blood Culture - Preliminary Blood Methicillin Resis Staph Aureus
[2024-03-27 18:08] LABS: Pneumococcal Antigen Urine NOT DETECTED
[2024-03-29 01:04] LABS: Legionella pneumophila Ag Ur NOT DETECTED
== END 2024-03-27 11:43 | disposition short-term general hospital (02) | DRG 870 ==
LOC: ANHED 15:01 → ANH2MED 16:10 → ANHICU 03-22 16:20 → ANH2MED 03-28 09:51
PROVIDERS: Internal Medicine; Internal Medicine Pulmonary Disease; Nurse Practitioner; Student in an Organized Health Care Education/Training Program; Admitting Provider General Practice; Emergency Provider Emergency Medicine; Visit Provider Internal Medicine
PROC: B24BZZ4 Ultrasonography of Heart with Aorta, Transesophageal (ICD-10-PCS; CPT 93312; principal; 2024-03-24 13:00)
DX: A41.02 Sepsis due to Methicillin resistant Staphylococcus aureus (principal); I26.99 Other pulmonary embolism without acute cor pulmonale; J10.08 Influenza due to other identified influenza virus with other specified pneumonia; J96.01 Acute respiratory failure with hypoxia; J18.9 Pneumonia, unspecified organism; J93.0 Spontaneous tension pneumothorax; Z59.00 Homelessness unspecified; J45.901 Unspecified asthma with (acute) exacerbation; E87.0 Hyperosmolality and hypernatremia; F31.9 Bipolar disorder, unspecified; G40.909 Epilepsy, unspecified, not intractable, without status epilepticus; E11.40 Type 2 diabetes mellitus with diabetic neuropathy, unspecified; F40.01 Agoraphobia with panic disorder; I10 Essential (primary) hypertension; Z98.84 Bariatric surgery status; F12.10 Cannabis abuse, uncomplicated; Z20.822 Contact with and (suspected) exposure to COVID-19
CPT/HCPCS: 31500; 36415; 36569; 36600; 70450; 71045; 71275; 72125; 80048; 80053; 80074; 80202; 81001; 82375; 82805; 82948; 83036; 83050; 83605; 83735; 83880; 84100; 84145; 84478; 85018; 85025; 85027; 85610; 85730; 86140; 86738; 87040; 87070; 87181; 87205; 87449; 87633; 87637; 87641; 87899; 93005; 93306; 93312; 93320; 93325; 94002; 94003; 94640; 94669; 96361; 96365; 96366; 96367; 96374; 96375; 99285; A9270; C1729; C1751; G0378; J0456; J0692; J0696; J1205; J1644; J1720; J1885; J1940; J1953; J2250; J2470; J2704; J3010; J3370; J3480; J7030; J7040; J7120; J7512; P9047; Q9967